=== PATIENT | female | born 1955 ===

== ENCOUNTER 2020-04-29 | Outpatient (REF) | payer MEDICARE, MEDICAID, SELFPAY | END 2020-04-29 00:01 | disposition home or self-care (01) | LOC: HO.LNP | PROVIDERS: Visit Provider Nurse Practitioner Family | DX: N39.0 Urinary tract infection, site not specified (principal) | CPT/HCPCS: 87086 ==

== ENCOUNTER 2020-06-13 10:16 | Outpatient (REF) | payer MEDICARE, MEDICAID, SELFPAY ==
[2020-06-13 12:14] LABS: Glucose Urine UA NEG (NEG); Leukocyte Esterase Urine NEG (NEG); Nitrite Urine NEG (NEG); Specific Gravity - Urine 1.025 (1.005-1.025); Urine Blood 2+ (NEG); Urine Ketones NEG (NEG); Urine Protein NEG (NEG-TRACE)
[2020-06-13 12:15] LABS: Appearance Urine HAZY; Color Urine YELLOW
[2020-06-13 12:22] LABS: MANUAL DIFF FLAG NO
[2020-06-13 12:24] LABS: Basophils Percent Auto 0.5 % (0-2); Eosinophils Absolute Auto 0.1 X10*3/uL (0.0-0.4); Eosinophils Percent Auto 1.3 % (0-4); Hematocrit 43.1 % (37-47); Hemoglobin 13.7 g/dl (12.0-16.0); Imm Gran Abs Auto 0.01 X10*3/uL (0.00-0.03); Imm Gran Pct Auto 0.3 % (0.0-0.4); Lymphocytes Absolute Auto 1.6 X10*3/uL (1.2-4.9); Lymphocytes Percent Auto 40.1 % (20-40); Mean Corpuscular HGB Conc 31.8 g/dl (31.0-35.0); Mean Corpuscular Hemoglobin 27.6 pg (27.0-33.0); Mean Corpuscular Volume 86.7 fL (80-98); Monocytes Absolute Auto 0.2 X10*3/uL (0.1-1.2); Monocytes Percent Auto 5.8 % (2-11); Neutrophils Absolute Auto 2.1 X10*3/uL (2.0-8.3); Platelet Count 254 X10*3/uL (160-400); Red Blood Count 4.97 X10*6/uL (4.20-5.50); Red Cell Distribution Width 14.3 % (11.0-16.0); White Blood Count 3.9 X10*3/uL (4.8-10.8)
[2020-06-13 12:25] LABS: RBC Urine 0-2 /HPF (0); Squamous Epithelial Cell Urine TRACE /LPF; WBC Urine 0 /HPF (0-4)
[2020-06-13 12:53] LABS: Alanine Aminotransferase 24 U/L (0-31); Albumin Level 4.1 g/dL (3.5-5.0); Alkaline Phosphatase 88 U/L (39-117); Anion Gap 10 (12-20); Aspartate Amino Transferase 19 U/L (5-31); Bilirubin Total 0.5 mg/dL (0.0-1.0); Blood Urea Nitrogen 14 mg/dL (9-16); Calcium 8.9 mg/dL (8.4-10.2); Carbon Dioxide 28 mmol/L (22-29); Chloride 104 mmol/L (96-108); Estimated Glomerular Filt Rate > 60; Glucose Random 91 mg/dL (60-115); Potassium 4.3 mmol/l (3.3-5.1); Sodium 138 mmol/L (135-145); Total Protein 7.4 g/dL (6.5-8.0)
== END 2020-06-13 10:17 | disposition home or self-care (01) ==
LOC: HO.LAB 10:16
PROVIDERS: PCP Internal Medicine; Visit Provider Internal Medicine
DX: K76.89 Other specified diseases of liver (principal); K21.9 Gastro-esophageal reflux disease without esophagitis; N39.0 Urinary tract infection, site not specified
CPT/HCPCS: 36415; 80053; 81001; 81003; 85025

== ENCOUNTER 2020-06-18 08:48 | Outpatient (REF) | payer MEDICARE, MEDICAID, SELFPAY ==
--- NOTE | 2020-06-18 08:51 | US_ITS ---
EXAMINATION: US ABDOMEN LIMITED CLINICAL INFORMATION: Unspecified disease of liver. COMPARISON: None TECHNIQUE: Real-time imaging of the right upper quadrant abdominal viscera. FINDINGS: PANCREAS: Not visualized due to bowel gas. LIVER: Liver echotexture is increased, probably representing fatty infiltration. There is a 4.6 x 4 x 3.5 cm hypoechoic area in the central liver anterior to the main portal vein, question representing a complex cyst or fluid collection.There is no intrahepatic biliary duct dilatation seen. GALLBLADDER: Surgically absent. COMMON BILE DUCT: Normal in caliber measuring 0.7 cm in diameter. RIGHT KIDNEY: Normal. No hydronephrosis. No renal calculi or focal parenchymal lesions. The kidney measures 10.1 cm in maximum dimension. FREE FLUID: None. US/US abdomen limited IMPRESSION: Echogenic liver probably representing fatty infiltration. 4.6 x 4 x 3.5 cm central periportal complex cyst or fluid collection. Comparison with old outside exams available is recommended. Otherwise, this could be better characterization with CT or MRI. Nonvisualization of the pancreas.
== END 2020-06-18 08:49 | disposition home or self-care (01) ==
LOC: HO.US 08:48
PROVIDERS: PCP Internal Medicine; Visit Provider Internal Medicine
DX: K76.89 Other specified diseases of liver (principal)
CPT/HCPCS: 76705

== ENCOUNTER 2020-07-05 11:24 | Outpatient (REF) | payer MEDICARE, MEDICAID, SELFPAY ==
[2020-07-05 12:08] LABS: MANUAL DIFF FLAG NO
[2020-07-05 12:09] LABS: Glucose Urine UA NEG (NEG); Leukocyte Esterase Urine NEG (NEG); Nitrite Urine NEG (NEG); PH 6.5 (5.0-8.0); Urine Blood 2+ (NEG); Urine Ketones NEG (NEG); Urine Protein NEG (NEG-TRACE)
[2020-07-05 12:11] LABS: Appearance Urine HAZY; Color Urine YELLOW
[2020-07-05 12:17] LABS: Basophils Percent Auto 0.7 % (0-2); Eosinophils Absolute Auto 0.1 X10*3/uL (0.0-0.4); Eosinophils Percent Auto 1.1 % (0-4); Hematocrit 43.3 % (37-47); Hemoglobin 13.9 g/dl (12.0-16.0); Imm Gran Abs Auto 0.02 X10*3/uL (0.00-0.03); Imm Gran Pct Auto 0.5 % (0.0-0.4); Lymphocytes Absolute Auto 1.8 X10*3/uL (1.2-4.9); Lymphocytes Percent Auto 41.3 % (20-40); Mean Corpuscular HGB Conc 32.1 g/dl (31.0-35.0); Mean Corpuscular Hemoglobin 27.4 pg (27.0-33.0); Mean Corpuscular Volume 85.4 fL (80-98); Mean Platelet Volume 9.7 fL (9.4-12.3); Monocytes Absolute Auto 0.3 X10*3/uL (0.1-1.2); Neutrophils Absolute Auto 2.2 X10*3/uL (2.0-8.3); Neutrophils Percent Auto 49.4 % (45-73); Platelet Count 254 X10*3/uL (160-400); Red Blood Count 5.07 X10*6/uL (4.20-5.50); Red Cell Distribution Width 14.4 % (11.0-16.0); White Blood Count 4.4 X10*3/uL (4.8-10.8)
[2020-07-05 12:27] LABS: Bacteria Urine TRACE /LPF; Mucus Urine TRACE /LPF; Squamous Epithelial Cell Urine 3+ /LPF; WBC Urine 0 /HPF (0-4)
== END 2020-07-05 11:25 | disposition home or self-care (01) ==
LOC: HO.LAB 11:24
PROVIDERS: PCP Internal Medicine; Visit Provider Internal Medicine
DX: D72.819 Decreased white blood cell count, unspecified (principal); R30.0 Dysuria
CPT/HCPCS: 36415; 81001; 85025

== ENCOUNTER → 2020-07-19 11:32 | Outpatient (BNVA) | payer MEDICARE, MEDICAID, SELFPAY | PROVIDERS: PCP Internal Medicine; Visit Provider Internal Medicine Gastroenterology | DX: Z13.89 Encounter for screening for other disorder (principal) | CPT/HCPCS: Q3014 ==

== ENCOUNTER 2020-07-25 07:56 | Outpatient (REF) | payer MEDICARE, MEDICAID, SELFPAY ==
--- NOTE | ~2020-07-25 | MR_ITS ---
EXAMINATION: MR ABDOMEN WITHOUT AND WITH CONTRAST CLINICAL INFORMATION: Probable hepatic steatosis. Hypoechoic lesion liver on ultrasound 4.6 x 3.5 cm. COMPARISON: Ultrasound abdomen 06/18/2020 TECHNIQUE: MR abdomen was performed without and with use of 9 mL intravenous Gadavist gadolinium contrast. Postcontrast images are performed in multiphase dynamic sequences. Imaging was performed in 3 planes. FINDINGS: LUNG BASES: The visualized lung bases are unremarkable. LIVER, GALLBLADDER, AND BILIARY TREE: The liver is normal in size measuring 17 cm in length. The liver surface is smooth. There is signal loss on out of phase imaging consistent with hepatic steatosis. There is been prior cholecystectomy. No intrahepatic ductal dilatation. The common duct is unremarkable, under 4 mm in caliber. There is a macrolobulated cyst in the gallbladder fossa extending into the interlobar fissure measuring 4.3 x 4.1 cm. This is uniformly high signal on T2 with high signal precontrast T1 gradient sequence. There is no internal or peripheral dephasing to suggest old hematoma. There is no enhancement following contrast, signal intensity precontrast is 605 and post contrast 597 arterial phase, and 598 delayed phase. There is no parenchymal enhancing lesion or lesion with delayed washout in the liver. Several hepatic cysts are present, largest subcapsular segment 7 measuring 2.6 cm. There is a cyst anterior dome right lobe measuring 1.8 x 1.3 cm and 3 smaller cysts inferior right lobe measuring 1.6 cm, 1.4 cm, and under 1 cm, respectively. PANCREAS: Unremarkable. SPLEEN: Normal. ADRENAL GLANDS: Normal. KIDNEYS AND URETERS: The kidneys are normal in size and show no hydronephrosis. There is symmetric enhancement. Small hemorrhagic cyst is present between upper and midpole left kidney measuring approximately 1.2 cm. GASTROINTESTINAL TRACT: No bowel obstruction. No ascites or fluid collection. ABDOMINAL WALL: No significant hernia is appreciated. LYMPH NODES: No lymphadenopathy. VASCULAR: Abdominal aorta normal in caliber. Hepatic veins and portal veins enhance normally. OSSEOUS STRUCTURES: No acute bony abnormality. MR/MR abdomen wo/w con IMPRESSION: 1. Prior cholecystectomy. No biliary ductal dilatation. 2, Nonenhancing high signal lesion gallbladder fossa 4.3 cm x 4.1 cm likely cyst or non-obstructing biloma with increased signal from protein content. No dephasing to suggest old hematoma. 2. Several hepatic cysts, largest 2.6 cm. 3. Small hemorrhagic cyst left kidney 1.2 cm.
== END 2020-07-25 07:57 | disposition home or self-care (01) ==
LOC: HO.MRI 07:56
PROVIDERS: Visit Provider Internal Medicine Gastroenterology
DX: K76.89 Other specified diseases of liver (principal)
CPT/HCPCS: 74183; A9585

== ENCOUNTER 2020-07-31 10:45 | Outpatient (REF) | payer MEDICARE, MEDICAID, SELFPAY ==
[2020-07-31 12:01] LABS: Blood Urea Nitrogen 11 mg/dL (9-16); Estimated Glomerular Filt Rate > 60
[2020-08-01 11:17] LABS: Alpha Fetoprotein 8.5 ng/mL; Carbohydrate Antigen 19-9 37 U/mL (<34)
== END 2020-07-31 10:46 | disposition home or self-care (01) ==
LOC: HO.LAB 10:45
PROVIDERS: Visit Provider Internal Medicine Gastroenterology
DX: K76.89 Other specified diseases of liver (principal)
CPT/HCPCS: 36415; 82105; 82378; 82565; 84520; 86301

== ENCOUNTER → 2020-08-13 13:02 | Outpatient (BNV) | payer MEDICARE, MEDICAID, SELFPAY | PROVIDERS: PCP Internal Medicine; Referring Provider Internal Medicine; Visit Provider Internal Medicine | DX: D72.819 Decreased white blood cell count, unspecified (principal); E53.8 Deficiency of other specified B group vitamins | CPT/HCPCS: 99203; 99213; 99214 ==

== ENCOUNTER → 2020-08-26 08:48 | Outpatient (BNVA) | payer MEDICARE, MEDICAID, SELFPAY | PROVIDERS: PCP Internal Medicine; Visit Provider Internal Medicine Gastroenterology | DX: K76.0 Fatty (change of) liver, not elsewhere classified (principal); K76.89 Other specified diseases of liver; K21.9 Gastro-esophageal reflux disease without esophagitis | CPT/HCPCS: 99212 ==

== ENCOUNTER 2020-12-06 11:18 | Outpatient (REF) | payer MEDICARE, MEDICAID, SELFPAY ==
[2020-12-06 13:19] LABS: Folate 17.2 ng/mL (> or = 4.0); Vitamin B12 378 pg/mL (200-900)
[2020-12-06 14:46] LABS: Glucose Urine UA NEG (NEG); Leukocyte Esterase Urine 1+ (NEG); Nitrite Urine NEG (NEG); UACC Culture Trigger YES; Urine Blood TRACE (NEG); Urine Ketones NEG (NEG); Urine Protein NEG (NEG-TRACE)
[2020-12-06 15:03] LABS: Appearance Urine CLEAR; Color Urine YELLOW
[2020-12-06 15:19] LABS: Renal Epithelial Cells Urine TRACE /LPF; Squamous Epithelial Cell Urine 1+ /LPF; WBC Urine 0-2 /HPF (0-4)
== END 2020-12-06 11:19 | disposition home or self-care (01) ==
LOC: HO.LAB 11:18
PROVIDERS: PCP Internal Medicine; Visit Provider Internal Medicine
DX: E53.8 Deficiency of other specified B group vitamins (principal); R30.0 Dysuria
CPT/HCPCS: 36415; 81001; 81003; 82607; 82746; 87086

== ENCOUNTER 2020-12-24 08:39 | Day surgery (SDC) | payer MEDICARE, MEDICAID, SELFPAY ==
[2020-12-19 11:25] VITALS: BMI 34.0
--- NOTE | 2020-12-23 09:35 | P.CONAN_ITS ---
Documented by User: Karmen Roque 12/23/20 09:36 HPI - Anesthesia Eval Consult details Narrative: 65yo F for Upper Endoscopy and Colon[facility] Active Problems Active Problems: All Active Problems (Updated 11/28/20 @ 09:15 by Rosaura Hunt MD) UTI (urinary tract infection) (Acute) B12 deficiency (Acute) NAFL (nonalcoholic fatty liver) (Acute) Microscopic hematuria (Acute) Leukopenia (Acute) Liver cyst (Acute) Anxiety (Acute) GERD (gastroesophageal reflux disease) (Acute) Medicare annual wellness visit, initial (Acute) Papilloma of external ear (Acute) Otitis media (Acute) Urinary tract infection (Acute) Past Medical History Medical History Anxiety B12 deficiency Diverticulosis GERD (gastroesophageal reflux disease) Hemorrhoids Leukopenia Liver cyst Medicare annual wellness visit, initial Microscopic hematuria UTI (urinary tract infection) Family History Family History Mother Lung cancer Father Cancer of esophagus Surgical History Surgical History History of cholecystectomy Social History Social History Household Members: Family Household Members Other:: grandchildren Housing: House Housing Other:: lives with daughter and 2 grandkids Alcohol intake: former Patient Tobacco Use Status: Never used Tobacco e-Cigarette/Vaping Use: Never Used Second Hand Smoke Exposure: No Use of substances other than those prescribed or required for medical reasons: No Are you DNR?: No Advance Directives: No Advance Directives Information Provided: Yes service: No Current occupational status: unemployed Meds Allergies Allergy/AdvReac Type Severity Reaction Status Date / Time No Known Allergies Allergy Verified 11/28/20 08:41 Home Medications Medication Instructions Recorded Confirmed Last Taken Type zolpidem 10 mg tablet 10 mg PO BEDTIME tab 05/24/20 11/28/20 Unknown History escitalopram oxalate [Lexapro] 1 tab PO BEDTIME 09/18/20 11/28/20 Unknown History Exam Exam Date and Time: December 23, 2020 0935 Height,Weight and Vital Signs: Height 5 ft 4 in Weight 89.811 kg Assessment and Plan Assessment Anesthesia Assessment: Chart Reviewed Documented by User: Lillian Sanchez 12/24/20 10:19 PMFSH Past Medical History Medical History Anxiety B12 deficiency Diverticulosis GERD (gastroesophageal reflux disease) Hemorrhoids Leukopenia Liver cyst Medicare annual wellness visit, initial Microscopic hematuria UTI (urinary tract infection) Family History Family History Mother Lung cancer Father Cancer of esophagus Surgical History Surgical History History of cholecystectomy Social History Social History Household Members: Family Household Members Other:: grandchildren Housing: House Housing Other:: lives with daughter and 2 grandkids Alcohol intake: former Patient Tobacco Use Status: Never used Tobacco e-Cigarette/Vaping Use: Never Used Second Hand Smoke Exposure: No Use of substances other than those prescribed or required for medical reasons: No Are you DNR?: No Advance Directives: No Advance Directives Information Provided: Yes service: No Current occupational status: unemployed Meds Allergies Allergy/AdvReac Type Severity Reaction Status Date / Time No Known Allergies Allergy Verified 11/28/20 08:41 Home Medications Medication Instructions Recorded Confirmed Last Taken Type zolpidem 10 mg tablet 10 mg PO BEDTIME tab 05/24/20 11/28/20 Unknown History escitalopram oxalate [Lexapro] 1 tab PO BEDTIME 09/18/20 11/28/20 Unknown History Exam Airway Mallampati Class: II TM Dist: >3cm Neck ROM: Full Loose/Missing/Broken Teeth: No Heart: RRR Lungs: CTA Assessment and Plan Assessment Anesthesia Assessment: Anesthesia Plan Discussed and Chart Reviewed Final Anesthetic Review NPO: Yes ASA Class: II Final Preanesthetic Review: Meds/Allgs Chart Reviewed and Consent Obtained/Re viewed Patient Risk: Low Procedure Risk: Intermediate Anesthetic Plan Anesthetic Plan: MAC: Disposition: Standard PACU
--- NOTE | 2020-12-24 09:05 | MHC.SHP ---
Pre-Procedural Eval Section A Date of Service: 12/24/20 The patient is an INPATIENT: No The History & Physical has been completed within 30 days and I have reviewed it.: No Section B Chief Complaint: GERD, NAFL Details of Present Illness: Colon cancer screening, constipation, abdominal pain Relevant Family History (Specify if Yes): Yes Relevant Social History: None Present Medications: see Short Stay Collaborative assessment Medical History: Significant History (Anxiety Diverticulosis GERD (gastroesophageal reflux disease) Hemorrhoids Leukopenia Liver cyst Medicare annual wellness visit, initial Microscopic hematuria) History of Previous Operations: Relevant previous surgery/procedure and date(s) (History of cholecystectomy) Allergies: Allergies Allergy/AdvReac Type Severity Reaction Status Date / Time No Known Allergies Allergy Verified 11/28/20 08:41 Review of Systems Sugical H&P ROS: Negative: Constitution, Cardiovascular and Respiratory and Yes, Specify: Gastrointestinal (abdominal pain) Exam Surgical H&P Exam: Normal: Heart, Normal: Lungs, Normal: Extremities and Normal: Abdomen Plan Diagnosis/Plan: Unchanged I have reviewed the history and physical and performed a pertinent physical examination on my patient. No changes have occurred unless specified.
[2020-12-24 09:34] VITALS: BP 139/85; PULSE 72; RESP 16; TEMP 36.6; O2SAT 97; BMI 33.6
[2020-12-24] MEDS: Lactated Ringers 1,000 ML 100 ML IVCONT (09:41)
[2020-12-24 11:27] VITALS: BP 110/78; PULSE 92; RESP 18; TEMP 36.1; O2SAT 100
[2020-12-24 11:42] VITALS: BP 142/96; PULSE 85; O2SAT 96
[2020-12-24] MEDS: ondansetron HCL 4 MG/2 ML VIAL IVPUSH (11:45)
--- NOTE | 2020-12-24 11:47 | PC.NURSE ---
MEDICATED FOR NAUSEA. C/O LOWER abd pain. dry frothy sputum. no blood noted. medicated for nausea. fcial grimace holding abdomen. abd soft. apn called.
--- NOTE | 2020-12-24 11:54 | PC.NURSE ---
C/O AMELIA ABD PAIN. ENCOURAGED TO MOVE AROUND AND PASS GAS. NAUSEA GETTING BETTTER. SHIVERING. APPLIED WARM BLANKETS. ASKING FOR WATER. WATER GIVEN. RERE WATER.
[2020-12-24 11:57] VITALS: BP 141/97; PULSE 80; RESP 18; TEMP 36.9; O2SAT 97
--- NOTE | 2020-12-24 11:57 | PC.NURSE ---
PATIENT STATED SHE HAD MILD ABD PAIN WHEN SHE ARRIVED BEFORE HER PROCEDURE AND NOW HAS AMELIA ABD PAIN. FACIAL GRIMACE. ABD REMAINS SOFT. NO RECTAL BLEEDING NOTED. HOB 45 DEGREES. DECREASED NAUSEA. 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 AWAITING FOR MD CHRISTOS RICHARD.
--- NOTE | 2020-12-24 12:03 | PC.NURSE ---
applied warm blanket to andra abd pain. hob 45 degrees.
[2020-12-24 12:12] VITALS: BP 154/131; PULSE 73; RESP 16; O2SAT 97
[2020-12-24 12:25] VITALS: BP 147/90; PULSE 74; RESP 16; O2SAT 98
--- NOTE | 2020-12-24 13:01 | PC.NURSE ---
patient is a 4/10 abd pain. no longer having facial grimaces. no nausea. md mancini stated its ok to go home. attemtpted going to the bathroom but still no flatus.
--- NOTE | 2020-12-24 17:53 | W.PM.OPN ---
Operative Note Operative Note Date of Service: 12/24/20 Narrative: Pre-op diagnosis: Colon cancer screening, constipation alternating with diarrhea, abdominal pain, nausea, GERD Post-op diagnosis: other (Gastritis, colon polyps, diverticulosis) Procedure: FLEXIBLE TRANSORAL UPPER GASTROINTESTINAL ENDOSCOPY WITH BIOPSIES AND COLONOSCOPY TILL CECUM WITH BIOPSIES, SNARE POLYPECTOMY AND SUBMUCOSAL INJECTION UPPER ENDOSCOPY Consent: Indications for the procedure and potential complications of bleeding, perforation, reaction to medications and missed diagnosis were discussed with the patient and informed consent was obtained. Instrument: Olympus GIF H 190 mid size upper endoscope Monitoring: Vital signs and clinical assessment, continuous EKG monitoring, Pulse oximetry, Carbon Dioxide monitoring and blood pressure monitoring were done throughout the procedure. Procedure: The patient was placed in the left lateral decubitis position and pre-procedure medications were administered and a bite block was placed. The endoscope was inserted into the mouth and advanced under direct vision to the third part of duodenum. A careful inspection was made as the upper endoscope was withdrawn including a retroflexed examination of the proximal stomach; Findings and interventions are described below. Findings: Larynx: Normal Esophagus: GE junction at 36 cms. No esophagitis or Malone's. Stomach: Mild gastric erythema. Biopsies were obtained. Grade 3 flap valve on retroflexed examination of the cardia. Duodenum: Normal bulb and descending duodenum. Biopsies were obtained from 3rd part of duodenum to check for celiac sprue. Intervention: Biopsies as noted above COLONOSCOPY PROCEDURE NOTE Consent: Indications for the procedure and potential complications of bleeding, perforation, reaction to medications and missed diagnosis were discussed with the patient and informed consent was obtained. Instrument: Olympus PCF H 190 L variable stiffness pediatric colonoscope Monitoring: Vital signs and clinical assessment, intermittent blood pressure monitoring, continuous EKG monitoring, Pulse oximetry and Carbon Dioxide monitoring were done throughout the procedure. Colon withdrawl time was 30 minutes. Procedure: The patient was placed in the left lateral decubitis position and pre-procedure medications were administered. After a digital rectal examination of the ano-rectum, the video colonoscope was inserted into the rectum and advanced through the colon to the cecum. The colonoscope was slowly withdrawn in a retrograde panoramic fashion and the colon mucosa was carefully examined including a retroflexed view of the rectum. Findings and interventions are described below. Procedure Difficulty: Colon was long and tortuous and there was some loop formation and diverticular narrowing in the sigmoid colon. No maneuvers required Findings: Terminal Ileum: Not evaluated Cecum: A 10-12 mm flat polyp at appendicular orifice raised with 7 cc of Orise solution and inadvertantly removed with a cold snare Ascending Colon: A 4-5 mm sessile polyp in the proximal ascending colon removed with the cold biopsy. Moderate diverticulosis Transverse Colon: Moderate diverticulosis Descending Colon: Moderate diverticulosis Sigmoid Colon: A 12-15 mm sessile polyp removed with a hot snare. Severe diverticulosis with luminal narrowing Rectum: Normal Ano-rectum: Normal Colon preparation: Good after copious irrigation Impression and Post Procedure Diagnosis: Endoscopy Findings: ESOPHAGUS: Normal STOMACH: Gastritis DUODENUM: Normal - biopsied to check for celiac sprue Colonoscopy Findings: Three small to medium sized polyps removed Random biopsies obtained from the colon Moderate to severe diverticulosis seen in the entire colon No source found for abdominal pain Plan: Await pathology results Patient has an appointment on 01/13/21 in the [facility] with Karon Anders M.D.. Repeat Colonoscopy interval based on path results - in 3-5 years if polyps are adenomatous and 10 years if polyps are hyperplastic. Above findings were reviewed with the patient and Gastritis, colon polyps and diverticulosis handouts were given in the discharge area ADDENDUM: Pt complained of nausea and some worsening of her chronic abdominal pain. Nausea resolved with Zofran. Abdominal pain improved after pt passed some gas. Surgeon: Karon Anders MD Anesthesia: MAC (Dr Sanchez) Was an Identity Management Developer used for this Procedure?: No Identity Management Developer: Michael Connell Estimated blood loss (mL): 0 Pathology: other (A- SMALL BOWEL BXS R/O CELIAC B- GASTRIC ANTRUM BXS R/O H.PYLORI C- ASCENDING COLON POLYP D- CECAL POLYP (O-RISE) E- RANDOM COLON BXS R/O MICROSCOPIC COLITIS F- SIGMOID C) Condition: stable Disposition: PACU
== END 2020-12-24 13:40 | disposition home or self-care (01) ==
PROVIDERS: PCP Internal Medicine; Visit Provider Internal Medicine Gastroenterology
PROC: (CPT 45385; principal; 2020-12-24 09:50)
DX: Z12.11 Encounter for screening for malignant neoplasm of colon (principal); D12.2 Benign neoplasm of ascending colon; D12.5 Benign neoplasm of sigmoid colon; K57.30 Diverticulosis of large intestine without perforation or abscess without bleeding; K59.00 Constipation, unspecified; K21.9 Gastro-esophageal reflux disease without esophagitis; K29.50 Unspecified chronic gastritis without bleeding; K76.0 Fatty (change of) liver, not elsewhere classified; E53.8 Deficiency of other specified B group vitamins; Z79.899 Other long term (current) drug therapy; Z90.49 Acquired absence of other specified parts of digestive tract
CPT/HCPCS: 45385; 45380; 45381; 43239; 88305; 88342; J2405

== ENCOUNTER 2020-12-26 12:44 | Outpatient (REF) | payer MEDICARE, MEDICAID, SELFPAY ==
--- NOTE | ~2020-12-26 | XR_ITS ---
EXAMINATION: XR SHOULDER, RIGHT CLINICAL INFORMATION: Right shoulder pain. COMPARISON: None TECHNIQUE: AP external rotation, Grashey, scapular Y, and axillary views of the right shoulder. FINDINGS: Small acromioclavicular marginal osteophytes. No glenohumeral joint space narrowing. No acute fracture or subluxation. No abnormal soft tissue calcification. XR/XR shoulder RT min 2V IMPRESSION: Mild acromioclavicular osteoarthritis.
--- NOTE | ~2020-12-26 | US_ITS ---
EXAMINATION: US VENOUS WITH DOPPLER UPPER EXTREMITY, RIGHT CLINICAL INFORMATION: Right upper extremity swelling/edema. Evaluate for a deep vein thrombosis. COMPARISON: None. TECHNIQUE: Ultrasound of the upper extremity is performed using compression sonography and color and pulse Doppler flow with assessment of augmentation of flow. There is also imaging and Doppler assessment of the jugular and subclavian veins. Spectral analysis with color-flow imaging is performed. FINDINGS: Respiratory variation, normal compression, and augmented flow are noted throughout the upper extremity including the axillary, brachial, cubital, and radial and ulnar veins. There is normal flow in the internal jugular and subclavian veins. There is no visible deep or superficial thrombophlebitis. If the patient's symptoms progress, a followup ultrasound in 5 -7 days might be of value to exclude proximal propagation from a nonvisualized distal arm vein. US/US venous duplex UE RT IMPRESSION: No DVT demonstrated in the right upper extremity.
== END 2020-12-26 12:45 | disposition home or self-care (01) ==
LOC: HO.US 12:44
PROVIDERS: PCP Internal Medicine; Visit Provider Nurse Practitioner Family
DX: R60.0 Localized edema (principal); M25.511 Pain in right shoulder; M79.89 Other specified soft tissue disorders
CPT/HCPCS: 73030; 93971

== ENCOUNTER → 2021-01-13 08:28 | Outpatient (BNVA) | payer MEDICARE, MEDICAID, SELFPAY | PROVIDERS: Visit Provider Internal Medicine Gastroenterology | DX: K21.9 Gastro-esophageal reflux disease without esophagitis (principal); K76.0 Fatty (change of) liver, not elsewhere classified; R10.31 Right lower quadrant pain; E53.8 Deficiency of other specified B group vitamins; Z86.010 Personal history of colon polyps; Z79.899 Other long term (current) drug therapy | CPT/HCPCS: Q3014 ==

== ENCOUNTER 2021-02-07 10:06 | Outpatient (REF) | payer MEDICARE, MEDICAID, SELFPAY ==
[2021-02-11 09:40] LABS: Transglutaminase Ab IgG 5 U/mL; Transglutaminase IgA 1 U/mL
== END 2021-02-07 10:07 | disposition home or self-care (01) ==
LOC: HO.LAB 10:06
PROVIDERS: Absent Provider Internal Medicine; PCP Internal Medicine; Visit Provider Internal Medicine Gastroenterology
DX: R10.11 Right upper quadrant pain (principal)
CPT/HCPCS: 36415; 83516

== ENCOUNTER → 2021-02-11 14:37 | Outpatient (BNVA) | payer MEDICARE, MEDICAID, SELFPAY | PROVIDERS: PCP Internal Medicine; Referring Provider Internal Medicine; Visit Provider Surgery | DX: T81.89XA Other complications of procedures, not elsewhere classified, initial encounter (principal); K66.8 Other specified disorders of peritoneum | CPT/HCPCS: 99202 ==

== ENCOUNTER 2021-02-24 14:28 | Outpatient (REF) | payer MEDICARE, MEDICAID, SELFPAY ==
--- NOTE | ~2021-02-24 | XR_ITS ---
EXAMINATION: XR CHEST CLINICAL INFORMATION: Cough COMPARISON: None TECHNIQUE: 2 views of the chest were obtained. FINDINGS: Cardiac silhouette is normal in size. Hypoinflated lung. Mild asymmetrical elevation of the right hemidiaphragm. No lobar consolidation. No pleural effusion or pneumothorax. Mild degenerative changes of the spine. Old healed left lateral rib fracture. XR/XR chest 2V IMPRESSION: No acute pulmonary pathology.
== END 2021-02-24 14:29 | disposition home or self-care (01) ==
LOC: HO.XRAY 14:28
PROVIDERS: PCP Internal Medicine; Visit Provider Internal Medicine
DX: R05 Cough (principal)
CPT/HCPCS: 71046

== ENCOUNTER 2021-03-04 13:00 | Outpatient (REF) | payer MEDICARE, MEDICAID, SELFPAY ==
[2021-03-04 17:00] LABS: Urine Cytology See Pathology rpt
== END 2021-03-04 13:01 | disposition home or self-care (01) ==
LOC: HO.LNP 13:00
PROVIDERS: PCP Internal Medicine
DX: R31.29 Other microscopic hematuria (principal); N32.81 Overactive bladder
CPT/HCPCS: 81002; 88112; 99202

== ENCOUNTER 2021-03-28 13:01 | Outpatient (REF) | payer MEDICARE, MEDICAID, SELFPAY ==
--- NOTE | ~2021-03-28 | US_ITS ---
EXAMINATION: US RETROPERITONEAL LIMITED (RENAL ONLY) CLINICAL INFORMATION: Hematuria, unspecified. COMPARISON: Limited abdominal ultrasound 06/18/2020. TECHNIQUE: Real-time imaging of the kidneys. FINDINGS: RIGHT KIDNEY: 11.0 x 6.1 x 5.5 cm (SAG x AP x TRV). The kidney is normal in size, contour, and echogenicity. Renal cortical thickness is normal. No calculi or focal parenchymal lesions. No hydronephrosis. LEFT KIDNEY: 10.1 x 5.2 x 5.5 cm (SAG x AP x TRV). The kidney is normal in size, contour, and echogenicity. Renal cortical thickness is normal. No calculi or focal parenchymal lesions. No hydronephrosis. US/US renal BI IMPRESSION: Unremarkable renal ultrasound.
== END 2021-03-28 13:02 | disposition home or self-care (01) ==
LOC: HO.HMGCX 13:01
PROVIDERS: PCP Internal Medicine; Visit Provider Urology
DX: R31.9 Hematuria, unspecified (principal)
CPT/HCPCS: 76775

== ENCOUNTER → 2021-04-17 08:25 | Outpatient (BNVA) | payer MEDICARE, MEDICAID, SELFPAY | PROVIDERS: PCP Internal Medicine; Referring Provider Internal Medicine; Visit Provider Internal Medicine Gastroenterology | DX: K66.8 Other specified disorders of peritoneum (principal); T81.89XA Other complications of procedures, not elsewhere classified, initial encounter; E53.8 Deficiency of other specified B group vitamins; K21.9 Gastro-esophageal reflux disease without esophagitis; K76.89 Other specified diseases of liver; Z86.010 Personal history of colon polyps | CPT/HCPCS: 99212 ==

== ENCOUNTER 2021-04-23 09:56 | Outpatient (REF) | payer MEDICARE, MEDICAID, SELFPAY | END 2021-04-23 09:57 | disposition home or self-care (01) | LOC: HO.LAB 09:56 | PROVIDERS: PCP Internal Medicine | DX: N39.41 Urge incontinence (principal); R31.9 Hematuria, unspecified | CPT/HCPCS: 51798; 87086; 99212 ==

== ENCOUNTER 2021-05-05 09:46 | Outpatient (REF) | payer MEDICARE, MEDICAID, SELFPAY ==
[2021-05-05 10:56] LABS: Alanine Aminotransferase 27 U/L (0-31); Albumin Level 3.9 g/dL (3.5-5.0); Alkaline Phosphatase 78 U/L (39-117); Anion Gap 10 (12-20); Aspartate Amino Transferase 20 U/L (5-31); Bilirubin Total 0.4 mg/dL (0.0-1.0); Blood Urea Nitrogen 11 mg/dL (9-16); Calcium 8.7 mg/dL (8.4-10.2); Carbon Dioxide 27 mmol/L (22-29); Chloride 107 mmol/L (96-108); Cholesterol 193 mg/dL; Estimated Glomerular Filt Rate > 60; Glucose Fasting 104 mg/dL (60-99); HDL Cholesterol 42 mg/dL; LDL Cholesterol Calculated 125 mg/dl; Potassium 4.2 mmol/L (3.3-5.1); Sodium 140 mmol/L (135-145); Thyroid Stimulating Hormone 0.66 uIU/mL (0.32-4.0); Total Protein 7.1 g/dL (6.5-8.0); Triglycerides 133 mg/dL
== END 2021-05-05 09:47 | disposition home or self-care (01) ==
LOC: HO.LAB 09:46
PROVIDERS: PCP Internal Medicine; Visit Provider Internal Medicine
DX: E66.9 Obesity, unspecified (principal); K76.0 Fatty (change of) liver, not elsewhere classified; Z68.34 Body mass index [BMI] 34.0-34.9, adult
CPT/HCPCS: 36415; 80053; 80061; 84443

== ENCOUNTER → 2021-05-21 13:52 | Outpatient (BNVA) | payer MEDICARE, MEDICAID, SELFPAY | PROVIDERS: PCP Internal Medicine; Visit Provider Urology | DX: N32.81 Overactive bladder (principal); R39.12 Poor urinary stream | CPT/HCPCS: 52000; 99212 ==

== ENCOUNTER 2021-05-28 17:12 | Outpatient (REF) | payer MEDICARE, MEDICAID, SELFPAY ==
--- NOTE | ~2021-05-28 | US_ITS ---
EXAMINATION: US VENOUS ULTRASOUND WITH DOPPLER LOWER EXTREMITY, LEFT CLINICAL INFORMATION: Pain COMPARISON: None TECHNIQUE: Ultrasound of the deep veins is performed from the hip to the calf with compression sonography and color and pulse Doppler assessment. Spectral analysis with color-flow imaging is performed. FINDINGS: There is normal venous compression and respiratory variation and augmented flow. The visualized common femoral vein, superficial femoral vein, profunda femoral vein, popliteal vein, and the trifurcation region shows no evidence of deep venous thrombosis. There is no significant popliteal fossa cyst. US/US venous duplex LE LT IMPRESSION: No DVT demonstrated in the left lower extremity.
== END 2021-05-28 17:13 | disposition home or self-care (01) ==
LOC: HO.US 17:12
PROVIDERS: Visit Provider Internal Medicine
DX: M79.605 Pain in left leg (principal)
CPT/HCPCS: 93971

== ENCOUNTER → 2021-09-04 15:00 | Outpatient (BNVA) | payer MEDICARE, MEDICAID, SELFPAY | PROVIDERS: PCP Internal Medicine | DX: N32.81 Overactive bladder (principal) | CPT/HCPCS: 51798; 99212 ==

== ENCOUNTER 2021-09-05 10:46 | Outpatient (REF) | payer MEDICARE, MEDICAID, SELFPAY ==
[2021-09-05 11:01] LABS: MANUAL DIFF FLAG NO
[2021-09-05 11:33] LABS: Basophils Percent Auto 0.4 % (0-2); Eosinophils Absolute Auto 0.1 X10*3/uL (0.0-0.4); Hemoglobin 14.3 g/dl (12.0-16.0); Imm Gran Abs Auto 0.01 X10*3/uL (0.00-0.03); Imm Gran Pct Auto 0.2 % (0.0-0.4); Lymphocytes Absolute Auto 1.6 X10*3/uL (1.2-4.9); Lymphocytes Percent Auto 36.3 % (20-40); Mean Corpuscular HGB Conc 32.5 g/dl (31.0-35.0); Mean Corpuscular Hemoglobin 27.5 pg (27.0-33.0); Mean Corpuscular Volume 84.6 fL (80.0-98.0); Mean Platelet Volume 9.7 fL (9.4-12.3); Monocytes Absolute Auto 0.4 X10*3/uL (0.1-1.2); Monocytes Percent Auto 7.8 % (2-11); Neutrophils Absolute Auto 2.4 x10*3/uL (2.0-8.3); Neutrophils Percent Auto 53.3 % (45-73); Platelet Count 248 X10*3/uL (160-400); Red Cell Distribution Width 14.2 % (11.0-16.0); White Blood Count 4.5 X10*3/uL (4.8-10.8)
[2021-09-05 12:35] LABS: Alanine Aminotransferase 39 U/L (0-31); Albumin Level 4.1 g/dL (3.5-5.0); Alkaline Phosphatase 80 U/L (39-117); Anion Gap 11 (12-20); Aspartate Amino Transferase 27 U/L (5-31); Bilirubin Total 0.7 mg/dL (0.0-1.0); Blood Urea Nitrogen 11 mg/dL (9-16); Calcium 9.5 mg/dL (8.4-10.2); Carbon Dioxide 27 mmol/L (22-29); Chloride 105 mmol/L (96-108); Cholesterol 194 mg/dL; Estimated Glomerular Filt Rate > 60; Glucose Fasting 102 mg/dL (60-99); HDL Cholesterol 46 mg/dL; LDL Cholesterol Calculated 126 mg/dl; Potassium 4.3 mmol/L (3.3-5.1); Sodium 139 mmol/L (135-145); Total Protein 7.5 g/dL (6.5-8.0); Triglycerides 112 mg/dL
[2021-09-05 12:43] LABS: Folate 14.2 ng/mL (> or = 4.0); Vitamin B12 312 pg/mL (200-900)
[2021-09-05 12:56] LABS: Thyroid Stimulating Hormone 0.64 uIU/mL (0.32-4.0); Vitamin D 25-OH Total 17.2 ng/mL (>30)
== END 2021-09-05 10:47 | disposition home or self-care (01) ==
LOC: HO.LAB 10:46
PROVIDERS: PCP Internal Medicine; Visit Provider Internal Medicine
DX: E53.8 Deficiency of other specified B group vitamins (principal); E66.9 Obesity, unspecified; Z68.34 Body mass index [BMI] 34.0-34.9, adult; E55.9 Vitamin D deficiency, unspecified; R41.3 Other amnesia; E78.5 Hyperlipidemia, unspecified; D64.9 Anemia, unspecified
CPT/HCPCS: 36415; 80053; 80061; 82306; 82607; 82746; 84443; 85025

== ENCOUNTER 2021-09-23 13:45 | Outpatient (REF) | payer MEDICARE, MEDICAID, SELFPAY ==
--- NOTE | ~2021-09-23 | MM_ITS ---
EXAMINATION: BONE DENSITOMETRY CLINICAL INDICATION: Menopause. COMPARISON: None (current study represents initial baseline exam). TECHNIQUE: Using a [employer] DXA System (software version: 13.1) manufactured by [employer], dual-energy x-ray absorptiometry was performed of the lumbar spine and left hip. The images are of good technical quality. Summary results are attached. FINDINGS: AP SPINE L1-L4: BMD 0.742 g/cm2, Z-score -2.9, T-score -3.7, osteoporosis. LEFT FEMUR, NECK: BMD 0.877 g/cm2, Z-score -0.2, T-score -1.2, osteopenia. LEFT FEMUR, TOTAL: BMD 0.980 g/cm2, Z-score 0.4, T-score -0.2, normal. IDENTIFIED RISK FACTORS: Early menopause, bilateral oophorectomy, height loss, hysterectomy, low calcium intake, osteoporosis, rheumatoid arthritis, secondary osteoporosis. HISTORY OF FRACTURE: None listed. MEDICATIONS: None listed. MM/XR DEXA axial skeleton IMPRESSION: 1. DIAGNOSIS: Osteoporosis based on the lowest T-score value of -3.7 in the lumbar spine applying World Health Organization criteria. 2. 10-YEAR FRACTURE RISK PREDICTION, FRAX: According to the guidelines, FRAX calculation should only be performed on patients in the osteopenia bone density category. Therefore, FRAX was not performed on this patient. 3. Treatment Recommendations: NOF guidelines recommend consideration for treatment in postmenopausal women and men age 50 and older presenting with the following: -A hip or vertebral (clinical or morphometric) fracture. -T-score less than or equal to -2.5 at the femoral neck or spine after appropriate evaluation to exclude secondary causes. -Low bone mass at the hip or spine and a 10-year fracture probability by FRAX of greater than or equal to 3% for hip fracture or greater than or equal to 20% for major osteoporotic fracture based on the [place] adapted WHO algorithm. 4. Other Recommendations: All treatment decisions require clinical judgment and consideration of individual patient factors, including patient preferences, comorbidities, previous drug use, risk factors not captured in the FRAX model (e.g. frailty, falls, vitamin D deficiency, increased bone turnover, interval significant decline in bone density) and possible under or overestimation of fracture risk by FRAX. Additional medical evaluation for secondary cause of low bone mineral density may be appropriate. FUTURE SCAN RECOMMENDATION: People with diagnosed cases of osteoporosis or at high risk for fracture should have regular bone mineral density tests. For patients eligible for Medicare, routine testing is allowed once every 2 years. The testing frequency can be increased to one year for patients who have rapidly progressing disease, those who are receiving or discontinuing medical therapy to restore bone mass, or have additional risk factors.
--- NOTE | ~2021-09-23 | MM_ITS ---
EXAMINATION: MM SCREENING DIGITAL BREAST TOMOSYNTHESIS, BILATERAL CLINICAL INFORMATION: Screening. Asymptomatic. Prior outside mammography from [place] currently unavailable. Prior history reduction mammoplasty. Age 66. The lifetime risk of breast cancer based on the Tyrer-Cuzick Model is 4%. COMPARISON: None. TECHNIQUE: Digital breast tomosynthesis is performed in both the craniocaudal and mediolateral oblique views along with computer-aided detection (CAD). Synthesized 2D images are generated from the tomosynthesis. Additional right cleavage view is provided. FINDINGS: The breasts are almost entirely fatty (ACR BI-RADS breast composition Category a). Background stromal densities are unremarkable. There are no significant masses, abnormal calcifications, or other abnormalities. The axilla and skin contours are unremarkable. MM/MM tomosynthesis screening BI IMPRESSION: No mammographic evidence of malignancy. ASSESSMENT: BI-RADS 1: Negative RECOMMENDATION: Routine annual mammography screening. This patient's information was entered into a reminder system with a target due date for their next mammogram.
== END 2021-09-23 13:46 | disposition home or self-care (01) ==
LOC: HO.MAMMO 13:45
PROVIDERS: PCP Internal Medicine; Visit Provider Nurse Practitioner Family
DX: Z12.31 Encounter for screening mammogram for malignant neoplasm of breast (principal); Z13.820 Encounter for screening for osteoporosis; Z78.0 Asymptomatic menopausal state; M81.0 Age-related osteoporosis without current pathological fracture
CPT/HCPCS: 77063; 77067; 77080

== ENCOUNTER → 2021-11-20 07:45 | Outpatient (BNVA) | payer MEDICARE, MEDICAID, SELFPAY | PROVIDERS: PCP Internal Medicine; Visit Provider Internal Medicine Gastroenterology | DX: K76.89 Other specified diseases of liver (principal); K59.09 Other constipation; R14.0 Abdominal distension (gaseous); K21.9 Gastro-esophageal reflux disease without esophagitis; E53.8 Deficiency of other specified B group vitamins; Z86.010 Personal history of colon polyps; R10.11 Right upper quadrant pain | CPT/HCPCS: 99212 ==

== ENCOUNTER 2021-11-26 15:56 | Outpatient (REF) | payer MEDICARE, MEDICAID, SELFPAY | END 2021-11-26 15:57 | disposition home or self-care (01) | LOC: HO.MRI 15:56 | PROVIDERS: Visit Provider Psychiatry & Neurology Neurology | DX: Z13.89 Encounter for screening for other disorder (principal) ==

== ENCOUNTER 2021-12-17 10:05 | Outpatient (REF) | payer MEDICARE, MEDICAID, SELFPAY ==
--- NOTE | ~2021-12-17 | US_ITS ---
EXAMINATION: US ABDOMEN LIMITED CLINICAL INFORMATION: Diseases of the liver. Follow up biliary cyst. COMPARISON: X-ray of the abdomen, KUB same date. Renal ultrasound 03/28/2021. MRI of the abdomen 07/25/2020. Limited abdominal ultrasound 06/18/2020. CT abdomen and pelvis 05/16/2013. TECHNIQUE: Real-time imaging of the right upper quadrant abdominal viscera. Technically difficult study secondary to bowel gas and body habitus. FINDINGS: PANCREAS: Most of the pancreas is obscured by overlying gas. LIVER: The liver is normal in size. The liver contour is normal and mildly echogenic. There are multiple anechoic cysts seen. 1. Cysts in the right lobe measures 1.6 x 1.0 x 1.8 cm, 2.7 x 2.7 x 2.5 cm, 0.6 x 0.4 x 0.6 cm and 1.1 x 0.9 x 0.9 cm. There is no intrahepatic biliary duct dilatation seen. GALLBLADDER: Surgically absent. COMMON BILE DUCT: Normal in caliber measuring 0.3 cm in diameter. RIGHT KIDNEY: Normal. No hydronephrosis. No renal calculi or focal parenchymal lesions. The kidney measures 11.1 cm in maximum dimension. FREE FLUID: None. US/US abdomen limited IMPRESSION: Multiple right hepatic lobe cysts. The liver is mildly echogenic. The pancreas is not visualized. The gallbladder has been surgically removed.
--- NOTE | ~2021-12-17 | XR_ITS ---
EXAMINATION: XR ABDOMEN KUB CLINICAL INDICATION: Constipation COMPARISON: None TECHNIQUE: AP view of the abdomen. FINDINGS: No bowel obstruction. Moderate stool burden seen particularly in the right colon. No free air. Surgical clips are seen in the right upper quadrant. Bony structures intact. XR/XR KUB IMPRESSION: Moderate stool burden observed in the right colon.
== END 2021-12-17 10:06 | disposition home or self-care (01) ==
LOC: HO.US 10:05
PROVIDERS: Visit Provider Internal Medicine Gastroenterology
DX: K59.09 Other constipation (principal); K76.89 Other specified diseases of liver
CPT/HCPCS: 74018; 76705

== ENCOUNTER 2022-02-05 09:45 | Outpatient (REF) | payer MEDICARE, MEDICAID, SELFPAY ==
[2022-02-05 10:33] LABS: Glucose Fasting 100 mg/dL (60-99)
[2022-02-05 11:02] LABS: Vitamin D 25-OH Total 25.9 ng/mL (>30)
[2022-02-05 11:16] LABS: Folate > 20.0 ng/mL (> or = 4.0); Vitamin B12 478 pg/mL (200-900)
== END 2022-02-05 09:46 | disposition home or self-care (01) ==
LOC: HO.LAB 09:45
PROVIDERS: PCP Internal Medicine; Visit Provider Internal Medicine
DX: E55.9 Vitamin D deficiency, unspecified (principal); K76.0 Fatty (change of) liver, not elsewhere classified; E53.8 Deficiency of other specified B group vitamins
CPT/HCPCS: 36415; 82306; 82607; 82746; 82947

== ENCOUNTER 2022-02-20 09:00 | Emergency (ER) | payer MEDICARE, MEDICAID, SELFPAY ==
[2022-02-20 09:21] VITALS: BP 144/85; PULSE 70; RESP 19; TEMP 36.6; O2SAT 94; BMI 36.1
[2022-02-20 10:01] LABS: Appearance Urine Turbid; Bacteria Urine None Seen (None Seen); Color Urine Dark Yellow; Glucose Urine UA Negative (Negative); Hyaline Casts Urine 0-2 /LPF (0-2); Leukocyte Esterase Urine Large (3+) (Negative); Nitrite Urine Negative (Negative); PH 5.5 (5.0-9.0); RBC Urine >20 /HPF (0-2); Specific Gravity - Urine 1.015 (1.005-1.025); UACC CULT YES; UACC Culture Trigger YES; Urine Blood Large (3+) (Negative); Urine Ketones Negative (Negative); Urine Protein 300 (3+) mg/dL (Neg-Trace); WBC Urine >50 /HPF (0-5)
--- NOTE | 2022-02-20 10:50 | ED.FEMALEGU ---
HPI - Female Genitourinary General Chief complaint: Urogenital-Female Stated complaint: blood in urine, lower abd pain Time Seen by Provider: 02/20/22 10:40 Source: patient and title 1 tutor Mode of arrival: ambulatory Limitations: language barrier History of Present Illness HPI Narrative: 66 yo female here with 2 days of urinary frequency, dysuria, hematuria and suprapubic discomfort. No abdominal pain, flank pain, vomiting or fever. Related Data Home Medications Medication Instructions Recorded Confirmed zolpidem 10 mg tablet 10 mg PO BEDTIME 05/24/20 12/17/21 escitalopram oxalate 20 mg tablet 40 mg PO DAILY 11/26/21 12/17/21 (Lexapro) Previous Rx's Medication Instructions Recorded cyanocobalamin (vitamin B-12) 1,000 mcg PO DAILY #90 tabs 08/14/20 1,000 mcg tablet (Vitamin B-12) nabumetone 750 mg tablet 750 mg PO BID 90 days #180 tabs 09/29/20 terazosin 1 mg capsule 1 mg PO BEDTIME 90 days #90 caps 05/21/21 gabapentin 100 mg capsule 100 mg PO TID 30 days #90 caps 05/28/21 folic acid 1 mg tablet 1 mg PO DAILY 90 days #90 tabs 08/14/21 fesoterodine 4 mg tablet,extended 4 mg PO DAILY 90 days #90 tabs 11/20/21 release 24 hr (Toviaz) linaclotide 145 mcg capsule 145 mcg PO QAM 30 days #30 caps 11/20/21 (Linzess) simethicone 125 mg chewable tablet 125 mg PO BID-QID PRN abdominal 11/20/21 (Gas Relief (simethicone)) distention 30 days #60 tabs cholecalciferol (vitamin D3) 50 50 mcg PO DAILY 90 days #90 caps 11/26/21 mcg (2,000 unit) capsule cyclobenzaprine 5 mg tablet 5 mg PO BEDTIME PRN muscle spasm 12/17/21 30 days #30 tabs diclofenac sodium 1 % topical gel 2 g topical QID 30 days #100 grams 12/17/21 (Voltaren Arthritis Pain) pantoprazole 40 mg tablet,delayed 40 mg PO DAILY 90 days #90 tabs 12/17/21 release cephalexin 500 mg capsule 500 mg PO TID #30 caps 09/09/22 phenazopyridine 200 mg tablet 200 mg PO TID PRN pain 6 doses #6 02/20/22 (Pyridium) tabs Allergies Allergy/AdvReac Type Severity Reaction Status Date / Time No Known Allergies Allergy Verified 12/17/21 13:59 Review of Systems Review of Systems: Yes all other systems are reviewed and are negative Constitutional: Constitutional: Reports no additional constitutional complaints, Denies body ache(s), Denies chills, Denies fever(s), Denies headache(s) and Denies weakness Eyes: Eyes: Reports no additional eye complaints and Denies change in vision ENT: Reports system reviewed and no additional complaints, except as documented, Denies dizziness, Denies headache(s), Denies nasal congestion, Denies nasal discharge and Denies neck pain Cardiovascular: Cardiovascular: Reports no additional cardiovascular complaints, Denies chest pain, Denies leg edema and Denies dyspnea Respiratory: Respiratory: Reports no additional respiratory complaints, Denies cough and Denies dyspnea Gastrointestinal: Gastrointestinal: Reports no additional gastrointestinal complaints, Denies abdominal pain, Denies diarrhea, Denies nausea and Denies vomiting Genitourinary: Genitourinary: Reports no additional female genitourinary complaints, Reports hematuria, Reports dysuria, Denies urinary incontinence and Reports urinary urgency Comments: +frequent urination, suprapubic pressure Musculoskeletal: Musculoskeletal: Reports no additional musculoskeletal complaints, Denies back pain, Denies arthralgias, Denies joint swelling, Denies neck pain, Denies numbness and Denies tingling Integumentary/Breasts: Skin/Breast: Reports system reviewed and no additional complaints, except as docu and Denies rash Neurologic: Reports system reviewed and no additional complaints, except as documented, Denies Abnormal speech present, Denies dizziness, Denies headache(s), Denies numbness, Denies tingling and Denies weakness [facility] Past Medical History Attestation statement: The following information was validated with the patient. Source: old records reviewed and nursing notes reviewed Medical History Anxiety B12 deficiency Class 1 obesity without serious comorbidity with body mass index (BMI) of 34.0 to 34.9 in adult Cough Diverticulosis Fibromyalgia GERD (gastroesophageal reflux disease) Hematuria Hemorrhoids Insomnia Left leg pain Leukopenia Liver cyst Medicare annual wellness visit, initial Memory loss Microscopic hematuria OAB (overactive bladder) Otitis media Right knee pain Urge incontinence of urine UTI (urinary tract infection) Surgical History History of cholecystectomy History of colonoscopy History of endoscopy Family History Family History Mother Lung cancer Father Cancer of esophagus Social History Social History Household Members: Family Household Members Other:: grandchildren Housing: House Housing Other:: lives with daughter and 2 grandkids Alcohol intake: former Patient Tobacco Use Status: Never used Tobacco e-Cigarette/Vaping Use: Never Used Second Hand Smoke Exposure: No Advance Directives: No Advance Directives Information Provided: Yes service: No Current occupational status: unemployed Cognitive needs: No Hearing needs: No Vision needs: No Physical Exam Vital Signs: Vital Signs: Last Vital Signs Temp 97.8 F 02/20/22 09:21 Pulse 70 02/20/22 09:21 Resp 19 02/20/22 09:21 BP 144/85 H 02/20/22 09:21 Pulse Ox 94 02/20/22 09:21 O2 Del Method 02/20/22 09:21 BMI result Body Mass Index 36.1 Const: General: cooperative, healthy appearing, comfortable and no acute distress Orientation/consciousness: patient oriented x3 Limitations: no limitations HEENT: Head: Yes normal to inspection Ears: hearing grossly normal bilaterally General nose exam: Normal external nose present Face and sinus: Yes normal facial exam Mouth: Normal oral and palatal mucosa present Throat: Yes posterior oropharynx normal Eyes: General: appearance normal, both eyes and all related structures Pupils: Equal, round and reactive pupils present Neck: Neck: Yes normal visual inspection Chest: Chest palpation & inspection: normal inspection of the chest Resp: Effort & Inspection: normal respiratory effort Auscultation: clear to auscultation bilaterally Cardio: Rate: regular rate Rhythm: regular rhythm Peripheral pulses: Peripheral pulses 2+ throughout GI: Inspection: Yes normal to inspection Palpation (GI): Soft to palpation and nontender Auscultation: normal bowel sounds : General: Yes no CVA tenderness Back/Spine/Pelvis: Back: no CVA tenderness Thoracic/Lumbar Spine: thoracic and lumbar spine normal to inspection Skin: General skin exam: no rashes or lesions noted Neuro: General: patient oriented x3, no focal motor deficits and normal sensation to monofilament Cranial nerves: Yes Equal, round and reactive pupils present Cognition (Neuro): normal cognition Speech: No Abnormal speech present Gait exam (Neuro): Normal gait present Motor exam (neuro): 5/5 motor strength present throughout Extrem: General: Yes normal to inspection Course Course Course Narrative: UA is consistent with UTI. Patient will be treated with course of antibiotics. Reviewed worrisome signs and symptoms of when to return to the emergency room. Comfortable discharge home. MDM - Female Genitourinary MDM Narrative Medical decision making narrative: This is a 66-year-old female who has had 2 days of hematuria, urinary urgency/frequency, dysuria with no associated abdominal pain, flank pain, vomiting or fever. Will check UA to rule out UTI No flank pain, vomiting, fevers suggestive of pyelonephritis Medical Records Attestation: I reviewed the patient's medical records. Lab Data Attestation: I reviewed the patient's lab results. Labs: Lab Results 02/20/22 Range/Units 09:41 Urine Color Dark Yellow Urine Appearance Turbid Urine pH 5.5 (5.0-9.0) Ur Specific Ponder 1.015 (1.005-1.025) Urine Protein 300 (3+) H (Neg-Trace) mg/dL Urine Glucose (UA) Negative (Negative) mg/dL Urine Ketones Negative (Negative) mg/dL Urine Blood Large (3+) H (Negative) Urine Nitrite Negative (Negative) Ur Leukocyte Esterase Large (3+) H (Negative) Urine RBC >20 H (0-2) /HPF Urine WBC >50 H (0-5) /HPF Ur Squamous Epith Cells 3-5 (0-2) /HPF Urine Bacteria None Seen (None Seen) Hyaline Casts 0-2 (0-2) /LPF Discharge Plan Discharge Clinical Impression: Urinary tract infection Patient Disposition: Home, Self-Care Instructions: Urinary Tract Infection in Women (ED) Additional Instructions: Increase fluids at home Return for increasing in pain, fever or vomiting Prescriptions: New cephalexin 500 mg capsule 500 mg PO TID Qty: 30 0RF phenazopyridine [Pyridium] 200 mg tablet 200 mg PO TID PRN (Reason: pain) Qty: 6 0RF No Action nabumetone 750 mg tablet 750 mg PO BID 90 Days Qty: 180 4RF folic acid 1 mg tablet 1 mg PO DAILY 90 Days Qty: 90 1RF cyanocobalamin (vitamin B-12) [Vitamin B-12] 1,000 mcg Tablet 1,000 mcg PO DAILY Qty: 90 3RF gabapentin 100 mg capsule 100 mg PO TID 30 Days Qty: 90 0RF zolpidem 10 mg tablet 10 mg PO BEDTIME cyclobenzaprine 5 mg tablet 5 mg PO BEDTIME PRN (Reason: muscle spasm) 30 Days Qty: 30 0RF diclofenac sodium [Voltaren Arthritis Pain] 1 % gel 2 g topical QID 30 Days Qty: 100 2RF Rx Instructions: apply to single elbow, wrist or hand; for hand includes palm/fingers/back of hand pantoprazole 40 mg tablet,delayed release (DR/EC) 40 mg PO DAILY 90 Days Qty: 90 1RF cholecalciferol (vitamin D3) 50 mcg (2,000 unit) capsule 50 mcg PO DAILY 90 Days Qty: 90 1RF terazosin 1 mg capsule 1 mg PO BEDTIME 90 Days Qty: 90 1RF Toviaz 4 mg tablet extended release 24 hr 4 mg PO DAILY 90 Days Qty: 90 1RF Linzess 145 mcg capsule 145 mcg PO QAM 30 Days Qty: 30 3RF simethicone [Gas Relief (simethicone)] 125 mg tablet,chewable 125 mg PO BID-QID PRN (Reason: abdominal distention) 30 Days Qty: 60 3RF escitalopram oxalate [Lexapro] 20 mg tablet 40 mg PO DAILY Referrals: Rosaura Bhandari MD [Primary Care Provider] - 1 week (for persistent symptoms ) Interventions: ED Discharge Assessment Last Done: 02/20/22 11:10 Discharge Date/Time: 02/20/22 11:10 Print Language: Panamanian
== END 2022-02-20 11:10 | disposition home or self-care (01) ==
PROVIDERS: Emergency Provider Student in an Organized Health Care Education/Training Program; PCP Internal Medicine
DX: N39.0 Urinary tract infection, site not specified (principal); R31.9 Hematuria, unspecified; R35.0 Frequency of micturition; Z79.899 Other long term (current) drug therapy
CPT/HCPCS: 81001; 87086; 99282; 99283

== ENCOUNTER → 2022-04-16 11:53 | Outpatient (BNVA) | payer MEDICARE, MEDICAID, SELFPAY | PROVIDERS: PCP Internal Medicine; Referring Provider Internal Medicine; Visit Provider Internal Medicine Gastroenterology | DX: R14.0 Abdominal distension (gaseous) (principal); K21.9 Gastro-esophageal reflux disease without esophagitis; G89.29 Other chronic pain; R10.12 Left upper quadrant pain; K59.09 Other constipation; K76.0 Fatty (change of) liver, not elsewhere classified; E53.8 Deficiency of other specified B group vitamins; K76.89 Other specified diseases of liver; Z86.010 Personal history of colon polyps; Z90.49 Acquired absence of other specified parts of digestive tract | CPT/HCPCS: 99212 ==

== ENCOUNTER 2022-05-04 10:01 | Outpatient (REF) | payer MEDICARE, MEDICAID, SELFPAY ==
--- NOTE | ~2022-05-04 | CT_ITS ---
EXAMINATION: CT ABDOMEN AND PELVIS WITH CONTRAST CLINICAL INFORMATION: Chronic pain. COMPARISON: Ultrasound abdomen 12/17/2021 TECHNIQUE: Multidetector volumetric images were obtained from the superior aspect of the liver through the pubic symphysis following administration 85 mL of Omnipaque 350 intravenous contrast. Sagittal and coronal reformatted images were obtained on the technologist's workstation. Oral contrast: No This CT examination was performed using dose optimization techniques as appropriate, variously including the following: *Automated exposure control *Adjustment of mA and/or kV according to patient size (this includes techniques or standardized protocols for targeted exams where dose is matched to indication/reason for exam; i.e. extremities or head) *Use of iterative reconstruction technique DLP: 855 mGy-cm FINDINGS: LUNG BASES: The lung bases are clear. The heart size is normal. LIVER, GALLBLADDER, AND BILIARY TREE: The liver is normal in size, shape, and diffusely hypoattenuated. There is a 1.8 cm slightly lobulated hypodensity in segment 4a adjacent to the diaphragm and a larger hypodensity in the right hepatic lobe 6/7, which are consistent with cysts. There is a third exophytic lesion along the inferior margin of right hepatic lobe measuring 2.6 cm. No solid lesion or intrahepatic ductal dilatation is seen. The gallbladder has been surgically removed. PANCREAS: Unremarkable. SPLEEN: Unremarkable. ADRENAL GLANDS: Unremarkable. KIDNEYS AND URETERS: The kidneys are normal in size, shape, and attenuation. No hydronephrosis, hydroureter, or calculi are seen. No perinephric stranding. There is an anechoic cyst in the upper/mid pole measuring 1.2 cm. BLADDER: Unremarkable. GASTROINTESTINAL TRACT: There is scattered stool, diverticula and gas seen throughout the colon without mural thickening or fat stranding. Oral contrast is seen opacifying the small bowel loops and the ascending colon which are normal caliber. Appendix is normal caliber. The stomach is nondistended. ABDOMINAL WALL: No significant hernia is appreciated. LYMPH NODES: No abnormal-sized pelvic, retroperitoneal or inguinal lymph nodes seen. VASCULAR: The abdominal aorta is normal caliber. The IVC is nondilated. PELVIC VISCERA: The uterus has been surgically removed or atrophic. No adnexal mass is seen. OSSEOUS STRUCTURES: No lytic or sclerotic process is seen. There is mild bilateral L4-L5 facet joint arthropathy. CT/CT abdomen pelvis w IV con IMPRESSION: 1. No acute intra-abdominal process seen. 2. Diffuse hepatic steatosis with multiple hepatic cysts. 3. Colonic diverticulosis without diverticulitis. Mild constipation. Fleischner guidelines were followed.
[2022-05-04] MEDS: Barium Sulfate Oral (Vanilla) 450 ML ORAL.SUSP 900 ML PO (11:44)
[2022-05-04] MEDS: iohexoL 350 MG/ML 100 ML INFUS..BTL 85 ML IV (12:06)
== END 2022-05-04 10:02 | disposition home or self-care (01) ==
LOC: HO.CT 10:01
PROVIDERS: PCP Internal Medicine; Visit Provider Internal Medicine Gastroenterology
DX: G89.29 Other chronic pain (principal); K76.89 Other specified diseases of liver; R10.12 Left upper quadrant pain
CPT/HCPCS: 74177; Q9967

== ENCOUNTER 2022-05-13 09:18 | Outpatient (REF) | payer MEDICARE, MEDICAID, SELFPAY ==
[2022-05-13 10:55] LABS: Blood Urea Nitrogen 13 mg/dL (9-16); Estimated Glomerular Filt Rate > 60
[2022-05-13 11:15] LABS: Vitamin D 25-OH Total 22.2 ng/mL (>30)
[2022-05-13 11:35] LABS: Creatinine, mg/dL 52.29; Protein mg/dL < 7 mg/dL
[2022-05-13 12:06] LABS: Creatinine, 24Hr Urine 1.2 G/Day (1.0-2.0); Protein 24 Hr Urine < 165 mg/Day (<150); Total Volume 24 Hour Urine 2350 mL
== END 2022-05-13 09:19 | disposition home or self-care (01) ==
LOC: HO.LAB 09:18
PROVIDERS: Internal Medicine Gastroenterology; PCP Internal Medicine; Visit Provider Internal Medicine
DX: R10.12 Left upper quadrant pain (principal); G89.29 Other chronic pain; R80.9 Proteinuria, unspecified; E55.9 Vitamin D deficiency, unspecified
CPT/HCPCS: 36415; 82306; 82565; 84156; 84520

== ENCOUNTER → 2022-05-18 12:57 | Outpatient (BNVA) | payer MEDICARE, MEDICAID, SELFPAY | PROVIDERS: PCP Internal Medicine; Visit Provider Nurse Practitioner Family | DX: N39.41 Urge incontinence (principal); N32.81 Overactive bladder; R31.29 Other microscopic hematuria | CPT/HCPCS: 51798; 99212 ==

== ENCOUNTER → 2022-07-16 08:31 | Outpatient (BNVA) | payer MEDICARE, MEDICAID, SELFPAY | PROVIDERS: PCP Internal Medicine; Visit Provider Internal Medicine Gastroenterology | DX: K21.9 Gastro-esophageal reflux disease without esophagitis (principal); K59.09 Other constipation; K76.89 Other specified diseases of liver; K76.0 Fatty (change of) liver, not elsewhere classified; R10.12 Left upper quadrant pain; R14.0 Abdominal distension (gaseous); K66.8 Other specified disorders of peritoneum; E53.8 Deficiency of other specified B group vitamins; R10.11 Right upper quadrant pain; R79.89 Other specified abnormal findings of blood chemistry; Z86.010 Personal history of colon polyps; E66.9 Obesity, unspecified; Z68.34 Body mass index [BMI] 34.0-34.9, adult | CPT/HCPCS: 99212 ==

== ENCOUNTER 2022-07-20 15:10 | Outpatient (REF) | payer MEDICARE, MEDICAID, SELFPAY ==
[2022-07-20 16:44] LABS: INTERNATIONAL NORM RATIO 0.9 (0.9-1.1); Prothrombin Time 10.7 SEC (10.0-13.1)
[2022-07-20 16:56] LABS: Alanine Aminotransferase 33 U/L (0-31); Albumin Level 4.1 g/dL (3.5-5.0); Alkaline Phosphatase 88 U/L (39-117); Aspartate Amino Transferase 39 U/L (5-31); Bilirubin Direct < 0.2 mg/dL (0.0-0.5); Bilirubin Total 0.5 mg/dL (0.0-1.0); Blood Urea Nitrogen 10 mg/dL (9-16); Estimated Glomerular Filt Rate > 60; Iron 104 mcg/dL (30-160); Percent Iron Saturation 35 % (15-50); Total Iron Binding Capacity 301 mcg/dL (228-428); Total Protein 7.8 g/dL (6.5-8.0); Unsaturated Iron Binding 197 ug/dL
[2022-07-20 17:03] LABS: Ferritin 101 ng/mL (10-250)
[2022-07-22 07:52] LABS: HBsAGNum1 0.26 S/CO (0.00-0.99); Hepatitis B Surface Antigen Negative (Negative); ~HepC Num1 0.08 S/CO (0.00-0.79); ~Hepatitis B Surface Antibody NONREACTIVE (Nonreactive); ~Hepatitis C Antibody Nonreactive (Nonreactive)
[2022-07-22 14:28] LABS: Alpha 1 Anti-trypsin 146 mg/dL (83-199)
[2022-07-23 07:09] LABS: Anti Nuclear Antibody Screen NEGATIVE (NEGATIVE)
== END 2022-07-20 15:11 | disposition home or self-care (01) ==
LOC: HO.LAB 15:10
PROVIDERS: PCP Internal Medicine; Visit Provider Internal Medicine Gastroenterology
DX: G89.29 Other chronic pain (principal); R10.12 Left upper quadrant pain; R79.89 Other specified abnormal findings of blood chemistry
CPT/HCPCS: 36415; 80076; 82103; 82565; 82728; 83540; 84520; 85610; 86038; 86039; 86706; 86803; 87340

== ENCOUNTER 2022-09-16 14:25 | Outpatient (REF) | payer MEDICARE, MEDICAID, SELFPAY ==
[2022-09-16 17:09] LABS: Urine Cytology See Pathology rpt
== END 2022-09-16 14:26 | disposition home or self-care (01) ==
LOC: HO.LNP 14:25
PROVIDERS: PCP Internal Medicine; Visit Provider Nurse Practitioner Family
DX: N39.0 Urinary tract infection, site not specified (principal); R31.29 Other microscopic hematuria; N32.81 Overactive bladder; R39.12 Poor urinary stream
CPT/HCPCS: 51798; 87086; 88112; 99212

== ENCOUNTER 2022-09-29 13:46 | Outpatient (REF) | payer MEDICARE, MEDICAID, SELFPAY ==
--- NOTE | ~2022-09-29 | MM_ITS ---
EXAMINATION: MM SCREENING DIGITAL BREAST TOMOSYNTHESIS, BILATERAL CLINICAL INFORMATION: Screening. Asymptomatic. Status post bilateral breast reduction surgery. The lifetime risk of breast cancer based on the Tyrer-Cuzick Model is 2.6%. COMPARISON: Mammography: September 23, 2021 TECHNIQUE: Digital breast tomosynthesis is performed in both the craniocaudal and mediolateral oblique views along with computer-aided detection (CAD). Synthesized 2D images are generated from the tomosynthesis. FINDINGS: The breasts are almost entirely fatty (ACR BI-RADS breast composition Category a). There are no new significant masses, abnormal calcifications, or other abnormalities. Postsurgical scarring is seen bilaterally. MM/MM tomosynthesis screening BI IMPRESSION: No significant changes from prior exam. ASSESSMENT: BI-RADS 2: Benign RECOMMENDATION: Routine annual mammography screening. This patient's information was entered into a reminder system with a target due date for their next mammogram.
== END 2022-09-29 13:47 | disposition home or self-care (01) ==
LOC: HO.MAMMO 13:46
PROVIDERS: PCP Internal Medicine; Visit Provider Internal Medicine
DX: Z12.31 Encounter for screening mammogram for malignant neoplasm of breast (principal)
CPT/HCPCS: 77063; 77067

== ENCOUNTER 2022-10-02 13:47 | Outpatient (REF) | payer MEDICARE, MEDICAID, SELFPAY ==
--- NOTE | ~2022-10-02 | US_ITS ---
EXAMINATION: US RETROPERITONEAL COMPLETE (RENAL) CLINICAL INFORMATION: Urinary tract infection, site not specified. COMPARISON: CT abdomen and pelvis with intravenous contrast dated 05/04/2022. KUB dated 12/17/2021. Ultrasound abdomen limited dated 12/17/2021. Renal ultrasound dated 03/28/2021. MR abdomen without and with contrast dated 07/25/2020. X-ray abdomen dated 05/14/2013. TECHNIQUE: Real-time imaging of the kidneys and bladder. FINDINGS: RIGHT KIDNEY: 11.4 x 4.7 x 5.4 cm (SAG x AP x TRV). The kidney is normal in size, contour, and echogenicity. Renal cortical thickness is normal. No calculi or focal parenchymal lesions. No hydronephrosis. LEFT KIDNEY: 11.3 x 5.6 x 4.2 cm (SAG x AP x TRV). The kidney is normal in size, contour, and echogenicity. Renal cortical thickness is normal. No renal calculi or hydronephrosis. There is a small cyst in the midpole measuring 7 x 8 mm. No ultrasound follow-up recommended. BLADDER: Well distended. No stone or mass. Bilateral ureteral jets are demonstrated. Prevoid bladder volume is 263 mL. Postvoid bladder volume is 120 mL. US/US retroperitoneal comp IMPRESSION: Unremarkable renal ultrasound. Large 120 mL post void bladder residual..
== END 2022-10-02 13:48 | disposition home or self-care (01) ==
LOC: HO.US 13:47
PROVIDERS: PCP Student in an Organized Health Care Education/Training Program; Visit Provider Nurse Practitioner Family
DX: N39.0 Urinary tract infection, site not specified (principal)
CPT/HCPCS: 76770

== ENCOUNTER 2022-10-19 13:32 | Emergency (ER) | payer MEDICARE, MEDICAID, SELFPAY ==
--- NOTE | ~2022-10-19 | XR_ITS ---
EXAMINATION: XR HAND, RIGHT CLINICAL INFORMATION: Pain and swelling COMPARISON: None available. TECHNIQUE: PA, lateral, and oblique views of the right hand. FINDINGS: Bone alignment is normal. No fracture or dislocation. Arthritis at the DIP joints. Joint spaces are otherwise normal. Soft tissues are normal. XR/XR hand RT 2V IMPRESSION: Arthritis at the DIP joints.
[2022-10-19 13:37] VITALS: BP 146/79; PULSE 79; RESP 19; TEMP 37; O2SAT 96; BMI 36.1
--- NOTE | 2022-10-19 13:56 | ED.EXTPRO ---
HPI - Extremity Problem General Chief complaint: Extremity Injury, Upper Stated complaint: r hand knuckles swollen Time Seen by Provider: 10/19/22 13:56 Source: patient and radiology assistant Mode of arrival: ambulatory Limitations: language barrier History of Present Illness HPI Narrative: Patient is a 67 year old assigned female at with a history of fibromyalgia and osteoarthritis presenting to the emergency department today with right hand pain and swelling. Patient states that she accidentally bent her index and middle finger of her right hand backwards and is having pain. Patient denies any dizziness, lightheadedness, abdominal pain, nausea, vomiting, fever, chills, blurry vision, double vision, loss of vision, chest pain, difficulty breathing, shortness of breath, back pain, night sweats, pain with urination, increased urinary frequency, increased urinary urgency, blood in her urine or stool, syncope or a near syncopal episode, bowel incontinence, bladder incontinence, bowel retention, bladder retention, or any other complaints at this time. MD Complaint: extremity pain and extremity swelling Onset (ago): day(s) (1) Pain Consistency: constant Location: right and upper extremity Severity scale (1-10): 2 Quality: aching and dull Radiation: none Relieving factors: nothing Exacerbating factors: nothing Associated symptoms: denies other symptoms Related Data Home Medications Medication Instructions Recorded Confirmed zolpidem 10 mg tablet 10 mg PO BEDTIME 05/24/20 08/06/22 escitalopram oxalate 20 mg tablet 40 mg PO DAILY 11/26/21 08/06/22 (Lexapro) quetiapine 50 mg tablet 50 mg PO BEDTIME 07/16/22 08/06/22 Previous Rx's Medication Instructions Recorded linaclotide 145 mcg capsule 145 mcg PO QAM 30 days #30 caps 11/20/21 (Linzess) simethicone 125 mg chewable tablet 125 mg PO BID-QID PRN abdominal 11/20/21 (Gas Relief (simethicone)) distention 30 days #60 tabs diclofenac sodium 1 % topical gel 2 g topical QID 30 days #100 grams 12/17/21 (Voltaren Arthritis Pain) pantoprazole 40 mg tablet,delayed 40 mg PO DAILY 90 days #90 tabs 12/17/21 release gabapentin 300 mg capsule 300 mg PO TID 30 days #90 caps 04/02/22 mirabegron 25 mg tablet,extended 25 mg PO DAILY 90 days #90 tabs 05/18/22 release 24 hr (Myrbetriq) cholecalciferol (vitamin D3) 50 50 mcg PO DAILY 90 days #90 caps 08/06/22 mcg (2,000 unit) capsule cyanocobalamin (vitamin B-12) 1,000 mcg PO DAILY #90 tabs 08/06/22 1,000 mcg tablet (Vitamin B-12) cyclobenzaprine 5 mg tablet 5 mg PO BEDTIME PRN muscle spasm 08/06/22 30 days #30 tabs folic acid 1 mg tablet 1 mg PO DAILY 90 days #90 tabs 08/06/22 estradiol 0.01% (0.1 mg/gram) See Rx Instructions vaginal DAILY 09/16/22 vaginal cream 30 days #42.5 grams naproxen 500 mg tablet 500 mg PO BID 7 days #14 tabs 10/19/22 Allergies Allergy/AdvReac Type Severity Reaction Status Date / Time No Known Allergies Allergy Verified 10/19/22 13:37 Review of Systems Constitutional: Constitutional: Reports no additional constitutional complaints, Denies chills, Denies fever(s) and Denies night sweats Eyes: Eyes: Reports no additional eye complaints, Denies blurry vision, Denies change in vision, Denies diplopia, Denies eye discharge, Denies loss of vision and Denies eye pain ENT: Denies dizziness Cardiovascular: Cardiovascular: Reports no additional cardiovascular complaints, Denies chest pain, Denies lightheadedness, Denies Loss of Consciousness and Denies dyspnea Respiratory: Respiratory: Reports no additional respiratory complaints and Denies dyspnea Gastrointestinal: Gastrointestinal: Reports no additional gastrointestinal complaints, Denies abdominal pain, Denies melena, Denies hematochezia, Denies change in bowel habits and Denies change in stool character Genitourinary: Genitourinary: Denies hematuria, Denies urinary frequency, Denies dysuria, Denies urinary incontinence, Denies urinary hesitancy and Denies urinary urgency Musculoskeletal: Musculoskeletal: Reports no additional musculoskeletal complaints, Denies numbness and Denies tingling Comments: right hand pain and swelling Neurologic: Denies dizziness, Denies loss of vision, Denies numbness and Denies tingling Psychiatric: Psychiatric: Reports no additional psychiatric complaints Endocrine: Endocrine: Reports no additional endocrine complaints Hematologic/Lymphatic: Hematologic/Lymphatic: Reports no additional hematologic/lymphatic complaints Allergic/Immunologic: Allergic/Immunologic: Reports no additional allergic/immunologic complaints PMFSH Past Medical History Attestation statement: The following information was validated with the patient. Source: old records reviewed and nursing notes reviewed Medical History Anxiety B12 deficiency Cervical cancer screening Class 1 obesity without serious comorbidity with body mass index (BMI) of 34.0 to 34.9 in adult Cough Diverticulosis Fibromyalgia GERD (gastroesophageal reflux disease) Hematuria Hemorrhoids Insomnia Left leg pain Leukopenia Liver cyst Medicare annual wellness visit, initial Memory loss Microscopic hematuria OAB (overactive bladder) Otitis media Right knee pain Urge incontinence of urine Urinary tract infection UTI (urinary tract infection) Surgical History History of cholecystectomy History of colonoscopy History of endoscopy Family History Family History Mother Lung cancer Father Cancer of esophagus Social History Social History Household Members: Family Household Members Other:: grandchildren Housing: House Housing Other:: lives with daughter and 2 grandkids Are you a primary managed care provider to a significant other at home: No 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) Alcohol intake: former Patient Tobacco Use Status: Never used Tobacco Smoked in Last 30 Days: No e-Cigarette/Vaping Use: Never Used Second Hand Smoke Exposure: No Use of substances other than those prescribed or required for medical reasons: No Advance Directives: No Advance Directives Information Provided: Yes service: No Current occupational status: unemployed Cognitive needs: No Hearing needs: No Vision needs: No Physical Exam Vital Signs: Vital Signs: Last Vital Signs Temp 97.4 F 10/19/22 16:08 Pulse 77 10/19/22 16:08 Resp 16 10/19/22 16:08 BP 130/78 10/19/22 16:08 Pulse Ox 98 10/19/22 16:08 O2 Del Method Room Air 10/19/22 16:08 BMI result Body Mass Index 36.1 Const: General: cooperative, no acute distress, alert and awake Nutritional Appearance: well nourished Orientation/consciousness: patient oriented x3 Limitations: no limitations HEENT: Head: Yes normal to inspection and Yes atraumatic Ears: hearing grossly normal bilaterally and external ears normal General nose exam: Normal external nose present, no nasal discharge noted and no epistaxis Face and sinus: Yes normal facial exam, No abrasion and No laceration Mouth: Normal oral and palatal mucosa present, no drooling and no muffled voice Eyes: General: appearance normal, both eyes and all related structures Periorbital: periorbital findings normal Eyelids: Yes eyelids normal Conjunctivae: conjunctivae normal Pupils: Equal, round and reactive pupils present EOM: EOMs intact bilaterally Neck: Neck: Yes normal visual inspection, Yes full ROM and Yes no lymphadenopathy Chest: Chest palpation & inspection: normal inspection of the chest Resp: Effort & Inspection: normal respiratory effort and able to speak in complete sentences Auscultation: clear to auscultation bilaterally Cardio: Rate: regular rate Rhythm: regular rhythm GI: Inspection: Yes normal to inspection Neuro: General: patient oriented x3 and moves all extremities Cranial nerves: Yes Equal, round and reactive pupils present Cognition (Neuro): normal cognition Motor exam (neuro): 5/5 motor strength present throughout Sensory Exam: Normal double simultaneous stimulation for sensation Coordination: [id number] test normal Extrem: Other: minimal swelling to the dorsal aspect of the right hand specifically over the right 2nd and 3rd MCP joints. General: Yes full ROM and Yes capillary refill normal Psych: Appearance: grossly normal Mental Status: mental status grossly normal Affect: normal affect Attitude: cooperative Thought process: Normal thought process present Thought content: Normal thought content present Insight: Good insight present (Psych) Medical Decision Making Medical Decision Making MDM Narrative: Patient is a 67 year old assigned female at with a history of fibromyalgia presenting to the emergency department today with right hand pain. Patient's physical exam was as noted in the physical exam portion of this chart. Patient's right hand x-ray showed no acute process. I explained my physical exam findings as well as all test results to the patient. I answered all questions asked by the patient. I stressed the importance of the patient taking her medication as prescribed. I stressed the importance of the patient following up with her primary care provider and an orthopedic provider. I stressed the importance of the patient returning to the emergency department immediately if her symptoms were to worsen or if she were to develop any dizziness, shortness of breath, difficulty breathing, chest pain, blurry vision, loss of vision, nausea, vomiting, abdominal pain, fever, chills, back pain, or any other complaints. Patient verbalized agreement and understanding with this treatment plan and discharge. Differential Diagnosis Differential Diagnoses: The differential diagnosis associated with the presentation includes right hand pain, right finger pain Independent Interpretation I performed an independent interpretation of an: Plain X-Ray Interpretation: My interpretation is in agreement with the radiologist's impression of this imaging study. EXAMINATION: XR HAND, RIGHT CLINICAL INFORMATION: Pain and swelling? COMPARISON: None available.? TECHNIQUE: PA, lateral, and oblique views of the right hand. FINDINGS: Bone alignment is normal. No fracture or dislocation. Arthritis at the DIP joints. Joint spaces are otherwise normal. Soft tissues are normal. XR/XR hand RT 2V IMPRESSION: Arthritis at the DIP joints. Dictated By: Lillian Baldwin MD Signed By: Electronically signed by Lillian Baldwin MD 10/19/22 1552 Procedures Orthopedic Splinting/Casting Injury #1: Side: right Upper Extremity Injury Location: finger Upper Extremity Immobilizer: jud tape Discharge Plan Discharge Clinical Impression: Osteoarthritis Patient Disposition: Home, Self-Care Instructions: Osteoarthritis (DC) Additional Instructions: Follow up with your primary care and an orthopedic provider. Return to the emergency department immediately if your symptoms worsen or if you develop any dizziness, shortness of breath, difficulty breathing, chest pain, blurry vision, loss of vision, nausea, vomiting, abdominal pain, fever, chills, back pain, or any other complaints. Phong un seguimiento con lopez atenci?n primaria y un proveedor ortop?dico. Regrese al departamento de emergencias de inmediato si boogie s?ntomas empeoran o si presenta mareos, falta de aire, dificultad para respirar, dolor de pecho, visi?n borrosa, p?rdida de la visi?n, n?useas, v?mitos, dolor abdominal, fiebre, escalofr?os, dolor de espalda o cualquier otras quejas. Prescriptions: New naproxen 500 mg tablet 500 mg PO BID 7 Days Qty: 14 0RF No Action zolpidem 10 mg tablet 10 mg PO BEDTIME diclofenac sodium [Voltaren Arthritis Pain] 1 % gel 2 g topical QID 30 Days Qty: 100 2RF Rx Instructions: apply to single elbow, wrist or hand; for hand includes palm/fingers/back of hand pantoprazole 40 mg tablet,delayed release (DR/EC) 40 mg PO DAILY 90 Days Qty: 90 1RF gabapentin 300 mg capsule 300 mg PO TID 30 Days Qty: 90 1RF cholecalciferol (vitamin D3) 50 mcg (2,000 unit) capsule 50 mcg PO DAILY 90 Days Qty: 90 1RF cyanocobalamin (vitamin B-12) [Vitamin B-12] 1,000 mcg tablet 1,000 mcg PO DAILY Qty: 90 3RF cyclobenzaprine 5 mg tablet 5 mg PO BEDTIME PRN (Reason: muscle spasm) 30 Days Qty: 30 0RF folic acid 1 mg tablet 1 mg PO DAILY 90 Days Qty: 90 1RF Linzess 145 mcg capsule 145 mcg PO QAM 30 Days Qty: 30 3RF simethicone [Gas Relief (simethicone)] 125 mg tablet,chewable 125 mg PO BID-QID PRN (Reason: abdominal distention) 30 Days Qty: 60 3RF escitalopram oxalate [Lexapro] 20 mg tablet 40 mg PO DAILY Myrbetriq 25 mg tablet extended release 24 hr 25 mg PO DAILY 90 Days Qty: 90 2RF quetiapine 50 mg tablet 50 mg PO BEDTIME estradiol 0.01 % (0.1 mg/gram) cream See Rx Instructions vaginal DAILY 30 Days Qty: 42.5 0RF Rx Instructions: vaginally daily; pea sized amount to urethra 3 times a week Referrals: [facility] [place] [facility] [Provider Group] (Call to establish and follow up with an orthopedic provider. Llame para establecer y hacer un seguimiento con un proveedor ortop?dico.) Rosaura Bhandari MD [Primary Care Provider] - Print Language: Telugu
[2022-10-19 16:08] VITALS: BP 130/78; PULSE 77; RESP 16; TEMP 36.3; O2SAT 98
== END 2022-10-19 17:11 | disposition home or self-care (01) ==
PROVIDERS: Emergency Provider Emergency Medicine; PCP Internal Medicine
DX: M19.041 Primary osteoarthritis, right hand (principal); M79.641 Pain in right hand
CPT/HCPCS: 29130; 73120; 99283; 99284

== ENCOUNTER → 2022-11-03 13:51 | Outpatient (BNVA) | payer MEDICARE, MEDICAID, SELFPAY | PROVIDERS: PCP Internal Medicine; Visit Provider Nurse Practitioner Family | DX: N32.81 Overactive bladder (principal); R31.29 Other microscopic hematuria; N39.41 Urge incontinence; N39.0 Urinary tract infection, site not specified; Z79.899 Other long term (current) drug therapy | CPT/HCPCS: 51798; 99212 ==

== ENCOUNTER → 2022-11-10 14:54 | Outpatient (BNVA) | payer MEDICARE, MEDICAID, SELFPAY | PROVIDERS: PCP Internal Medicine; Visit Provider Orthopaedic Surgery | DX: M79.641 Pain in right hand (principal) | CPT/HCPCS: 99202 ==

== ENCOUNTER → 2022-11-26 13:02 | Outpatient (BNVA) | payer MEDICARE, MEDICAID, SELFPAY | PROVIDERS: PCP Internal Medicine; Visit Provider Internal Medicine Gastroenterology | DX: K21.9 Gastro-esophageal reflux disease without esophagitis (principal); K59.09 Other constipation; K76.0 Fatty (change of) liver, not elsewhere classified; R79.89 Other specified abnormal findings of blood chemistry; R10.12 Left upper quadrant pain; R14.0 Abdominal distension (gaseous); E53.8 Deficiency of other specified B group vitamins; G89.29 Other chronic pain; Z86.010 Personal history of colon polyps | CPT/HCPCS: 99212 ==

== ENCOUNTER 2023-01-22 10:09 | Outpatient (REF) | payer OTHER, SELFPAY ==
[2023-01-25 21:03] LABS: TS Negative Control Passed; TS Panel A 0; TS Panel B 5; TS Positive Control Passed; TSpotTB Borderline (Negative)
== END 2023-01-22 10:10 | disposition home or self-care (01) ==
LOC: HO.LAB 10:09
PROVIDERS: PCP Internal Medicine; Visit Provider Internal Medicine
DX: Z11.1 Encounter for screening for respiratory tuberculosis (principal)
CPT/HCPCS: 36415; 86481

== ENCOUNTER 2023-01-27 10:45 | Outpatient (REF) | payer OTHER, SELFPAY ==
--- NOTE | ~2023-01-27 | XR_ITS ---
EXAMINATION: XR CHEST CLINICAL INFORMATION: Latent tuberculosis COMPARISON: Chest 02/26/2021 TECHNIQUE: 2 views of the chest were obtained. FINDINGS: The cardiac silhouette is normal in size. The lungs are hypoinflated. There is mild asymmetric elevation of the right hemidiaphragm. No lobar consolidation. No pleural effusion or pneumothorax. Minimal degenerative changes of the thoracic spine. Old healed left lateral rib fracture. XR/XR chest 2V IMPRESSION: No acute cardiopulmonary disease.
== END 2023-01-27 10:46 | disposition home or self-care (01) ==
LOC: HO.XRAY 10:45
PROVIDERS: PCP Internal Medicine; Visit Provider Internal Medicine
DX: Z22.7 Latent tuberculosis (principal)
CPT/HCPCS: 71046

== ENCOUNTER 2023-02-01 14:46 | Outpatient (AMB) | payer OTHER, SELFPAY ==
--- NOTE | 2023-02-01 14:53 | A.OFFPC_ITS ---
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: No Accompanied by: Self / Same As Patient Allergies No Known Allergies Allergy (Verified 02/01/23 15:06) Medication List - Last Reconciled 02/01/23 by Rosaura Hunt MD cholecalciferol (vitamin D3) 50 mcg PO DAILY 90 days cyanocobalamin (vitamin B-12) (Vitamin B-12) 1,000 mcg PO DAILY cyclobenzaprine 5 mg PO BEDTIME PRN 30 days diclofenac sodium 1% (Voltaren Arthritis Pain) 2 grams topical QID 30 days donepezil 10 mg PO DAILY escitalopram oxalate (Lexapro) 40 mg PO DAILY estradiol 0.01%(0.1mg/gram) vaginally daily; pea sized amount to urethra 3 times a week 30 days folic acid 1 mg PO DAILY 90 days gabapentin 300 mg PO TID 30 days linaclotide (Linzess) 145 mcg PO QAM 30 days mirabegron ER (Myrbetriq) 25 mg PO DAILY 90 days pantoprazole 40 mg PO DAILY 90 days quetiapine 50 mg PO BEDTIME terazosin 1 mg PO DAILY trazodone 50 mg PO BEDTIME zolpidem 10 mg PO BEDTIME Tobacco use date assessed: 08/06/22 Fall risk assessment: No Falls in past year Last assessed Fall Risk: 02/01/23 Dental Screening Dental Screen Date: 02/01/23 Did you have a dental visit in the last 12 months?: Yes Did you have a dental problem in the last 6 months where you did not have access to dental care?: No Was dental information given to patient?: Patient has dentist HPI HPI Comments History of Present Illness Details This is a 67-year-old female with GERD, fibromyalgia, mild recurrent major depression and cognitive impairment that comes today for follow-up on her conditions. GERD has been stable with medications. Fibromyalgia as still present with gabapentin and she still has diffuse joint pain. Depression stable with medications. She follows with Neurology for her cognitive impairment in which was recently prescribed donepezil for her memory. Has a T spot which was borderline and chest x-ray was done which showing no active tuberculosis. I will refer her to [facility]. She denies any symptoms such as fever, night sweats, weight loss or cough. [facility] Medical History (Updated 02/01/23 @ 15:46 by Rosaura Hunt MD) Anxiety B12 deficiency Cervical cancer screening Class 1 obesity without serious comorbidity with body mass index (BMI) of 34.0 to 34.9 in adult Cough Diverticulosis Fibromyalgia GERD (gastroesophageal reflux disease) Hematuria Hemorrhoids Insomnia Left leg pain Leukopenia Liver cyst Medicare annual wellness visit, initial Memory loss Microscopic hematuria OAB (overactive bladder) Otitis media Right knee pain Urge incontinence of urine Urinary tract infection UTI (urinary tract infection) Surgical History History of cholecystectomy History of colonoscopy History of endoscopy Family History Mother Lung cancer Father Cancer of esophagus Social History Household Members: Family Household Members Other:: grandchildren Housing: House Housing Other:: lives with daughter and 2 grandkids Are you a primary sub acute care nurse to a significant other at home: No 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 Erasto Mars, Vandana Cervantes, Henry Powers and colleagues, with an educational chadd from [employer]. Review of Systems Const All systems reviewed & are unremarkable except as noted in HPI and below Eyes Reports no additional complaints, Denies change in vision and Denies other visual disturbances Card Denies chest pain at rest, Denies chest pain with activity, Denies edema, Denies irregular heart rhythm, Denies claudication, Denies dyspnea, Denies dyspnea on exertion, Denies orthopnea, Denies paroxysmal nocturnal dyspnea and Denies slow heart rate Resp Denies cough, Denies dyspnea and Denies dyspnea on exertion GI Denies abdominal pain, Denies change in bowel habits, Denies excessive flatus, Denies nausea and Denies vomiting Denies urinary incontinence, Denies urinary hesitancy and Denies urinary urgency Musc Denies abnormal gait, Denies atrophy, Denies deformity and Denies limited range of motion Skin/Breast Denies bleeding lesions, Denies changing lesions and Denies rash Neuro Denies abnormal gait and Denies lack of coordination Physical exam (Primary Care) Vital Signs: Last Vital Signs BP 140/90 H 02/01/23 14:55 BMI result Body Mass Index 36.0 Tobacco/Smoking Status: Tobacco use Status Tobacco use date assessed 08/06/22 02/01/23 14:54 Patient Tobacco Use Status Never used Tobacco 02/01/23 14:54 e-Cigarette/Vaping Use Never Used 02/01/23 14:54 Thrive Assessment: Date of Thrive Assessment Date Thrive assessed 08/06/22 02/01/23 14:54 Eyes General: appearance normal, both eyes and all related structures Eyelids: Yes eyelids normal Conjunctivae: conjunctivae normal Neck Neck: Yes normal visual inspection and Yes supple Resp Effort & Inspection: normal respiratory effort Auscultation: clear to auscultation bilaterally Cardio Jugular venous distension: no JVD Rate: regular rate Rhythm: regular rhythm Heart sounds: S1 normal heart sound present and S2 normal heart sound present Extrem General: Yes full ROM Assessment and Plan Assessment & Plan (1) Mild recurrent major depression: Comment: follow by counseling Code(s): F33.0 - Major depressive disorder, recurrent, mild Plan: Continue Seroquel. Follow-up with psychiatry. (2) GERD (gastroesophageal reflux disease): Code(s): K21.9 - Gastro-esophageal reflux disease without esophagitis Qualifiers: Esophagitis presence: esophagitis presence not specified Qualified Code(s): K21.9 - Gastro-esophageal reflux disease without esophagitis Plan: Continue PPIs. (3) Fibromyalgia: Code(s): M79.7 - Fibromyalgia Plan: Continue gabapentin. (4) Cognitive impairment: Code(s): R41.89 - Other symptoms and signs involving cognitive functions and awareness Plan: Continue donepezil. 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
[2023-02-01 14:55] VITALS: BP 140/90; BMI 36.0
[2023-02-01 15:44] VITALS: BP 138/80
== END 2023-02-01 15:14 | disposition home or self-care (01) ==
PROVIDERS: PCP Internal Medicine; Visit Provider Internal Medicine
DX: F33.0 Major depressive disorder, recurrent, mild (principal); K21.9 Gastro-esophageal reflux disease without esophagitis; M79.7 Fibromyalgia; R41.89 Other symptoms and signs involving cognitive functions and awareness
CPT/HCPCS: 99214

== ENCOUNTER → 2023-03-08 11:19 | Outpatient (REF) | payer MEDICARE, SELFPAY ==
--- NOTE | 2023-03-08 11:29 | ECG_ITS ---
Test Reason : chest pain Blood Pressure : / mmHG Vent. Rate : 064 BPM Atrial Rate : 064 BPM P-R Int : 166 ms QRS Dur : 074 ms QT Int : 380 ms P-R-T Axes : 081 020 052 degrees QTc Int : 392 ms Normal sinus rhythm with sinus arrhythmia Nonspecific ST and T wave abnormality Abnormal ECG When compared with ECG of 07-JUL-2022 10:34, No significant change was found Referred By: Rosaura Hunt Electronically Signed By:KWABENA HUDSON
== END ==
LOC: HO.CARD 11:19
PROVIDERS: PCP Internal Medicine; Visit Provider Internal Medicine
DX: R07.9 Chest pain, unspecified (principal)
CPT/HCPCS: 93005

== ENCOUNTER 2023-03-09 08:48 | Outpatient (AMB) | payer MEDICARE, SELFPAY ==
[2023-03-09 08:52] VITALS: BP 120/86; BMI 35.6
--- NOTE | 2023-03-09 08:52 | A.OFFPC_ITS ---
Vital Signs 03/09/23 08:52 Height 5 ft 3 in Weight 201 lb BMI 35.6 BP 120/86 Blood Pressure Location Lt brachial Position Sitting Intake Visit Reasons: [facility] 02/07- Pyelonephritis Intake Note: Patient here for [facility] ED follow up 02/07 Pyelonephritis, c/o leg pains, back pains Folder Tier Required: No Accompanied by: Daughter Allergies No Known Allergies Allergy (Verified 03/09/23 09:07) Medication List - Last Reconciled 03/09/23 by Rosaura Hunt MD cholecalciferol (vitamin D3) 50 mcg PO DAILY 90 days cyanocobalamin (vitamin B-12) (Vitamin B-12) 1,000 mcg PO DAILY cyclobenzaprine 5 mg PO BEDTIME PRN 30 days diclofenac sodium 1% (Voltaren Arthritis Pain) 2 grams topical QID 30 days donepezil 10 mg PO DAILY escitalopram oxalate (Lexapro) 40 mg PO DAILY estradiol 0.01%(0.1mg/gram) vaginally daily; pea sized amount to urethra 3 times a week 30 days folic acid 1 mg PO DAILY 90 days gabapentin 300 mg PO TID 30 days linaclotide (Linzess) 145 mcg PO QAM 30 days mirabegron ER (Myrbetriq) 25 mg PO DAILY 90 days pantoprazole 40 mg PO DAILY 90 days quetiapine 50 mg PO BEDTIME terazosin 1 mg PO DAILY trazodone 50 mg PO BEDTIME zolpidem 10 mg PO BEDTIME Tobacco use date assessed: 08/06/22 Fall risk assessment: 1 Fall in past year Last assessed Fall Risk: 03/09/23 Dental Screening Dental Screen Date: 03/09/23 Did you have a dental visit in the last 12 months?: Yes Did you have a dental problem in the last 6 months where you did not have access to dental care?: No Was dental information given to patient?: Patient has dentist HPI HPI Comments History of Present Illness Details This is a 67-year-old female with mild recurrent major depression, cognitive impairment and 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 Knee pain is associated with weakness causing her multiple falls. Depression stable with escitalopram and this is follow by Psychiatry. Has cognitive impairment in which donepezil cause insomnia and she is going to see a new neurologist soon. [facility] tuberculosis Clinic will follow with her next month. She denies any weight loss, night sweats or cough. Chest x-ray was normal. Also has diffuse joint pain and she does not remember seen Rheumatology. Will be referred to rheumatology. [facility] Medical History (Updated 03/09/23 @ 09:19 by Rosaura Hunt MD) Fibromyalgia Right knee pain Left leg pain Cervical cancer screening Hematuria Urge incontinence of urine Memory loss Class 1 obesity without serious comorbidity with body mass index (BMI) of 34.0 to 34.9 in adult OAB (overactive bladder) Cough Insomnia UTI (urinary tract infection) B12 deficiency Microscopic hematuria Leukopenia Liver cyst Hemorrhoids Diverticulosis Anxiety GERD (gastroesophageal reflux disease) Medicare annual wellness visit, initial Otitis media Urinary tract infection Surgical History History of endoscopy History of colonoscopy History of cholecystectomy Family History Mother Lung cancer Father Cancer of esophagus Social History Household Members: Family Household Members Other:: grandchildren Housing: House Housing Other:: lives with daughter and 2 grandkids Are you a primary family day carer to a significant other at home: No 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 Erasto Mars, Vandana Cervantes, Henry Powers and colleagues, with an educational chadd from [employer]. Review of Systems Const All systems reviewed & are unremarkable except as noted in HPI and below Eyes Reports no additional complaints, Denies change in vision and Denies other visual disturbances Card Denies chest pain at rest, Denies chest pain with activity, Denies edema, Denies irregular heart rhythm, Denies claudication, Denies dyspnea, Denies dyspnea on exertion, Denies orthopnea, Denies paroxysmal nocturnal dyspnea and Denies slow heart rate Resp Denies cough, Denies dyspnea and Denies dyspnea on exertion GI Denies abdominal pain, Denies change in bowel habits, Denies excessive flatus, Denies nausea and Denies vomiting Denies urinary incontinence, Denies urinary hesitancy and Denies urinary urgency Musc Denies atrophy, Denies deformity and Denies limited range of motion Physical exam (Primary Care) Vital Signs: Last Vital Signs BP 120/86 03/09/23 08:52 BMI result Body Mass Index 35.6 Tobacco/Smoking Status: Tobacco use Status Tobacco use date assessed 08/06/22 03/09/23 08:55 Patient Tobacco Use Status Never used Tobacco 03/09/23 08:55 e-Cigarette/Vaping Use Never Used 03/09/23 08:55 Thrive Assessment: Date of Thrive Assessment Date Thrive assessed 08/06/22 03/09/23 08:55 Eyes General: appearance normal, both eyes and all related structures Eyelids: Yes eyelids normal Conjunctivae: conjunctivae normal Neck Neck: Yes normal visual inspection and Yes supple Resp Effort & Inspection: normal respiratory effort Auscultation: clear to auscultation bilaterally Cardio Jugular venous distension: no JVD Rate: regular rate Rhythm: regular rhythm Heart sounds: S1 normal heart sound present and S2 normal heart sound present Extrem General: Yes full ROM Assessment and Plan Assessment & Plan (1) Cognitive impairment: Code(s): R41.89 - Other symptoms and signs involving cognitive functions and awareness Plan: Follow-up with neurology (2) Latent tuberculosis by blood test: Code(s): Z22.7 - Latent tuberculosis Plan: Follow-up with tuberculosis Clinic. (3) Mild recurrent major depression: Comment: follow by counseling Code(s): F33.0 - Major depressive disorder, recurrent, mild Plan: Continue escitalopram. (4) Right knee pain: Code(s): M25.561 - Pain in right knee Plan: X-ray ordered. (5) Left knee pain: Code(s): M25.562 - Pain in left knee Plan: X-ray ordered. Orders: Orders UA CC w/rflx Micro + Cult Today R30.0 - Dysuria XR knee LT 2V Today M25.562 - Pain in left knee XR knee RT 2V Today M25.561 - Pain in right knee Referrals Rheumatology Referral M25.50 - Pain in unspecified joint Coding Level of Care Code Est Pt Level 4 (83079) Diagnoses Cognitive impairment R41.89 Latent tuberculosis by blood test Z22.7 Mild recurrent major depression F33.0 Right knee pain M25.561 Left knee pain M25.562 Time Spent (min) 19
== END 2023-03-09 09:22 | disposition home or self-care (01) ==
PROVIDERS: PCP Internal Medicine; Visit Provider Internal Medicine
DX: R41.89 Other symptoms and signs involving cognitive functions and awareness (principal); Z22.7 Latent tuberculosis; F33.0 Major depressive disorder, recurrent, mild; M25.561 Pain in right knee; M25.562 Pain in left knee
CPT/HCPCS: 99214

== ENCOUNTER 2023-03-11 13:24 | Outpatient (AMB) | payer MEDICARE, SELFPAY ==
[2023-03-11 13:37] VITALS: BP 140/88; BMI 35.6
--- NOTE | 2023-03-11 13:37 | MHC.OFFVIS ---
Intake Vital Signs 03/11/23 13:37 Height 5 ft 3 in Weight 201 lb BMI 35.6 BP 140/88 H Blood Pressure Location Rt brachial Position Sitting Intake Visit Reasons: I-BOARDMARKER: Other S&S involving Cognitive Funtions-Conf Intake Note: Patient presents for cognitive functions. Patient states she had gone to seen another neurologist who ordered a MRI and stated it was normal but I think theres something wrong she's very forgetful,she's a very depressive person she doesn't sleep and takes meds but still has issues. (daughter) Allergies No Known Allergies Allergy (Verified 03/11/23 13:42) Medication List - Last Reconciled 03/11/23 by JESUS Negron cholecalciferol (vitamin D3) 50 mcg PO DAILY 90 days cyanocobalamin (vitamin B-12) (Vitamin B-12) 1,000 mcg PO DAILY cyclobenzaprine 5 mg PO BEDTIME PRN 30 days diclofenac sodium 1% (Voltaren Arthritis Pain) 2 grams topical QID 30 days donepezil 10 mg PO DAILY escitalopram oxalate (Lexapro) 40 mg PO DAILY estradiol 0.01%(0.1mg/gram) vaginally daily; pea sized amount to urethra 3 times a week 30 days folic acid 1 mg PO DAILY 90 days gabapentin 300 mg PO TID 30 days linaclotide (Linzess) 145 mcg PO QAM 30 days mirabegron ER (Myrbetriq) 25 mg PO DAILY 90 days pantoprazole 40 mg PO DAILY 90 days quetiapine 50 mg PO BEDTIME terazosin 1 mg PO DAILY trazodone 50 mg PO BEDTIME zolpidem 10 mg PO BEDTIME HPI HPI Comments History of Present Illness Details Right-handed 67-yr-old female presents for neurological evaluation of: cognitive and sleep difficulties. Pt is accompanied by her dtr, who helps with history (although dtr does not live w/ pt so does not know all specifics). Pt lives with her granddtr. Pt needs help with her ADLs. She cannot cook- may leave the stove on. She needs help with her finances. She is prone to thinking that people have said something that they have not. Family has to help with her medicine. She has sleep difficulties, snoring, parasomnias, daytime sleepiness. She moves to the [facility] from [place] 3 yrs ago. She completed high school. After high school, she obtained license in [employer]. She worked in [employer] for > 20 yrs until she staretd having some medical issues/body pains which prevented her from using her arms. 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 He sister has dementia- in her 60s. Her mother- has dementia. Her aunt also has dementia. She also notes astrong family h/o mental health disorders. Some of her cousins have committed suicide- in their 20s. 12/06/21, Brain MRI: FINDINGS: The right cerebellar tonsil extends approximately 4-5mm below the level of the foramen magnum. The left cerebellar tonsil also extends inferiorly below the level of the foramen magnum. No significant crowding of the cervicomedullary junction. The ventricles are normal in size. No intracranial mass or extra-axial fluid collection. There is no restricted diffusion or abnormal susceptibility artifact. Scattered small T2 bright foci are present within the supratentorial white matter. These are nonspecific, but are compatible with chronic microangiopathic/small vessel ischemic change. The visualized extracranial soft tissues and orbital structures are unremarkable. IMPRESSION: 1. Mild supratentorial white matter signal abnormality compatible with chronic microangiopathic/small vessel ischemic change. 2. Mild cerebellar ectopia. [facility] Medical History (Updated 03/14/23 @ 20:25 by JESUS Negron) Fibromyalgia Right knee pain Left leg pain Cervical cancer screening Hematuria Urge incontinence of urine Memory loss Class 1 obesity without serious comorbidity with body mass index (BMI) of 34.0 to 34.9 in adult OAB (overactive bladder) Cough Insomnia UTI (urinary tract infection) B12 deficiency Microscopic hematuria Leukopenia Liver cyst Hemorrhoids Diverticulosis Anxiety GERD (gastroesophageal reflux disease) Medicare annual wellness visit, initial Otitis media Urinary tract infection Surgical History (Updated 03/11/23 @ 13:51 by KASEY Moore) H/O section H/O: hysterectomy History of endoscopy History of colonoscopy History of cholecystectomy Family History Mother Lung cancer Father Cancer of esophagus Social History Household Members: Family Household Members Other:: grandchildren Housing: House Housing Other:: lives with daughter and 2 grandkids Are you a primary critical care specialist to a significant other at home: No 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) Alcohol intake: former Patient Tobacco Use Status: Never used Tobacco e-Cigarette/Vaping Use: Never Used Second Hand Smoke Exposure: No service: No Current occupational status: unemployed Cognitive needs: No Hearing needs: No Vision needs: No Review of Systems Const All systems reviewed & are unremarkable except as noted in HPI and below Physical Exam Vital Signs: Last Vital Signs BP 140/88 H 03/11/23 13:37 BMI result Body Mass Index 35.6 Const General: cooperative and no acute distress HEENT Head: Yes normocephalic Resp Effort & Inspection: normal respiratory effort and able to speak in complete sentences Neuro Other: Alert, responsive, responding appropriatley. General: CN's II-XI intact bilaterally and deep tendon reflexes 2+ bilaterally Gait exam (Neuro): Antalgic gait present Motor exam (neuro): 5/5 motor strength present throughout Psych Other: Overall pleasant affect, but easily saddened throughout testing when responses do not come easily to her. Appearance: grossly normal Speech and movement: Normal speech and movement present Attitude: cooperative Thought process: Normal thought process present Orientation What is the (year) (season) (date) (day) (month)?: year, season, date and month Where are we (state) (county) (town or city) (hospital) (floor)?: town or city and hospital/clinic Registration Name of 3 unrelated objects clearly and slowly, then ask patient to repeat all 3 of them. (1st repeat determines score. Make sure they can repeat all three): object 1, object 2 and object 3 Attention & Calculation (CHOOSE ONE) Spell WORLD backwards (DLROW): 1 letter Recall Ask patient to repeat the 3 items from question #3.: object 1 and object 2 Language Show patient a wristwatch & ask what it is. Repeat for pencil.: watch and pencil Ask the patient to 'take a piece of paper with their right hand' 'fold paper in half' 'place paper on floor': take paper in right hand, fold paper in half and place paper on floor Print the sentence 'CLOSE YOUR EYES' on a piece. If patient actually closes eyes then score.: followed written direction Give patient a blank piece of paper & ask to write a sentence. Score if it contains a noun & verb.: sentence contains subject and verb Score Score: 19 Assessment & Plan Assessment & Plan (1) Sleep difficulties: Code(s): G47.9 - Sleep disorder, unspecified (2) Snoring: Code(s): R06.83 - Snoring (3) Excessive daytime sleepiness: Code(s): G47.19 - Other hypersomnia (4) Cognitive impairment: Code(s): R41.89 - Other symptoms and signs involving cognitive functions and awareness (5) Family history of dementia: Code(s): Z81.8 - Family history of other mental and behavioral disorders Plan Note- MMSE score- repeat phrase was omitted d/t language barrier, thus score is 19/29. Possibly pt scored lower than she is capable of d/t MMSE conducted in Gabonese. Reviewed Brain MRI-mild chronic microangiopathic changes. Pt advised to undergo in-lab PSG to assess for sleep apnea. Pt advised to undergo comprehensive neuro-psych eval- advised that there may be a long wait list. Will check labs for common etiologies of cognitive difficulties. Pt advsied to undergo FDG-PET scan to assess for neurodegenerative process. Future considerations- Minimizing polypharmacy. f/u on review of above, and in-clinic in 3 months or sooner. Orders: Orders PET CT fusion whole body Today E53.8 - Deficiency of other specified B group vitamins, F41.9 - Anxiety disorder, unspecified, M25.50 - Pain in unspecified joint, R31.29 - Other microscopic hematuria, R41.89 - Other symptoms and signs involving cognitive functions and awareness, R80.9 - Proteinuria, unspecified, Z81.8 - Family history of other mental and behavioral disorders Complete Blood Count Auto Diff Today E53.8 - Deficiency of other specified B group vitamins, F41.9 - Anxiety disorder, unspecified, M25.50 - Pain in unspecified joint, R31.29 - Other microscopic hematuria, R41.89 - Other symptoms and signs involving cognitive functions and awareness, R80.9 - Proteinuria, unspecified CRP High Sensitivity Today E53.8 - Deficiency of other specified B group vitamins, F41.9 - Anxiety disorder, unspecified, M25.50 - Pain in unspecified joint, R31.29 - Other microscopic hematuria, R41.89 - Other symptoms and signs involving cognitive functions and awareness, R80.9 - Proteinuria, unspecified Erythrocyte Sedimentation Rate Today E53.8 - Deficiency of other specified B group vitamins, F41.9 - Anxiety disorder, unspecified, M25.50 - Pain in unspecified joint, R31.29 - Other microscopic hematuria, R41.89 - Other symptoms and signs involving cognitive functions and awareness, R80.9 - Proteinuria, unspecified Syphilis Screen Today E53.8 - Deficiency of other specified B group vitamins, F41.9 - Anxiety disorder, unspecified, M25.50 - Pain in unspecified joint, R31.29 - Other microscopic hematuria, R41.89 - Other symptoms and signs involving cognitive functions and awareness, R80.9 - Proteinuria, unspecified Vitamin B12 and Folate Today E53.8 - Deficiency of other specified B group vitamins, F41.9 - Anxiety disorder, unspecified, M25.50 - Pain in unspecified joint, R31.29 - Other microscopic hematuria, R41.89 - Other symptoms and signs involving cognitive functions and awareness, R80.9 - Proteinuria, unspecified HIV Ab/Ag Today E53.8 - Deficiency of other specified B group vitamins, F41.9 - Anxiety disorder, unspecified, M25.50 - Pain in unspecified joint, R31.29 - Other microscopic hematuria, R41.89 - Other symptoms and signs involving cognitive functions and awareness, R80.9 - Proteinuria, unspecified Hemoglobin A1c Today E53.8 - Deficiency of other specified B group vitamins, F41.9 - Anxiety disorder, unspecified, M25.50 - Pain in unspecified joint, R31.29 - Other microscopic hematuria, R41.89 - Other symptoms and signs involving cognitive functions and awareness, R80.9 - Proteinuria, unspecified CHARITO Reflex Titer and Pattern Today E53.8 - Deficiency of other specified B group vitamins, F41.9 - Anxiety disorder, unspecified, M25.50 - Pain in unspecified joint, R31.29 - Other microscopic hematuria, R41.89 - Other symptoms and signs involving cognitive functions and awareness, R80.9 - Proteinuria, unspecified Homocysteine Today E53.8 - Deficiency of other specified B group vitamins, F41.9 - Anxiety disorder, unspecified, M25.50 - Pain in unspecified joint, R31.29 - Other microscopic hematuria, R41.89 - Other symptoms and signs involving cognitive functions and awareness, R80.9 - Proteinuria, unspecified Methylmalonic Acid Today E53.8 - Deficiency of other specified B group vitamins, F41.9 - Anxiety disorder, unspecified, M25.50 - Pain in unspecified joint, R31.29 - Other microscopic hematuria, R41.89 - Other symptoms and signs involving cognitive functions and awareness, R80.9 - Proteinuria, unspecified RT PSG in-lab sleep study Today E53.8 - Deficiency of other specified B group vitamins, F41.9 - Anxiety disorder, unspecified, G47.19 - Other hypersomnia, G47.9 - Sleep disorder, unspecified, M25.50 - Pain in unspecified joint, R06.83 - Snoring, R31.29 - Other microscopic hematuria, R41.89 - Other symptoms and signs involving cognitive functions and awareness, R80.9 - Proteinuria, unspecified Comprehensive Met. Panel Today E53.8 - Deficiency of other specified B group vitamins, F41.9 - Anxiety disorder, unspecified, M25.50 - Pain in unspecified joint, R31.29 - Other microscopic hematuria, R41.89 - Other symptoms and signs involving cognitive functions and awareness, R80.9 - Proteinuria, unspecified TSH reflex Free T4 Today E53.8 - Deficiency of other specified B group vitamins, F41.9 - Anxiety disorder, unspecified, M25.50 - Pain in unspecified joint, R31.29 - Other microscopic hematuria, R41.89 - Other symptoms and signs involving cognitive functions and awareness, R80.9 - Proteinuria, unspecified Referrals Neuropsychiatry Referral E53.8 - Deficiency of other specified B group vitamins, F41.9 - Anxiety disorder, unspecified, M25.50 - Pain in unspecified joint, R31.29 - Other microscopic hematuria, R41.89 - Other symptoms and signs involving cognitive functions and awareness, R80.9 - Proteinuria, unspecified, Z81.8 - Family history of other mental and behavioral disorders Coding Level of Care Code New Pt Level 4 (41996) Diagnoses Sleep difficulties G47.9 Snoring R06.83 Excessive daytime sleepiness G47.19 Cognitive impairment R41.89 Family history of dementia Z81.8
== END 2023-03-11 14:56 | disposition home or self-care (01) ==
PROVIDERS: PCP Internal Medicine; Visit Provider Nurse Practitioner Family
DX: G47.9 Sleep disorder, unspecified (principal); R06.83 Snoring; G47.19 Other hypersomnia; R41.89 Other symptoms and signs involving cognitive functions and awareness; Z81.8 Family history of other mental and behavioral disorders
CPT/HCPCS: 99204

== ENCOUNTER → 2023-03-11 13:24 | Outpatient (BNVA) | payer MEDICARE, SELFPAY | PROVIDERS: PCP Internal Medicine; Visit Provider Nurse Practitioner Family ==

== ENCOUNTER 2023-04-08 09:27 | Outpatient (AMB) | payer MEDICARE, SELFPAY ==
--- NOTE | 2023-04-08 09:45 | AM.OFFVISNUR ---
Intake Intake Visit Reasons: Flu Shot Allergies No Known Allergies Allergy (Verified 03/11/23 13:42) Office Procedures Flu Questionnaire Does the patient have a severe egg allergy?: No Does the patient have severe life threatening allergies?: No Does the patient have a fever or illness today?: No Has the patient ever had Guillain-Chuckey Syndrome?: No Has the patient ever had any past reaction to a flu shot?: No Immunizations flu vacc [id number] 6mos up(PF) 60 mcg(15 mcgx4)/0.5 mL IM syringe Performing Provider: Rosaura Hunt MD Performing Location: [facility] Administered by: Adry Wolf RN on 04/08/23 09:45 Dose Route Admin Location Dispensed Lot Number Expiration Date NDC Entry Level 0.5 mL IM Left Deltoid 0.5 mL [id number] 12/12/23 39626-074-70 [employer] VIS Given Date VIS Provided VIS Publication Date 04/08/23 Single Vaccine 21 Eligibility Eligibility Date Funding Source Not [facility] Eligible 04/08/23 Private Coding Assessment & Plan Assessment & Plan Orders: Orders Influenza [id number] Immunization Today Z23 - Encounter for immunization
== END 2023-04-08 09:46 | disposition home or self-care (01) ==
PROVIDERS: PCP Internal Medicine; Visit Provider Internal Medicine
DX: Z23 Encounter for immunization (principal)
CPT/HCPCS: 90471; 90686

== ENCOUNTER 2023-04-15 12:59 | Outpatient (AMB) | payer MEDICARE, SELFPAY ==
--- NOTE | 2023-04-15 13:00 | A.OFFVIS_ITS ---
Intake Vital Signs 04/15/23 13:02 Height 5 ft 3 in Weight 200 lb BMI 35.4 BP 140/80 H Blood Pressure Location Lt brachial Position Sitting Pulse 69 Intake Visit Reasons: 4 month fu Intake Note: Florencia presents in the office as a 4 month follow up. CC: She states that she is still having burning and pains in her stomach. Some days she feels better and other days she is worse. Packing Machine Pilot Can Router Required: Yes Packing Machine Pilot Can Router Name: Daughter is here Allergies No Known Allergies Allergy (Verified 04/15/23 13:05) Medication List - Last Reconciled 04/15/23 by Karon Anders MD cholecalciferol (vitamin D3) 50 mcg PO DAILY 90 days cyanocobalamin (vitamin B-12) (Vitamin B-12) 1,000 mcg PO DAILY cyclobenzaprine 5 mg PO BEDTIME PRN 30 days diclofenac sodium 1% (Voltaren Arthritis Pain) 2 grams topical QID 30 days escitalopram oxalate (Lexapro) 40 mg PO DAILY estradiol 0.01%(0.1mg/gram) vaginally daily; pea sized amount to urethra 3 times a week 30 days folic acid 1 mg PO DAILY 90 days gabapentin 300 mg PO TID 30 days hydroxyzine HCl 10 mg PO TID linaclotide (Linzess) 145 mcg PO QAM 30 days mirabegron ER (Myrbetriq) 25 mg PO DAILY 90 days pantoprazole 40 mg PO DAILY 90 days pregabalin (Lyrica) 75 mg PO QDAY quetiapine 25 mg PO BEDTIME terazosin 1 mg PO DAILY trazodone 50 mg PO BEDTIME zolpidem 10 mg PO BEDTIME HPI 4 month fu HPI Details GI CLINIC VISIT FOR THIS 67 YEAR OLD CROATIAN-SPEAKING FEMALE FOR FOLLOW-UP OF GERD, VITAMIN B12 DEF, AND FATTY LIVER. IMAGING STUDIES:? 05/07/[address] SCAN SHOWED: 1.? No acute intra-abdominal process see n. 2.? Diffuse hepatic steatosis with multi ple hepatic cysts. 3.? Colonic diverticulosis without diver ticulitis. Mild constipation. ? 07/25/20 ABD MRI SHOWED: 1. Prior cholecystectomy. No biliary molly karthik dilatation. 2, Nonenhancing high signal lesion gallb ladder fossa 4.3 cm x 4.1 cm likely cyst or non-obstructing biloma with increased signal from protein content. No dephasing to suggest old hematoma. 3. Several hepatic cysts, largest 2.6 cm . 4. Small hemorrhagic cyst left kidney 1. 2 cm. ENDOSCOPIC STUDIES:? 12/2020 EGD AND COLON SHOWED: Endoscopy Findings: ESOPHAGUS: Normal STOMACH: Gastritis DUODENUM: Normal - biopsied to check for celiac sprue Colonoscopy Findings: Three small to medium sized polyps removed Random biopsies obtained from the colon Moderate to severe diverticulosis seen in the entire colon No source found for abdominal pain Plan:? Repeat Colonoscopy interval based on path results - in 3-5 years if polyps are adenomatous and 10 years if polyps are hyperplastic. Above findings were reviewed with the patient and Gastritis, colon polyps and diverticulosis handouts were given in the discharge area ADDENDUM: Pt complained of nausea and some worsening of her chronic abdominal pain. Nausea resolved with Zofran. Abdominal pain improved after pt passed some gas. TODAY'S VISIT: Telephone Cement Handler Pt is accompanied by her daughter here from [place] who is able to speak some Sinhala Feeling regular. Has her ups and downs - feels better on some days Some days she feels burning in her stomach. Not following the diet any more. Continues to have constipation. Sometimes no BM in more than 4 days. Symptoms have been worse since she ran out of refills for her GI medications - refills sent for Linzess and pantoprazole PAST VISITS: I am on a diet Eliminating a lot of foods to see how they work. Did not receive an appt with the setter machine GD getting information and she has lost 6 lbs. Taking almond milk Not eating sauces or stews. Abd CT scan results reviewed with the pt. Feeling regular GI symptoms are less frequent. Constipation is under control so far Has a BM daily or after 1-2 days Patient cc: acid reflex, abdominal pain, abdominal bloating on and off, acid reflex with burning sensation, constipation, and some dysphagia with liquid, patient want a referral for setter machine. Sometimes I am fine and sometimes not so good Complains of left sided pain Continues to have left sided and lower abdominal pain including under the ribs - feels inflammation. Pain is not there all the time. Sometimes has pain after she eats something. Constipation comes and goes. having a lot of reflux and burning in the chest. Has a BM every 5 to 6 days - usuallay after several days. Took Linzess once and then stopped - concerned about side effects Has constipation - takes fibre, plums and takes medication prn - constipation is under control. MRI and Lab results were reviewed with the patient. Continues to have abd pain which comes and goes. Has a burning sensation in the abdomen and anus and has hemorrhoids. Intermittent upper abdominal pain and nausea. Pt denies past hx of jaundice or hepatitis Patient denies symptoms of heartburn, dysphagia, vomiting, change in appetite or weight. Complains of chronic constipation and was told she had diverticulosis. Can have a BM daily or after 3-4 days. Patient denies major cardiac or pulmonary problems, loud snoring or sleep apnea Takes medications to help her sleep at night. Denies problems with anesthesia in the past. Denies being on chronic anticoagulation. Patient denies known family history of liver disease, colon polyps or colon cancer. Dad had esophageal cancer (was a smoker). PAST EGD/COLONOSCOPY:?? Had EGD (per pt showed gastritis) and colon (5 polyps were removed) in [place]? 1.5 yrs ago. Repeat colonoscopy was advised ? in 1 year and pt stated she is overdue. PAST GI HISTORY BY REVIEW OF MEDICAL RECORDS: 06/2020 patient was seen by Dr. Gomez: This is a 55-year-old female with GERD, fatty liver and liver cyst that has tele health visit by phone for follow-up on recent labs.? She has mild leukopenia that will be repeated. She has hematuria and will be referred to Urology.? Complains of dysuria and urinalysis was order. Ultrasound of the abdomen shows 1 liver cyst and fatty liver.? Previous ultrasounds done in [place] shows 3 liver cysts before.? She is aware I will refer her to Gastroenterology for that matter.? Has diffuse myalgias and would like something like Relafen or tramadol which she has using the past.? Also complains of heartburn and Pepcid is not working for her.? She would like Protonix which she has also used in the past [facility] Medical History Fibromyalgia Right knee pain Left leg pain Cervical cancer screening Hematuria Urge incontinence of urine Memory loss Class 1 obesity without serious comorbidity with body mass index (BMI) of 34.0 to 34.9 in adult OAB (overactive bladder) Cough Insomnia UTI (urinary tract infection) B12 deficiency Microscopic hematuria Leukopenia Liver cyst Hemorrhoids Diverticulosis Anxiety GERD (gastroesophageal reflux disease) Medicare annual wellness visit, initial Otitis media Urinary tract infection Surgical History H/O section H/O: hysterectomy History of endoscopy History of colonoscopy History of cholecystectomy Family History Mother Lung cancer Father Cancer of esophagus Social History Household Members: Family Household Members Other:: grandchildren Housing: House Housing Other:: lives with daughter and 2 grandkids Are you a primary plant care worker to a significant other at home: No Do you presently have visiting nurse or 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 home services: 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 (documentation 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) Alcohol intake: former Patient Tobacco Use Status: Never used Tobacco e-Cigarette/Vaping Use: Never Used Second Hand Smoke Exposure: No service: No Current occupational status: unemployed Cognitive needs: No Hearing needs: No Vision needs: No Review of Systems Const All systems reviewed & are unremarkable except as noted in HPI and below Physical Exam Vital Signs: Last Vital Signs Pulse 69 04/15/23 13:02 BP 140/80 H 04/15/23 13:02 BMI result Body Mass Index 35.4 Const General: healthy appearing and no acute distress Nutritional Appearance: obese Orientation/consciousness: patient oriented x3 Limitations: language barrier HEENT Head: Yes normal to inspection Ears: hearing grossly normal bilaterally Eyes Sclerae: sclerae normal Pupils: Equal, round and reactive pupils present Neck Neck: Yes normal visual inspection Chest Chest palpation & inspection: normal inspection of the chest Resp Effort & Inspection: normal respiratory effort Auscultation: clear to auscultation bilaterally Cardio Palpation: normal PMI Rate: regular rate Rhythm: regular rhythm Heart sounds: S1 normal heart sound present, S2 normal heart sound present and no murmurs GI Palpation (GI): Soft to palpation, nontender and No hepatosplenomegaly present Auscultation: normal bowel sounds Rectal Exam - Female: deferred Skin General skin exam: no rashes or lesions noted Neuro General: patient oriented x3, gait normal and moves all extremities Cranial nerves: Yes Equal, round and reactive pupils present Psych Appearance: grossly normal Mental Status: mental status grossly normal Assessment & Plan Assessment & Plan (1) Elevated LFTs: Code(s): R79.89 - Other specified abnormal findings of blood chemistry (2) Chronic LUQ pain: Code(s): R10.12 - Left upper quadrant pain; G89.29 - Other chronic pain (3) Abdominal bloating: Code(s): R14.0 - Abdominal distension (gaseous) (4) Chronic constipation: Code(s): K59.09 - Other constipation (5) GERD (gastroesophageal reflux disease): Code(s): K21.9 - Gastro-esophageal reflux disease without esophagitis Qualifiers: Esophagitis presence: esophagitis presence not specified Qualified Code(s): K21.9 - Gastro-esophageal reflux disease without esophagitis (6) Liver cyst: Code(s): K76.89 - Other specified diseases of liver (7) History of colon polyps: Comment: 12/2020 Three small to medium sized polyps removed (two were adenomatous on bx) Repeat Colon advised in 3 yrs (due 12/2023) Code(s): Z86.010 - Personal history of colonic polyps Plan 67 year old Indonesian-speaking female followed in GI for GERD, Vitamin B12 def and fatty liver. LFTs were normal.? Abd US showed? 4.6 x 4 x 3.5 cm central periportal complex cyst or fluid collection. 07/25/20 abd MRI showed several hepatic cysts and a?nonenhancing high signal lesion gallbladder fossa 4.3 cm x 4.1 cm likely cyst or non-obstructing biloma with increased signal from protein co ntent. No dephasing to suggest old hematoma. Pt was seen by General Surgery and advised conservative management. LUQ pain appears to be musculoskeltal - not related to eating or BMs. Pt was advised a trail of topical analgesics. 12/2021 FU abd US showed resolution of periportal complex cyst/fluid collection. Constipation improved with Linzess 145 mcg daily 05/[address] scan was negative except fatty liver, liver cysts and diverticulosis. Mild elevation of ALT likely due to fatty liver.? hepatitis serologies were negative Patient referred to setter machine to help with weight loss of (wt loss goal is 7- 10% of her body weight) and did not get called - I requested office staff to FU Her grand daughter helped her with a diet plan after getting information online. Pt has eliminating a lot of foods to see how they work and has lost 6 lbs. Taking almond milk 04/15/23 Symptoms have been worse since she ran out of refills for her GI medications - refills sent for Linzess and pantoprazole FU in 4?months - GERD, fatty liver, obesity and constipation Medications: Changed From linaclotide (Linzess) 145 mcg PO QAM 30 days 30 caps 3RF K59.09 - Other constipation To linaclotide (Linzess) 145 mcg PO QAM 90 days 90 caps 1RF K59.09 - Other constipation Refilled pantoprazole 40 mg PO DAILY 90 days 90 tabs 1RF Coding Level of Care Code Est Pt Level 4 (40136) Diagnoses Elevated LFTs R79.89 Chronic LUQ pain R10.12; G89.29 Abdominal bloating R14.0 Chronic constipation K59.09 Gastroesophageal reflux disease, unspecified whether esophagitis present K21.9 Esophagitis presence: esophagitis presence not specified Liver cyst K76.89 History of colon polyps Z86.010 Time Spent (min) 25
[2023-04-15 13:02] VITALS: BP 140/80; PULSE 69; BMI 35.4
== END 2023-04-15 13:34 | disposition home or self-care (01) ==
PROVIDERS: PCP Internal Medicine; Visit Provider Internal Medicine Gastroenterology
DX: R79.89 Other specified abnormal findings of blood chemistry (principal); R10.12 Left upper quadrant pain; G89.29 Other chronic pain; R14.0 Abdominal distension (gaseous); K59.09 Other constipation; K21.9 Gastro-esophageal reflux disease without esophagitis; K76.89 Other specified diseases of liver; Z86.010 Personal history of colon polyps
CPT/HCPCS: 99214

== ENCOUNTER → 2023-04-15 12:59 | Outpatient (BNVA) | payer MEDICARE, SELFPAY | PROVIDERS: PCP Internal Medicine; Visit Provider Internal Medicine Gastroenterology | DX: K59.09 Other constipation (principal); K21.9 Gastro-esophageal reflux disease without esophagitis; K76.89 Other specified diseases of liver; R79.89 Other specified abnormal findings of blood chemistry; R10.12 Left upper quadrant pain; R14.0 Abdominal distension (gaseous); G89.29 Other chronic pain; Z86.010 Personal history of colon polyps | CPT/HCPCS: 99212 ==

== ENCOUNTER 2023-05-03 14:43 | Outpatient (REF) | payer OTHER, SELFPAY ==
[2023-05-03 16:46] LABS: Urine Cytology See Pathology rpt
== END 2023-05-03 14:44 | disposition home or self-care (01) ==
LOC: HO.LNP 14:43
PROVIDERS: PCP Internal Medicine; Visit Provider Nurse Practitioner Family
DX: R31.29 Other microscopic hematuria (principal); N32.81 Overactive bladder
CPT/HCPCS: 51798; 81003; 88112

== ENCOUNTER 2023-05-03 14:43 | Outpatient (AMB) | payer OTHER, SELFPAY ==
--- NOTE | 2023-05-03 15:08 | MHC.OFFVIS ---
Intake Intake Visit Reasons: 6m/PVR Intake Note: Patient is present for follow up oab/microscopic hematuria Urology Medications: myrbetriq, estradiol cream Blood Thinner: none PVR: 31ml's Computer Operations Manager Required: Yes Computer Operations Manager Name: [id number] Accompanied by: Self / Same As Patient Allergies No Known Allergies Allergy (Verified 05/03/23 15:38) Medication List - Last Reconciled 05/03/23 by NIELS Godwin cholecalciferol (vitamin D3) 50 mcg PO DAILY 90 days cyanocobalamin (vitamin B-12) (Vitamin B-12) 1,000 mcg PO DAILY cyclobenzaprine 5 mg PO BEDTIME PRN 30 days diclofenac sodium 1% (Voltaren Arthritis Pain) 2 grams topical QID 30 days escitalopram oxalate (Lexapro) 40 mg PO DAILY estradiol 0.01%(0.1mg/gram) vaginally daily; pea sized amount to urethra 3 times a week 30 days folic acid 1 mg PO DAILY 90 days gabapentin 300 mg PO TID 30 days hydroxyzine HCl 10 mg PO TID linaclotide (Linzess) 145 mcg PO QAM 90 days mirabegron ER (Myrbetriq) 25 mg PO DAILY 90 days pantoprazole 40 mg PO DAILY 90 days pregabalin (Lyrica) 75 mg PO QDAY quetiapine 25 mg PO BEDTIME terazosin 1 mg PO DAILY trazodone 50 mg PO BEDTIME zolpidem 10 mg PO BEDTIME HPI HPI Comments History of Present Illness Details Florencia is a plesant 68 year old female patient of Dr. Gomez who presents to the office today for a follow up of her recurrent urinary tract infections and lower urinary tract symptoms. She has a past medical history of fibromyalgia, urge incontinence of urine, memory loss, overactive bladder, insomnia, urinary tract infections, microscopic hematuria, leukopenia, liver cysts, hemorrhoids, diverticulosis, anxiety, GERD, and obesity. In discussion with the patient today she reports having had a recent ER visit to [facility] for hematuria at which time she was noted to have a urinary tract infection and was on antibiotics for 1 week. She reports to be doing and feeling better. When asked patient reports to have stop taking Myrbetriq per ER physician. She is unsure if she had been experiencing urinary retention. Will attempt to obtain ER visit notes from [facility] for further review in continuity of care. She currently denies any bothersome urinary issues or concerns. In office urinalysis results reviewed with the patient today. PVR 31 mL. Previous workup has included a retroperitoneal ultrasound noting right kidney with no calculi, lesions, and or hydronephrosis noted. Left kidney with a small cyst in the midpole otherwise no calculi or hydronephrosis noted. The bladder is well distended with no stones or masses. Bilateral ureteral jets are demonstrated. Prevoid bladder volume is 263 mL. Postvoid bladder volume is 120 mL. When asked patient reports to have ran out of refills on Estrace cream thus she has not been able to be complaint with using it. In review of patient's chart it appears multiple urinalysis with microscopic hematuria and previous microhematuria work up in 05/[address] Cote all within normal range. When asked she denies nocturia, dysuria, foul smelling urine, flank pain, fever, and or chills. She otherwise offers no concerns or complaints. [facility] Medical History (Updated 05/03/23 @ 16:06 by [facility]) Fibromyalgia Right knee pain Left leg pain Cervical cancer screening Hematuria Urge incontinence of urine Memory loss Class 1 obesity without serious comorbidity with body mass index (BMI) of 34.0 to 34.9 in adult Cough Insomnia UTI (urinary tract infection) B12 deficiency Microscopic hematuria Leukopenia Liver cyst Hemorrhoids Diverticulosis Anxiety GERD (gastroesophageal reflux disease) Medicare annual wellness visit, initial Otitis media Urinary tract infection Surgical History H/O section H/O: hysterectomy History of endoscopy History of colonoscopy History of cholecystectomy Family History Mother Lung cancer Father Cancer of esophagus Social History Household Members: Family Household Members Other:: grandchildren Housing: House Housing Other:: lives with daughter and 2 grandkids Are you a primary hospice spiritual care coordinator to a significant other at home: No Do you presently have visiting nurse or 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 home services: 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) Alcohol intake: former Patient Tobacco Use Status: Never used Tobacco e-Cigarette/Vaping Use: Never Used Second Hand Smoke Exposure: No service: No Current occupational status: unemployed Cognitive needs: No Hearing needs: No Vision needs: No Review of Systems Const Reports as per [facility] Eyes Reports no additional complaints ENT Reports no additional complaints Card Reports as per [facility] Resp Reports no additional complaints GI Reports as per [facility] Reports as per [facility] Musc Reports as per [facility] Neuro Reports as per [facility] Psych Reports as per HPI Teofilo/Lymph Reports no additional complaints Aller/Immun Reports no additional complaints Physical Exam Const General: cooperative, healthy appearing, comfortable, no acute distress, well developed, alert and awake Nutritional Appearance: overweight Orientation/consciousness: patient oriented x3 Limitations: no limitations HEENT Head: Yes normal to inspection, Yes normocephalic and Yes atraumatic Ears: hearing grossly normal bilaterally Eyes General: appearance normal, both eyes and all related structures Neck Neck: Yes normal visual inspection and Yes trachea midline Chest Chest palpation & inspection: normal inspection of the chest Resp Effort & Inspection: normal respiratory effort and able to speak in complete sentences Cardio Rate: regular rate GI Inspection: Yes normal to inspection General: Yes no CVA tenderness Back/Spine/Pelvis Back: no CVA tenderness Skin General skin exam: no rashes or lesions noted Neuro General: patient oriented x3 Extrem General: Yes normal to inspection Psych Appearance: grossly normal and well kempt Mental Status: mental status grossly normal Speech and movement: Normal speech and movement present and Clear speech present Affect: normal affect Attitude: cooperative Thought process: Normal thought process present Thought content: Normal thought content present Insight: Fair insight present (Psych) Judgement: Fair judgement present (Psych) Office Procedures Post Void Residual Post Residual Void Post Void Residual (PVR): 31 [id number] Void Residual by ultrasound Results AMB Urinalysis, Automated UA Leukoctes 0 Ara/uL Last Edit by Alaris Royaltymackenzie Azul on 05/03/23 15:23 UA Nitrite Negative Last Edit by Setgo Latha on 05/03/23 15:23 UA Urobilinogen 0.2 mg/dL Last Edit by Alaris Royaltymackenzie Azul on 05/03/23 15:23 UA Protein 0 mg/dL Last Edit by Alaris Royaltymackenzie Azul on 05/03/23 15:23 UA pH 6.0 Last Edit by Setgo Latha on 05/03/23 15:23 UA Blood 25 Deo/uL Last Edit by Alaris Royaltymackenzie Azul on 05/03/23 15:23 UA Specific [place] 1.005 Last Edit by Krista Azul on 05/03/23 15:23 UA Ketone Negative Last Edit by Krista Kinneymargareth on 05/03/23 15:23 UA Bilirubin 0 mg/dL Last Edit by Krista Kinneymargareth on 05/03/23 15:23 UA Glucose 0 mg/dL Last Edit by Krista Kinneymargareth on 05/03/23 15:23 Results Reviewed Results Reviewed: Laboratory Last Values Urine pH (Auto) 6.0 05/03/23 15:21 Specific [place] (Auto) 1.005 05/03/23 15:21 Urine Protein (Auto) 0 mg/dL 05/03/23 15:21 Glucose (UA)(Auto) 0 mg/dL 05/03/23 15:21 Urine Ketones (Auto) Negative 05/03/23 15:21 Urine Blood (Auto) 25 Deo/uL 05/03/23 15:21 Urine Nitrite (Auto) Negative 05/03/23 15:21 Urine Bilirubin (Auto) 0 mg/dL 05/03/23 15:21 Urine Urobilinogen (Auto) 0.2 mg/dL 05/03/23 15:21 Leukocyte Esterase (Auto) 0 Ara/uL 05/03/23 15:21 Assessment & Plan Assessment & Plan (1) Microscopic hematuria: Code(s): R31.29 - Other microscopic hematuria (2) Overactive bladder: Code(s): N32.81 - Overactive bladder Plan In office urinalysis results reviewed with the patient today; as noted above; will send for urine cytology. PVR 31 mL Will attempt to obtain ER records from [facility] for continuity of care and review. Stop Myrbetriq as discussed Continue with Estrace cream as discussed and prescribed; refill provided Discussed UTI prevention with D mannose supplement, vitamin-C, increasing fluid intake, behavioral therapy with timed voiding, perineal hygiene and postcoital voiding, and management of constipation with stool softeners and increased fiber intake. Follow-up in 1-2 months with PVR; or sooner with any issues, concerns, and or questions. Orders: Orders Urine Cytology Today R31.29 - Other microscopic hematuria AMB Urinalysis Automated Today Z13.9 - Encounter for screening, unspecified AMB Post Void Residual by ultrasound Today N32.81 - Overactive bladder Medications: Refilled estradiol 0.01%(0.1mg/gram) vaginally daily; pea sized amount to urethra 3 times a week 42.5 grams 3RF 30 days Discontinued mirabegron ER (Myrbetriq) Discontinued Reason: Doctor's Order 25 mg PO DAILY 90 days 90 tabs 2RF N32.81 - Overactive bladder, R35.1 - Nocturia Patient Instructions: The patient had an opportunity to ask questions regarding the treatment plan. All questions were answered. Physical exam, labs, and imaging were discussed and reviewed in detail. As well as risks, benefits, and discussion of treatment choices. No major barriers to understanding were identified. The patient expressed understanding and agreement with the above treatment plan. The patient was made aware they should contact our office by phone for worsening of their current condition, the appearance of new symptoms, or with any questions or concerns. Compliance is encouraged with any medications and follow up testing that is ordered. It is a privilege to be allowed the opportunity to participate in? your urological care.? Again, if you have any questions or concerns If you have any questions or concerns please do not hesitate to contact me. The office is [phone]. This note is constructed using voice recognition software. While every effort has been made to ensure accuracy dye maker errors may have been included. Yours sincerely, NIELS Godwin Coding Level of Care Code Est Pt Level 3 (32394) Diagnoses Microscopic hematuria R31.29 Overactive bladder N32.81 CPT Codes Post Residual Void - PVR CPT Code: [id number]-[id number] Void Residual by ultrasound ([id number])
== END 2023-05-03 15:52 | disposition home or self-care (01) ==
LOC: HO.HUSH 14:43
PROVIDERS: PCP Internal Medicine; Visit Provider Nurse Practitioner Family
DX: R31.29 Other microscopic hematuria (principal); N32.81 Overactive bladder
CPT/HCPCS: 99213

== ENCOUNTER 2023-05-21 14:26 | Outpatient (AMB) | payer OTHER, SELFPAY ==
--- NOTE | 2023-05-21 14:45 | HO.NEPHOV_ITS ---
HPI HPI Comments History of Present Illness Details Florencia was seen in the office in follow-up of her history of hematuria. She had multiple emergency room visits with urinary symptoms and even had undergone imaging studies, urine studies and blood work. She was also given antibiotics. She does not have any abdominal pain, fever, chills, sore throat. There is no family history of any microscopic hematuria, CKD or ESRD. Her Myrbetriq was discontinued due to question of urinary retention/incomplete bladder emptying. Previous workup has included a retroperitoneal ultrasound was unremarkable except for the left kidney showing a small cyst in the midpole. c ytology was negative for high-grade urothelial carcinoma. Patient with a previous negative microscopic hematuria work[place] [address] Cote. When asked she denies nocturia, dysuria, foul smelling urine, flank pain, fever, and or chills. She otherwise offers no concerns or complaints during this office visit. She is accompanied by her daughter. [facility] Medical History Hematuria Fibromyalgia Right knee pain Left leg pain Cervical cancer screening Hematuria Urge incontinence of urine Memory loss Class 1 obesity without serious comorbidity with body mass index (BMI) of 34.0 to 34.9 in adult Cough Insomnia UTI (urinary tract infection) B12 deficiency Microscopic hematuria Leukopenia Liver cyst Hemorrhoids Diverticulosis Anxiety GERD (gastroesophageal reflux disease) Medicare annual wellness visit, initial Otitis media Urinary tract infection Surgical History H/O section H/O: hysterectomy History of endoscopy History of colonoscopy History of cholecystectomy Family History Mother Lung cancer Father Cancer of esophagus Social History Household Members: Family Household Members Other:: grandchildren Housing: House Housing Other:: lives with daughter and 2 grandkids Are you a primary aged or disabled carer to a significant other at home: No Do you 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) Alcohol intake: former Patient Tobacco Use Status: Never used Tobacco e-Cigarette/Vaping Use: Never Used Second Hand Smoke Exposure: No service: No Current occupational status: unemployed Cognitive needs: No Hearing needs: No Vision needs: No Vital Signs 05/21/23 14:50 Height 5 ft 4 in Weight 205 lb 4 oz BMI 35.2 BP 130/80 Blood Pressure Location Lt brachial Position Sitting Pulse 74 Pulse Source Pulse Oximeter Physical Exam Vital Signs: Last Vital Signs Pulse 74 05/21/23 14:50 BP 130/80 05/21/23 14:50 BMI result Body Mass Index 35.2 Const General: comfortable and no acute distress Orientation/consciousness: patient oriented x3 HEENT Head: Yes normocephalic Mouth: Normal oral and palatal mucosa present Eyes EOM: EOMs intact bilaterally Neck Neck: Yes supple Resp Auscultation: clear to auscultation bilaterally Cardio Jugular venous distension: no JVD Rate: regular rate GI Palpation (GI): Soft to palpation Auscultation: normal bowel sounds General: Yes no CVA tenderness Back/Spine/Pelvis Back: no CVA tenderness Skin General skin exam: no rashes or lesions noted Neuro General: patient oriented x3 and moves all extremities Extrem General: Yes no pedal edema Assessment & Plan Assessment & Plan (1) Hematuria: Code(s): R31.9 - Hematuria, unspecified Qualifiers: Hematuria type: other microscopic Qualified Code(s): R31.29 - Other microscopic hematuria (2) Renal cyst: Code(s): N28.1 - Cyst of kidney, acquired Plan Florencia has no history of significant proteinuria. Her renal functions are normal. Blood pressure has been at goal. She had imaging studies which showed a renal cyst. She needs cystoscopy. She has a Urology appointment. I ordered follow-up urine studies and blood work. I did not make any medication changes today. Follow-up given. Orders: Orders Creatinine 05/21/23 R31.9 - Hematuria, unspecified UA and rflx microscopic 05/21/23 R31.9 - Hematuria, unspecified Electrolytes 05/21/23 R31.9 - Hematuria, unspecified Blood Urea Nitrogen 05/21/23 R31.9 - Hematuria, unspecified Calcium 05/21/23 R31.9 - Hematuria, unspecified Coding Level of Care Code Est Pt Level 3 (52991) Diagnoses Other microscopic hematuria R31.29 Hematuria type: other microscopic Renal cyst N28.1 Results Reviewed Nephrology Results: Hgb 13.9 g/dl (12.0-16.0) 04/27/23 WBC 5.2 X10*3/uL (4.8-10.8) 04/27/23 Plt Count 257 X10*3/uL (160-400) 04/27/23 Sodium 139 mmol/L (135-145) 04/27/23 Potassium 3.8 mmol/L (3.3-5.1) 04/27/23 Chloride 106 mmol/L (96-108) 04/27/23 Carbon Dioxide 28 mmol/L (22-29) 04/27/23 BUN 15 mg/dL (9-16) 04/27/23 Creatinine 0.73 mg/dL (0.5-1.4) 04/27/23 Calcium 9.0 mg/dL (8.4-10.2) 04/27/23
[2023-05-21 14:50] VITALS: BP 130/80; PULSE 74; BMI 35.2
== END 2023-05-21 15:06 | disposition home or self-care (01) ==
PROVIDERS: PCP Internal Medicine; Visit Provider Internal Medicine Nephrology
DX: R31.29 Other microscopic hematuria (principal); N28.1 Cyst of kidney, acquired
CPT/HCPCS: 99213

== ENCOUNTER → 2023-05-21 14:26 | Outpatient (BNVA) | payer OTHER, SELFPAY | PROVIDERS: PCP Internal Medicine; Visit Provider Internal Medicine Nephrology ==

== ENCOUNTER 2023-05-25 09:27 | Outpatient (AMB) | payer MEDICARE, SELFPAY ==
--- NOTE | 2023-05-25 10:01 | A.OFFVIS_ITS ---
Intake VS Expanded 05/25/23 10:02 06/02/23 12:30 Height 5 ft 3 in 5 ft 3 in Weight 202 lb 13.204 oz 203 lb BMI 35.9 36.0 Intake Visit Reasons: Obesity-LVM Allergies No Known Allergies Allergy (Verified 05/30/23 13:03) HPI Nutrition Presentation Details Pt presents for MNT for obesity, fatty liver. The Pt was referred by Dr. Anders, GI specialist. The Pt reports having had this referral for a while but had to canc and r/s appt several times. Pt reports doing ok food frequency fruits: 0/d dairy: 4-5 serving/d (cheese) fish : 0-1/m starches > 20 serving/d vegetables: 0-1 serving /d ETOH: denies SMoking: denies physical activity: daily life activities MVI- not taking YJC-Sfkidym-Sf.Jeor Equation Height 5 ft 3 in Weight 203 lb Resting Metabolic Rate 1424.44 Calculated Activity Level Sedentary Calories Needed to Maintain Weight 1709.33 Diagnosis Nutrition problem #1 excessive energy intake As related to (etiology) #1 diagnosis As evidenced by (sign/symptom) #1 high BMI (35.9 ( 05/2023)) Most Recent Diabetes Results: Creatinine 0.73 mg/dL (0.5-1.4) 04/27/23 Blood Urea Nitrogen 15 mg/dL (9-16) 04/27/23 Sodium 139 mmol/L (135-145) 04/27/23 Potassium 3.8 mmol/L (3.3-5.1) 04/27/23 Chloride 106 mmol/L (96-108) 04/27/23 Carbon Dioxide 28 mmol/L (22-29) 04/27/23 Calcium 9.0 mg/dL (8.4-10.2) 04/27/23 AST 22 U/L (5-31) 04/27/23 ALT 26 U/L (0-31) 04/27/23 Total Protein 7.5 g/dL (6.5-8.0) 04/27/23 Albumin 4.0 g/dL (3.5-5.0) 04/27/23 [facility] Medical History Hematuria Fibromyalgia Right knee pain Left leg pain Cervical cancer screening Hematuria Urge incontinence of urine Memory loss Class 1 obesity without serious comorbidity with body mass index (BMI) of 34.0 to 34.9 in adult Cough Insomnia UTI (urinary tract infection) B12 deficiency Microscopic hematuria Leukopenia Liver cyst Hemorrhoids Diverticulosis Anxiety GERD (gastroesophageal reflux disease) Medicare annual wellness visit, initial Otitis media Urinary tract infection Surgical History H/O section H/O: hysterectomy History of endoscopy History of colonoscopy History of cholecystectomy Family History Mother Lung cancer Father Cancer of esophagus Social History Household Members: Family Household Members Other:: grandchildren Housing: House Housing Other:: lives with daughter and 2 grandkids Are you a primary patient care representative to a significant other at home: No Do you 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) Alcohol intake: former Patient Tobacco Use Status: Never used Tobacco e-Cigarette/Vaping Use: Never Used Second Hand Smoke Exposure: No service: No Current occupational status: unemployed Cognitive needs: No Hearing needs: No Vision needs: No Assessment & Plan Assessment & Plan (1) BMI 35.0-35.9,adult: Code(s): Z68.35 - Body mass index [BMI] 35.0-35.9, adult (2) Obesity (BMI 30-39.9): Code(s): E66.9 - Obesity, unspecified Plan: wt: 92 kg Est kcal needs as per MSJ: 1700 (40% carb, 30% protein/fat) Est fluid needs as per 30 ml/d: 2760 Est prot per day as per 1 g/kg bw: 92 Recommend fiber intake : 8-10 g per day and gradually increase to 25-28 g per day for women and 35-38 g for men or as tolerated Recommend sodium intake per day : less than 2000 mg Educated patient on: ( R = reviewed V = verbalizes understanding N/R = needs review N/A = not applicable * Food sources of carbohydrate, adequate serving sizes and its role in various health conditions: R * Differences between complex carbohydrates a simple carbohydrates, role of fiber in diet: NR * Differences between types of fats and role in diet (mono on saturated fat fa tty acids, saturated fatty acids, trans fats): R * Food sources of sodium in salt and healthy modifications for heart health in kidney health: NR * Vitamins and minerals: NR * Healthy plate method concept: R * Physical activity: Benefits a precaution: R Plan wt: 92 kg Est kcal needs as per MSJ: 1700 (40% carb, 30% protein/fat) Est fluid needs as per 30 ml/d: 2760 Est prot per day as per 1 g/kg bw: 92 Recommend fiber intake : 8-10 g per day and gradually increase to 25-28 g per day for women and 35-38 g for men or as tolerated Recommend sodium intake per day : less than 2000 mg Educated patient on: ( R = reviewed V = verbalizes understanding N/R = needs review N/A = not applicable * Food sources of carbohydrate, adequate serving sizes and its role in various health conditions: R * Differences between complex carbohydrates a simple carbohydrates, role of fiber in diet: NR * Differences between types of fats and role in diet (mono on saturated fat fatty acids, saturated fatty acids, trans fats): R * Food sources of sodium in salt and healthy modifications for heart health in kidney health: NR * Vitamins and minerals: NR * Healthy plate method concept: R * Physical activity: Benefits a precaution: R Patient Instructions: Follow healthy plate method at dinner 4 times /week Reduce on sugars/carbs (pastries/cookies/sodas/juices and the like) Have 2 fruits per day replacing 2 pastries Work on reducing fat intake (remove skins, butter, sauces fried foods ) see 1700 migel meal plan as reference Coding Level of Care Code Nutr Indiv Intake (14297) Diagnoses BMI 35.0-35.9,adult Z68.35 Obesity (BMI 30-39.9) E66.9 Time Spent (min) 30
[2023-05-25 10:02] VITALS: BMI 35.9
[2023-06-02 12:30] VITALS: BMI 36.0
== END 2023-05-25 11:33 | disposition home or self-care (01) ==
PROVIDERS: PCP Internal Medicine; Visit Provider Dietitian, Registered
DX: Z68.35 Body mass index [BMI] 35.0-35.9, adult (principal); E66.9 Obesity, unspecified

== ENCOUNTER → 2023-05-25 09:27 | Outpatient (BNVA) | payer MEDICARE, SELFPAY | PROVIDERS: PCP Internal Medicine; Visit Provider Dietitian, Registered | DX: E66.9 Obesity, unspecified (principal); Z68.35 Body mass index [BMI] 35.0-35.9, adult | CPT/HCPCS: 97802 ==

== ENCOUNTER 2023-05-28 13:28 | Outpatient (AMB) | payer OTHER, SELFPAY ==
--- NOTE | 2023-05-28 13:30 | A.OFFVIS_ITS ---
Intake Intake Visit Reasons: cysto Intake Note: Patient is present for follow up/cystoscopy Urology Medications: estradiol cream Blood Thinner: none antibiotic allergy: PVR: 102ml's Philosophy And Religion Instructor Required: Yes Accompanied by: Self / Same As Patient Allergies No Known Allergies Allergy (Verified 05/30/23 13:03) Medication List - Last Reconciled 05/30/23 by KIANA Godwin cholecalciferol (vitamin D3) 50 mcg PO DAILY 90 days cyanocobalamin (vitamin B-12) (Vitamin B-12) 1,000 mcg PO DAILY cyclobenzaprine 5 mg PO BEDTIME PRN 30 days diclofenac sodium 1% (Voltaren Arthritis Pain) 2 grams topical QID 30 days escitalopram oxalate (Lexapro) 40 mg PO DAILY estradiol 0.01%(0.1mg/gram) vaginally daily; pea sized amount to urethra 3 times a week 30 days folic acid 1 mg PO DAILY 90 days gabapentin 300 mg PO TID 30 days hydroxyzine HCl 10 mg PO TID linaclotide (Linzess) 145 mcg PO QAM 90 days pantoprazole 40 mg PO DAILY 90 days pregabalin (Lyrica) 75 mg PO QDAY quetiapine 25 mg PO BEDTIME terazosin 1 mg PO DAILY trazodone 50 mg PO BEDTIME zolpidem 10 mg PO BEDTIME HPI HPI Comments History of Present Illness Details Florencia is a plesant 68 year old female patient of Dr. Gomez who is accompanied by her daughter at today's office visit. She has a past medical history of fibromyalgia, urge incontinence of urine, memory loss, overactive bladder, insomnia, urinary tract infections, microscopic hematuria, leukopenia, liver cysts, hemorrhoids, diverticulosis, anxiety, GERD, and obesity. She presents to the office today for follow-up of her lower urinary tract symptoms and recurrent urinary tract infections. Of note, patient was seen approximately 1 month ago at which time her Myrbetriq was discontinued due to question of urinary retention/incomplete bladder emptying. In discussion with the patient today she reports feeling lower urinary tract symptoms have significantly improved since her last office visit. She reports compliance with Estrace cream as prescribed. Patient has previously followed up with Nephrology at which time recommendations were made for in office cystoscopy for assessment of potential interstitial cystitis. In office cystoscopy performed today. Patient tolerated procedure well. No suspicious bladder lesions or growths noted. Bladder appears normal and no inflammation noted. In office urinalysis results reviewed with the patient today. PVR 102 mL. Previous workup has included a retroperitoneal ultrasound noting right kidney with no calculi, lesions, and or hydronephrosis noted. Left kidney with a small cyst in the midpole otherwise no calculi or hydronephrosis noted. The bladder is well distended with no stones or masses. Bilateral ureteral jets are demonstrated. Prevoid bladder volume is 263 mL. Postvoid bladder volume is 120 mL. Urine cytology results reviewed with patient today. 05/06-cytology --Negative for high-grade urothelial carcinoma. Patient with a previous negative microscopic hematuria workup [place] [address] Cote. When asked she denies nocturia, dysuria, foul smelling urine, flank pain, fever, and or chills. She otherwise offers no concerns or complaints. [facility] Medical History Hematuria Fibromyalgia Right knee pain Left leg pain Cervical cancer screening Hematuria Urge incontinence of urine Memory loss Class 1 obesity without serious comorbidity with body mass index (BMI) of 34.0 to 34.9 in adult Cough Insomnia UTI (urinary tract infection) B12 deficiency Microscopic hematuria Leukopenia Liver cyst Hemorrhoids Diverticulosis Anxiety GERD (gastroesophageal reflux disease) Medicare annual wellness visit, initial Otitis media Urinary tract infection Surgical History H/O section H/O: hysterectomy History of endoscopy History of colonoscopy History of cholecystectomy Family History Mother Lung cancer Father Cancer of esophagus Social History Household Members: Family Household Members Other:: grandchildren Housing: House Housing Other:: lives with daughter and 2 grandkids Are you a primary urgent care physician assistant to a significant other at home: No 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) Alcohol intake: former Patient Tobacco Use Status: Never used Tobacco e-Cigarette/Vaping Use: Never Used Second Hand Smoke Exposure: No service: No Current occupational status: unemployed Cognitive needs: No Hearing needs: No Vision needs: No Review of Systems Const Reports as per HPI Eyes Reports no additional complaints ENT Reports no additional complaints Card Reports as per [facility] Resp Reports no additional complaints GI Reports as per [facility] Reports as per [facility] Musc Reports as per [facility] Neuro Reports as per [facility] Psych Reports as per [facility] Teofilo/Lymph Reports no additional complaints Aller/Immun Reports no additional complaints Physical Exam Const General: cooperative, healthy appearing, comfortable, no acute distress, well developed, alert and awake Nutritional Appearance: overweight Orientation/consciousness: patient oriented x3 Limitations: no limitations HEENT Head: Yes normal to inspection, Yes normocephalic and Yes atraumatic Ears: hearing grossly normal bilaterally Eyes General: appearance normal, both eyes and all related structures Neck Neck: Yes normal visual inspection and Yes trachea midline Chest Chest palpation & inspection: normal inspection of the chest Resp Effort & Inspection: normal respiratory effort and able to speak in complete sentences Cardio Rate: regular rate GI Inspection: Yes normal to inspection General: Yes no CVA tenderness External Female Exam: normal external appearance and normal appearance of the urethra Back/Spine/Pelvis Back: no CVA tenderness Skin General skin exam: no rashes or lesions noted Neuro General: patient oriented x3 Extrem General: Yes normal to inspection Psych Appearance: grossly normal and well kempt Mental Status: mental status grossly normal Speech and movement: Normal speech and movement present and Clear speech present Affect: normal affect Attitude: cooperative Thought process: Normal thought process present Thought content: Normal thought content present Insight: Fair insight present (Psych) Judgement: Fair judgement present (Psych) Office Procedures Cystoscopy Consent Discussed risk and benefit or proposed procedure with the patient. Information consent for procedure given to the patient. Discussed technical aspects, risks, benefits and alternatives in full. Addressed all of the patient's questions and concerns regarding the procedure. The patient demonstrated knowledge and understanding. They wish to proceed with this procedure. Preparation The patient was prepped in the usual manner. A chief power dispatcher was present and in the room. Genitalia was prepped with betadine solution in a sterile manner. Lid ocaine Jelly 2% was placed into the urethra and 16Fr flexible Olympus cystoscope was inserted into the meatus after adequate lubrication. Procedure Meatus: normal position Urethra: normal Bladder examination with retroflexion of cystoscope Bladder Orifices normal shape and position Trigonenormal, metaplasia, inflamed Bladder Capacity: moderate Trabeculations: minimal Cellule Formation: none Diverticulum Formation: none Mucosal Erythema: none Bladder Tumor: none patient tolerated procedure well [id number] DISPOSABLE SCOPE URO-G FLEXIBLE SCOPE Procedure code (CPT) selection complete Office Meds lidocaine HCl 2 % mucosal jelly in applicator Performing Provider: NIELS Godwin Performing Location: [facility] Administered by: Mimi Harmon RN on 05/28/23 13:43 Dose Route Admin Location Dispensed Lot Number Expiration Date [facility] [employer] Developer 10 mL intra-urethral 10 mL nitrofurantoin monohydrate/macrocrystals 100 mg capsule Performing Provider: NIELS Godwin Performing Location: [facility] Administered by: Mimi Harmon RN on 05/28/23 13:43 Dose Route Admin Location Dispensed Lot Number Expiration Date [facility] [employer] Developer 100 mg PO 1 cap naproxen 500 mg tablet Performing Provider: NIELS Godwin Performing Location: [facility] Administered by: Mimi Harmon RN on 05/28/23 13:43 Dose Route Admin Location Dispensed Lot Number Expiration Date [facility] [employer] 500 mg PO 1 tab Results AMB Urinalysis, Automated UA Leukoctes 0 Ara/uL Last Edit by Krista Azul on 05/28/23 15:15 UA Nitrite Negative Last Edit by Krista Azul on 05/28/23 15:15 UA Urobilinogen 0.2 mg/dL Last Edit by Krista Azul on 05/28/23 15:15 UA Protein 15 mg/dL Last Edit by Krista Azul on 05/28/23 15:15 UA pH 6.0 Last Edit by Krista Azul on 05/28/23 15:15 UA Blood 200 Deo/uL Last Edit by Krista Azul on 05/28/23 15:15 UA Specific [place] 1.030 Last Edit by Krista Azul on 05/28/23 15:15 UA Ketone Negative [facility] on 05/28/23 15:15 UA Bilirubin 0 mg/dL Last Edit by Krista Azul on 05/28/23 15:15 UA Glucose 0 mg/dL Last Edit by Krista Azul on 05/28/23 15:15 Results Reviewed Results Reviewed: Laboratory Last Values Urine pH (Auto) 6.0 05/28/23 15:14 Specific [place] (Auto) 1.030 05/28/23 15:14 Urine Protein (Auto) 15 mg/dL 05/28/23 15:14 Glucose (UA)(Auto) 0 mg/dL 05/28/23 15:14 Urine Ketones (Auto) Negative 05/28/23 15:14 Urine Blood (Auto) 200 Deo/uL 05/28/23 15:14 Urine Nitrite (Auto) Negative 05/28/23 15:14 Urine Bilirubin (Auto) 0 mg/dL 05/28/23 15:14 Urine Urobilinogen (Auto) 0.2 mg/dL 05/28/23 15:14 Leukocyte Esterase (Auto) 0 Ara/uL 05/28/23 15:14 Assessment & Plan Assessment & Plan (1) Microscopic hematuria: Code(s): R31.29 - Other microscopic hematuria (2) Overactive bladder: Code(s): N32.81 - Overactive bladder Plan In office urinalysis results reviewed with the patient today; as noted above; will send for urine cytology. PVR 102 mL Discussed at length causes and affects of incomplete bladder emptying. Cystoscopy performed; patient tolerated procedure well; no abnormalities noted. Continue with Estrace cream as discussed and prescribed; refill provided Discussed bladder triggers/irritants. Discussed UTI prevention with D mannose supplement, vitamin-C, increasing fluid intake, behavioral therapy with timed voiding, perineal hygiene and postcoital voiding, and management of constipation with stool softeners and increased fiber intake. Discussed possible initiation of low-dose terazosin in the setting of incomplete bladder emptying. Follow-up in 3 months with PVR; or sooner with any issues, concerns, and or questions. Orders: Orders AMB Cystoscopy 05/28/23 N32.81 - Overactive bladder, R31.29 - Other microscopic hematuria AMB Urinalysis Automated 05/28/23 Z13.9 - Encounter for screening, unspecified Patient Instructions: The patient had an opportunity to ask questions regarding the treatment plan. All questions were answered. Physical exam, labs, and imaging were discussed and reviewed in detail. As well as risks, benefits, and discussion of treatment choices. No major barriers to understanding were identified. The patient expressed understanding and agreement with the above treatment plan. The patient was made aware they should contact our office by phone for worsening of their current condition, the appearance of new symptoms, or with any questions or concerns. Compliance is encouraged with any medications and follow up testing that is ordered. It is a privilege to be allowed the opportunity to participate in? your urological care.? Again, if you have any questions or concerns If you have any questions or concerns please do not hesitate to contact me. The office is [phone]. This note is constructed using voice recognition software. While every effort has been made to ensure accuracy grey goods marker errors may have been included. Yours sincerely, NIELS Godwin Coding Level of Care Code Est Pt Level 3 (04378) Diagnoses Microscopic hematuria R31.29 Overactive bladder N32.81 CPT Codes Cystoscopy - CPT: 59244-[id number] ([id number])
== END 2023-05-28 14:32 | disposition home or self-care (01) ==
PROVIDERS: PCP Internal Medicine; Visit Provider Nurse Practitioner Family
DX: R31.29 Other microscopic hematuria (principal); N32.81 Overactive bladder
CPT/HCPCS: 52000; 99213

== ENCOUNTER → 2023-05-28 13:28 | Outpatient (BNVA) | payer OTHER, SELFPAY | PROVIDERS: PCP Internal Medicine; Visit Provider Nurse Practitioner Family | DX: R31.29 Other microscopic hematuria (principal); N32.81 Overactive bladder | CPT/HCPCS: 52000; 81003 ==

== ENCOUNTER 2023-06-10 08:45 | Outpatient (AMB) | payer OTHER, SELFPAY ==
--- NOTE | 2023-06-10 08:48 | A.OFFVIS_ITS ---
Intake Vital Signs 06/10/23 08:49 Height 5 ft 3 in Weight 201 lb 11.567 oz BMI 35.7 BP 134/80 Blood Pressure Location Rt brachial Position Sitting Pulse 70 Pulse Source Pulse Oximeter Temp 97 F Temp Source Skin Pulse Oximetry (%) 98 Oxygen Delivery Method Room Air Intake Visit Reasons: Joint Pain Intake Note: New pt presents today for consult. Saw a psychiatric aide instructor in [place]. Diagnosed with rheumatic fever. C/o joint pain, multiple areas. 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 Paper Bag Making Machinist Language: Striping Machine Operator Name: [id number] Information Interpreted: clinical only Accompanied by: other, son in law Allergies No Known Allergies Allergy (Verified 06/10/23 08:52) Medication List - Last Reconciled 06/10/23 by Kevin Duran MD cholecalciferol (vitamin D3) 50 mcg PO DAILY 90 days cyanocobalamin (vitamin B-12) (Vitamin B-12) 1,000 mcg PO DAILY cyclobenzaprine 5 mg PO BEDTIME PRN 30 days diclofenac sodium 1% (Voltaren Arthritis Pain) 2 grams topical QID 30 days escitalopram oxalate (Lexapro) 40 mg PO DAILY estradiol 0.01%(0.1mg/gram) vaginally daily; pea sized amount to urethra 3 times a week 30 days folic acid 1 mg PO DAILY 90 days gabapentin 300 mg PO TID 30 days hydroxyzine HCl 10 mg PO TID linaclotide (Linzess) 145 mcg PO QAM 90 days pantoprazole 40 mg PO DAILY 90 days pregabalin (Lyrica) 75 mg PO QDAY quetiapine 25 mg PO BEDTIME terazosin 1 mg PO DAILY trazodone 50 mg PO BEDTIME zolpidem 10 mg PO BEDTIME HPI HPI Comments History of Present Illness Details This is a 68-year-old female who presents for evaluation of diffuse pain. She states that she has had pain for many years including headaches, neck, shoulders, hands, knees. [facility] Medical History Hematuria Fibromyalgia Right knee pain Left leg pain Cervical cancer screening Hematuria Urge incontinence of urine Memory loss Class 1 obesity without serious comorbidity with body mass index (BMI) of 34.0 to 34.9 in adult Cough Insomnia UTI (urinary tract infection) B12 deficiency Microscopic hematuria Leukopenia Liver cyst Hemorrhoids Diverticulosis Anxiety GERD (gastroesophageal reflux disease) Medicare annual wellness visit, initial Otitis media Urinary tract infection Surgical History H/O section H/O: hysterectomy History of endoscopy History of colonoscopy History of cholecystectomy Family History Mother Lung cancer Father Cancer of esophagus Sister Lupus Other Arthritis Social History Household Members: Family Household Members Other:: grandchildren Housing: House Housing Other:: lives with daughter and 2 grandkids Are you a primary out of school hours care worker to a significant other at home: No Do you presently have visiting nurse or other home services: Yes (grinder operator) Alcohol intake: former Patient Tobacco Use Status: Never used Tobacco e-Cigarette/Vaping Use: Never Used Second Hand Smoke Exposure: No service: No Current occupational status: unemployed Cognitive needs: No Hearing needs: No Vision needs: No Female Reproductive History Menstrual Total pregnancies: 3 Ab induced: 1 Review of Systems Const Reports fatigue, Reports headache(s) and Reports weakness Eyes Reports itchy eyes ENT Reports headache(s), Reports neck pain and Reports sore throat Card Reports chest pain Resp Reports cough Musc Reports back pain, Reports arthralgias and Reports neck pain Neuro Reports headache(s) and Reports weakness Psych Reports anxiety and Reports depression Endo Reports fatigue Aller/Immun Reports itchy eyes Physical Exam Vital Signs: Last Vital Signs Temp 97 F 06/10/23 08:49 Pulse 70 06/10/23 08:49 BP 134/80 06/10/23 08:49 Pulse Ox 98 06/10/23 08:49 Oxygen Delivery Method Room Air 06/10/23 08:49 BMI result Body Mass Index 35.7 Const General: cooperative, healthy appearing and comfortable Nutritional Appearance: obese Orientation/consciousness: patient oriented x3 Limitations: no limitations HEENT Head: Yes normocephalic and Yes atraumatic Mouth: moist mucous membranes Resp Effort & Inspection: normal respiratory effort and able to speak in complete sentences Auscultation: clear to auscultation bilaterally Cardio Rate: regular rate Rhythm: regular rhythm GI Inspection: No distended Palpation (GI): Soft to palpation and nontender Skin General skin exam: no rashes or lesions noted Neuro General: patient oriented x3 Extrem Other: Osteoarthritic changes of both hands with few Heberden's nodes Normal nailfold capillaroscopy Normal range of motion of hands, wrists, elbows and shoulders Multiple myofascial tender points No active synovitis Assessment & Plan Assessment & Plan (1) Polyarthralgia: Code(s): M25.50 - Pain in unspecified joint Plan: This is a 68-year-old female presents for evaluation of diffuse pain. I do not see any signs of an autoimmune rheumatic disease. Follow-up with PCP Plan I spent 19 minutes reviewing patient's chart, evaluating patient, counseling patient and documenting in the chart Coding Level of Care Code New Pt Level 3 (38326) Diagnoses Polyarthralgia M25.50
[2023-06-10 08:49] VITALS: BP 134/80; PULSE 70; TEMP 36.1; O2SAT 98; BMI 35.7
== END 2023-06-10 09:09 | disposition home or self-care (01) ==
LOC: HO.RHE 08:45
PROVIDERS: PCP Internal Medicine; Visit Provider Student in an Organized Health Care Education/Training Program
DX: M25.50 Pain in unspecified joint (principal)
CPT/HCPCS: 99203

== ENCOUNTER → 2023-06-10 08:45 | Outpatient (BNVA) | payer OTHER, SELFPAY | PROVIDERS: PCP Internal Medicine; Visit Provider Student in an Organized Health Care Education/Training Program ==

== ENCOUNTER → 2023-06-22 10:01 | Outpatient (REF) | payer OTHER, SELFPAY | LOC: HO.SL 10:01 | PROVIDERS: PCP Internal Medicine; Visit Provider Internal Medicine | DX: G47.9 Sleep disorder, unspecified (principal); G47.19 Other hypersomnia; R06.83 Snoring | CPT/HCPCS: 95806 ==

== ENCOUNTER → 2023-06-22 14:03 | Outpatient (BNV) | payer OTHER, SELFPAY | PROVIDERS: PCP Internal Medicine; Visit Provider Internal Medicine | DX: R06.83 Snoring (principal); R40.0 Somnolence | CPT/HCPCS: 95806 ==

== ENCOUNTER 2023-08-19 12:28 | Outpatient (AMB) | payer MEDICARE, SELFPAY ==
--- NOTE | 2023-08-19 12:51 | A.OFFVIS_ITS ---
Intake Vital Signs 08/19/23 12:54 Height 5 ft 3 in Weight 194 lb BMI 34.4 BP 121/72 Blood Pressure Location Lt brachial Position Sitting Pulse 75 Intake Visit Reasons: 4 month follow up Intake Note: Patient follow up for Patient cc: N/V, diarrhea x a week, acid reflex with burning sensation, hand are hots, abdominal pain with bloating. Deniesa ny other GI issues. 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 Accompanied by: Daughter Allergies No Known Allergies Allergy (Verified 08/19/23 12:50) Medication List - Last Reconciled 08/19/23 by Karon Anders MD cholecalciferol (vitamin D3) 50 mcg PO DAILY 90 days cyanocobalamin (vitamin B-12) (Vitamin B-12) 1,000 mcg PO DAILY cyclobenzaprine 5 mg PO BEDTIME PRN 30 days diclofenac sodium 1% (Voltaren Arthritis Pain) 2 grams topical QID 30 days escitalopram oxalate (Lexapro) 40 mg PO DAILY estradiol 0.01%(0.1mg/gram) vaginally daily; pea sized amount to urethra 3 times a week 30 days folic acid 1 mg PO DAILY 90 days gabapentin 300 mg PO TID 30 days hydroxyzine HCl 10 mg PO TID linaclotide (Linzess) 145 mcg PO QAM 90 days mirabegron ER (Myrbetriq) 25 mg PO DAILY 90 days pantoprazole 40 mg PO DAILY 90 days pregabalin (Lyrica) 75 mg PO QDAY quetiapine 25 mg PO BEDTIME terazosin 1 mg PO DAILY trazodone 50 mg PO BEDTIME zolpidem 10 mg PO BEDTIME HPI 4 month follow up HPI Details GI CLINIC VISIT FOR THIS 68 YEAR OLD STATELESS-SPEAKING FEMALE FOR FOLLOW-UP OF GERD, VITAMIN B12 DEF, AND FATTY LIVER. IMAGING STUDIES:? 05/07/[address] SCAN SHOWED: 1.? No acute intra-abdominal process see n. 2.? Diffuse hepatic steatosis with multi ple hepatic cysts. 3.? Colonic diverticulosis without diver ticulitis. Mild constipation.? 07/25/20 ABD MRI SHOWED: 1. Prior cholecystectomy. No biliary molly karthik dilatation. 2, Nonenhancing high signal lesion gallb ladder fossa 4.3 cm x 4.1 cmlikely cyst or non-obstructing biloma with increased signal from protein content. No dephasing to suggest old hematoma. 3. Several hepatic cysts, largest 2.6 cm . 4. Small hemorrhagic cyst left kidney 1. 2 cm. ENDOSCOPIC STUDIES:? 12/2020 EGD AND COLON SHOWED: Endoscopy Findings: ESOPHAGUS: Normal STOMACH: Gastritis DUODENUM: Normal - biopsied to check for celiac sprue Colonoscopy Findings: Three small to medium sized polyps removed Random biopsies obtained from the colon Moderate to severe diverticulosis seen in the entire colon No source found for abdominal pain Plan:? Repeat Colonoscopy interval based on path results - in 3-5 years if polyps are adenomatous and 10 years if polyps are hyperplastic. Above findings were reviewed with the patient and Gastritis, colon polyps and diverticulosis handouts were given in the discharge area ADDENDUM: Pt complained of nausea and some worsening of her chronic abdominal pain. Nausea resolved with Zofran. Abdominal pain improved after pt passed some gas. TODAY'S VISIT: Pt is accompanied by her daughter here from [place] who is able to speak some [place] Complains of nausea, vomiting and diarrhea x 6 days [place] better after 4 days and now having recurrent symptoms. Has retching and unable to vomit Eating rice and meat - has postprandial diarrhea Had 15 soft to watery BM yesterday and no BM today Complains of chills, feeling tired and denies fever. One of daughter has similar symptoms Denies recent antibitoics or hx of travel. PAST VISITS: Feeling regular. Has her ups and downs - feels better on some days Some days she feels burning in her stomach. Not following the diet any more. Continues to have constipation. Sometimes no BM in more than 4 days. Symptoms have been worse since she ran out of refills for her GI medications - refills sent for Linzess and pantoprazole I am on a diet Eliminating a lot of foods to see how they work. Did not receive an appt with the manufacturing specialist [facility] getting information and she has lost 6 lbs. Taking almond milk Not eating sauces or stews. Abd CT scan results reviewed with the pt. Feeling regular GI symptoms are less frequent. Constipation is under control so far Has a BM daily or after 1-2 days Patient cc: acid reflex, abdominal pain, abdominal bloating on and off, acid reflex with burning sensation, constipation, and some dysphagia with liquid, patient want a referral for manufacturing specialist. Sometimes I am fine and sometimes not so good Complains of left sided pain Continues to have left sided and lower abdominal pain including under the ribs - feels inflammation. Pain is not there all the time. Sometimes has pain after she eats something. Constipation comes and goes. having a lot of reflux and burning in the chest. Has a BM every 5 to 6 days - usuallay after several days. Took Linzess once and then stopped - concerned about side effects Has constipation - takes fibre, plums and takes medication prn - constipation is under control. MRI and Lab results were reviewed with the patient. Continues to have abd pain which comes and goes. Has a burning sensation in the abdomen and anus and has hemorrhoids. Intermittent upper abdominal pain and nausea. Pt denies past hx of jaundice or hepatitis Patient denies symptoms of heartburn, dysphagia, vomiting, change in appetite or weight. Complains of chronic constipation and was told she had diverticulosis. Can have a BM daily or after 3-4 days. Patient denies major cardiac or pulmonary problems, loud snoring or sleep apnea Takes medications to help her sleep at night. Denies problems with anesthesia in the past. Denies being on chronic anticoagulation. Patient denies known family history of liver disease, colon polyps or colon cancer. Dad had esophageal cancer (was a smoker). PAST EGD/COLONOSCOPY:?? Had EGD (per pt showed gastritis) and colon (5 polyps were removed) in [place]? 1.5 yrs ago. Repeat colonoscopy was advised ? in 1 year and pt stated she is overdue. PAST GI HISTORY BY REVIEW OF MEDICAL RECORDS: 06/2020 patient was seen by Dr. Gomez:This is a 55-year-old female with GERD, fatty liver and liver cyst that has tele health visit by phone for follow-up on recent labs.? She has mild leukopenia that will be repeated. She has hematuria and will be referred to Urology.? Complains of dysuria and urinalysis was order. Ultrasound of the abdomen shows 1 liver cyst and fatty liver.? Previous ultrasounds done in [place] shows 3 liver cysts before.? She is aware I will refer her to Gastroenterology for that matter.? Has diffuse myalgias and would like something like Relafen or tramadol which she has using the past.? Also complains of heartburn and Pepcid is not working for her.? She would like Protonix which she has also used in the past [facility] Medical History Hematuria Fibromyalgia Right knee pain Left leg pain Cervical cancer screening Hematuria Urge incontinence of urine Memory loss Class 1 obesity without serious comorbidity with body mass index (BMI) of 34.0 to 34.9 in adult Cough Insomnia UTI (urinary tract infection) B12 deficiency Microscopic hematuria Leukopenia Liver cyst Hemorrhoids Diverticulosis Anxiety GERD (gastroesophageal reflux disease) Medicare annual wellness visit, initial Otitis media Urinary tract infection Surgical History H/O section H/O: hysterectomy History of endoscopy History of colonoscopy History of cholecystectomy Family History Mother Lung cancer Father Cancer of esophagus Sister Lupus Other Arthritis Social History Household Members: Family Household Members Other:: grandchildren Housing: House Housing Other:: lives with daughter and 2 grandkids Are you a primary health care facilities inspector to a significant other at home: No Do you presently have visiting nurse or other home services: Yes (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 in) Alcohol intake: former Patient Tobacco Use Status: Never used Tobacco e-Cigarette/Vaping Use: Never Used Second Hand Smoke Exposure: No service: No Current occupational status: unemployed Cognitive needs: No Hearing needs: No Vision needs: No Review of Systems Const All systems reviewed & are unremarkable except as noted in HPI and below Physical Exam Vital Signs: Last Vital Signs Pulse 75 08/19/23 12:54 BP 121/72 08/19/23 12:54 BMI result Body Mass Index 34.4 Const General: healthy appearing and no acute distress Nutritional Appearance: average body habitus Orientation/consciousness: patient oriented x3 Limitations: no limitations HEENT Head: Yes normal to inspection Ears: hearing grossly normal bilaterally Eyes Sclerae: sclerae normal Pupils: Equal, round and reactive pupils present Neck Neck: Yes normal visual inspection Chest Chest palpation & inspection: normal inspection of the chest Resp Effort & Inspection: normal respiratory effort Auscultation: clear to auscultation bilaterally Cardio Palpation: normal PMI Rate: regular rate Rhythm: regular rhythm Heart sounds: S1 normal heart sound present, S2 normal heart sound present and no murmurs GI Palpation (GI): Soft to palpation, nontender and No hepatosplenomegaly present Auscultation: normal bowel sounds Rectal Exam - Female: deferred Skin General skin exam: no rashes or lesions noted Neuro General: patient oriented x3, gait normal and moves all extremities Cranial nerves: Yes Equal, round and reactive pupils present Psych Appearance: grossly normal Mental Status: mental status grossly normal Assessment & Plan Assessment & Plan (1) Elevated LFTs: Code(s): R79.89 - Other specified abnormal findings of blood chemistry (2) Chronic LUQ pain: Code(s): R10.12 - Left upper quadrant pain; G89.29 - Other chronic pain (3) Abdominal bloating: Code(s): R14.0 - Abdominal distension (gaseous) (4) Chronic constipation: Code(s): K59.09 - Other constipation (5) GERD (gastroesophageal reflux disease): Code(s): K21.9 - Gastro-esophageal reflux disease without esophagitis Qualifiers: Esophagitis presence: esophagitis presence not specified Qualified Code(s): K21.9 - Gastro-esophageal reflux disease without esophagitis (6) History of colon polyps: Comment: 12/2020 Three small to medium sized polyps removed (two were adenomatous on bx) Repeat Colon advised in 3 yrs (due 12/2023) Code(s): Z86.010 - Personal history of colonic polyps (7) Acute gastroenteritis: Code(s): K52.9 - Noninfective gastroenteritis and colitis, unspecified Plan 67 year old Moroccan-speaking female followed in GI for GERD, Vitamin B12 def and fatty liver. LFTs were normal.? Abd US showed? 4.6 x 4 x 3.5 cm central periportal complex cyst or fluid collection. 07/25/20 abd MRI showed several hepatic cysts and a?nonenhancing high signal lesion gallbladder fossa 4.3 cm x 4.1 cm likely cyst or non-obstructing biloma with increased signal from protein content. No dephasing to suggest old hematoma. Pt was seen by General Surgery and advised conservative management. LUQ pain appears to be musculoskeltal - not related to eating or BMs. Pt was advised a trail of topical analgesics. 12/2021 FU abd US showed resolution of periportal complex cyst/fluid collection. Constipation improved with Linzess 145 mcg daily 05/[address] scan was negative except fatty liver, liver cysts and diverticulosis. Mild elevation of ALT likely due to fatty liver.? hepatitis serologies were negative Patient referred to manufacturing specialist to help with weight loss of (wt loss goal is 7- 10% of her body weight) and did not get called - I requested office staff to FU Her grand daughter helped her with a diet plan after getting information online. Pt has eliminating a lot of foods to see how they work and has lost 6 lbs. Taking almond milk 04/15/23 Symptoms have been worse since she ran out of refills for her GI medications - refills sent for Linzess and pantoprazole 08/19/23 Complains of nausea, vomiting and diarrhea x 6 days Had 15 soft to watery BM yesterday and no BM today Complains of chills, feeling tired and denies fever. Pt advised to take ondansetron and drink ORS, start taking a BRAT diet and sports beverages today. She was advised to go to the ER if symptoms do not improve with the next 24 hours. PT is due for repeat colon this summer (FU of polyps) and will be scheduled in January, (Dulcolax and Miralax split prep) FU in 4?months - GERD, fatty liver, obesity and constipatio Orders: Orders GI Panel Today K52.9 - Noninfective gastroenteritis and colitis, unspecified Comprehensive Met. Panel Today K52.9 - Noninfective gastroenteritis and colitis, unspecified C Reactive Protein Today K52.9 - Noninfective gastroenteritis and colitis, unspecified Medications: New ondansetron 4 mg PO Q8H 7 days PRN 20 tabs 0RF nausea and vomiting K52.9 - Noninfective gastroenteritis and colitis, unspecified Patient Instructions: Please drink 1- 2 litres of ORS You can have a BRAT diet for the next 2 days - Rice, apple sauce, tea, toast and bananas Coding Level of Care Code Est Pt Level 4 (26330) Diagnoses Elevated LFTs R79.89 Chronic LUQ pain R10.12; G89.29 Abdominal bloating R14.0 Chronic constipation K59.09 Gastroesophageal reflux disease, unspecified whether esophagitis present K21.9 Esophagitis presence: esophagitis presence not specified History of colon polyps Z86.010 Acute gastroenteritis K52.9 Time Spent (min) 25
[2023-08-19 12:54] VITALS: BP 121/72; PULSE 75; BMI 34.4
== END 2023-08-19 13:30 | disposition home or self-care (01) ==
PROVIDERS: PCP Internal Medicine; Visit Provider Internal Medicine Gastroenterology
DX: R79.89 Other specified abnormal findings of blood chemistry (principal); R10.12 Left upper quadrant pain; G89.29 Other chronic pain; R14.0 Abdominal distension (gaseous); K59.09 Other constipation; K21.9 Gastro-esophageal reflux disease without esophagitis; Z86.010 Personal history of colon polyps; K52.9 Noninfective gastroenteritis and colitis, unspecified
CPT/HCPCS: 99214

== ENCOUNTER → 2023-08-19 12:28 | Outpatient (BNVA) | payer MEDICARE, SELFPAY | PROVIDERS: PCP Internal Medicine; Visit Provider Internal Medicine Gastroenterology | DX: R79.89 Other specified abnormal findings of blood chemistry (principal); R10.12 Left upper quadrant pain; R14.0 Abdominal distension (gaseous); K59.09 Other constipation; K21.9 Gastro-esophageal reflux disease without esophagitis; K52.9 Noninfective gastroenteritis and colitis, unspecified; G89.29 Other chronic pain; Z86.010 Personal history of colon polyps | CPT/HCPCS: 99212 ==

== ENCOUNTER 2023-08-27 13:39 | Outpatient (AMB) | payer OTHER, SELFPAY ==
--- NOTE | 2023-08-27 13:44 | A.OFFVIS_ITS ---
Intake Intake Visit Reasons: 3 month follow up/ PVR Intake Note: Patient is present for follow up microscopic hematuria and overactive bladder Urology Medications: estradiol cream, myrbetriq, terazosin Blood Thinner: none PVR: 23ml's Mechanical Technical Service Specialist Required: Yes Accompanied by: Unknown Allergies No Known Allergies Allergy (Verified 08/27/23 14:20) Medication List - Last Reconciled 08/27/23 by YASHIRA GodwinP- cholecalciferol (vitamin D3) 50 mcg PO DAILY cyanocobalamin (vitamin B-12) (Vitamin B-12) 1,000 mcg PO DAILY cyclobenzaprine 5 mg PO BEDTIME PRN 30 days diclofenac sodium 1% (Voltaren Arthritis Pain) 2 grams topical QID 30 days escitalopram oxalate (Lexapro) 40 mg PO DAILY estradiol 0.01%(0.1mg/gram) vaginally daily; pea sized amount to urethra 3 times a week 30 days folic acid 1 mg PO DAILY 90 days gabapentin 300 mg PO TID 30 days hydroxyzine HCl 10 mg PO TID linaclotide (Linzess) 145 mcg PO QAM 90 days mirabegron ER (Myrbetriq) 25 mg PO DAILY 90 days ondansetron 4 mg PO Q8H PRN 7 days pantoprazole 40 mg PO DAILY 90 days pregabalin (Lyrica) 75 mg PO QDAY quetiapine 25 mg PO BEDTIME terazosin 1 mg PO DAILY trazodone 50 mg PO BEDTIME zolpidem 10 mg PO BEDTIME HPI HPI Comments History of Present Illness Details Florencia is a plesant 68 year old female patient of Dr. Gomez who is accompanied by her daughter at today's office visit. She has a past medical history of fibromyalgia, urge incontinence of urine, memory loss, overactive bladder, insomnia, urinary tract infections, microscopic hematuria, leukopenia, liver cysts, hemorrhoids, diverticulosis, anxiety, GERD, and obesity. She presents to the office today for follow-up of her lower urinary tract symptoms and recurrent urinary tract infections. In discussion with the patient today she reports improvement in lower urinary tract symptoms on Myrbetriq 25 mg daily as well as utilizing Estrace cream 3 times a week. She denies having had any UTIs and or UTI like symptoms since her last office visit here approximately 3 months ago. During last office visit cystoscopy was performed for potential evaluation of interstitial cystitis given patient's lower urinary tract symptoms and urinalysis noting continuation of microscopic hematuria. However, bladder appeared normal and no inflammation was noted. No suspicious bladder lesions or growths noted. Previous workup has included a retroperitoneal ultrasound noting right kidney with no calculi, lesions, and or hydronephrosis noted. Left kidney with a small cyst in the midpole otherwise no calculi or hydronephrosis noted. The bladder is well distended with no stones or masses. Bilateral ureteral jets are demonstrated. Prevoid bladder volume is 263 mL. Postvoid bladder volume is 120 mL. Urine cytology results reviewed with patient today. 05/06-cytology --Negative for high-grade urothelial carcinoma. Patient with a previous negative microscopic hematuria work[place] [address] Cote. When asked she denies nocturia, dysuria, foul smelling urine, flank pain, fever, and or chills. In office urinalysis results reviewed with the patient today. PVR 23 mL. She otherwise offers no concerns or complaints. [facility] Medical History Hematuria Fibromyalgia Right knee pain Left leg pain Cervical cancer screening Hematuria Urge incontinence of urine Memory loss Class 1 obesity without serious comorbidity with body mass index (BMI) of 34.0 to 34.9 in adult Cough Insomnia UTI (urinary tract infection) B12 deficiency Microscopic hematuria Leukopenia Liver cyst Hemorrhoids Diverticulosis Anxiety GERD (gastroesophageal reflux disease) Medicare annual wellness visit, initial Otitis media Urinary tract infection Surgical History H/O section H/O: hysterectomy History of endoscopy History of colonoscopy History of cholecystectomy Family History Mother Lung cancer Father Cancer of esophagus Sister Lupus Other Arthritis Social History Household Members: Family Household Members Other:: grandchildren Housing: House Housing Other:: lives with daughter and 2 grandkids Are you a primary laboratory animal caretaker to a significant other at home: No Do you presently have 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) Alcohol intake: former Patient Tobacco Use Status: Never used Tobacco e-Cigarette/Vaping Use: Never Used Second Hand Smoke Exposure: No service: No Current occupational status: unemployed Cognitive needs: No Hearing needs: No Vision needs: No Review of Systems Const Reports as per [facility] Eyes Reports no additional complaints ENT Reports no additional complaints Card Reports as per [facility] Resp Reports no additional complaints GI Reports as per [facility] Reports as per [facility] Musc Reports as per [facility] Neuro Reports as per [facility] Psych Reports as per HPI Teofilo/Lymph Reports no additional complaints Aller/Immun Reports no additional complaints Physical Exam Const General: cooperative, healthy appearing, comfortable, no acute distress, well developed, alert and awake Nutritional Appearance: overweight Orientation/consciousness: patient oriented x3 Limitations: no limitations HEENT Head: Yes normal to inspection, Yes normocephalic and Yes atraumatic Ears: hearing grossly normal bilaterally Eyes General: appearance normal, both eyes and all related structures Neck Neck: Yes normal visual inspection and Yes trachea midline Chest Chest palpation & inspection: normal inspection of the chest Resp Effort & Inspection: normal respiratory effort and able to speak in complete sentences Cardio Rate: regular rate GI Inspection: Yes normal to inspection General: Yes no CVA tenderness External Female Exam: normal external appearance and normal appearance of the urethra Back/Spine/Pelvis Back: no CVA tenderness Skin General skin exam: no rashes or lesions noted Neuro General: patient oriented x3 Extrem General: Yes normal to inspection Psych Appearance: grossly normal and well kempt Mental Status: mental status grossly normal Speech and movement: Normal speech and movement present and Clear speech present Affect: normal affect Attitude: cooperative Thought process: Normal thought process present Thought content: Normal thought content present Insight: Fair insight present (Psych) Judgement: Fair judgement present (Psych) Office Procedures Post Void Residual Post Residual Void Post Void Residual (PVR): 23 [id number] Void Residual by ultrasound Results AMB Urinalysis, Automated UA Leukoctes 0 Ara/uL Last Edit by Krista Azul on 08/27/23 14:06 UA Nitrite Negative Last Edit by NewsFixedcookie Azul on 08/27/23 14:06 UA Urobilinogen 0.2 mg/dL Last Edit by Batanga Mediamackenzie Azul on 08/27/23 14:06 UA Protein 0 mg/dL Last Edit by News[employer]cookie Azul on 08/27/23 14:06 UA pH 6.0 Last Edit by Krista Azul on 08/27/23 14:06 UA Blood 25 Deo/uL Last Edit by Krista Gregoriamargareth on 08/27/23 14:06 UA Specific [place] 1.010 Last Edit by Krista Gregoriamargareth on 08/27/23 14:06 UA Ketone Negative Last Edit by Krista Azul on 08/27/23 14:06 UA Bilirubin 0 mg/dL Last Edit by Krista Gregoriamargareth on 08/27/23 14:06 UA Glucose 0 mg/dL Last Edit by Krista Gregoriamargareth on 08/27/23 14:06 Results Reviewed Results Reviewed: Laboratory Last Values Urine pH (Auto) 6.0 08/27/23 13:55 Specific [place] (Auto) 1.010 08/27/23 13:55 Urine Protein (Auto) 0 mg/dL 08/27/23 13:55 Glucose (UA)(Auto) 0 mg/dL 08/27/23 13:55 Urine Ketones (Auto) Negative 08/27/23 13:55 Urine Blood (Auto) 25 Deo/uL 08/27/23 13:55 Urine Nitrite (Auto) Negative 08/27/23 13:55 Urine Bilirubin (Auto) 0 mg/dL 08/27/23 13:55 Urine Urobilinogen (Auto) 0.2 mg/dL 08/27/23 13:55 Leukocyte Esterase (Auto) 0 Ara/uL 08/27/23 13:55 Assessment & Plan Assessment & Plan (1) Renal cyst: Code(s): N28.1 - Cyst of kidney, acquired (2) Microscopic hematuria: Code(s): R31.29 - Other microscopic hematuria (3) Sensation of pressure in bladder area: Code(s): R39.89 - Other symptoms and signs involving the genitourinary system (4) Urinary urgency: Code(s): R39.15 - Urgency of urination (5) Urinary frequency: Code(s): R35.0 - Frequency of micturition Plan In office urinalysis results reviewed with the patient today; as noted above. PVR 23 mL. Previous urine cytology results reviewed with the patient today; as noted above. Patient reports significant improvement in lower urinary tract symptoms on Myrbetriq 25 mg daily; will continue; refills provided. Continue Estrace cream as discussed and prescribed. She currently denies any bothersome urinary issues or concerns. She is happy with her current voiding parameters. Discussed bladder triggers/irritants. Discussed, educated, stressed the importance of drinking adequate amounts of water daily. Follow-up in 6 months with PVR; or sooner with any issues, concerns, and or questions. Orders: Orders AMB Urinalysis Automated 08/27/23 Z13.9 - Encounter for screening, unspecified AMB Post Void Residual by ultrasound 08/27/23 N39.41 - Urge incontinence Medications: Refilled mirabegron ER (Myrbetriq) 25 mg PO DAILY 90 days 90 tabs 2RF N32.81 - Overactive bladder, R35.1 - Nocturia Patient Instructions: The patient had an opportunity to ask questions regarding the treatment plan. All questions were answered. Physical exam, labs, and imaging were discussed and reviewed in detail. As well as risks, benefits, and discussion of treatment choices. No major barriers to understanding were identified. The patient expressed understanding and agreement with the above treatment plan. The patient was made aware they should contact our office by phone for worsening of their current condition, the appearance of new symptoms, or with any questions or concerns. Compliance is encouraged with any medications and follow up testing that is ordered. It is a privilege to be allowed the opportunity to participate in? your urological care.? Again, if you have any questions or concerns If you have any questions or concerns please do not hesitate to contact me. The office is [phone]. This note is constructed using voice recognition software. While every effort h as been made to ensure accuracy health information systems technician errors may have been included. Yours sincerely, NIELS Godwin Coding Level of Care Code Est Pt Level 3 (84782) Diagnoses Renal cyst N28.1 Microscopic hematuria R31.29 Sensation of pressure in bladder area R39.89 Urinary urgency R39.15 Urinary frequency R35.0 CPT Codes Post Residual Void - PVR CPT Code: 70644-Ncbf Void Residual by ultrasound ([id number])
== END 2023-08-27 14:18 | disposition home or self-care (01) ==
PROVIDERS: PCP Internal Medicine; Visit Provider Nurse Practitioner Family
DX: N28.1 Cyst of kidney, acquired (principal); R31.29 Other microscopic hematuria; R39.89 Other symptoms and signs involving the genitourinary system; R39.15 Urgency of urination; R35.0 Frequency of micturition
CPT/HCPCS: 99213

== ENCOUNTER → 2023-08-27 13:39 | Outpatient (BNVA) | payer OTHER, SELFPAY | PROVIDERS: PCP Internal Medicine; Visit Provider Nurse Practitioner Family | DX: R31.29 Other microscopic hematuria (principal); R39.89 Other symptoms and signs involving the genitourinary system; R35.0 Frequency of micturition; N28.1 Cyst of kidney, acquired; N39.41 Urge incontinence | CPT/HCPCS: 51798; 81003 ==

== ENCOUNTER 2023-09-14 10:18 | Outpatient (AMB) | payer MEDICARE, SELFPAY ==
--- NOTE | 2023-09-14 10:59 | A.OFFVIS_ITS ---
Intake Vital Signs 09/14/23 11:00 Height 5 ft 3 in Weight 195 lb BMI 34.5 BP 120/68 Blood Pressure Location Lt brachial Position Sitting Respiration 16 Pulse 62 Pulse Source Pulse Oximeter Pulse Oximetry (%) 98 Oxygen Delivery Method Room Air Intake Visit Reasons: 4 mnts f/u Other S&S involving Cognitive Funtions- Intake Note: Pt presents for 4 month follow up for cognitive impairments and to discuss results of imaging performed. Money Market Dealer Required: No Allergies No Known Allergies Allergy (Verified 09/20/23 13:57) Medication List - Last Reconciled 09/14/23 by JESUS Negron cholecalciferol (vitamin D3) 50 mcg PO DAILY cyanocobalamin (vitamin B-12) (Vitamin B-12) 1,000 mcg PO DAILY cyclobenzaprine 5 mg PO BEDTIME PRN 30 days diclofenac sodium 1% (Voltaren Arthritis Pain) 2 grams topical QID 30 days escitalopram oxalate (Lexapro) 40 mg PO DAILY estradiol 0.01%(0.1mg/gram) vaginally daily; pea sized amount to urethra 3 times a week 30 days folic acid 1 mg PO DAILY 90 days gabapentin 300 mg PO TID 30 days hydroxyzine HCl 10 mg PO TID linaclotide (Linzess) 145 mcg PO QAM 90 days mirabegron ER (Myrbetriq) 25 mg PO DAILY 90 days ondansetron 4 mg PO Q8H PRN 7 days pantoprazole 40 mg PO DAILY 90 days pregabalin (Lyrica) 75 mg PO QDAY quetiapine 25 mg PO BEDTIME terazosin 1 mg PO DAILY trazodone 50 mg PO BEDTIME zolpidem 10 mg PO BEDTIME HPI HPI Comments History of Present Illness Details 68-yr-old female presents for f/u visit. Pt denies any significant interval medical changes. Pt continues to have STM lapses, repeating herself, repeating questions. Pt prone to worry about her family members who live in [place]. Pt can be frustrated when she cannot follow a conversation. Pt does not want to leave her home. Pt is monitored closely by family. She is Ind w/ ADLs- but yesterday was confused as to whether she had taken a shower or not. She does change her clothes daily, changes her towels daily, insists her family wash her clothes separately. Family does all her IADLs. Dtr is asking for guidance on how to help manage pt's memory and repeated questioning s/s. Her HST showed AHI 2.2/hr w/ O2 samia 81%. Pt denies h/o asthma, smoking. She can have SOB when walking up a flight of stairs at home. Has an occasional cough. Denies peripheral swelling. 08/30/23- Head PET CT was normal. [facility] Medical History (Updated 09/20/23 @ 14:32 by Rosaura Hunt MD) Mild recurrent major depression Hematuria Fibromyalgia Right knee pain Left leg pain Cervical cancer screening Hematuria Urge incontinence of urine Memory loss Class 1 obesity without serious comorbidity with body mass index (BMI) of 34.0 to 34.9 in adult Cough Insomnia UTI (urinary tract infection) B12 deficiency Microscopic hematuria Leukopenia Liver cyst Hemorrhoids Diverticulosis Anxiety GERD (gastroesophageal reflux disease) Medicare annual wellness visit, initial Otitis media Urinary tract infection Surgical History H/O section H/O: hysterectomy History of endoscopy History of colonoscopy History of cholecystectomy Family History Mother Lung cancer Father Cancer of esophagus Sister Lupus Other Arthritis Social History Household Members: Family Household Members Other:: grandchildren Housing: House Housing Other:: lives with daughter and 2 grandkids Are you a primary morning caregiver to a significant other at home: No Do you 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 have 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) Alcohol intake: former Patient Tobacco Use Status: Never used Tobacco e-Cigarette/Vaping Use: Never Used Second Hand Smoke Exposure: No service: No Current occupational status: unemployed Cognitive needs: No Hearing needs: No Vision needs: No Review of Systems Const All systems reviewed & are unremarkable except as noted in HPI and below Physical Exam Vital Signs: Last Vital Signs Pulse 62 09/14/23 11:00 Resp 16 09/14/23 11:00 BP 120/68 09/14/23 11:00 Pulse Ox 98 09/14/23 11:00 Oxygen Delivery Method Room Air 09/14/23 11:00 BMI result Body Mass Index 34.5 Const General: cooperative and no acute distress HEENT Head: Yes normocephalic Resp Effort & Inspection: normal respiratory effort and able to speak in complete sentences Neuro Other: Alert, responding appropriately, and short-term memory lapses. General: gait normal and CN's II-XI intact bilaterally Motor exam (neuro): 5/5 motor strength present throughout Psych Appearance: grossly normal Speech and movement: Normal speech and movement present Affect: normal affect Attitude: cooperative Assessment & Plan Assessment & Plan (1) Cognitive impairment: Code(s): R41.89 - Other symptoms and signs involving cognitive functions and awareness (2) Anxiety: Code(s): F41.9 - Anxiety disorder, unspecified (3) Insomnia: Code(s): G47.00 - Insomnia, unspecified Qualifiers: Insomnia type: psychophysiologic Qualified Code(s): F51.04 - Psychophysiologic insomnia (4) Family history of dementia: Code(s): Z81.8 - Family history of other mental and behavioral disorders Plan Reviewed FDG-PET scan- normal. Reviewed HST: No evidence for sleep apnea, AHI 2.2 per hour. O2 samia 81%, with SpO2 under 90% x's 17 minutes of study, and under 80% w/o, time 6 minutes of study. Lab work-up: unremarkable Brain MRI w/o, at 2021 at [facility] -mild chronic microangiopathic changes. Increase cognitive and socially stimulating activities. Increase physical activity. Continue psychotherapy. Comprehensive neuro-psych eval as ordered- patient is currently on wait list at [facility] Future considerations- Minimizing polypharmacy. F/u brain MRI. ? f/u on review of above, and in-clinic in 6 months or sooner. Coding Level of Care Code Est Pt Level 4 (88270) Diagnoses Cognitive impairment R41.89 Anxiety F41.9 Psychophysiological insomnia F51.04 Insomnia type: psychophysiologic Family history of dementia Z81.8
[2023-09-14 11:00] VITALS: BP 120/68; PULSE 62; RESP 16; O2SAT 98; BMI 34.5
== END 2023-09-14 11:45 | disposition home or self-care (01) ==
PROVIDERS: PCP Internal Medicine; Visit Provider Nurse Practitioner Family
DX: R41.89 Other symptoms and signs involving cognitive functions and awareness (principal); F41.9 Anxiety disorder, unspecified; F51.04 Psychophysiologic insomnia; Z81.8 Family history of other mental and behavioral disorders
CPT/HCPCS: 99214

== ENCOUNTER 2023-09-14 11:51 | Outpatient (REF) | payer MEDICARE, SELFPAY ==
[2023-09-14 16:01] LABS: MANUAL DIFF FLAG NO
[2023-09-14 16:17] LABS: Basophils Percent Auto 0.6 % (0-2); Eosinophils Absolute Auto 0.1 X10*3/uL (0.0-0.4); Eosinophils Percent Auto 1.4 % (0-4); Hematocrit 43.9 % (37.0-47.0); Hemoglobin 14.4 g/dl (12.0-16.0); Imm Gran Abs Auto 0.01 X10*3/uL (0.00-0.03); Imm Gran Pct Auto 0.2 % (0.0-0.4); Lymphocytes Absolute Auto 1.7 X10*3/uL (1.2-4.9); Lymphocytes Percent Auto 33.6 % (20-40); Mean Corpuscular HGB Conc 32.8 g/dl (31.0-35.0); Mean Corpuscular Hemoglobin 27.4 pg (27.0-33.0); Mean Corpuscular Volume 83.5 fL (80.0-98.0); Mean Platelet Volume 10.3 fL (9.4-12.3); Monocytes Absolute Auto 0.3 X10*3/uL (0.1-1.2); Monocytes Percent Auto 6.5 % (2-11); Neutrophils Absolute Auto 2.9 x10*3/uL (2.0-8.3); Neutrophils Percent Auto 57.7 % (45-73); Platelet Count 262 X10*3/uL (160-400); Red Blood Count 5.26 X10*6/uL (4.20-5.50); Red Cell Distribution Width 15.1 % (11.0-16.0); White Blood Count 5.1 X10*3/uL (4.8-10.8)
[2023-09-14 16:24] LABS: Estimated Average Glucose 105 mg/dL; Hemoglobin A1c % 5.3 % (<6.0)
[2023-09-14 16:26] LABS: Alanine Aminotransferase 33 U/L (0-31); Albumin Level 3.9 g/dL (3.5-5.0); Alkaline Phosphatase 91 U/L (39-117); Anion Gap 9 (12-20); Aspartate Amino Transferase 23 U/L (5-31); Bilirubin Total 0.6 mg/dL (0.0-1.0); Blood Urea Nitrogen 16 mg/dL (9-16); C Reactive Protein 0.14 mg/dL (< or = 0.50); Calcium 9.2 mg/dL (8.4-10.2); Carbon Dioxide 28 mmol/L (22-29); Chloride 109 mmol/L (96-108); Estimated Glomerular Filt Rate > 60; Glucose Random 96 mg/dL (60-115); Potassium 4.2 mmol/L (3.3-5.1); Sodium 142 mmol/L (135-145); Total Protein 7.7 g/dL (6.5-8.0)
[2023-09-14 16:31] LABS: Appearance Urine Turbid; Color Urine Yellow; Glucose Urine UA Negative (Negative); Leukocyte Esterase Urine Moderate (2+) (Negative); Nitrite Urine Negative (Negative); PH 5.5 (5.0-9.0); Specific Gravity - Urine 1.025 (1.005-1.025); UMIC TRIGGER UA YES; Urine Blood Moderate (2+) (Negative); Urine Ketones Negative (Negative); Urine Protein Negative (Neg-Trace)
[2023-09-14 16:35] LABS: Bacteria Urine None Seen (None Seen); Hyaline Casts Urine 0-2 /LPF (0-2)
[2023-09-14 16:42] LABS: TSH reflex Free T4 0.71 uIU/mL (0.32-4.0)
[2023-09-14 16:56] LABS: Folate 12.1 ng/mL (> or = 4.0); Vitamin B12 453 pg/mL (200-900)
[2023-09-14 17:16] LABS: Erythrocyte Sedimentation Rate 5 MM/HR (0-20)
[2023-09-15 07:44] LABS: HIV AB/AG Nonreactive (Nonreactive); HIV Num 1 0.63 S/CO (0.00-0.99)
[2023-09-15 07:51] LABS: Syphilis Screen Nonreactive (Nonreactive)
[2023-09-15 17:29] LABS: CRP High Sensitivity 1.2 mg/L
[2023-09-16 12:53] LABS: Anti Nuclear Antibody Screen NEGATIVE (NEGATIVE)
[2023-09-18 09:13] LABS: Methylmalonic Acid 230 nmol/L (87-318)
== END 2023-09-14 11:52 | disposition home or self-care (01) ==
LOC: HO.HKASLDS 11:51
PROVIDERS: Internal Medicine Nephrology; Visit Provider Nurse Practitioner Family
DX: R41.89 Other symptoms and signs involving cognitive functions and awareness (principal); M25.50 Pain in unspecified joint; R80.9 Proteinuria, unspecified; F41.9 Anxiety disorder, unspecified; R31.29 Other microscopic hematuria; E53.8 Deficiency of other specified B group vitamins; K52.9 Noninfective gastroenteritis and colitis, unspecified; F51.04 Psychophysiologic insomnia; Z81.8 Family history of other mental and behavioral disorders; Z79.899 Other long term (current) drug therapy
CPT/HCPCS: 36415; 80053; 81001; 81003; 82607; 82746; 83036; 83921; 84443; 85025; 85652; 86038; 86140; 86141; 86780; 87389; 99212

== ENCOUNTER 2023-09-20 13:34 | Outpatient (AMB) | payer MEDICARE, MEDICAID, SELFPAY ==
--- NOTE | 2023-09-20 13:37 | A.OFFVIS_ITS ---
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: No Accompanied by: Daughter Allergies No Known Allergies Allergy (Verified 09/20/23 13:57) Medication List - Last Reconciled 09/20/23 by Rosaura Hunt MD cholecalciferol (vitamin D3) 50 mcg PO DAILY 90 days cyanocobalamin (vitamin B-12) (Vitamin B-12) 1,000 mcg PO DAILY cyclobenzaprine 5 mg PO BEDTIME PRN 30 days diclofenac sodium 1% (Voltaren Arthritis Pain) 2 grams topical QID 30 days escitalopram oxalate (Lexapro) 40 mg PO DAILY estradiol 0.01%(0.1mg/gram) vaginally daily; pea sized amount to urethra 3 times a week 30 days folic acid 1 mg PO DAILY 90 days gabapentin 300 mg PO TID 30 days hydroxyzine HCl 10 mg PO TID linaclotide (Linzess) 145 mcg PO QAM 90 days mirabegron ER (Myrbetriq) 25 mg PO DAILY 90 days ondansetron 4 mg PO Q8H PRN 7 days pantoprazole 40 mg PO DAILY 90 days pregabalin (Lyrica) 75 mg PO QDAY quetiapine 25 mg PO BEDTIME terazosin 1 mg PO DAILY trazodone 50 mg PO BEDTIME zolpidem 10 mg PO BEDTIME HPI HPI Comments History of Present Illness Details This is a 68-year-old female with moderate major depression that comes accompanied by daughter for her Medicare annual wellness exam. Last mammogram was September and has an appointment for this month for another mammogram. Last bone density was September 2021 showing osteoporosis and this will be repeated. Last colonoscopy was 2020 and will have another colonoscopy this year. She seems confused today more than usual. She has been coughing and with nasal congestion for about 3 days and she has sick contacts. No chest pain or shortness of breath. PPP handed to patient. Aware that T spot was borderline and will be repeated. [facility] Medical History (Updated 09/20/23 @ 14:32 by Rosaura Hunt MD) Mild recurrent major depression Hematuria Fibromyalgia Right knee pain Left leg pain Cervical cancer screening Hematuria Urge incontinence of urine Memory loss Class 1 obesity without serious comorbidity with body mass index (BMI) of 34.0 to 34.9 in adult Cough Insomnia UTI (urinary tract infection) B12 deficiency Microscopic hematuria Leukopenia Liver cyst Hemorrhoids Diverticulosis Anxiety GERD (gastroesophageal reflux disease) Medicare annual wellness visit, initial Otitis media Urinary tract infection Surgical History H/O section H/O: hysterectomy History of endoscopy History of colonoscopy History of cholecystectomy Family History Mother Lung cancer Father Cancer of esophagus Sister Lupus Other Arthritis Social History Household Members: Family Household Members Other:: grandchildren Housing: House Housing Other:: lives with daughter and 2 grandkids Are you a primary day care home provider to a significant other at home: No Do you presently have 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) Alcohol intake: former Patient Tobacco Use Status: Never used Tobacco e-Cigarette/Vaping Use: Never Used Second Hand Smoke Exposure: No service: No Current occupational status: unemployed Cognitive needs: No Hearing needs: No Vision needs: No Questionnaire Medicare Wellness Checkup What [age] What gender do you identify with?: female During the past 4 weeks, how much have you been bothered by emotional problems such as feeling anxious, depressed, irritable, sad or downhearted, and blue?: extremely During the past 4 weeks, has your physical & emotional health limited your social activities with family, friends, neighbors, or groups?: extremely During the past 4 weeks, how much bodily pain have you generally had?: severe pain During the past 4 weeks, was someone available to help you if you needed & wanted help?: yes, as much as I wanted During the past 4 weeks, what was the hardest physical activity you could do for at least 2 minutes?: very light Can you get to places out of walking distance without help? (For eg., can you travel alone on buses, taxis or drive your car?): No Can you go shopping for groceries or clothes without someone's help?: No Can you prepare your own meals?: No Can you do your housework without help?: No Because of any health problems, do you need the help of another person with your personal care needs such as eating, bathing, dressing or getting around the house?: Yes Can you handle your own money without help?: No During the past 4 weeks, how would you rate your health in general?: poor During the past 4 weeks how have things been going for you?: good & bad parts about equal Are you having difficulties driving your car?: not applicable, I don't use a car Do you always fasten your seat belt when you are in a car?: yes, usually During past 4 weeks, have you been bothered by the following: never: Sexual problems? and Trouble eating well?, often: Falling or dizzy when standing up and always: Teeth or denture problems?, Problems using the telephone? and Tiredness or fatigue? Have you fallen 2 or more times in the past year?: Yes Are you afraid of falling?: Yes Are you a smoker?: no During the past 4 weeks, how many drinks of wine, beer, or other alcoholic beverages did you have?: no alcohol at all Do you exercise for about 20 minutes 3 or more times a week?: no, I usually do not exercise this much Have you been given information to help with the following?: yes: Hazards in your house that might hurt you? and yes: Keeping track of your medications? How often do you have trouble taking medicines the way you have been told to take them?: I always take medicine as prescribed How confident are you that you can control & manage most of your health problems?: very confident What is your race?: or origin or descent Mini Mental State Exam (MMSE) Orientation What is the (year) (season) (date) (day) (month)?: year, season, date, day and month Where are we (state) (county) (town or city) (hospital) (floor)?: state, county, town or city, hospital/clinic and floor Registration Name of 3 unrelated objects clearly and slowly, then ask patient to repeat all 3 of them. (1st repeat determines score. Make sure they can repeat all three): object 1, object 2 and object 3 Attention & Calculation (CHOOSE ONE) Spell WORLD backwards (DLROW): 4 letters Recall Ask patient to repeat the 3 items from question #3.: object 1 and object 2 Language Show patient a wristwatch & ask what it is. Repeat for pencil.: watch and pencil Ask the patient to repeat the phrase 'No ifs, ands, or buts' after you.: correct Ask the patient to 'take a piece of paper with their right hand' 'fold paper in half' 'place paper on floor': take paper in right hand, fold paper in half and place paper on floor Print the sentence 'CLOSE YOUR EYES' on a piece. If patient actually closes eyes then score.: followed written direction Score Score: 26 Activity of Daily Living Bathing - sponge bath, tub bath or shower: receives help in bathing only one bari dy part (such as back or leg) Dressing - getting clothes from closets & drawers, including inner/outer garments & fasteners.: receives help getting clothes or getting dressed, or stays undressed Toileting - going to the 'toilet room' for urine/bowel elimination & cleaning self/arranging clothes: goes to toilet room, cleans self, arranges clothes with out help Transfer: moves in & out of bed or chair with help Continence: has occasional 'accidents' Feeding: feeds self without help Total Score: 1 Information obtained from: patient Using telephone: dependent Traveling: dependent Shopping: dependent Preparing meals: dependent Housework: dependent Taking medicine: dependent Managing money: independent PHQ-9 Over the last 2 weeks, how often have you been bothered by any of the following problems? 1. Little interest or pleasure in doing things: nearly every day 2. Feeling down, depressed, or hopeless: nearly every day 3. Trouble falling or staying asleep, or sleeping too much: nearly every day 4. Feeling tired or having little energy: more than half the days 5. Poor appetite or overeating: more than half the days 6. Feeling bad about yourself - or that you are a failure or have let yourself or your family down: more than half the days 7. Trouble concentrating on things, such as reading the newspaper or watching television: nearly every day 8. Moving or speaking so slowly that other people could have noticed. Or the op posite - being so fidgety or restless that you have been moving around a lot more than usual: not at all 9. Thoughts that you would be better off or of hurting yourself in some way: several days Total score: 19 Depression Screening Interpretation: Positive (no suicidal thoughts) Depression Screening Follow-up: Existing condition, In treatment and Community Mental Health Worker F/U Depression Screening Done: Yes 47726 - PHQ-9 Billing: Yes Source: Developed by Drs. Erasto Mars, Vandana Cervantes, Henry Powers and colleagues, with an educational chadd from [employer]. AUDIT C Alcohol Use Questionnaire (AUDIT-C) 1. How often do you have a drink containing alcohol?: Never Total Score: 0 Thrive Questionnaire Date Thrive assessed: 09/20/23 I am a: Patient What is your living situation today?: I have a steady place to live Within the past 12 months, did the food you bought not last and you didn't have the money to get more?: Never true Within the past 12 months, did you worry whether your food would run out before you got money to buy more?: Never true Do you have trouble paying for medicines?: No Do you have trouble getting transportation to medical appointments?: No Do you have trouble paying your heating and electricity bill?: No Do you have trouble taking care of your child, family member or friend?: No Do you have trouble with day-to-day activities such as bathing, preparing meals, shopping, managing finances, etc.?: No Are you currently unemployed and looking for a job?: No Are you interested in more education?: No Please select the resources that you would like help with: None Currently or been in a relationship where the following occur: no concerns reported THRIVE Score: 0 Fall Risk Assessment Fall Risk Assessment Fall risk assessment: 2 + Falls in past year TOYA-7 AMB Questionnaire TOYA-7 Date TOYA - 7 assessed: 09/20/23 Feeling nervous, anxious, or on edge: 2 = More than half the days Not being able to stop or control worryin = More than half the days Worrying too much about different things: 3 = Nearly every day Trouble relaxin = Nearly every day Being so restless that it is hard to sit still: 0 = Not at all Becoming easily annoyed or irritable: 2 = More than half the days Feeling afraid as if something awful might happen: 3 = Nearly every day Total TOYA-7 score (0-4 normal; 5-9 mild; 10-14 moderate; 15-21 severe): 15 Source: Developed by Drs. Erasto Mars, Vandana Cervantes, Henry Powers and colleagues, with an educational chadd from [employer]. TOYA-7 Assessment Billing TOYA-7 Assessment Tool: TOYA-7 Assessment 46606 Review of Systems Const All systems reviewed & are unremarkable except as noted in HPI and below Eyes Reports no additional complaints, Denies change in vision and Denies other visual disturbances Card Denies chest pain at rest, Denies chest pain with activity, Denies edema, Denies irregular heart rhythm, Denies claudication, Denies dyspnea, Denies dyspnea on exertion, Denies orthopnea, Denies paroxysmal nocturnal dyspnea and Denies slow heart rate Resp Denies cough, Denies dyspnea and Denies dyspnea on exertion GI Denies abdominal pain, Denies change in bowel habits, Denies excessive flatus, D enies nausea and Denies vomiting Denies urinary incontinence, Denies urinary hesitancy and Denies urinary urgency Physical Exam Vital Signs: Last Vital Signs BP 128/82 09/20/23 13:38 BMI result Body Mass Index 34.9 Resp Effort & Inspection: normal respiratory effort Auscultation: clear to auscultation bilaterally Cardio Jugular venous distension: no JVD Rate: regular rate Rhythm: regular rhythm Heart sounds: S1 normal heart sound present and S2 normal heart sound present Neuro Romberg Test: Negative Extrem General: Yes full ROM Assessment & Plan Assessment & Plan (1) Medicare annual wellness visit, subsequent: Code(s): Z00.00 - Encounter for general adult medical examination without abnormal findings Plan: Repeat in a year. (2) Moderate major depression: Code(s): F32.1 - Major depressive disorder, single episode, moderate Plan: Continue escitalopram. Follow-up with psychiatry. Orders: Orders SARS-CoV2/FLU/RSV Today R09.89 - Other specified symptoms and signs involving the circulatory and respiratory systems XR chest 2V Today R05 - Cough XR DEXA axial skeleton Today N95.9 - Unspecified menopausal and perimenopausal disorder T Spot TB Today Z11.1 - Encounter for screening for respiratory tuberculosis Quality Reporting (2019) Fall Risk Screening ([facility] 139) Fall risk assessment: 2 + Falls in past year Depression/Bipolar (159/160/161/177) PHQ-9: Total score: 19 Coding Level of Care Code Medicare Subsequent (G0439) Diagnoses Medicare annual wellness visit, subsequent Z00.00 Moderate major depression F32.1 CPT Codes Advance Care Planning - Time spent: 1-15 minutes, on File ([id number]) Additional Codes TOYA-7 Assessment Billing - TOYA-7 Assessment Tool: TOYA-7 Assessment 75621 ([id number]) Time Spent (min) 36 Advance Care Planning Advance Care Planning discussion: Exists, not on file Date of discussion: 09/20/23 Who was present: Daughter, patient and me Forms completed: Health Care Proxy Time spent: 1-15 minutes, on File Actual minutes spent: 2
[2023-09-20 13:38] VITALS: BP 128/82; BMI 34.9
== END 2023-09-20 14:30 | disposition home or self-care (01) ==
PROVIDERS: Visit Provider Internal Medicine
DX: Z00.00 Encounter for general adult medical examination without abnormal findings (principal); F32.1 Major depressive disorder, single episode, moderate
CPT/HCPCS: 1123F; G0439

== ENCOUNTER 2023-09-20 14:39 | Outpatient (REF) | payer MEDICARE, SELFPAY ==
--- NOTE | ~2023-09-20 | XR_ITS ---
EXAMINATION: XR chest 2V CLINICAL INFORMATION: Reason for Exam R05 - Cough COMPARISON: Chest radiograph 01/27/23 TECHNIQUE: 2 views of the chest FINDINGS: Clear lungs. No pneumothorax or pleural effusion. Unchanged cardiomediastinal silhouette. Persistent elevation of the right hemidiaphragm. XR/XR chest 2V Impression: * Clear lungs.
[2023-09-20 15:59] LABS: Influenza A PCR NEGATIVE (Negative); Influenza B PCR NEGATIVE (Negative); Resp Syncy Virus RNA Qual PCR NEGATIVE (Negative); SARS COV2 PCR INHOUSE NEGATIVE (Negative)
[2023-09-23 22:03] LABS: TS Negative Control Passed; TS Panel A 0; TS Panel B 0; TS Positive Control Passed; TSpotTB Negative (Negative)
== END 2023-09-20 14:40 | disposition home or self-care (01) ==
LOC: HO.XRAY 14:39
PROVIDERS: PCP Internal Medicine; Visit Provider Internal Medicine
DX: Z11.1 Encounter for screening for respiratory tuberculosis (principal); R09.89 Other specified symptoms and signs involving the circulatory and respiratory systems; R05.9 Cough, unspecified
CPT/HCPCS: 0241U; 71046; 86481

== ENCOUNTER 2023-10-04 13:55 | Outpatient (REF) | payer MEDICARE, SELFPAY ==
--- NOTE | ~2023-10-04 | MM_ITS ---
EXAMINATION: MM SCREENING DIGITAL BREAST TOMOSYNTHESIS, BILATERAL CLINICAL INFORMATION: Screening. Asymptomatic. Patient is status post bilateral breast reduction. COMPARISON: Mammography: This study is compared with prior exams dating back to 2021. TECHNIQUE: Digital breast tomosynthesis is performed in both the craniocaudal and mediolateral oblique views along with computer-aided detection (CAD). Synthesized 2D images are generated from the tomosynthesis. FINDINGS: The breasts are almost entirely fatty (ACR BI-RADS breast composition Category a). There are no significant masses, abnormal calcifications, or other abnormalities. Post reduction changes are present in each breast. MM/MM tomosynthesis screening BI IMPRESSION: No mammographic evidence of malignancy. ASSESSMENT: BI-RADS BI-RADS 2 - Benign Findings RECOMMENDATION: Routine annual mammography screening. 1 year F/U This examination should not preclude the clinical evaluation of a suspicious palpable abnormality. This patient's information was entered into a reminder system with a target due date for their next mammogram.
== END 2023-10-04 13:56 | disposition home or self-care (01) ==
LOC: HO.MAMMO 13:55
PROVIDERS: PCP Internal Medicine; Visit Provider Internal Medicine
DX: Z12.31 Encounter for screening mammogram for malignant neoplasm of breast (principal)
CPT/HCPCS: 77063; 77067

== ENCOUNTER → 2023-10-04 14:15 | Outpatient (BNV) | payer MEDICARE, SELFPAY | PROVIDERS: PCP Internal Medicine; Visit Provider Radiology Diagnostic Radiology | DX: Z12.31 Encounter for screening mammogram for malignant neoplasm of breast (principal) | CPT/HCPCS: 77063; 77067 ==

== ENCOUNTER 2023-10-12 14:19 | Outpatient (REF) | payer MEDICARE, SELFPAY ==
--- NOTE | ~2023-10-12 | MM_ITS ---
EXAMINATION: BONE DENSITOMETRY CLINICAL INDICATION: Unspecified menopausal and perimenopausal disorder. COMPARISON: Baseline BD dated 09/23/2021. TECHNIQUE: Using a [employer] DXA System (software version: 13.1) manufactured by [employer], dual-energy x-ray absorptiometry was performed of the lumbar spine and left hip. The images are of good technical quality. Summary results are attached. FINDINGS: LEFT FEMUR, NECK: Current: BMD 0.910 g/cm2, Z-score 0.2, T-score -0.9, normal. Baseline: BMD 0.877 g/cm2. LEFT FEMUR, TOTAL: Current: BMD 0.980 g/cm2, Z-score 0.6, T-score -0.2, normal, 0.0% no change from baseline (<5% change is not significant). Baseline: BMD 0.980 g/cm2. AP SPINE L1-L4: Current: BMD 0.740 g/cm2, Z-score -2.8, T-score -3.7, osteoporosis, 0.3% decrease from baseline (<5% change is not significant). Baseline: BMD 0.742 g/cm2. IDENTIFIED RISK FACTORS: Early menopause, height loss, rheumatoid arthritis, secondary osteoporosis. HISTORY OF FRACTURE: None listed. MEDICATIONS: Calcium, vitamin D. MM/XR DEXA axial skeleton IMPRESSION: 1. DIAGNOSIS: Osteoporosis based on the lowest T-score value of -3.7 in the lumbar spine applying World Health Organization criteria. 2. 10-YEAR FRACTURE RISK PREDICTION, FRAX: According to the guidelines, FRAX calculation should only be performed on patients in the osteopenia bone density category. Therefore, FRAX was not performed on this patient. 3. Treatment Recommendations: NOF guidelines recommend consideration for treatment in postmenopausal women and men age 50 and older presenting with the following: -A hip or vertebral (clinical or morphometric) fracture. -T-score less than or equal to -2.5 at the femoral neck or spine after appropriate evaluation to exclude secondary causes. -Low bone mass at the hip or spine and a 10-year fracture probability by FRAX of greater than or equal to 3% for hip fracture or greater than or equal to 20% for major osteoporotic fracture based on the [place] adapted WHO algorithm. 4. Other Recommendations: All treatment decisions require clinical judgment and consideration of individual patient factors, including patient preferences, comorbidities, previous drug use, risk factors not captured in the FRAX model (e.g. frailty, falls, vitamin D deficiency, increased bone turnover, interval significant decline in bone density) and possible under or overestimation of fracture risk by FRAX. Additional medical evaluation for secondary cause of low bone mineral density may be appropriate. FUTURE SCAN RECOMMENDATION: People with diagnosed cases of osteoporosis or at high risk for fracture should have regular bone mineral density tests. For patients eligible for Medicare, routine testing is allowed once every 2 years. The testing frequency can be increased to one year for patients who have rapidly progressing disease, those who are receiving or discontinuing medical therapy to restore bone mass, or have additional risk factors.
== END 2023-10-12 14:20 | disposition home or self-care (01) ==
LOC: HO.MAMMO 14:19
PROVIDERS: PCP Internal Medicine; Visit Provider Internal Medicine
DX: Z13.820 Encounter for screening for osteoporosis (principal); Z78.0 Asymptomatic menopausal state
CPT/HCPCS: 77080

== ENCOUNTER 2023-11-11 10:44 | Outpatient (AMB) | payer MEDICARE, SELFPAY ==
[2023-11-11 10:48] VITALS: BP 130/80; BMI 35.2
--- NOTE | 2023-11-11 10:48 | MHC.PC.OV ---
Vital Signs 11/11/23 10:48 Height 5 ft 3 in Weight 199 lb BMI 35.2 BP 130/80 Blood Pressure Location Lt brachial Position Sitting Intake Visit Reasons: lump behind ear Intake Note: Patient here c/o lump behind right ear, lump on left side of stomach, back and knee pain Range Conservationist Required: No Accompanied by: Daughter Allergies No Known Allergies Allergy (Verified 11/11/23 11:02) Medication List - Last Reconciled 11/11/23 by Rosaura Hunt MD amoxicillin-pot clavulanate 875-125 mg 1 tab PO BID 7 days cholecalciferol (vitamin D3) 50 mcg PO DAILY 90 days cyanocobalamin (vitamin B-12) (Vitamin B-12) 1,000 mcg PO DAILY cyclobenzaprine 5 mg PO BEDTIME PRN 30 days diclofenac sodium 1% (Voltaren Arthritis Pain) 2 grams topical QID 30 days escitalopram oxalate (Lexapro) 40 mg PO DAILY estradiol 0.01%(0.1mg/gram) vaginally daily; pea sized amount to urethra 3 times a week 30 days folic acid 1 mg PO DAILY 90 days gabapentin 300 mg PO TID 30 days hydroxyzine HCl 10 mg PO TID linaclotide (Linzess) 145 mcg PO QAM 90 days mirabegron ER (Myrbetriq) 25 mg PO DAILY 90 days ondansetron 4 mg PO Q8H PRN 7 days pantoprazole 40 mg PO DAILY 90 days pregabalin (Lyrica) 75 mg PO QDAY quetiapine 25 mg PO BEDTIME terazosin 1 mg PO DAILY trazodone 50 mg PO BEDTIME zolpidem 10 mg PO BEDTIME Tobacco use date assessed: 11/11/23 Fall risk assessment: No Falls in past year Last assessed Fall Risk: 11/11/23 Dental Screening Dental Screen Date: 11/11/23 Did you have a dental visit in the last 12 months?: Yes Did you have a dental problem in the last 6 months where you did not have access to dental care?: No Was dental information given to patient?: Patient has dentist HPI HPI Comments History of Present Illness Details This is a 68-year-old female with mild recurrent major depression, insomnia, chronic constipation, GERD, fibromyalgia and osteoporosis that comes today with a daughter complaining of a right outer ear abscess and I will start her on antibiotics and refer her to surgery. She also complains of bilateral knee pain that started few months ago and back pain starting from the neck to the lumbar spine that has been present for years. I will order x-rays. Depression has been stable with escitalopram and this is follow by Psychiatry. Insomnia well controlled with trazodone and zolpidem and also follow by Psychiatry. Constipation stable with Linzess. GERD stable with PPIs. On Lyrica for her fibromyalgia but still has diffuse joint pain. Last bone DXA scan was 10/02/2023 showing osteoporosis and this is follow by Rheumatology. Also complains of abdominal pain more prominent in the left upper quadrant and family members says that sometimes they feel a lump in that area. [facility] Medical History (Updated 11/11/23 @ 11:28 by Rosaura Hunt MD) Mild recurrent major depression Hematuria Fibromyalgia Right knee pain Left leg pain Cervical cancer screening Hematuria Urge incontinence of urine Memory loss Class 1 obesity without serious comorbidity with body mass index (BMI) of 34.0 to 34.9 in adult Cough Insomnia UTI (urinary tract infection) B12 deficiency Microscopic hematuria Leukopenia Liver cyst Hemorrhoids Diverticulosis Anxiety GERD (gastroesophageal reflux disease) Medicare annual wellness visit, initial Otitis media Urinary tract infection Surgical History H/O section H/O: hysterectomy History of endoscopy History of colonoscopy History of cholecystectomy Family History Mother Lung cancer Father Cancer of esophagus Sister Lupus Other Arthritis Social History Household Members: Family Household Members Other:: grandchildren Housing: House Housing Other:: lives with daughter and 2 grandkids Are you a primary transition of care specialist to a significant other at home: No Do you presently have 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 Erasto Mars, Vandana Cervantes, Henry Powers and colleagues, with an educational chadd from [employer]. Review of Systems Const All systems reviewed & are unremarkable except as noted in HPI and below ENT Reports neck pain Card Denies chest pain at rest, Denies chest pain with activity, Denies edema, Denies irregular heart rhythm, Denies claudication, Denies dyspnea, Denies dyspnea on exertion, Denies orthopnea, Denies paroxysmal nocturnal dyspnea and Denies slow heart rate Resp Denies cough, Denies dyspnea and Denies dyspnea on exertion GI Reports abdominal pain Musc Reports back pain, Reports arthralgias and Reports neck pain Skin/Breast Reports lesions Psych Reports depression Physical exam (Primary Care) Vital Signs: Last Vital Signs BP 130/80 11/11/23 10:48 BMI result Body Mass Index 35.2 BMI Assessment/Plan discussion: High BMI High, discussed plan: lifestyle, weight reduction, dietary and physical activity Tobacco/Smoking Status: Tobacco use Status Tobacco use date assessed 11/11/23 11/11/23 10:55 Patient Tobacco Use Status Never used Tobacco 11/11/23 10:55 e-Cigarette/Vaping Use Never Used 11/11/23 10:55 Thrive Assessment: Date of Thrive Assessment Date Thrive assessed 09/20/23 11/11/23 10:55 Currently or been in a relationship where the following occur: no concerns reported Const General: cooperative Nutritional Appearance: obese Neck Neck: Yes tender Resp Effort & Inspection: normal respiratory effort Auscultation: clear to auscultation bilaterally Cardio Jugular venous distension: no JVD Rate: regular rate Rhythm: regular rhythm Heart sounds: S1 normal heart sound present and S2 normal heart sound present GI Inspection: Yes normal to inspection Palpation (GI): Soft to palpation and Tenderness to palpation present (GI) in the LUQ Auscultation: normal bowel sounds Skin Other: abscess in right outer ear Extrem General: Yes full ROM Psych Affect: Sad affect present Assessment and Plan Assessment & Plan (1) Mild recurrent major depression: Comment: follow by counseling Code(s): F33.0 - Major depressive disorder, recurrent, mild Plan: Continue escitalopram. Follow-up with psychiatry. (2) Osteoporosis: Code(s): M81.0 - Age-related osteoporosis without current pathological fracture Qualifiers: Osteoporosis type: age-related Presence of current pathological fracture: without current pathological fracture Qualified Code(s): M81.0 - Age-related osteoporosis without current pathological fracture Plan: Follow-up with rheumatology. (3) GERD (gastroesophageal reflux disease): Code(s): K21.9 - Gastro-esophageal reflux disease without esophagitis Qualifiers: Esophagitis presence: esophagitis presence not specified Qualified Code(s): K21.9 - Gastro-esophageal reflux disease without esophagitis Plan: Continue PPIs. (4) Insomnia: Code(s): G47.00 - Insomnia, unspecified Qualifiers: Insomnia type: psychophysiologic Qualified Code(s): F51.04 - Psychophysiologic insomnia Plan: Continue trazodone and zolpidem. (5) Abscess: Code(s): L02.91 - Cutaneous abscess, unspecified Plan: Start Bactrim ds. Referred to surgery. (6) Fibromyalgia: Code(s): M79.7 - Fibromyalgia Plan: Continue Lyrica. (7) Chronic constipation: Code(s): K59.09 - Other constipation Plan: Continue Linzess. Orders: Orders XR lumbar spine 2-3V Today M54.50 - Low back pain, unspecified US abdomen complete Today R10.12 - Left upper quadrant pain XR knee LT 2V Today M25.562 - Pain in left knee XR knee RT 2V Today M25.561 - Pain in right knee XR cervical spine 2V Today M54.2 - Cervicalgia XR thoracic spine 2V Today M54.6 - Pain in thoracic spine Referrals General Surgery Referral L02.91 - Cutaneous abscess, unspecified Medications: New sulfamethoxazole-trimethoprim 800-160 mg (Bactrim DS) 1 tab PO BID 20 tabs 0RF 10 days L02.91 - Cutaneous abscess, unspecified Discontinued amoxicillin-pot clavulanate 875-125 mg Discontinued Reason: Patient Completed Course 1 tab PO BID 7 days 14 tabs 0RF Coding Level of Care Code Est Pt Level 4 (01926) Complex EM visit Add On G2211 Diagnoses Mild recurrent major depression F33.0 Age-related osteoporosis without current pathological fracture M81.0 Osteoporosis type: age-related Presence of current pathological fracture: without current pathological fracture Gastroesophageal reflux disease, unspecified whether esophagitis present K21.9 Esophagitis presence: esophagitis presence not specified Psychophysiological insomnia F51.04 Insomnia type: psychophysiologic Abscess L02.91 Fibromyalgia M79.7 Chronic constipation K59.09 Time Spent (min) 24
== END 2023-11-11 11:12 | disposition home or self-care (01) ==
PROVIDERS: PCP Internal Medicine; Visit Provider Internal Medicine
DX: F33.0 Major depressive disorder, recurrent, mild (principal); M81.0 Age-related osteoporosis without current pathological fracture; K21.9 Gastro-esophageal reflux disease without esophagitis; F51.04 Psychophysiologic insomnia; L02.91 Cutaneous abscess, unspecified; M79.7 Fibromyalgia; K59.09 Other constipation
CPT/HCPCS: 99214; G2211

== ENCOUNTER 2023-11-15 13:44 | Outpatient (REF) | payer MEDICARE, SELFPAY ==
--- NOTE | ~2023-11-15 | XR_ITS ---
EXAMINATION: XR KNEE, LEFT CLINICAL INFORMATION: Pain in left knee No trauma COMPARISON: Same-day right knee TECHNIQUE: AP and lateral of the left knee. FINDINGS: No fracture. Minimal joint effusion. Alignment is anatomic. Joint spaces are maintained. Small marginal osteophytes involve the lateral and patellofemoral joint compartments. Question of 2 mm loose body within the joint seen near the medial tibial spine on the AP view. 0.3 cm sclerotic focus in the proximal tibia likely represents a bone island. No abnormal soft tissue calcification. XR/XR knee LT 2V IMPRESSION: 1. Mild osteoarthritis. 2. Question of 2 mm loose body within the joint.
--- NOTE | ~2023-11-15 | XR_ITS ---
EXAMINATION: XR THORACOLUMBAR SPINE CLINICAL INFORMATION: Pain in thoracic spine No trauma COMPARISON: None available. TECHNIQUE: AP, lateral and Swimmer's view of the thoracic spine FINDINGS: The vertebral alignment is normal. There is mild anterior wedge compression of the T3 vertebral body. The T1 and T2 vertebral bodies are not well seen on the lateral views there is multilevel disc space narrowing with anterior marginal osteophytes. Elevation of the right hemidiaphragm is noted. Surgical clips in the right upper quadrant are consistent with prior cholecystectomy. Round back posture of the upper thoracic spine is noted. XR/XR thoracic spine 2V IMPRESSION: 1. Multilevel degenerative disc disease. 2. Mild anterior wedge compression of the T3 vertebral body.
--- NOTE | ~2023-11-15 | XR_ITS ---
EXAMINATION: XR CERVICAL SPINE CLINICAL INFORMATION: Cervicalgia COMPARISON: None available. TECHNIQUE: 4 views of the cervical spine were obtained. FINDINGS: The bones are diffusely demineralized. There is straightening of the usual cervical lordosis which can be seen with muscle spasm or be due to patient positioning. There is mild loss of height of the C5 vertebral. There is no acute fracture. Prevertebral soft tissues are within normal limits. There is no significant disc space narrowing. There is no subluxation. XR/XR cervical spine 2V IMPRESSION: 1. Straightening of the usual cervical lordosis which can be seen with muscle spasm or be due to patient positioning. 2. Mild loss of height of the C5 vertebral body.
--- NOTE | ~2023-11-15 | XR_ITS ---
EXAMINATION: XR LUMBOSACRAL SPINE CLINICAL INFORMATION: Low back pain, unspecified No trauma COMPARISON: None available. TECHNIQUE: Three views of the lumbosacral spine. FINDINGS: The bones are diffusely demineralized. There is straightening of the usual lumbar lordosis which can be seen with muscle spasm. There are 4 nonrib-bearing lumbar-type vertebral bodies and a transitional lumbosacral vertebral body which for the purposes study will be called L5. The height of the lumbar vertebral bodies is well-maintained. There is no disc space narrowing. There is no spondylolisthesis. There is multilevel degenerative facet joint disease, most notable at L5-S1. XR/XR lumbar spine 2-3V IMPRESSION: 1. Muscle spasm. 2. Multilevel degenerative facet joint disease, most notable at L5-S1. 3. The bones are diffusely demineralized.
--- NOTE | ~2023-11-15 | XR_ITS ---
EXAMINATION: XR KNEE, RIGHT CLINICAL INFORMATION: Pain in right knee No trauma COMPARISON: Same-day left knee TECHNIQUE: AP and lateral views of the right knee. FINDINGS: No fracture or joint effusion. Alignment is anatomic. Joint spaces are maintained. No abnormal soft tissue calcification. XR/XR knee RT 2V IMPRESSION: No bony abnormality.
== END 2023-11-15 13:45 | disposition home or self-care (01) ==
LOC: HO.XRAY 13:44
PROVIDERS: PCP Internal Medicine; Visit Provider Internal Medicine
DX: M25.561 Pain in right knee (principal); M54.6 Pain in thoracic spine; M54.50 Low back pain, unspecified; M25.562 Pain in left knee; M54.2 Cervicalgia
CPT/HCPCS: 72040; 72070; 72100; 73560

== ENCOUNTER 2023-11-19 14:31 | Outpatient (AMB) | payer OTHER, SELFPAY ==
--- NOTE | 2023-11-19 14:34 | HO.NEPHOV ---
Vital Signs 11/19/23 14:35 Height 5 ft 3 in Weight 205 lb BMI 36.3 BP 132/88 Blood Pressure Location Lt brachial Position Sitting Pulse 65 Pulse Source Pulse Oximeter Pulse Oximetry (%) 97 Oxygen Delivery Method Room Air Intake Visit Reasons: 6M follow up/ Conf w/daughter Intake Note: Cullet Washer services refused, refusal form signed and scanned into chart. Cullet Washer Required: Yes Cullet Washer Name: Moira Momin (daughter) Accompanied by: Daughter Allergies No Known Allergies Allergy (Verified 11/19/23 14:38) HPI Comments Details: Florencia was seen in the office in follow-up of her history of hematuria. She had multiple emergency room visits with urinary symptoms and even had undergone imaging studies, urine studies and blood work. She was also given antibiotics. She does not have any abdominal pain, fever, chills, sore throat. There is no family history of any microscopic hematuria, CKD or ESRD. Her Myrbetriq was discontinued due to question of urinary retention/incomplete bladder emptying. Previous workup has included a retroperitoneal ultrasound was unremarkable except for the left kidney showing a small cyst in the midpole. cytology was negative for high-grade urothelial carcinoma. Patient with a previous negative microscopic hematuria [place] [address] Cote. When asked she denies nocturia, dysuria, foul smelling urine, flank pain, fever, and or chills. She otherwise offers no concerns or complaints during this office visit. She is accompanied by her daughter. [facility] Medical History (Updated 11/11/23 @ 11:28 by Rosaura Hunt MD) Mild recurrent major depression Hematuria Fibromyalgia Right knee pain Left leg pain Cervical cancer screening Hematuria Urge incontinence of urine Memory loss Class 1 obesity without serious comorbidity with body mass index (BMI) of 34.0 to 34.9 in adult Cough Insomnia UTI (urinary tract infection) B12 deficiency Microscopic hematuria Leukopenia Liver cyst Hemorrhoids Diverticulosis Anxiety GERD (gastroesophageal reflux disease) Medicare annual wellness visit, initial Otitis media Urinary tract infection Surgical History H/O section H/O: hysterectomy History of endoscopy History of colonoscopy History of cholecystectomy Family History Mother Lung cancer Father Cancer of esophagus Sister Lupus Other Arthritis Social History Household Members: Family Household Members Other:: grandchildren Housing: House Housing Other:: lives with daughter and 2 grandkids Are you a primary health care manager to a significant other at home: No Do you presently have 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) Alcohol intake: former Patient Tobacco Use Status: Never used Tobacco e-Cigarette/Vaping Use: Never Used Second Hand Smoke Exposure: No service: No Current occupational status: unemployed Cognitive needs: No Hearing needs: No Vision needs: No Physical Exam Const General: comfortable and no acute distress Orientation/consciousness: patient oriented x3 HEENT Head: Yes normocephalic Mouth: Normal oral and palatal mucosa present Eyes EOM: EOMs intact bilaterally Neck Neck: Yes supple Resp Auscultation: clear to auscultation bilaterally Cardio Jugular venous distension: no JVD Rate: regular rate GI Palpation (GI): Soft to palpation Auscultation: normal bowel sounds General: Yes no CVA tenderness Back/Spine/Pelvis Back: no CVA tenderness Skin General skin exam: no rashes or lesions noted Neuro General: patient oriented x3 and moves all extremities Extrem General: Yes no pedal edema Results Reviewed Nephrology Results: Hgb 14.4 g/dl (12.0-16.0) 09/14/23 WBC 5.1 X10*3/uL (4.8-10.8) 09/14/23 Plt Count 262 X10*3/uL (160-400) 09/14/23 Sodium 142 mmol/L (135-145) 09/14/23 Potassium 4.2 mmol/L (3.3-5.1) 09/14/23 Chloride 109 mmol/L (96-108) H 09/14/23 Carbon Dioxide 28 mmol/L (22-29) 09/14/23 BUN 16 mg/dL (9-16) 09/14/23 Creatinine 0.74 mg/dL (0.5-1.4) 09/14/23 Calcium 9.2 mg/dL (8.4-10.2) 09/14/23 Urine Protein Negative mg/dL (Neg-Trace) 09/14/23 Assessment & Plan Assessment & Plan (1) Renal cyst: Code(s): N28.1 - Cyst of kidney, acquired Category: Medical Plan Florencia has no history of significant proteinuria. Her renal functions are normal. Blood pressure has been at goal. She had imaging studies which showed a renal cyst. She had cystoscopy. She follows up with Urology . I shall order a F/U renal USS after next visit. Labs ordered prior to F/U as well. I did not make any medication changes today. Follow-up given. Orders: Orders Electrolytes Today N28.1 - Cyst of kidney, acquired Blood Urea Nitrogen Today N28.1 - Cyst of kidney, acquired Creatinine Today N28.1 - Cyst of kidney, acquired UA and rflx microscopic Today N28.1 - Cyst of kidney, acquired Protein Creatinine Ratio, Ur Today N28.1 - Cyst of kidney, acquired Coding Level of Care Code Est Pt Level 4 (17282) Diagnoses Renal cyst N28.1
[2023-11-19 14:35] VITALS: BP 132/88; PULSE 65; O2SAT 97; BMI 36.3
== END 2023-11-19 14:46 | disposition home or self-care (01) ==
PROVIDERS: PCP Internal Medicine; Visit Provider Internal Medicine Nephrology
DX: N28.1 Cyst of kidney, acquired (principal)
CPT/HCPCS: 99214

== ENCOUNTER → 2023-11-19 14:31 | Outpatient (BNVA) | payer OTHER, SELFPAY | PROVIDERS: PCP Internal Medicine; Visit Provider Internal Medicine Nephrology ==

== ENCOUNTER 2023-11-23 11:02 | Outpatient (REF) | payer OTHER, SELFPAY ==
--- NOTE | ~2023-11-23 | US_ITS ---
EXAMINATION: US ABDOMEN LIMITED CLINICAL INFORMATION: Left upper quadrant pain. COMPARISON: Ultrasound kidneys and bladder 10/02/2022. CT abdomen and pelvis 05/04/2022. X-ray abdomen 12/17/2021. Ultrasound abdomen limited 12/17/2021. MR abdomen without and with contrast 07/25/2020. TECHNIQUE: Real-time imaging of the left upper quadrant. FINDINGS: Targeted ultrasound images were obtained by the research technician of the area of concern as indicated by the patient in the left upper quadrant demonstrate a 2.1 x 0.9 x 2.3 cm wider than tall, slightly hypoechoic mass. A small amount of internal vascularity is demonstrated. Radiologist was not in attendance. Images were later provided for interpretation. US/US abdomen limited IMPRESSION: 2.3 cm mass in the area of concern as indicated by the patient in the left upper quadrant. Differential considerations include benign lesions such as a lipoma or other soft tissue mass, but other etiologies should also be considered. Correlation with clinical exam recommended to determine further management including additional imaging, treatment or biopsy.
== END 2023-11-23 11:03 | disposition home or self-care (01) ==
LOC: HO.US 11:02
PROVIDERS: PCP Internal Medicine; Visit Provider Internal Medicine
DX: R10.12 Left upper quadrant pain (principal)
CPT/HCPCS: 76705

== ENCOUNTER → 2023-11-25 11:17 | Outpatient (BNVA) | payer MEDICARE, SELFPAY | PROVIDERS: PCP Internal Medicine; Referring Provider Internal Medicine; Visit Provider Surgery | DX: H93.91 Unspecified disorder of right ear (principal); L98.8 Other specified disorders of the skin and subcutaneous tissue | CPT/HCPCS: 99212 ==

== ENCOUNTER 2023-12-13 06:01 | Day surgery (SDC) | payer OTHER, SELFPAY ==
[2023-12-08 13:44] VITALS: BP 123/77; PULSE 66; RESP 16; O2SAT 97; BMI 36.1
[2023-12-13 06:04] VITALS: BP 159/84; PULSE 72; RESP 20; TEMP 36.9; O2SAT 98; BMI 36.4
[2023-12-13] MEDS: Lactated Ringers 1,000 ML 100 ML IVCONT (06:26)
--- NOTE | 2023-12-13 07:20 | HO.ANESPROP2 ---
Documented by User: Karmen Roque NP 12/09/23 15:11 HPI - Anesthesia Eval Consult details Narrative: 68yo F for Right Excision Lesions on ear PMFSH Active Problems Active Problems: All Active Problems Ear lesion (Acute) Fibromyalgia (Acute) Thoracic spine pain (Acute) Lumbar pain (Acute) Right knee pain (Acute) Left knee pain (Acute) Neck pain (Acute) Left upper quadrant abdominal pain (Acute) Abscess (Acute) Moderate major depression (Acute) Medicare annual wellness visit, subsequent (Acute) Urinary frequency (Acute) Urinary urgency (Acute) Sensation of pressure in bladder area (Acute) Acute gastroenteritis (Acute) Obesity (BMI 30-39.9) (Acute) Renal cyst (Acute) Family history of dementia (Acute) Snoring (Acute) Excessive daytime sleepiness (Acute) Sleep difficulties (Acute) Left knee pain (Acute) Polyarthralgia (Acute) Cognitive impairment (Acute) Chest pain (Acute) Latent tuberculosis by blood test (Acute) Right hand pain (Acute) Elevated LFTs (Acute) Chronic LUQ pain (Acute) Proteinuria (Acute) Osteoporosis (Acute) Hypovitaminosis D (Acute) Abdominal bloating (Acute) Chronic constipation (Acute) BMI 35.0-35.9,adult (Acute) Adult general medical exam (Acute) Screening for breast cancer (Acute) Post-menopausal (Acute) Weak urinary stream (Acute) Overactive bladder (Acute) Biloma following surgery (Acute) History of colon polyps (Acute) RUQ abdominal pain (Acute) Right shoulder pain (Acute) Swelling of right upper extremity (Acute) NAFL (nonalcoholic fatty liver) (Acute) Papilloma of external ear (Acute) Mild recurrent major depression (Acute) Medicare annual wellness visit, initial (Acute) GERD (gastroesophageal reflux disease) (Acute) Anxiety (Acute) Liver cyst (Acute) Leukopenia (Chronic) Microscopic hematuria (Acute) B12 deficiency (Acute) UTI (urinary tract infection) (Acute) Insomnia (Acute) Cough (Acute) Class 1 obesity without serious comorbidity with body mass index (BMI) of 34.0 to 34.9 in adult (Acute) Memory loss (Acute) Urge incontinence of urine (Acute) Hematuria (Acute) Left leg pain (Acute) Right knee pain (Acute) Fibromyalgia (Acute) Past Medical History Medical History (Updated 12/12/23 @ 12:22 by Rosaura Hunt MD) Back pain Anemia Urinary problem Multiple sclerosis Hematuria Mild recurrent major depression Fibromyalgia Right knee pain Left leg pain Cervical cancer screening Hematuria Urge incontinence of urine Memory loss Class 1 obesity without serious comorbidity with body mass index (BMI) of 34.0 to 34.9 in adult Cough Insomnia UTI (urinary tract infection) B12 deficiency Microscopic hematuria Leukopenia Liver cyst Hemorrhoids Diverticulosis Anxiety GERD (gastroesophageal reflux disease) Medicare annual wellness visit, initial Otitis media Urinary tract infection Family History Family History Mother Lung cancer Father Cancer of esophagus Sister Lupus Other Arthritis Surgical History Surgical History H/O section H/O: hysterectomy History of endoscopy History of colonoscopy History of cholecystectomy Social History Social History Household Members: Family Household Members Other:: grandchildren Housing: House Housing Other:: lives with daughter and 2 grandkids Are you a primary career specialist to a significant other at home: No Do you presently have visiting nurse or other home services: No Alcohol intake: former Patient Tobacco Use Status: Never used Tobacco e-Cigarette/Vaping Use: Never Used Second Hand Smoke Exposure: No Use of substances other than those prescribed or required for medical reasons: No Have you been hit, kicked, punched, or otherwise hurt by someone within the past year? If so, by whom?: No Are you DNR?: No Advance Directives: No Advance Directives Information Provided: Yes Advance Directives on File: No Recently lost weight without trying: No How much weight loss: 2-13 pounds Eating poorly because of decreased appetite: No Nutrition screen score: 1 Nutrition Risks: No Nutritional Risk Patient : No : No Poor oral hygiene: Yes (broken teeth but stable) service: No Current occupational status: unemployed Cognitive needs: No Hearing needs: No Vision needs: No Meds Allergies Allergy/AdvReac Type Severity Reaction Status Date / Time No Known Allergies Allergy Verified 11/25/23 11:26 Home Medications ?Medication ?Instructions ?Recorded ?Confirmed ?Last Taken ?Type zolpidem 10 mg tablet 10 mg PO BEDTIME 05/24/20 12/08/23 Unknown History escitalopram oxalate 20 mg tablet 40 mg PO DAILY 11/26/21 12/08/23 Unknown History (Lexapro) trazodone 50 mg tablet 50 mg PO BEDTIME insomnia 11/26/22 12/08/23 Unknown History hydroxyzine HCl 10 mg tablet 10 mg PO TID 04/15/23 12/08/23 Unknown History Exam Height,Weight and Vital Signs: Height 5 ft 3 in Weight 92.533 kg Last Vital Signs Pulse 66 12/08/23 13:44 Resp 16 12/08/23 13:44 BP 123/77 12/08/23 13:44 Pulse Ox 97 12/08/23 13:44 O2 Del Method Room Air 12/08/23 13:44 Pertinent Lab Results Pertinent Lab Results: Laboratory Tests 09/14/23 12:00 WBC 5.1 Hgb 14.4 Hct 43.9 Plt Count 262 Sodium 142 Potassium 4.2 Chloride 109 H Carbon Dioxide 28 BUN 16 Creatinine 0.74 Narrative Narrative: EKG 2022 Vent. Rate : 064 BPM Atrial Rate : 064 BPM P-R Int : 166 ms QRS Dur : 074 ms QT Int : 380 ms P-R-T Axes : 081 020 052 degrees QTc Int : 392 ms Normal sinus rhythm with sinus arrhythmia Nonspecific ST and T wave abnormality Abnormal ECG When compared with ECG of 07-JUL-2022 10:34, No significant change was found Assessment and Plan Assessment Anesthesia Assessment: Chart Reviewed Documented by User: Ness Leiva DO 12/13/23 07:27 [facility] Past Medical History Medical History (Updated 12/12/23 @ 12:22 by Rosaura Hunt MD) Back pain Anemia Urinary problem Multiple sclerosis Hematuria Mild recurrent major depression Fibromyalgia Right knee pain Left leg pain Cervical cancer screening Hematuria Urge incontinence of urine Memory loss Class 1 obesity without serious comorbidity with body mass index (BMI) of 34.0 to 34.9 in adult Cough Insomnia UTI (urinary tract infection) B12 deficiency Microscopic hematuria Leukopenia Liver cyst Hemorrhoids Diverticulosis Anxiety GERD (gastroesophageal reflux disease) Medicare annual wellness visit, initial Otitis media Urinary tract infection Family History Family History Mother Lung cancer Father Cancer of esophagus Sister Lupus Other Arthritis Family history of problems with anesthesia: No Surgical History Surgical History H/O section H/O: hysterectomy History of endoscopy History of colonoscopy History of cholecystectomy History of Problems with Anesthesia: No Social History Social History Household Members: Family Household Members Other:: grandchildren Housing: House Housing Other:: lives with daughter and 2 grandkids Are you a primary career specialist to a significant other at home: No Do you presently have visiting nurse or other home services: No Alcohol intake: former Patient Tobacco Use Status: Never used Tobacco e-Cigarette/Vaping Use: Never Used Second Hand Smoke Exposure: No Use of substances other than those prescribed or required for medical reasons: No Have you been hit, kicked, punched, or otherwise hurt by someone within the past year? If so, by whom?: No Are you DNR?: No Advance Directives: No Advance Directives Information Provided: Yes Advance Directives on File: No Recently lost weight without trying: No How much weight loss: 2-13 pounds Eating poorly because of decreased appetite: No Nutrition screen score: 1 Nutrition Risks: No Nutritional Risk Patient : No : No Poor oral hygiene: Yes (broken teeth but stable) service: No Current occupational status: unemployed Cognitive needs: No Hearing needs: No Vision needs: No Meds Allergies Allergy/AdvReac Type Severity Reaction Status Date / Time No Known Allergies Allergy Verified 11/25/23 11:26 Home Medications ?Medication ?Instructions ?Recorded ?Confirmed ?Last Taken ?Type zolpidem 10 mg tablet 10 mg PO BEDTIME 05/24/20 12/08/23 Unknown History escitalopram oxalate 20 mg tablet 40 mg PO DAILY 11/26/21 12/08/23 Unknown History (Lexapro) trazodone 50 mg tablet 50 mg PO BEDTIME insomnia 11/26/22 12/08/23 Unknown History hydroxyzine HCl 10 mg tablet 10 mg PO TID 04/15/23 12/08/23 Unknown History Exam Exam Date and Time: December 13, [id number] Height,Weight and Vital Signs: Height 5 ft 3 in Weight 92.533 kg Last Vital Signs Pulse 66 12/08/23 13:44 Resp 16 12/08/23 13:44 BP 123/77 12/08/23 13:44 Pulse Ox 97 12/08/23 13:44 O2 Del Method Room Air 12/08/23 13:44 Height 5 ft 3 in Weight 93.2 kg Vital Signs Pulse Rate 66 12/08/23 13:44 Respiratory Rate 16 12/08/23 13:44 Blood Pressure 123/77 12/08/23 13:44 Pulse Oximetry 97 12/08/23 13:44 Oxygen Delivery Method Room Air 12/08/23 13:44 Temperature 98.4 F 12/13/23 06:04 Pulse Rate 72 12/13/23 06:04 Respiratory Rate 20 12/13/23 06:04 Blood Pressure 159/84 H 12/13/23 06:04 Pulse Oximetry 98 12/13/23 06:04 Oxygen Delivery Method Room Air 12/13/23 06:04 Airway Mallampati Class: III TM Dist: >3cm Neck ROM: Full Loose/Missing/Broken Teeth: Yes (a few missing and broken teeth) Heart: S1S2 Lungs: CTAB Assessment and Plan Assessment Anesthesia Assessment: Anesthesia Plan Discussed Final Anesthetic Review Family History of Problems with Anesthesia: No History of Problems with Anesthesia: No NPO: Yes ASA Class: II Final Preanesthetic Review: No Changes in Pt Med Stat, Meds/Allgs Chart Reviewed, Consent Obtained/Reviewed (gem carver at bedside for translation) and Anes Risks/Benef Reviewed Patient Risk: Low Procedure Risk: Low Anesthetic Plan Anesthetic Plan: MAC: and Agree w/ Assess. and Plan Disposition: Standard PACU
--- NOTE | 2023-12-13 07:22 | MHC.SHP ---
Pre-Procedural Eval Section A - 24 Hr Update-Section A only Date of Service: 12/13/23 The patient is an INPATIENT: No Changes since office visit: Yes Patient answered all questions; No Cold of Flu in the past 2 weeks, No New Medical Problems and No Changes in Medication The patient has been examined within 24 hours of the surgical procedure. The History & Physical has been completed within 30 days and I have reviewed it.: Yes Section B - Complete if H&P > 30 days Chief Complaint: Unspecified disorder of ear, unspecified ear Allergies: Allergies Allergy/AdvReac Type Severity Reaction Status Date / Time No Known Allergies Allergy Verified 11/25/23 11:26 Plan Diagnosis/Plan: Unchanged I have reviewed the history and physical and performed a pertinent physical examination on my patient. No changes have occurred unless specified. Time Spent With Patient Time: Total time managing care of this patient today ____ minutes.
--- NOTE | 2023-12-13 08:11 | P.OP_ITS ---
Operative Note Operative Note Date of Service: 12/13/23 Narrative: Preoperative diagnosis: Skin lesion right posterior ear Postoperative diagnosis: Same Procedure: Excision of skin lesion right posterior ear Surgeon: Pepe Mckay MD Director Workers Compensation: Jessica Fox PA-C Anesthesia: Mac plus local Indications for procedure: 68-year-old female patient presenting with a gradually enlarging lesion with central ulceration measuring approximately 1 cm in diameter suggestive of a basal cell carcinoma. Operative findings: 1 cm ulcerated lesion in the posterior ear directly over cartilage Specimen: Skin lesion right posterior ear Estimated blood loss: Less than 2 mL Complications: None Procedure details: Patient was brought to the OR and placed in a supine position. After administering light sedation the patient's posterior ear and right face were prepped with Betadine and draped in a sterile fashion. A surgical time-out was called and the consent confirmed. Patient received preoperative antibiotics and Venodyne boots were in place. Local anesthesia con sisting of 1% lidocaine with epinephrine was infiltrated around the skin lesion and a longitudinal incision created using a 15 blade scalpel. This was then carried down to cartilage using electrocautery. Lesion was excised off of cartilage and sent to pathology for further examination. Hemostasis was assured using electrocautery. Dermis was then reapproximated using interrupted 4-0 Polysorb sutures. Skin was closed using interrupted 5 0 nylon sutures. 2 x 2 gauze and silk tape were then applied. The patient tolerated the procedure well. Sponge, instrument, and needle counts reported as correct. The patient was transferred to PACU in stable condition.
[2023-12-13 08:15] VITALS: BP 99/58; PULSE 73; RESP 16; TEMP 36.1; O2SAT 94
[2023-12-13 08:30] VITALS: BP 111/66; RESP 15; O2SAT 97
[2023-12-13 08:45] VITALS: BP 145/61; PULSE 60; RESP 16; TEMP 36.3; O2SAT 97
== END 2023-12-13 09:14 | disposition home or self-care (01) ==
PROVIDERS: PCP Internal Medicine; Visit Provider Surgery
PROC: (CPT 11441; principal; 2023-12-13 07:30)
DX: D23.21 Other benign neoplasm of skin of right ear and external auricular canal (principal); H66.90 Otitis media, unspecified, unspecified ear; M79.7 Fibromyalgia; D72.819 Decreased white blood cell count, unspecified; F33.0 Major depressive disorder, recurrent, mild; Z79.899 Other long term (current) drug therapy; Z56.0 Unemployment, unspecified; Z98.890 Other specified postprocedural states
CPT/HCPCS: 11441; 88304; 88305; J0690; J2704; J2795; J3010

== ENCOUNTER → 2023-12-13 06:01 | Outpatient (BNV) | payer OTHER, SELFPAY | PROVIDERS: PCP Internal Medicine; Visit Provider Surgery | DX: D23.21 Other benign neoplasm of skin of right ear and external auricular canal (principal) | CPT/HCPCS: 11442 ==

== ENCOUNTER 2023-12-23 14:29 | Outpatient (AMB) | payer OTHER, SELFPAY ==
--- NOTE | 2023-12-23 14:39 | A.OFFVIS_ITS ---
Vital Signs 12/23/23 14:50 Height 5 ft 3 in Weight 203 lb BMI 36.0 BP 166/80 H Blood Pressure Location Lt brachial Position Sitting Pulse 67 Intake Visit Reasons: Intra-abd & pelvic mass. S/P exc lesion Rt. ear Intake Note: Patient is seen in office for post op assessment post excision of skin lesion right posterior ear. Pt c/o: denies any concerns, sutures removed at visit Op: 12/13/23 Roll Machine Operator Required: No Accompanied by: Family/Other Allergies No Known Allergies Allergy (Verified 12/23/23 14:51) Medication List - Last Reconciled 12/23/23 by Pepe Mckay MD cholecalciferol (vitamin D3) 50 mcg PO DAILY 90 days cyanocobalamin (vitamin B-12) (Vitamin B-12) 1,000 mcg PO DAILY escitalopram oxalate (Lexapro) 40 mg PO DAILY estradiol 0.01%(0.1mg/gram) vaginally daily; pea sized amount to urethra 3 times a week 30 days folic acid 1 mg PO DAILY 90 days gabapentin 300 mg PO TID 30 days hydroxyzine HCl 10 mg PO TID linaclotide (Linzess) 145 mcg PO QAM 90 days mirabegron ER (Myrbetriq) 25 mg PO DAILY 90 days oxycodone 5 mg PO Q6H PRN pantoprazole 40 mg PO DAILY 90 days pregabalin (Lyrica) 300 mg (4 x 75 mg) PO QDAY 30 days trazodone 50 mg PO BEDTIME zolpidem 10 mg PO BEDTIME HPI Comments Details: 68-year-old female patient status post excision of a right ear skin lesion. Pathology revealed benign findings with no evidence of malignancy. She tolerated the procedure well returns today for suture removal. She also reports a pain in the left upper quadrant with a palpable lump. Ultrasound of the lump revealed what appeared to be a lipoma. Patient points to an area in the left upper quadrant as the area of most discomfort. [facility] Medical History Back pain Anemia Urinary problem Multiple sclerosis Hematuria Mild recurrent major depression Fibromyalgia Right knee pain Left leg pain Cervical cancer screening Hematuria Urge incontinence of urine Memory loss Class 1 obesity without serious comorbidity with body mass index (BMI) of 34.0 to 34.9 in adult Cough Insomnia UTI (urinary tract infection) B12 deficiency Microscopic hematuria Leukopenia Liver cyst Hemorrhoids Diverticulosis Anxiety GERD (gastroesophageal reflux disease) Medicare annual wellness visit, initial Otitis media Urinary tract infection Surgical History History of excision of lesion (12/13/23) H/O section H/O: hysterectomy History of endoscopy History of colonoscopy History of cholecystectomy Family History Mother Lung cancer Father Cancer of esophagus Sister Lupus Other Arthritis Social History Household Members: Family Household Members Other:: grandchildren Housing: House Housing Other:: lives with daughter and 2 grandkids Are you a primary animal care supervisor to a significant other at home: No Do you presently have visiting nurse or other home services: No Alcohol intake: former Patient Tobacco Use Status: Never used Tobacco e-Cigarette/Vaping Use: Never Used Second Hand Smoke Exposure: No service: No Current occupational status: unemployed Cognitive needs: No Hearing needs: No Vision needs: No Review of Systems Const All systems reviewed & are unremarkable except as noted in HPI and below Physical Exam Vital Signs: Last Vital Signs Pulse 67 12/23/23 14:50 BP 166/80 H 12/23/23 14:50 BMI result Body Mass Index 36.0 Const General: cooperative and no acute distress Nutritional Appearance: well nourished Orientation/consciousness: patient oriented x3 Limitations: no limitations HEENT Other: Incision in the post right ear is clean, dry, and intact without redness or discharge. Sutures removed and the incision found to be well healed. Head: Yes normocephalic and Yes atraumatic Ears: hearing grossly normal bilaterally Resp Effort & Inspection: normal respiratory effort, no audible wheezes, no cough and no respiratory distress Cardio Jugular venous distension: no JVD GI Other: Palpation reveals a soft tissue mass in the left lower quadrant flank suggestive of a small lipoma. No changes are noted with Valsalva maneuvers. Patient is area of tenderness however is above this in the midclavicular line which appears to be muscular in nature. No masses palpable in the area of maximal tenderness. Inspection: Yes normal to inspection Skin Other: Warm, dry, no rash Neuro General: patient oriented x3 Extrem General: Yes no clubbing, cyanosis or edema Assessment & Plan Assessment & Plan (1) Ear lesion: Code(s): H93.90 - Unspecified disorder of ear, unspecified ear Category: Medical (2) Abdominal mass: Code(s): R19.00 - Intra-abdominal and pelvic swelling, mass and lump, unspecified site Category: Medical Plan Patient presents with a palpable lump in the left abdomen which appears to be a lipoma. I do not feel this is the source of her discomfort. The discomfort is higher abdomen and appears to be muscular in nature. I would not recommend removing the lipoma as this probably would not improve her symptoms. The right ear skin lesion was benign and the sutures removed. She tolerated this procedure well. She should follow up as needed. Coding Level of Care Code Global (27386) Diagnoses Ear lesion H93.90 Abdominal mass R19.00
[2023-12-23 14:50] VITALS: BP 166/80; PULSE 67; BMI 36.0
== END 2023-12-23 15:01 | disposition home or self-care (01) ==
PROVIDERS: PCP Internal Medicine; Visit Provider Surgery
DX: H93.90 Unspecified disorder of ear, unspecified ear (principal); R19.00 Intra-abdominal and pelvic swelling, mass and lump, unspecified site
CPT/HCPCS: 99024

== ENCOUNTER → 2023-12-23 14:29 | Outpatient (BNVA) | payer OTHER, SELFPAY | PROVIDERS: PCP Internal Medicine; Visit Provider Surgery | DX: Z48.02 Encounter for removal of sutures (principal); H93.8X1 Other specified disorders of right ear; R19.02 Left upper quadrant abdominal swelling, mass and lump | CPT/HCPCS: 99212 ==

== ENCOUNTER 2024-01-21 08:16 | Day surgery (SDC) | payer OTHER, SELFPAY ==
[2024-01-21 08:31] VITALS: BMI 34.5
[2024-01-21] MEDS: Lactated Ringers 1,000 ML 100 ML IVCONT (08:33)
[2024-01-21 08:36] VITALS: BP 139/85; PULSE 80; RESP 18; TEMP 36.6; O2SAT 100
--- NOTE | 2024-01-21 08:39 | P.CONAN_ITS ---
HPI - Anesthesia Eval Consult details Narrative: 68 yo female patient for Colonoscopy PMFSH Active Problems Active Problems: All Active Problems Abdominal mass (Acute) Ear lesion (Acute) Fibromyalgia (Acute) Thoracic spine pain (Acute) Lumbar pain (Acute) Right knee pain (Acute) Left knee pain (Acute) Neck pain (Acute) Left upper quadrant abdominal pain (Acute) Abscess (Acute) Moderate major depression (Acute) Medicare annual wellness visit, subsequent (Acute) Urinary frequency (Acute) Urinary urgency (Acute) Sensation of pressure in bladder area (Acute) Acute gastroenteritis (Acute) Obesity (BMI 30-39.9) (Acute) Renal cyst (Acute) Family history of dementia (Acute) Snoring (Acute) Excessive daytime sleepiness (Acute) Sleep difficulties (Acute) Left knee pain (Acute) Polyarthralgia (Acute) Cognitive impairment (Acute) Chest pain (Acute) Latent tuberculosis by blood test (Acute) Right hand pain (Acute) Elevated LFTs (Acute) Chronic LUQ pain (Acute) Proteinuria (Acute) Osteoporosis (Acute) Hypovitaminosis D (Acute) Abdominal bloating (Acute) Chronic constipation (Acute) BMI 35.0-35.9,adult (Acute) Adult general medical exam (Acute) Screening for breast cancer (Acute) Post-menopausal (Acute) Weak urinary stream (Acute) Overactive bladder (Acute) Biloma following surgery (Acute) History of colon polyps (Acute) RUQ abdominal pain (Acute) Right shoulder pain (Acute) Swelling of right upper extremity (Acute) NAFL (nonalcoholic fatty liver) (Acute) Papilloma of external ear (Acute) Mild recurrent major depression (Acute) Medicare annual wellness visit, initial (Acute) GERD (gastroesophageal reflux disease) (Acute) Anxiety (Acute) Liver cyst (Acute) Leukopenia (Chronic) Microscopic hematuria (Acute) B12 deficiency (Acute) UTI (urinary tract infection) (Acute) Insomnia (Acute) Cough (Acute) Class 1 obesity without serious comorbidity with body mass index (BMI) of 34.0 to 34.9 in adult (Acute) Memory loss (Acute) Urge incontinence of urine (Acute) Hematuria (Acute) Left leg pain (Acute) Right knee pain (Acute) Fibromyalgia (Acute) PRITI. Not using CPAP Past Medical History Medical History Back pain Anemia Urinary problem Multiple sclerosis Hematuria Mild recurrent major depression Fibromyalgia Right knee pain Left leg pain Cervical cancer screening Hematuria Urge incontinence of urine Memory loss Class 1 obesity without serious comorbidity with body mass index (BMI) of 34.0 to 34.9 in adult Cough Insomnia UTI (urinary tract infection) B12 deficiency Microscopic hematuria Leukopenia Liver cyst Hemorrhoids Diverticulosis Anxiety GERD (gastroesophageal reflux disease) Medicare annual wellness visit, initial Otitis media Urinary tract infection Family History Family History Mother Lung cancer Father Cancer of esophagus Sister Lupus Other Arthritis Family history of problems with anesthesia: No Surgical History Surgical History History of excision of lesion (12/13/23) H/O section H/O: hysterectomy History of endoscopy History of colonoscopy History of cholecystectomy History of Problems with Anesthesia: No Social History Social History Household Members: Family Household Members Other:: grandchildren Housing: House Housing Other:: lives with daughter and 2 grandkids Are you a primary critical care physician to a significant other at home: No Do you presently have visiting nurse or other home services: No Alcohol intake: former Patient Tobacco Use Status: Never used Tobacco e-Cigarette/Vaping Use: Never Used Second Hand Smoke Exposure: No Are you DNR?: No Advance Directives: No Advance Directives Information Provided: Yes Nutrition Risks: No Nutritional Risk service: No Current occupational status: unemployed Cognitive needs: No Hearing needs: No Vision needs: No Meds Allergies Allergy/AdvReac Type Severity Reaction Status Date / Time No Known Allergies Allergy Verified 01/21/24 08:18 Active Medications: Current Medications Lactated Ringer's (Lr) 1,000 mls @ 100 mls/hr IVCONT .Q10H RUSSELL Last Admin: 01/21/24 08:33 Dose: 100 mls/hr Home Medications ?Medication ?Instructions ?Recorded ?Confirmed ?Last Taken ?Type zolpidem 10 mg tablet 10 mg PO BEDTIME 05/24/20 01/21/24 Unknown History escitalopram oxalate 20 mg tablet 40 mg PO DAILY 11/26/21 01/21/24 Unknown History (Lexapro) trazodone 50 mg tablet 50 mg PO BEDTIME insomnia 11/26/22 01/21/24 Unknown History hydroxyzine HCl 10 mg tablet 10 mg PO TID 04/15/23 01/21/24 Unknown History Exam Height,Weight and Vital Signs: Height 5 ft 3 in Weight 88.451 kg Last Vital Signs Temp 97.9 F 01/21/24 08:36 Pulse 80 01/21/24 08:36 Resp 18 01/21/24 08:36 BP 139/85 01/21/24 08:36 Pulse Ox 100 01/21/24 08:36 O2 Del Method Room Air 01/21/24 08:36 Airway Mallampati Class: II TM Dist: >3cm Neck ROM: Full Loose/Missing/Broken Teeth: Yes (Some missing. Denies broken or loose teeth) Heart: RRR Lungs: CTAB Assessment and Plan Assessment Anesthesia Assessment: Anesthesia Plan Discussed and Chart Reviewed Final Anesthetic Review Family History of Problems with Anesthesia: No History of Problems with Anesthesia: No NPO: Yes ASA Class: III Final Preanesthetic Review: No Changes in Pt Med Stat, Meds/Allgs Chart Reviewed, Consent Obtained/Reviewed and Anes Risks/Benef Reviewed Patient Risk: Intermediate Procedure Risk: Low Assessment/Block/Sedation in SS: Assess/Block/Sedation-SS Anesthetic Plan Anesthetic Plan: TIVA Disposition: Standard PACU
--- NOTE | 2024-01-21 10:34 | P.OPN-COLO_ITS ---
Colonoscopy Operative Note Operative Note Date of Service: 01/21/24 Narrative: COLONOSCOPY TILL CECUM WITH BIOPSIES Pre-op diagnosis: Surveillance for colon polyps. Post-op diagnosis:? Colon polyp, Diverticulosis, hemorrhoids Endoscopist:? Karon Anders MD Anesthesia:?MAC Consent: Indications for the procedure and potential complications of bleeding, perforation, reaction to medications and missed diagnosis were discussed with the patient and informed consent was obtained. Instrument: Olympus PCF H 190 L variable stiffness pediatric colonoscope Monitoring: Vital signs and clinical assessment, intermittent blood pressure monitoring, continuous EKG monitoring, Pulse oximetry and Carbon Dioxide monitoring were done throughout the procedure. Please see anesthesia flowsheet. Colon withdrawl time was 22 minutes. Procedure: The patient was placed in the left lateral decubitis position and pre-procedure medications were administered. After a digital rectal examination of the ano-rectum, the video colonoscope was inserted into the rectum and advanced through the colon to the cecum. The colonoscope was slowly withdrawn in a retrograde panoramic fashion and the colon mucosa was carefully examined including a retroflexed view of the rectum. Findings and interventions are described below. Procedure Difficulty: Colon was long and tortuous and there was some loop formation. There was narrowing of the sigmoid colon from 25-35 cm due to severe diverticulosis which was navigated with some difficulty Findings: Terminal Ileum: Not evaluated Cecum: Normal Ascending Colon: Moderate diverticulosis scattered throughout the colon Transverse Colon: Moderate diverticulosis scattered throughout the colon Descending Colon: Moderate diverticulosis scattered throughout the colon Sigmoid Colon: A few diminutive appearing polyps in the sigmoid colon - 1 was removed with a cold biopsy. Severe diverticulosis with luminal narrowing Rectum: Normal Ano-rectum: Normal Colon preparation: Good after copious irrigation. [place] Bowel Preparation Scale Right colon; 2 Transverse colon: 2 Left colon; 2 (0 = Unprepared colon segment with mucosa not seen due to solid stool that cannot be cleared. 1 = Portion of mucosa of the colon segment seen, but other areas of the colon segment not well seen due to staining, residual stool and/or opaque liquid. 2 = Minor amount of residual staining, small fragments of stool and/or opaque liquid, but mucosa of colon segment seen well. 3 = Entire mucosa of colon segment seen well with no residual staining, small fragments of stool or opaque liquid) Impression and Post Procedure Diagnosis: Colonoscopy Findings: One small polyp was removed Random biopsies were obtained from right and left colon to check for microscopic colitis Moderate to severe diverticulosis seen in the entire colon Plan: Pt has a FU appointment on 02/03/[address] Anders Repeat Colonoscopy in 5 years if polyps are adenomatous and due to a history of adenomatous colon polyps. Above findings were reviewed with the patient and relevant handouts were given and the discharge area.
[2024-01-21 10:38] VITALS: BP 98/58; PULSE 68; RESP 18; TEMP 36.2; O2SAT 96
[2024-01-21 10:53] VITALS: BP 114/75; PULSE 66; RESP 18
[2024-01-21 11:08] VITALS: BP 128/74; PULSE 66; RESP 16; TEMP 36.4; O2SAT 98
== END 2024-01-21 11:32 | disposition home or self-care (01) ==
PROVIDERS: PCP Internal Medicine; Visit Provider Internal Medicine Gastroenterology
PROC: 0DJD8ZZ Inspection of Lower Intestinal Tract, Via Natural or Artificial Opening Endoscopic (ICD-10-PCS; CPT 45378; principal; 2024-01-21 09:20)
DX: Z12.11 Encounter for screening for malignant neoplasm of colon (principal); Z86.010 Personal history of colon polyps; K63.5 Polyp of colon; K57.30 Diverticulosis of large intestine without perforation or abscess without bleeding; K64.8 Other hemorrhoids; K21.9 Gastro-esophageal reflux disease without esophagitis; K76.0 Fatty (change of) liver, not elsewhere classified; D64.9 Anemia, unspecified; D72.819 Decreased white blood cell count, unspecified; G35 Multiple sclerosis; M79.7 Fibromyalgia; M81.0 Age-related osteoporosis without current pathological fracture; R79.89 Other specified abnormal findings of blood chemistry; F33.0 Major depressive disorder, recurrent, mild; Z79.899 Other long term (current) drug therapy; Z22.7 Latent tuberculosis; Z90.49 Acquired absence of other specified parts of digestive tract; Z56.0 Unemployment, unspecified
CPT/HCPCS: 45380; 88305; J2704

== ENCOUNTER → 2024-01-21 08:16 | Outpatient (BNV) | payer OTHER, SELFPAY | PROVIDERS: PCP Internal Medicine; Visit Provider Internal Medicine Gastroenterology | DX: Z12.11 Encounter for screening for malignant neoplasm of colon (principal); Z86.010 Personal history of colon polyps; K57.90 Diverticulosis of intestine, part unspecified, without perforation or abscess without bleeding | CPT/HCPCS: 45380 ==

== ENCOUNTER 2024-02-03 12:58 | Outpatient (AMB) | payer MEDICARE, SELFPAY ==
--- NOTE | 2024-02-03 13:03 | MHC.OFFVIS ---
Vital Signs 02/03/24 13:04 Height 5 ft 3 in Weight 198 lb 13.711 oz BMI 35.2 BP 125/70 Blood Pressure Location Lt brachial Position Sitting Pulse 63 Intake Visit Reasons: s/p colon Intake Note: Patient in office today in follow up s/p colonoscopy. CC: Patient reports acid reflux and heartburn. Denies other GI symptoms. Allergies No Known Allergies Allergy (Verified 12/06/24 11:56) Medication List - Last Reconciled 02/03/24 by Karon Anders MD cholecalciferol (vitamin D3) 50 mcg PO DAILY 90 days cyanocobalamin (vitamin B-12) (Vitamin B-12) 1,000 mcg PO DAILY escitalopram oxalate (Lexapro) 40 mg PO DAILY estradiol 0.01%(0.1mg/gram) vaginally daily; pea sized amount to urethra 3 times a week 30 days folic acid 1 mg PO DAILY 90 days gabapentin 300 mg PO TID 30 days hydroxyzine HCl 10 mg PO TID linaclotide (Linzess) 145 mcg PO QAM 90 days mirabegron ER (Myrbetriq) 25 mg PO DAILY 90 days oxycodone 5 mg PO Q6H PRN pantoprazole 40 mg PO DAILY 90 days pregabalin (Lyrica) 300 mg (4 x 75 mg) PO QDAY 30 days quetiapine 50 mg PO BEDTIME trazodone 50 mg PO BEDTIME zolpidem 10 mg PO BEDTIME HPI HPI s/p colon: Details: GI CLINIC VISIT FOR THIS 68 YEAR OLD NEPALI-SPEAKING FEMALE FOR FOLLOW-UP OF GERD, VITAMIN B12 DEF, AND FATTY LIVER. IMAGING STUDIES:? 05/07/[address] SCAN SHOWED: 1.? No acute intra-abdominal process seen. 2.? Diffuse hepatic steatosis with multiple hepatic cysts. 3.? Colonic diverticulosis without diverticulitis. Mild constipation.? 07/25/20 ABD MRI SHOWED: 1. Prior cholecystectomy. No biliary ductal dilatation. 2, Nonenhancing high signal lesion gallbladder fossa 4.3 cm x 4.1 cm likely cyst or non-obstructing biloma with increased signal fromprotein content. No dephasing to suggest old hematoma. 3. Several hepatic cysts, largest 2.6 cm. 4. Small hemorrhagic cyst left kidney 1.2 cm. ENDOSCOPIC STUDIES:? 01/21/2024 COLONOSCOPY SHOWED: One small polyp was removed Random biopsies were obtained from right and left colon to check for microscopic colitis Moderate to severe diverticulosis seen in the entire colon Plan: Repeat Colonoscopy in 5 years if polyps are adenomatous and due to a history of adenomatous colon polyps. 12/2020 EGD AND COLON SHOWED: Endoscopy Findings: ESOPHAGUS: Normal STOMACH: Gastritis DUODENUM: Normal - biopsied to check for celiac sprue Colonoscopy Findings: Three small to medium sized polyps removed Random biopsies obtained from the colon Moderate to severe diverticulosis seen in the entire colon No source found for abdominal pain Plan:? Repeat Colonoscopy interval based on path results - in 3-5 years if polyps are adenomatous and 10 years if polyps are hyperplastic. Above findings were reviewed with the patient and Gastritis, colon polyps and diverticulosis handouts were given in the discharge area ADDENDUM: Pt complained of nausea and some worsening of her chronic abdominal pain. Nausea resolved with Zofran. Abdominal pain improved after pt passed some gas. [place]IS[place] [facility] [facility] [employer] Super[employer] CC: Patient reports acid reflux and heartburn. Denies other GI symptoms. Colonoscopy results reviewed with the patient. Continues to have abdominal pain and acid reflux Has good days and bad days Takes medications to help her sleep and feels better the next day Pt is accompanied by her daughter here from [place] who is able to speak some [place] Complains of nausea, vomiting and diarrhea x 6 days [place] better after 4 days and now having recurrent symptoms. Has retching and unable to vomit Eating rice and meat - has postprandial diarrhea Had 15 soft to watery BM yesterday and no BM today Complains of chills, feeling tired and denies fever. One of daughter has similar symptoms Denies recent antibitoics or hx of travel. PAST VISITS: Feeling regular. Has her ups and downs - feels better on some days Some days she feels burning in her stomach. Not following the diet any more. Continues to have constipation. Sometimes no BM in more than 4 days. Symptoms have been worse since she ran out of refills for her GI medications - refills sent for Linzess and pantoprazole I am on a diet Eliminating a lot of foods to see how they work. Did not receive an appt with the java security architect GD getting information and she has lost 6 lbs. Taking almond milk Not eating sauces or stews. Abd CT scan results reviewed with the pt. Feeling regular GI symptoms are less frequent. Constipation is under control so far Has a BM daily or after 1-2 days Patient cc: acid reflex, abdominal pain, abdominal bloating on and off, acid reflex with burning sensation, constipation, and some dysphagia with liquid, patient want a referral for java security architect. Sometimes I am fine and sometimes not so good Complains of left sided pain Continues to have left sided and lower abdominal pain including under the ribs - feels inflammation. Pain is not there all the time. Sometimes has pain after she eats something. Constipation comes and goes. having a lot of reflux and burning in the chest. Has a BM every 5 to 6 days - usuallay after several days. Took Linzess once and then stopped - concerned about side effects Has constipation - takes fibre, plums and takes medication prn - constipation is under control. MRI and Lab results were reviewed with the patient. Continues to have abd pain which comes and goes. Has a burning sensation in the abdomen and anus and has hemorrhoids. Intermittent upper abdominal pain and nausea. Pt denies past hx of jaundice or hepatitis Patient denies symptoms of heartburn, dysphagia, vomiting, change in appetite or weight. Complains of chronic constipation and was told she had diverticulosis. Can have a BM daily or after 3-4 days. Patient denies major cardiac or pulmonary problems, loud snoring or sleep apnea Takes medications to help her sleep at night. Denies problems with anesthesia in the past. Denies being on chronic anticoagulation. Patient denies known family history of liver disease, colon polyps or colon cancer. Dad had esophageal cancer (was a smoker). PAST EGD/COLONOSCOPY:?? Had EGD (per pt showed gastritis) and colon (5 polyps were removed) in [place]? 1.5 yrs ago. Repeat colonoscopy was advised ? in 1 year and pt stated she is overdue. PAST GI HISTORY BY REVIEW OF MEDICAL RECORDS: 06/2020 patient was seen by Dr. Gomez:This is a 55-year-old female with GERD, fatty liver and liver cyst that has tele health visit by phone for follow-up on recent labs.?She has mild leukopenia that will be repeated. She has hematuria and will be referred to Urology.? Complains of dysuria and urinalysis was order. Ultrasound of the abdomen shows 1 liver cyst and fatty liver.? Previous ultrasounds done in [place] shows 3 liver cysts before.? She is aware I will refer her to Gastroenterology for that matter.? Has diffuse myalgias and would like something like Relafen or tramadol which she has using the past.? Also complains of heartburn and Pepcid is not working for her.? She would like Protonix which she has also used in the past [facility] Medical History Polyarticular osteoarthritis Monoclonal gammopathy Encounter for monitoring denosumab therapy Back pain Anemia Urinary problem Multiple sclerosis Hematuria Mild recurrent major depression Fibromyalgia Right knee pain Left leg pain Cervical cancer screening Hematuria Urge incontinence of urine Memory loss Class 1 obesity without serious comorbidity with body mass index (BMI) of 34.0 to 34.9 in adult Cough Insomnia UTI (urinary tract infection) B12 deficiency Microscopic hematuria Leukopenia Liver cyst Hemorrhoids Diverticulosis Anxiety GERD (gastroesophageal reflux disease) Medicare annual wellness visit, initial Otitis media Urinary tract infection Surgical History History of excision of lesion (12/13/23) H/O section H/O: hysterectomy History of endoscopy History of colonoscopy History of cholecystectomy Family History Mother Lung cancer Father Cancer of esophagus Sister No problems noted. Other Arthritis Social History Household Members: Family Household Members Other:: grandchildren Housing: House Housing Other:: lives with daughter and 2 grandkids Are you a primary primary health care nurse to a significant other at home: No Do you presently have visiting nurse or other home services: No Alcohol intake: former Patient Tobacco Use Status: Never used Tobacco e-Cigarette/Vaping Use: Never Used Second Hand Smoke Exposure: No service: No Current occupational status: unemployed Cognitive needs: No Hearing needs: No Vision needs: No Review of Systems Const All systems reviewed & are unremarkable except as noted in HPI and below Physical Exam Vital Signs: Last Vital Signs Pulse 63 02/03/24 13:04 BP 125/70 02/03/24 13:04 BMI result Body Mass Index 35.2 Const General: healthy appearing and no acute distress Nutritional Appearance: obese Orientation/consciousness: patient oriented x3 Limitations: language barrier HEENT Head: Yes normal to inspection Ears: hearing grossly normal bilaterally Eyes Sclerae: sclerae normal Pupils: Equal, round and reactive pupils present Neck Neck: Yes normal visual inspection Chest Chest palpation & inspection: normal inspection of the chest Resp Effort & Inspection: normal respiratory effort Auscultation: clear to auscultation bilaterally Cardio Palpation: normal PMI Rate: regular rate Rhythm: regular rhythm Heart sounds: S1 normal heart sound present, S2 normal heart sound present and no murmurs GI Palpation (GI): Soft to palpation, nontender and No hepatosplenomegaly present Auscultation: normal bowel sounds Rectal Exam - Female: deferred Skin General skin exam: no rashes or lesions noted Neuro General: patient oriented x3, gait normal and moves all extremities Cranial nerves: Yes Equal, round and reactive pupils present Psych Appearance: grossly normal Mental Status: mental status grossly normal Assessment & Plan Assessment & Plan (1) GERD (gastroesophageal reflux disease): Code(s): K21.9 - Gastro-esophageal reflux disease without esophagitis Category: Medical Qualifiers: Esophagitis presence: esophagitis presence not specified Qualified Code(s): K21.9 - Gastro-esophageal reflux disease without esophagitis (2) B12 deficiency: Code(s): E53.8 - Deficiency of other specified B group vitamins Category: Medical (3) History of colon polyps: Comment: 12/2020 Three small to medium sized polyps removed (two were adenomatous on bx) Repeat Colon advised in 3 yrs (due 12/2023) Code(s): Z86.010 - Personal history of colon polyps Category: Medical (4) Chronic constipation: Code(s): K59.09 - Other constipation Category: Medical (5) Abdominal bloating: Code(s): R14.0 - Abdominal distension (gaseous) Category: Medical (6) Elevated LFTs: Code(s): R79.89 - Other specified abnormal findings of blood chemistry Category: Medical (7) Left upper quadrant abdominal pain: Code(s): R10.12 - Left upper quadrant pain Category: Medical Plan 68 year old [place]-speaking female followed in GI for GERD, Vitamin B12 def and fatty liver. LFTs were normal.? Abd US showed? 4.6 x 4 x 3.5 cm central periportal complex cyst or fluid collection. 07/25/20 abd MRI showed several hepatic cysts and a?nonenhancing high signal lesion gallbladder fossa 4.3 cm x 4.1 cm likely cyst or non-obstructing biloma with increased signal from protein content. No dephasing to suggest old hematoma. Pt was seen by General Surgery and advised conservative management. LUQ pain appears to be musculoskeltal - not related to eating or BMs. Pt was advised a trail of topical analgesics. 12/2021 FU abd US showed resolution of periportal complex cyst/fluid collection. Constipation improved with Linzess 145 mcg daily 05/[address] scan was negative except fatty liver, liver cysts and diverticulosis. Mild elevation of ALT likely due to fatty liver.? hepatitis serologies were negative Patient referred to java security architect to help with weight loss of (wt loss goal is 7-10% of her body weight) and did not get called - I requested office staff to FU Her grand daughter helped her with a diet plan after getting information online. Pt has eliminating a lot of foods to see how they work and has lost 6 lbs. Taking almond milk 04/15/23 Symptoms have been worse since she ran out of refills for her GI medications - refills sent for Linzess and pantoprazole 08/19/23 Complains of nausea, vomiting and diarrhea x 6 days Had 15 soft to watery BM yesterday and no BM today Complains of chills, feeling tired and denies fever. Pt advised to take ondansetron and drink ORS, start taking a BRAT diet and sports beverages today. She was advised to go to the ER if symptoms do not improve with the next 24 hours. 02/03/24 Colonoscopy results reviewed with the patient. Continues to have abdominal pain and acid reflux Has good days and bad days Takes medications to help her sleep and feels better the next day Pt was advised to increase pantoprazole to 40 mg twice daily. FU in 3?months - GERD, fatty liver, obesity and constipation Medications: Changed From pantoprazole 40 mg PO DAILY 90 days 90 tabs 1RF To pantoprazole 40 mg PO BID 180 tabs 1RF 90 days Coding Level of Care Code Est Pt Level 4 (88335) Diagnoses Gastroesophageal reflux disease, unspecified whether esophagitis present K21.9 Esophagitis presence: esophagitis presence not specified B12 deficiency E53.8 History of colon polyps Z86.010 Chronic constipation K59.09 Abdominal bloating R14.0 Elevated LFTs R79.89 Left upper quadrant abdominal pain R10.12 Time Spent (min) 21
[2024-02-03 13:04] VITALS: BP 125/70; PULSE 63; BMI 35.2
== END 2024-02-03 17:58 | disposition home or self-care (01) ==
PROVIDERS: PCP Internal Medicine; Visit Provider Internal Medicine Gastroenterology
DX: K21.9 Gastro-esophageal reflux disease without esophagitis (principal); E53.8 Deficiency of other specified B group vitamins; K59.09 Other constipation; R14.0 Abdominal distension (gaseous); R79.89 Other specified abnormal findings of blood chemistry; R10.12 Left upper quadrant pain
CPT/HCPCS: 99499

== ENCOUNTER → 2024-02-03 12:58 | Outpatient (BNVA) | payer MEDICARE, SELFPAY | PROVIDERS: PCP Internal Medicine; Visit Provider Internal Medicine Gastroenterology ==

== ENCOUNTER 2024-02-21 14:12 | Outpatient (AMB) | payer MEDICARE, MEDICAID, SELFPAY ==
--- NOTE | 2024-02-21 14:19 | A.OFFPC_ITS ---
Vital Signs 02/21/24 14:20 Height 5 ft 3 in Weight 203 lb BMI 36.0 BP 126/80 Blood Pressure Location Lt brachial Position Sitting Intake Visit Reasons: depression Intake Note: Patient here for a follow up depression Wall Insulation Sprayer Required: No Accompanied by: Daughter Allergies No Known Allergies Allergy (Verified 02/21/24 14:39) Medication List - Last Reconciled 02/21/24 by Rosaura Hunt MD cholecalciferol (vitamin D3) 50 mcg PO DAILY 90 days cyanocobalamin (vitamin B-12) (Vitamin B-12) 1,000 mcg PO DAILY escitalopram oxalate (Lexapro) 40 mg PO DAILY estradiol 0.01%(0.1mg/gram) vaginally daily; pea sized amount to urethra 3 times a week 30 days folic acid 1 mg PO DAILY 90 days gabapentin 300 mg PO TID 30 days hydroxyzine HCl 10 mg PO TID linaclotide (Linzess) 145 mcg PO QAM 90 days mirabegron ER (Myrbetriq) 25 mg PO DAILY 90 days pantoprazole 40 mg PO BID 90 days pregabalin (Lyrica) 300 mg (4 x 75 mg) PO QDAY 30 days quetiapine 50 mg PO BEDTIME trazodone 50 mg PO BEDTIME zolpidem 10 mg PO BEDTIME Tobacco use date assessed: 11/11/23 Fall risk assessment: No Falls in past year Last assessed Fall Risk: 02/21/24 Dental Screening Dental Screen Date: 11/11/23 HPI HPI Comments History of Present Illness Details This is a 68-year-old female with moderate major depression, fibromyalgia, GERD and chronic constipation that comes accompanied by daughter which is the electrician apprentice powerhouse. Depression has been somewhat stable with escitalopram. On gabapentin and Lyrica for her fibromyalgia which does help. GERD stable with PPIs. Constipation stable with medications. Had an abnormal ultrasound with a right upper quadrant abdominal mass that was evaluated by surgery and Gastroenterology and looks like a lipoma which if it was surgically removed it is not going to resolve her pain. Patient and electrician apprentice powerhouse agreed and understood. [facility] Medical History Back pain Anemia Urinary problem Multiple sclerosis Hematuria Mild recurrent major depression Fibromyalgia Right knee pain Left leg pain Cervical cancer screening Hematuria Urge incontinence of urine Memory loss Class 1 obesity without serious comorbidity with body mass index (BMI) of 34.0 to 34.9 in adult Cough Insomnia UTI (urinary tract infection) B12 deficiency Microscopic hematuria Leukopenia Liver cyst Hemorrhoids Diverticulosis Anxiety GERD (gastroesophageal reflux disease) Medicare annual wellness visit, initial Otitis media Urinary tract infection Surgical History History of excision of lesion (12/13/23) H/O section H/O: hysterectomy History of endoscopy History of colonoscopy History of cholecystectomy Family History Mother Lung cancer Father Cancer of esophagus Sister Lupus Other Arthritis Social History Household Members: Family Household Members Other:: grandchildren Housing: House Housing Other:: lives with daughter and 2 grandkids Are you a primary child care worker to a significant other at home: No Do you presently have visiting nurse or other home services: No Alcohol intake: former Patient Tobacco Use Status: Never used Tobacco e-Cigarette/Vaping Use: Never Used Second Hand Smoke Exposure: No service: No Current occupational status: unemployed Cognitive needs: No Hearing needs: No Vision needs: No Questionnaire Thrive Questionnaire Date Thrive assessed: 09/20/23 TOYA-7 AMB Questionnaire TOYA-7 Date TOYA - 7 assessed: 09/20/23 Source: Developed by Drs. Erasto Mars, Vandana Cervantes, Henry Powers and colleagues, with an educational chadd from [employer]. Review of Systems Const All systems reviewed & are unremarkable except as noted in HPI and below Card Denies chest pain at rest, Denies chest pain with activity, Denies edema, Denies irregular heart rhythm, Denies claudication, Denies dyspnea, Denies dyspnea on exertion, Denies orthopnea, Denies paroxysmal nocturnal dyspnea and Denies slow heart rate Resp Denies cough, Denies dyspnea and Denies dyspnea on exertion GI Denies abdominal pain, Denies change in bowel habits, Denies excessive flatus, Denies nausea and Denies vomiting Physical exam (Primary Care) Vital Signs: Last Vital Signs BP 126/80 02/21/24 14:20 BMI result Body Mass Index 36.0 BMI Assessment/Plan discussion: High BMI High, discussed plan: lifestyle, weight reduction, dietary and physical activity Tobacco/Smoking Status: Tobacco use Status Tobacco use date assessed 11/11/23 02/21/24 14:28 Patient Tobacco Use Status Never used Tobacco 02/21/24 14:28 e-Cigarette/Vaping Use Never Used 02/21/24 14:28 Thrive Assessment: Date of Thrive Assessment Date Thrive assessed 09/20/23 02/21/24 14:28 Resp Effort & Inspection: normal respiratory effort Auscultation: clear to auscultation bilaterally Cardio Jugular venous distension: no JVD Rate: regular rate Rhythm: regular rhythm Heart sounds: S1 normal heart sound present and S2 normal heart sound present Extrem General: Yes full ROM Assessment and Plan Assessment & Plan (1) Moderate major depression: Code(s): F32.1 - Major depressive disorder, single episode, moderate Plan: Continue escitalopram. (2) Fibromyalgia: Code(s): M79.7 - Fibromyalgia Plan: Continue gabapentin and Lyrica. (3) Chronic constipation: Code(s): K59.09 - Other constipation Plan: Continue Linzess. (4) GERD (gastroesophageal reflux disease): Code(s): K21.9 - Gastro-esophageal reflux disease without esophagitis Qualifiers: Esophagitis presence: esophagitis presence not specified Qualified Code(s): K21.9 - Gastro-esophageal reflux disease without esophagitis Plan: Continue PPIs Coding Level of Care Code Est Pt Level 4 (51618) Complex EM visit Add On G2211 Diagnoses Moderate major depression F32.1 Fibromyalgia M79.7 Chronic constipation K59.09 Gastroesophageal reflux disease, unspecified whether esophagitis present K21.9 Esophagitis presence: esophagitis presence not specified Time Spent (min) 23
[2024-02-21 14:20] VITALS: BP 126/80; BMI 36.0
== END 2024-02-21 14:58 | disposition home or self-care (01) ==
PROVIDERS: PCP Internal Medicine; Visit Provider Internal Medicine
DX: F32.1 Major depressive disorder, single episode, moderate (principal); M79.7 Fibromyalgia; K59.09 Other constipation; K21.9 Gastro-esophageal reflux disease without esophagitis
CPT/HCPCS: 99214; G2211

== ENCOUNTER 2024-02-28 14:06 | Outpatient (AMB) | payer OTHER, SELFPAY ==
--- NOTE | 2024-02-28 14:12 | MHC.OFFVIS ---
Intake Visit Reasons: 6m/PVR Intake Note: Patient is present for follow up microscopic hematuria and overactive bladder Urology Medications: estradiol cream Blood Thinner: none PVR: 139ml's Acute Dialysis Nurse Required: Yes Accompanied by: Unknown Allergies No Known Allergies Allergy (Verified 02/28/24 14:44) Medication List - Last Reconciled 02/28/24 by YASHIRA GodwinP- cholecalciferol (vitamin D3) 50 mcg PO DAILY 90 days cyanocobalamin (vitamin B-12) (Vitamin B-12) 1,000 mcg PO DAILY escitalopram oxalate (Lexapro) 40 mg PO DAILY estradiol 0.01%(0.1mg/gram) vaginally daily; pea sized amount to urethra 3 times a week 30 days folic acid 1 mg PO DAILY 90 days gabapentin 300 mg PO TID 30 days hydroxyzine HCl 10 mg PO TID linaclotide (Linzess) 145 mcg PO QAM 90 days mirabegron ER (Myrbetriq) 25 mg PO DAILY 90 days pantoprazole 40 mg PO BID 90 days pregabalin (Lyrica) 300 mg (4 x 75 mg) PO QDAY 30 days quetiapine 50 mg PO BEDTIME trazodone 50 mg PO BEDTIME zolpidem 10 mg PO BEDTIME HPI Comments Details: Florencia is a plesant 68 year old female patient of Dr. Gomez who is accompanied by her daughter at today's office visit. She has a past medical history of fibromyalgia, urge incontinence of urine, memory loss, overactive bladder, insomnia, urinary tract infections, microscopic hematuria, leukopenia, liver cysts, hemorrhoids, diverticulosis, anxiety, GERD, and obesity. She presents to the office today for follow-up of her lower urinary tract symptoms and recurrent urinary tract infections. In discussion with the patient and her daughter today she reports having stopped Myrbetriq approximately 1 week ago as she felt this was potentially causing urinary retention as she had been feeling she had not been urinating much throughout the day despite increase in fluid intake. She also reports noting intermittent episodes of bilateral flank pain that is relieved when urinating. In office urinalysis results reviewed with the patient today negative leukocytes negative nitrates 1+ microscopic hematuria noted. She does report compliance with Estrace cream as prescribed. She currently denies any UTI like symptoms however does report having intermittent episodes of bilateral flank pain since her last office visit here 3 months ago. PVR 139 mL. Previous workup has included a retroperitoneal ultrasound 12/04 noting right kidney with no calculi, lesions, and or hydronephrosis noted. Left kidney with a small cyst in the midpole otherwise no calculi or hydronephrosis noted. The bladder is well distended with no stones or masses. Bilateral ureteral jets are demonstrated. Prevoid bladder volume is 263 mL. Postvoid bladder volume is 120 mL. Urine cytology results reviewed with patient today. 05/06-cytology --Negative for high-grade urothelial carcinoma. In office cystoscopy 06/05 no suspicious bladder lesions or growths noted. Bladder appears normal and no inflammation noted. Patient also with a pervious microscopic hematuria workup in [address] Cote that was negative. When asked she denies urinary urgency, urinary frequency, nocturia, dysuria, foul smelling urine, fever, and or chills. She otherwise offers no concerns or complaints. [facility] Medical History Back pain Anemia Urinary problem Multiple sclerosis Hematuria Mild recurrent major depression Fibromyalgia Right knee pain Left leg pain Cervical cancer screening Hematuria Urge incontinence of urine Memory loss Class 1 obesity without serious comorbidity with body mass index (BMI) of 34.0 to 34.9 in adult Cough Insomnia UTI (urinary tract infection) B12 deficiency Microscopic hematuria Leukopenia Liver cyst Hemorrhoids Diverticulosis Anxiety GERD (gastroesophageal reflux disease) Medicare annual wellness visit, initial Otitis media Urinary tract infection Surgical History History of excision of lesion (12/13/23) H/O section H/O: hysterectomy History of endoscopy History of colonoscopy History of cholecystectomy Family History Mother Lung cancer Father Cancer of esophagus Sister Lupus Other Arthritis Social History Household Members: Family Household Members Other:: grandchildren Housing: House Housing Other:: lives with daughter and 2 grandkids Are you a primary home care administrator to a significant other at home: No Do you presently have visiting nurse or other home services: No Alcohol intake: former Patient Tobacco Use Status: Never used Tobacco e-Cigarette/Vaping Use: Never Used Second Hand Smoke Exposure: No service: No Current occupational status: unemployed Cognitive needs: No Hearing needs: No Vision needs: No Review of Systems Const Reports as per [facility] Eyes Reports no additional complaints ENT Reports no additional complaints Card Reports as per [facility] Resp Reports no additional complaints GI Reports as per [facility] Reports as per [facility] Musc Reports as per [facility] Neuro Reports as per [facility] Psych Reports as per HPI Teofilo/Lymph Reports no additional complaints Aller/Immun Reports no additional complaints Physical Exam Const General: cooperative, healthy appearing, comfortable, no acute distress, well developed, alert and awake Nutritional Appearance: overweight Orientation/consciousness: patient oriented x3 Limitations: no limitations HEENT Head: Yes normal to inspection, Yes normocephalic and Yes atraumatic Ears: hearing grossly normal bilaterally Eyes General: appearance normal, both eyes and all related structures Neck Neck: Yes normal visual inspection and Yes trachea midline Chest Chest palpation & inspection: normal inspection of the chest Resp Effort & Inspection: normal respiratory effort and able to speak in complete sentences Cardio Rate: regular rate GI Inspection: Yes normal to inspection General: Yes no CVA tenderness External Female Exam: normal external appearance and normal appearance of the urethra Back/Spine/Pelvis Back: no CVA tenderness Skin General skin exam: no rashes or lesions noted Neuro General: patient oriented x3 Extrem General: Yes normal to inspection Psych Appearance: grossly normal and well kempt Mental Status: mental status grossly normal Speech and movement: Normal speech and movement present and Clear speech present Affect: normal affect Attitude: cooperative Thought process: Normal thought process present Thought content: Normal thought content present Insight: Fair insight present (Psych) Judgement: Fair judgement present (Psych) Office Procedures Post Void Residual Post Residual Void Post Void Residual (PVR): 139 [id number] Void Residual by ultrasound Results AMB Urinalysis, Automated UA Leukoctes 0 Ara/uL Last Edit by Acrinta Latha on 02/28/24 14:35 UA Nitrite Last Edit by Acrinta Latha on 02/28/24 14:35 UA Urobilinogen 0.2 mg/dL Last Edit by [email or web address] Azul on 02/28/24 14:35 UA Protein 0 mg/dL Last Edit by [email or web address] Azul on 02/28/24 14:35 UA pH 6.0 Last Edit by [email or web address] Azul on 02/28/24 14:35 UA Blood 25 Deo/uL Last Edit by Krista Kinneymargareth on 02/28/24 14:35 UA Specific [place] 1.010 Last Edit by Krista Gregoriamargareth on 02/28/24 14:35 UA Ketone Negative Last Edit by Krista Gregoriamargareth on 02/28/24 14:35 UA Bilirubin 0 mg/dL Last Edit by Krista Gregoriamargareth on 02/28/24 14:35 UA Glucose 0 mg/dL Last Edit by Krista Azul on 02/28/24 14:35 Results Reviewed Results Reviewed: Laboratory Last Values Urine pH (Auto) 6.0 02/28/24 14:18 Specific [place] (Auto) 1.010 02/28/24 14:18 Urine Protein (Auto) 0 mg/dL 02/28/24 14:18 Glucose (UA)(Auto) 0 mg/dL 02/28/24 14:18 Urine Ketones (Auto) Negative 02/28/24 14:18 Urine Blood (Auto) 25 Deo/uL 02/28/24 14:18 Urine Bilirubin (Auto) 0 mg/dL 02/28/24 14:18 Urine Urobilinogen (Auto) 0.2 mg/dL 02/28/24 14:18 Leukocyte Esterase (Auto) 0 Ara/uL 02/28/24 14:18 Assessment & Plan Assessment & Plan (1) Microscopic hematuria: Code(s): R31.29 - Other microscopic hematuria Category: Medical (2) Flank pain: Code(s): R10.9 - Unspecified abdominal pain Category: Medical Plan In office urinalysis results reviewed with the patient today; as noted above. PVR 139 mL. Stop Myrbetriq. Will obtain CT urogram for further assessment evaluation. Discussed at length potential causes for flank pain as well as incomplete bladder emptying. BUN and creatinine ordered for imaging. Continue Estrace cream as discussed and prescribed. Follow-up in 1-3 months with imaging to be completed prior; or sooner with any issues, concerns, and or questions. Orders: Orders AMB Urinalysis Automated Today Z13.9 - Encounter for screening, unspecified AMB Post Void Residual by ultrasound Today R35.0 - Frequency of micturition CT urogram Today R10.9 - Unspecified abdominal pain, R31.29 - Other microscopic hematuria Blood Urea Nitrogen Today R10.9 - Unspecified abdominal pain Creatinine Today R10.9 - Unspecified abdominal pain Urine Cytology Today R31.29 - Other microscopic hematuria Medications: Discontinued mirabegron ER (Myrbetriq) Discontinued Reason: Doctor's Order 25 mg PO DAILY 90 days 90 tabs 2RF N32.81 - Overactive bladder, R35.1 - Nocturia Patient Instructions: The patient had an opportunity to ask questions regarding the treatment plan. All questions were answered. Physical exam, labs, and imaging were discussed and reviewed in detail. As well as risks, benefits, and discussion of treatment choices. No major barriers to understanding were identified. The patient expressed understanding and agreement with the above treatment plan. The patient was made aware they should contact our office by phone for worsening of their current condition, the appearance of new symptoms, or with any questions or concerns. Compliance is encouraged with any medications and follow up testing that is ordered. It is a privilege to be allowed the opportunity to participate in? your urological care.? Again, if you have any questions or concerns If you have any questions or concerns please do not hesitate to contact me. The office is [phone]. This note is constructed using voice recognition software. While every effort has been made to ensure accuracy wafer fabrication technician errors may have been included. Yours sincerely, JESUS Godwin-ASHLEY Coding Level of Care Code Est Pt Level 3 (22253) Complex EM visit Add On G2211 Diagnoses Microscopic hematuria R31.29 Flank pain R10.9 CPT Codes Post Residual Void - PVR CPT Code: 17432-Rnkm Void Residual by ultrasound ([id number])
== END 2024-02-28 14:45 | disposition home or self-care (01) ==
PROVIDERS: PCP Internal Medicine; Visit Provider Nurse Practitioner Family
DX: R31.29 Other microscopic hematuria (principal); R10.9 Unspecified abdominal pain; Z13.9 Encounter for screening, unspecified
CPT/HCPCS: 99213; G2211

== ENCOUNTER 2024-02-28 14:06 | Outpatient (REF) | payer OTHER, SELFPAY ==
[2024-02-28 17:02] LABS: Urine Cytology See Pathology rpt
== END 2024-02-28 14:07 | disposition home or self-care (01) ==
LOC: HO.LNP 14:06
PROVIDERS: PCP Internal Medicine; Visit Provider Nurse Practitioner Family
DX: R31.29 Other microscopic hematuria (principal)
CPT/HCPCS: 51798; 81003; 88112

== ENCOUNTER 2024-03-27 13:44 | Outpatient (REF) | payer OTHER, SELFPAY ==
[2024-03-27 14:25] LABS: Appearance Urine Clear; Color Urine Yellow; Glucose Urine UA Negative (Negative); Leukocyte Esterase Urine Moderate (2+) (Negative); Nitrite Urine Negative (Negative); PH 6.5 (5.0-9.0); Specific Gravity - Urine 1.015 (1.005-1.025); UMIC TRIGGER UACC YES; Urine Blood Small (1+) (Negative); Urine Ketones Negative (Negative); Urine Protein Negative (Neg-Trace)
[2024-03-27 14:41] LABS: Bacteria Urine None Seen (None Seen); Hyaline Casts Urine 0-2 /LPF (0-2); UACC Culture Trigger YES
[2024-03-27 14:51] LABS: Anion Gap 9 (12-20); Blood Urea Nitrogen 11 mg/dL (9-16); Calcium 9.4 mg/dL (8.4-10.2); Carbon Dioxide 27 mmol/L (22-29); Chloride 106 mmol/L (96-108); Estimated Glomerular Filt Rate > 60; Potassium 4.1 mmol/L (3.3-5.1); Sodium 138 mmol/L (135-145)
[2024-03-27 14:53] LABS: Creatinine Urine 89.17 mg/dL; Total Protein Urine Random < 7 mg/dL (<12)
== END 2024-03-27 13:45 | disposition home or self-care (01) ==
LOC: HO.LAB 13:44
PROVIDERS: Internal Medicine Nephrology; Nurse Practitioner Family; PCP Internal Medicine; Visit Provider Internal Medicine
DX: R31.9 Hematuria, unspecified (principal); N28.1 Cyst of kidney, acquired; R10.9 Unspecified abdominal pain; R39.9 Unspecified symptoms and signs involving the genitourinary system
CPT/HCPCS: 36415; 80051; 81001; 82310; 82565; 82570; 84156; 84520; 87086

== ENCOUNTER 2024-03-29 14:27 | Outpatient (AMB) | payer MEDICARE, SELFPAY ==
[2024-03-29 14:32] VITALS: BP 126/77; PULSE 72; O2SAT 96; BMI 36.4
--- NOTE | 2024-03-29 14:32 | A.OFFVIS_ITS ---
Vital Signs 03/29/24 14:32 Height 5 ft 3 in Weight 205 lb 11.06 oz BMI 36.4 BP 126/77 Blood Pressure Location Lt brachial Position Sitting Pulse 72 Pulse Source Pulse Oximeter Pulse Oximetry (%) 96 Oxygen Delivery Method Room Air Intake Visit Reasons: osteoporosis Intake Note: Patient is a new patient, internally referred by her PCP for osteoporosis. She also has fibromyalgia nad arthritis, and her condition is getting worse each day, she has been having strong pain in the hip area, and she also complains of head, and brain area, but most of all, back and hip. Her daughter states she tried Lyrica, but did not help. Traffic Court Magistrate Name: Yaa [id number] Allergies No Known Allergies Allergy (Verified 03/29/24 14:43) Medication List - Last Reconciled 03/29/24 by Sarai Wood MD cholecalciferol (vitamin D3) 50 mcg PO DAILY 90 days cyanocobalamin (vitamin B-12) (Vitamin B-12) 1,000 mcg PO DAILY escitalopram oxalate (Lexapro) 40 mg PO DAILY estradiol 0.01%(0.1mg/gram) vaginally daily; pea sized amount to urethra 3 times a week 30 days folic acid 1 mg PO DAILY 90 days gabapentin 300 mg PO TID 30 days hydroxyzine HCl 10 mg PO TID linaclotide (Linzess) 145 mcg PO QAM 90 days pantoprazole 40 mg PO BID 90 days pregabalin (Lyrica) 300 mg (4 x 75 mg) PO QDAY 30 days quetiapine 50 mg PO BEDTIME trazodone 50 mg PO BEDTIME zolpidem 10 mg PO BEDTIME HPI Comments Details: Patient is a 68-year-old female with osteoarthritis, fibromyalgia who presents for evaluation of low bone density. Risk Factor Assessment: Advanced age: 68 yrs Menarche at 15 year, Menopause at 37 years (patient states that she stopped seeing her period at that time, unsure of why. had LIZZETH BSO at 51 for cancer) Family history: Mother and sister has osteoporosis Her sister has a history of hip fracture. Denies smoking, caffeine and alcohol. High-risk medication assessment: No history of prolonged steroid use or excess thyroid hormone use Has fallen but has not had any fractures. [facility] Medical History (Updated 03/29/24 @ 15:33 by Sarai Wood MD) Encounter for monitoring denosumab therapy Back pain Anemia Urinary problem Multiple sclerosis Hematuria Mild recurrent major depression Fibromyalgia Right knee pain Left leg pain Cervical cancer screening Hematuria Urge incontinence of urine Memory loss Class 1 obesity without serious comorbidity with body mass index (BMI) of 34.0 to 34.9 in adult Cough Insomnia UTI (urinary tract infection) B12 deficiency Microscopic hematuria Leukopenia Liver cyst Hemorrhoids Diverticulosis Anxiety GERD (gastroesophageal reflux disease) Medicare annual wellness visit, initial Otitis media Urinary tract infection Surgical History History of excision of lesion (12/13/23) H/O section H/O: hysterectomy History of endoscopy History of colonoscopy History of cholecystectomy Family History Mother Lung cancer Father Cancer of esophagus Sister Lupus Other Arthritis Social History Household Members: Family Household Members Other:: grandchildren Housing: House Housing Other:: lives with daughter and 2 grandkids Are you a primary caregiver services home to a significant other at home: No Do you presently have visiting nurse or other home services: No Alcohol intake: former Patient Tobacco Use Status: Never used Tobacco e-Cigarette/Vaping Use: Never Used Second Hand Smoke Exposure: No service: No Current occupational status: unemployed Cognitive needs: No Hearing needs: No Vision needs: No Review of Systems Const Details: Review of Systems Constitutional: Denies fever, chills, weight loss ENT: Denies vision changes, eye pain or eye redness, dental caries, dry mouth GI: Denies nausea, vomiting, diarrhea, abdominal pain, change in BM Pulm: Denies SOB, FARMER, hemoptysis, wheezing Cards: Denies chest pain, palpitations Skin: Denies Raynaud's, rash, nail changes, photosensitivity, NEEDLE LOOM OPERATOR: Denies headaches, weakness, paresthesias, recurrent falls MSK: as per HPI All other systems reviewed and are unremarkable except noted above Physical Exam Vital Signs: Last Vital Signs Pulse 72 03/29/24 14:32 BP 126/77 03/29/24 14:32 Pulse Ox 96 03/29/24 14:32 Oxygen Delivery Method Room Air 03/29/24 14:32 BMI result Body Mass Index 36.4 Const Other: Physical Examination Patient well appearing and in no apparent painful distress Constitutional Mucous membranes pink and moist patient alert and cooperative HEENT Conjunctiva and sclera clear. ?Pupils equal round and reactive to light. ?No lymphadenopathy. ?Normal dentition. Respiratory System Normal respiratory effort and able to speak in complete sentences. ?Clear to auscultation bilaterally. ?No crackles, rales, rhonchi, wheezes heard. Cardiac System Regular rate and rhythm. ?S1 and S2 heard no murmurs. ?Radial pulses intact bilaterally MSK No deformity, swelling, abnormalities noted to bilateral hands. ?No evidence of synovitis. ?Able to move all joints with full range of motion, without limitation. Heberden's nodes noted to PIPs throughout hands. New line crepitus to bilateral knees. Results Reviewed Results Reviewed: DEXA 10/12/23 FINDINGS: LEFT FEMUR, NECK: Current: BMD 0.910 g/cm2, Z-score 0.2, T-score -0.9, normal. Baseline: BMD 0.877 g/cm2. LEFT FEMUR, TOTAL: Current: BMD 0.980 g/cm2, Z-score 0.6, T-score -0.2, normal, 0.0% no change from baseline (<5% change is not significant). Baseline: BMD 0.980 g/cm2. AP SPINE L1-L4: Current: BMD 0.740 g/cm2, Z-score -2.8, T-score -3.7, osteoporosis, 0.3% decrease from baseline (<5% change is not significant). Baseline: BMD 0.742 g/cm2. Assessment & Plan Assessment & Plan (1) Osteoporosis: Code(s): M81.0 - Age-related osteoporosis without current pathological fracture Category: Medical Qualifiers: Osteoporosis type: age-related Presence of current pathological fracture: without current pathological fracture Qualified Code(s): M81.0 - Age- related osteoporosis without current pathological fracture Plan: #Osteoporosis Patient with significant spinal osteoporosis with T-score-3.7. Given her significant osteoporosis with bone density less than -3.0 patient is the ideal candidate for denosumab (Prolia) injections. We will evaluate to rule out other causes of low bone mass: We will check CBC, CMP, alkaline phosphatase, 25 hydroxy vitamin-D, TSH, SPEP Risks for osteoporosis include advanced age, premature ovarian failure and strong family history Encouraged weight-bearing exercises. Calcium/vitamin D supplementation We will see again in 1 month. At that time we will discuss results as well as administer Prolia injection. (2) Osteoarthritis: Code(s): M19.90 - Unspecified osteoarthritis, unspecified site Category: Medical Qualifiers: Osteoarthritis location: multiple joints Osteoarthritis type: primary Qualified Code(s): M15.0 - Primary generalized (osteo)arthritis Plan: #Polyarticular OA Involving the bilateral knees, spine, bilateral hands. Discussed topical diclofenac. Can consider copper gloves for hands (3) Encounter for monitoring denosumab therapy: Code(s): Z51.81 - Encounter for therapeutic drug level monitoring; Z79.899 - Other correction (current) drug therapy Category: Medical Plan: #Long-term use of Denosumab Discussed with patient the risks and benefits of denosumab (Prolia) for the management of their osteoporosis Benefits include improved bone density, decreased fracture risk Risks include rapid bone loss if denosumab stopped, osteonecrosis of the jaw especially in patients with poor oral hygiene/diabetes/use of glucocorticoids/age greater than 65 years, atypical femoral fractures, injection site reactions. Mild increased risk of infections due to RANKL on T helper cells, increased risk of hypocalcemia especially in CKD patients Keep vitamin-D at least 35 ng/mL Advised to delay non emergent dental procedures to toward the end of the 6 month cycle and if they plan to stop denosumab would need to continue antiresorptive to maintain the effects of denosumab Plan I spent 45 minutes reviewing the record and labs, seeing the patient, discussing the treatment plan with patient and daughter (all questions answered) and documenting in the medical record Orders: Orders Comprehensive Met. Panel Today E55.9 - Vitamin D deficiency, unspecified, M81.0 - Age-related osteoporosis without current pathological fracture Vitamin D 25-OH (D2 and D3) Today E55.9 - Vitamin D deficiency, unspecified, M81.0 - Age-related osteoporosis without current pathological fracture Alkaline Phosphatase Bone Today E55.9 - Vitamin D deficiency, unspecified, M81.0 - Age-related osteoporosis without current pathological fracture Complete Blood Count Auto Diff Today E55.9 - Vitamin D deficiency, unspecified, M81.0 - Age-related osteoporosis without current pathological fracture Protein Electrophoresis, Serum Today M81.0 - Age-related osteoporosis without current pathological fracture Immunofixation Pnl, Serum Today M81.0 - Age-related osteoporosis without current pathological fracture TSH reflex Free T4 Today E55.9 - Vitamin D deficiency, unspecified, M81.0 - Age-related osteoporosis without current pathological fracture Collagen Type I C-Telopeptide Today E55.9 - Vitamin D deficiency, unspecified, M81.0 - Age-related osteoporosis without current pathological fracture Medications: New denosumab (Prolia) 60 mg subcut [id number] 12 months 2 mL 0RF calcium carbonate-vitamin D3 600 mg-62.5 mcg (2,500 unit) 2 caps PO DAILY 90 days 180 caps 2RF E55.9 - Vitamin D deficiency, unspecified, M81.0 - Age- related osteoporosis without current pathological fracture, Z51.81 - Encounter for therapeutic drug level monitoring, Z79.899 - Other ad terminal makeup operator (current) drug therapy Discontinued cholecalciferol (vitamin D3) Discontinued Reason: Doctor's Order 50 mcg PO DAILY 90 days 90 caps 1RF E55.9 - Vitamin D deficiency, unspecified Coding Level of Care Code New Pt Level 4 (57948) Diagnoses Age-related osteoporosis without current pathological fracture M81.0 Osteoporosis type: age-related Presence of current pathological fracture: without current pathological fracture Primary osteoarthritis involving multiple joints M15.0 Osteoarthritis location: multiple joints Osteoarthritis type: primary Encounter for monitoring denosumab therapy Z51.81; Z79.896
== END 2024-03-29 15:22 | disposition home or self-care (01) ==
PROVIDERS: PCP Internal Medicine; Visit Provider Student in an Organized Health Care Education/Training Program
DX: M81.0 Age-related osteoporosis without current pathological fracture (principal); M15.0 Primary generalized (osteo)arthritis; Z51.81 Encounter for therapeutic drug level monitoring; Z79.899 Other long term (current) drug therapy
CPT/HCPCS: 99204

== ENCOUNTER → 2024-03-29 14:27 | Outpatient (BNVA) | payer MEDICARE, SELFPAY | PROVIDERS: PCP Internal Medicine; Visit Provider Student in an Organized Health Care Education/Training Program | DX: M81.0 Age-related osteoporosis without current pathological fracture (principal); M79.7 Fibromyalgia; M15.0 Primary generalized (osteo)arthritis; E55.9 Vitamin D deficiency, unspecified; Z79.899 Other long term (current) drug therapy | CPT/HCPCS: 99202 ==

== ENCOUNTER → 2024-04-14 19:30 | Outpatient (REF) | payer MEDICARE, SELFPAY | LOC: HO.SL 19:30 | PROVIDERS: PCP Internal Medicine; Visit Provider Nurse Practitioner Family | DX: R06.83 Snoring (principal); G47.19 Other hypersomnia; G47.9 Sleep disorder, unspecified | CPT/HCPCS: 95810 ==

== ENCOUNTER → 2024-04-14 19:30 | Outpatient (BNV) | payer MEDICARE, SELFPAY | PROVIDERS: PCP Internal Medicine; Visit Provider Psychiatry & Neurology Neurology | DX: G47.33 Obstructive sleep apnea (adult) (pediatric) (principal) | CPT/HCPCS: 95810 ==

== ENCOUNTER 2024-04-24 13:40 | Outpatient (REF) | payer MEDICARE, SELFPAY ==
[2024-04-24 14:13] LABS: Appearance Urine Clear; Color Urine Yellow; Glucose Urine UA Negative (Negative); Leukocyte Esterase Urine Small (1+) (Negative); Nitrite Urine Negative (Negative); UMIC TRIGGER UA YES; Urine Blood Trace (Negative); Urine Ketones Negative (Negative); Urine Protein Negative (Neg-Trace)
[2024-04-24 14:14] LABS: Appearance Urine Clear; Color Urine Yellow; Glucose Urine UA Negative (Negative); Leukocyte Esterase Urine Small (1+) (Negative); Nitrite Urine Negative (Negative); UMIC TRIGGER UACC YES; Urine Blood Trace (Negative); Urine Ketones Negative (Negative); Urine Protein Negative (Neg-Trace)
[2024-04-24 14:33] LABS: Bacteria Urine None Seen (None Seen); Hyaline Casts Urine 0-2 /LPF (0-2); RBC Urine 0-2 /HPF (0-2); Squamous Epithelial Cell Urine 0-2 /HPF (0-2); UACC Culture Trigger YES; WBC Urine 0-5 /HPF (0-5)
== END 2024-04-24 13:41 | disposition home or self-care (01) ==
LOC: HO.LAB 13:40
PROVIDERS: Internal Medicine Nephrology; PCP Internal Medicine; Visit Provider Student in an Organized Health Care Education/Training Program
DX: R39.9 Unspecified symptoms and signs involving the genitourinary system (principal)
CPT/HCPCS: 81001; 87086

== ENCOUNTER 2024-04-25 10:46 | Outpatient (REF) | payer OTHER, SELFPAY ==
[2024-04-25 11:09] LABS: MANUAL DIFF FLAG NO
[2024-04-25 11:55] LABS: Basophils Percent Auto 0.5 % (0-2); Hematocrit 42.5 % (37.0-47.0); Hemoglobin 13.7 g/dl (12.0-16.0); Imm Gran Abs Auto 0.01 X10*3/uL (0.00-0.03); Imm Gran Pct Auto 0.3 % (0.0-0.4); Lymphocytes Absolute Auto 1.5 X10*3/uL (1.2-4.9); Lymphocytes Percent Auto 40.2 % (20-40); Mean Corpuscular HGB Conc 32.2 g/dl (31.0-35.0); Mean Corpuscular Hemoglobin 27.3 pg (27.0-33.0); Mean Corpuscular Volume 84.8 fL (80.0-98.0); Mean Platelet Volume 10.4 fL (9.4-12.3); Monocytes Absolute Auto 0.3 X10*3/uL (0.1-1.2); Monocytes Percent Auto 7.3 % (2-11); Neutrophils Absolute Auto 1.9 x10*3/uL (2.0-8.3); Neutrophils Percent Auto 50.7 % (45-73); Platelet Count 247 X10*3/uL (160-400); Red Blood Count 5.01 X10*6/uL (4.20-5.50); Red Cell Distribution Width 14.5 % (11.0-16.0); White Blood Count 3.8 X10*3/uL (4.8-10.8)
[2024-04-25 12:40] LABS: Alanine Aminotransferase 35 U/L (0-31); Albumin Level 3.9 g/dL (3.5-5.0); Alkaline Phosphatase 76 U/L (39-117); Anion Gap 13 (12-20); Aspartate Amino Transferase 28 U/L (5-31); Bilirubin Total 0.7 mg/dL (0.0-1.0); Blood Urea Nitrogen 12 mg/dL (9-16); Calcium 9.8 mg/dL (8.4-10.2); Carbon Dioxide 25 mmol/L (22-29); Chloride 106 mmol/L (96-108); Estimated Glomerular Filt Rate > 60; Glucose Random 97 mg/dL (60-115); Potassium 3.7 mmol/L (3.3-5.1); Sodium 140 mmol/L (135-145); Total Protein 7.3 g/dL (6.5-8.0)
[2024-04-25 12:43] LABS: TSH reflex Free T4 0.69 uIU/mL (0.32-4.0)
[2024-04-27 15:44] LABS: IgA 225 mg/dL (70-320); IgG 1690 mg/dL (600-1540); IgM 107 mg/dL (50-300)
[2024-04-27 21:58] LABS: PES - Abn Protein Band 1 0.9 g/dL (NONE DETECTED); Prot Elec - Alpha1 0.2 g/dL (0.2-0.3); Prot Elec - Alpha2 0.5 g/dL (0.5-0.9); Prot Elec - Beta 1 0.4 g/dL (0.4-0.6); Prot Elec - Beta 2 0.3 g/dL (0.2-0.5); Prot Elec - Gamma 1.5 g/dL (0.8-1.7); Prot Elec - Total Protein 6.9 g/dL (6.1-8.1)
[2024-04-28 13:48] LABS: Alkaline Phosphatase Bone 17.8 mcg/L (5.6-29.0)
[2024-04-29 16:59] LABS: Vitamin D 25-OH, D2 <4 ng/mL; Vitamin D 25-OH, D3 33 ng/mL; Vitamin D 25-OH, Total 33 ng/mL (30-100)
== END 2024-04-25 10:47 | disposition home or self-care (01) ==
LOC: HO.LAB 10:46
PROVIDERS: PCP Internal Medicine; Referring Provider Internal Medicine Nephrology; Visit Provider Student in an Organized Health Care Education/Training Program
DX: E55.9 Vitamin D deficiency, unspecified (principal); M81.0 Age-related osteoporosis without current pathological fracture
CPT/HCPCS: 36415; 80053; 82306; 82784; 84075; 84165; 84443; 85025; 86334

== ENCOUNTER 2024-04-27 10:57 | Outpatient (AMB) | payer OTHER, SELFPAY ==
--- NOTE | 2024-04-27 11:01 | A.OFFVIS_ITS ---
Vital Signs 04/27/24 11:09 Height 5 ft 3 in Weight 203 lb BMI 36.0 BP 140/79 H Blood Pressure Location Lt brachial Position Sitting Pulse 70 Intake Visit Reasons: abdominal bloating Intake Note: Patient follow up for abdominal bloating. Patient cc: abdominal pain/bloating, acid reflex, constipation on and off, and a lot of abdominal air. 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 Accompanied by: Family/Other Allergies No Known Allergies Allergy (Verified 12/06/24 11:56) Medication List - Last Reconciled 04/27/24 by Karon Anders MD calcium carbonate-vitamin D3 600 mg-62.5 mcg (2,500 unit) 2 caps PO DAILY 90 days cyanocobalamin (vitamin B-12) (Vitamin B-12) 1,000 mcg PO DAILY denosumab (Prolia) 60 mg subcut [id number] 12 months escitalopram oxalate (Lexapro) 40 mg PO DAILY estradiol 0.01%(0.1mg/gram) vaginally daily; pea sized amount to urethra 3 times a week 30 days folic acid 1 mg PO DAILY 90 days gabapentin 300 mg PO TID 30 days hydroxyzine HCl 10 mg PO TID linaclotide (Linzess) 145 mcg PO QAM 90 days pantoprazole 40 mg PO BID 90 days pregabalin (Lyrica) 300 mg (4 x 75 mg) PO QDAY 30 days quetiapine 50 mg PO BEDTIME trazodone 50 mg PO BEDTIME zolpidem 10 mg PO BEDTIME HPI HPI abdominal bloating: Details: GI CLINIC VISIT FOR THIS 69 YEAR OLD LITHUANIAN-SPEAKING FEMALE FOR FOLLOW-UP OF GERD, VITAMIN B12 DEF, AND FATTY LIVER. TODAY'S VISIT: Telephone Technical DirectorAdam # [id number] Pt is accompanied by her daughter here from [place] who is able to speak some Italian Patient cc: abdominal pain/bloating, acid reflex, constipation on and off, and a lot of abdominal air. Complains of strong acid reflux and was up till 2 am last night Vitamin D and C are causing stomach problems. Strong acid reflux after whatever she eats - strong reflux start 1 hour after dinner. Taking Pantoprazole 40 mg twice a day - for a long time Takes Carafate prn which helps intermittently. Intermittent constipation and has a BM only after she takes medication for constipation. Takes Linzess on alternate days - takes it daily when she has severe constipation. Has a BM 2-3 times a day - constipated most of the time PAST VISITS: Colonoscopy results reviewed with the patient. Continues to have abdominal pain and acid reflux Has good days and bad days Takes medications to help her sleep and feels better the next day Complains of nausea, vomiting and diarrhea x 6 days [place] better after 4 days and now having recurrent symptoms. Has retching and unable to vomit Eating rice and meat - has postprandial diarrhea Had 15 soft to watery BM yesterday and no BM today Complains of chills, feeling tired and denies fever. One of daughter has similar symptoms Denies recent antibitoics or hx of travel. PAST VISITS: Feeling regular. Has her ups and downs - feels better on some days Some days she feels burning in her stomach. Not following the diet any more. Continues to have constipation. Sometimes no BM in more than 4 days. Symptoms have been worse since she ran out of refills for her GI medications - refills sent for Linzess and pantoprazole I am on a diet Eliminating a lot of foods to see how they work. Did not receive an appt with the human factors engineer GD getting information and she has lost 6 lbs. Taking almond milk Not eating sauces or stews. Abd CT scan results reviewed with the pt. Feeling regular GI symptoms are less frequent. Constipation is under control so far Has a BM daily or after 1-2 days Patient cc: acid reflex, abdominal pain, abdominal bloating on and off, acid reflex with burning sensation, constipation, and some dysphagia with liquid, patient want a referral for human factors engineer. Sometimes I am fine and sometimes not so good Complains of left sided pain Continues to have left sided and lower abdominal pain including under the ribs - feels inflammation. Pain is not there all the time. Sometimes has pain after she eats something. Constipation comes and goes. having a lot of reflux and burning in the chest. Has a BM every 5 to 6 days - usuallay after several days. Took Linzess once and then stopped - concerned about side effects Has constipation - takes fibre, plums and takes medication prn - constipation is under control. MRI and Lab results were reviewed with the patient. Continues to have abd pain which comes and goes. Has a burning sensation in the abdomen and anus and has hemorrhoids. Intermittent upper abdominal pain and nausea. Pt denies past hx of jaundice or hepatitis Patient denies symptoms of heartburn, dysphagia, vomiting, change in appetite or weight. Complains of chronic constipation and was told she had diverticulosis. Can have a BM daily or after 3-4 days. Patient denies major cardiac or pulmonary problems, loud snoring or sleep apnea Takes medications to help her sleep at night. Denies problems with anesthesia in the past. Denies being on chronic anticoagulation. Patient denies known family history of liver disease, colon polyps or colon cancer. Dad had esophageal cancer (was a smoker). PAST EGD/COLONOSCOPY:?? Had EGD (per pt showed gastritis) and colon (5 polyps were removed) in [place]? 1.5 yrs ago. Repeat colonoscopy was advised ? in 1 year and pt stated she is overdue. IMAGING STUDIES:? 05/07/[address] SCAN SHOWED: 1.? No acute intra-abdominal process seen. 2.? Diffuse hepatic steatosis with multiple hepatic cysts. 3.? Colonic diverticulosis without diverticulitis. Mild constipation.? 07/25/20 ABD MRI SHOWED: 1. Prior cholecystectomy. No biliary ductal dilatation. 2, Nonenhancing high signal lesion gallbladder fossa 4.3 cm x 4.1 cm likely cyst or non-obstructing biloma with increased signal fromprotein content. No dephasing to suggest old hematoma. 3. Several hepatic cysts, largest 2.6 cm. 4. Small hemorrhagic cyst left kidney 1.2 cm. ENDOSCOPIC STUDIES:? 01/21/2024 COLONOSCOPY SHOWED: One small polyp was removed Random biopsies were obtained from right and left colon to check for microscopic colitis Moderate to severe diverticulosis seen in the entire colon Plan: Repeat Colonoscopy in 5 years if polyps are adenomatous and due to a history of adenomatous colon polyps. 12/2020 EGD AND COLON SHOWED: Endoscopy Findings: ESOPHAGUS: Normal STOMACH: Gastritis DUODENUM: Normal - biopsied to check for celiac sprue Colonoscopy Findings: Three small to medium sized polyps removed Random biopsies obtained from the colon Moderate to severe diverticulosis seen in the entire colon No source found for abdominal pain Plan:? Repeat Colonoscopy interval based on path results - in 3-5 years if polyps are adenomatous and 10 years if polyps are hyperplastic. Above findings were reviewed with the patient and Gastritis, colon polyps and diverticulosis handouts were given in the discharge area ADDENDUM: Pt complained of nausea and some worsening of her chronic abdominal pain. Nausea resolved with Zofran. Abdominal pain improved after pt passed some gas. PAST GI HISTORY BY REVIEW OF MEDICAL RECORDS: 06/2020 patient was seen by Dr. Gomez:This is a 55-year-old female with GERD, fatty liver and liver cyst that has tele health visit by phone for follow-up on recent labs.?She has mild leukopenia that will be repeated. She has hematuria and will be referred to Urology.? Complains of dysuria and urinalysis was order. Ultrasound of the abdomen shows 1 liver cyst and fatty liver.? Previous ul trasounds done in [place] shows 3 liver cysts before.? She is aware I will refer her to Gastroenterology for that matter.? Has diffuse myalgias and would like something like Relafen or tramadol which she has using the past.? Also complains of heartburn and Pepcid is not working for her.? She would like Protonix which she has also used in the patient [facility] Medical History Polyarticular osteoarthritis Monoclonal gammopathy Encounter for monitoring denosumab therapy Back pain Anemia Urinary problem Multiple sclerosis Hematuria Mild recurrent major depression Fibromyalgia Right knee pain Left leg pain Cervical cancer screening Hematuria Urge incontinence of urine Memory loss Class 1 obesity without serious comorbidity with body mass index (BMI) of 34.0 to 34.9 in adult Cough Insomnia UTI (urinary tract infection) B12 deficiency Microscopic hematuria Leukopenia Liver cyst Hemorrhoids Diverticulosis Anxiety GERD (gastroesophageal reflux disease) Medicare annual wellness visit, initial Otitis media Urinary tract infection Surgical History History of excision of lesion (12/13/23) H/O section H/O: hysterectomy History of endoscopy History of colonoscopy History of cholecystectomy Family History Mother Lung cancer Father Cancer of esophagus Sister No problems noted. Other Arthritis Social History Household Members: Family Household Members Other:: grandchildren Housing: House Housing Other:: lives with daughter and 2 grandkids Are you a primary healthcare interpreter to a significant other at home: No Do you presently have visiting nurse or other home services: No Alcohol intake: former Patient Tobacco Use Status: Never used Tobacco e-Cigarette/Vaping Use: Never Used Second Hand Smoke Exposure: No service: No Current occupational status: unemployed Cognitive needs: No Hearing needs: No Vision needs: No Review of Systems Const All systems reviewed & are unremarkable except as noted in HPI and below Physical Exam Vital Signs: Last Vital Signs Pulse 70 04/27/24 11:09 BP 140/79 H 04/27/24 11:09 BMI result Body Mass Index 36.0 Const General: healthy appearing and no acute distress Nutritional Appearance: obese Orientation/consciousness: patient oriented x3 Limitations: language barrier HEENT Head: Yes normal to inspection Ears: hearing grossly normal bilaterally Eyes Sclerae: sclerae normal Pupils: Equal, round and reactive pupils present Neck Neck: Yes normal visual inspection Chest Chest palpation & inspection: normal inspection of the chest Resp Effort & Inspection: normal respiratory effort Auscultation: clear to auscultation bilaterally Cardio Palpation: normal PMI Rate: regular rate Rhythm: regular rhythm Heart sounds: S1 normal heart sound present, S2 normal heart sound present and no murmurs GI Palpation (GI): Soft to palpation, nontender and No hepatosplenomegaly present Auscultation: normal bowel sounds Rectal Exam - Female: deferred Skin General skin exam: no rashes or lesions noted Neuro General: patient oriented x3, gait normal and moves all extremities Cranial nerves: Yes Equal, round and reactive pupils present Psych Appearance: grossly normal Mental Status: mental status grossly normal Assessment & Plan Assessment & Plan (1) GERD (gastroesophageal reflux disease): Code(s): K21.9 - Gastro-esophageal reflux disease without esophagitis Category: Medical Qualifiers: Esophagitis presence: esophagitis presence not specified Qualified Code(s): K21.9 - Gastro-esophageal reflux disease without esophagitis (2) Liver cyst: Code(s): K76.89 - Other specified diseases of liver Category: Medical (3) NAFL (nonalcoholic fatty liver): Code(s): K76.0 - Fatty (change of) liver, not elsewhere classified Category: Medical (4) B12 deficiency: Code(s): E53.8 - Deficiency of other specified B group vitamins Category: Medical (5) RUQ abdominal pain: Code(s): R10.11 - Right upper quadrant pain Category: Medical (6) History of colon polyps: Comment: 12/2020 Three small to medium sized polyps removed (two were adenomatous on bx) Repeat Colon advised in 3 yrs (due 12/2023) Code(s): Z86.010 - Personal history of colon polyps Category: Medical (7) Chronic constipation: Code(s): K59.09 - Other constipation Category: Medical (8) Abdominal bloating: Code(s): R14.0 - Abdominal distension (gaseous) Category: Medical (9) Chronic LUQ pain: Code(s): R10.12 - Left upper quadrant pain; G89.29 - Other chronic pain Category: Medical (10) Elevated LFTs: Code(s): R79.89 - Other specified abnormal findings of blood chemistry Category: Medical Plan 69 year old Sami-speaking female followed in GI for GERD, Vitamin B12 def and fatty liver. LFTs were normal.? Abd US showed? 4.6 x 4 x 3.5 cm central periportal complex cyst or fluid collection. 07/25/20 abd MRI showed several hepatic cysts and a?nonenhancing high signal lesion gallbladder fossa 4.3 cm x 4.1 cm likely cyst or non-obstructing biloma with increased signal from protein content. No dephasing to suggest old hematoma. Pt was seen by General Surgery and advised conservative management. LUQ pain appears to be musculoskeltal - not related to eating or BMs. Pt was advised a trail of topical analgesics. 12/2021 FU abd US showed resolution of periportal complex cyst/fluid collection. Constipation improved with Linzess 145 mcg daily 05/[address] scan was negative except fatty liver, liver cysts and diverticulosis. Mild elevation of ALT likely due to fatty liver.? hepatitis serologies were negative Patient referred to human factors engineer to help with weight loss of (wt loss goal is 7- 10% of her body weight) and did not get called - I requested office staff to FU Her grand daughter helped her with a diet plan after getting information online. Pt has eliminating a lot of foods to see how they work and has lost 6 lbs. Taking almond milk 04/15/23 Symptoms have been worse since she ran out of refills for her GI medications - refills sent for Linzess and pantoprazole 08/19/23 Complains of nausea, vomiting and diarrhea x 6 days Had 15 soft to watery BM yesterday and no BM today Complains of chills, feeling tired and denies fever. Pt advised to take ondansetron and drink ORS, start taking a BRAT diet and sports beverages today. She was advised to go to the ER if symptoms do not improve with the next 24 hours. 04/27/24 Strong acid reflux after whatever she eats - strong reflux start 1 hour after dinner. Taking Pantoprazole 40 mg twice a day - for a long time Takes Carafate prn which helps intermittently. Intermittent constipation and has a BM only after she takes medication for constipation. Takes Linzess on alternate days - takes it daily when she has severe constipation and advised to take it daily Stop Pantoprazole and take Lansoprazole 30 mg twice a day. 02/03/24 Colonoscopy results reviewed with the patient. Continues to have abdominal pain and acid reflux Has good days and bad days Takes medications to help her sleep and feels better the next day Pt was advised to increase pantoprazole to 40 mg twice daily. FU in 6 weeks - GERD, fatty liver, obesity and constipation Medications: New lansoprazole 30 mg PO BID 180 caps 1RF 90 days K21.9 - Gastro-esophageal reflux disease without esophagitis simethicone (Gas Relief (simethicone)) 125 mg PO BID-QID PRN 60 tabs 1RF abdominal distention 30 days R14.0 - Abdominal distension (gaseous) Coding Level of Care Code Est Pt Level 4 (05289) Diagnoses Gastroesophageal reflux disease, unspecified whether esophagitis present K21.9 Esophagitis presence: esophagitis presence not specified Liver cyst K76.89 NAFL (nonalcoholic fatty liver) K76.0 B12 deficiency E53.8 RUQ abdominal pain R10.11 History of colon polyps Z86.010 Chronic constipation K59.09 Abdominal bloating R14.0 Chronic LUQ pain R10.12; G89.29 Elevated LFTs R79.89 Time Spent (min) 23
[2024-04-27 11:09] VITALS: BP 140/79; PULSE 70; BMI 36.0
== END 2024-04-27 12:17 | disposition home or self-care (01) ==
PROVIDERS: PCP Internal Medicine; Visit Provider Internal Medicine Gastroenterology
DX: K21.9 Gastro-esophageal reflux disease without esophagitis (principal); K76.89 Other specified diseases of liver; K76.0 Fatty (change of) liver, not elsewhere classified; E53.8 Deficiency of other specified B group vitamins; R10.11 Right upper quadrant pain; Z86.0100 Personal history of colon polyps, unspecified; K59.09 Other constipation; R14.0 Abdominal distension (gaseous); R10.12 Left upper quadrant pain; G89.29 Other chronic pain; R79.89 Other specified abnormal findings of blood chemistry
CPT/HCPCS: 99499

== ENCOUNTER → 2024-04-27 10:57 | Outpatient (BNVA) | payer OTHER, SELFPAY | PROVIDERS: PCP Internal Medicine; Visit Provider Internal Medicine Gastroenterology ==

== ENCOUNTER 2024-05-01 13:21 | Outpatient (AMB) | payer MEDICARE, SELFPAY ==
--- NOTE | 2024-05-01 13:59 | AM.OFFVISNUR ---
Intake Visit Reasons: flu shot Allergies No Known Allergies Allergy (Verified 04/27/24 11:09) Office Procedures Flu Questionnaire Does the patient have a severe egg allergy?: No Does the patient have severe life threatening allergies?: No Does the patient have a fever or illness today?: No Has the patient ever had Guillain-Horseheads Syndrome?: No Has the patient ever had any past reaction to a flu shot?: No Assessment & Plan Assessment & Plan Orders: Orders Influenza [id number] Immunization Today Z23 - Encounter for immunization Medications: New Fluarix Triv [id number] (PF) (flu vacc [id number] 6mos up(PF)) 0.5 mL IM ONCE 0.5 mL 0RF NS Z23 - Encounter for immunization
== END 2024-05-01 14:08 | disposition home or self-care (01) ==
PROVIDERS: PCP Internal Medicine; Visit Provider Internal Medicine
DX: Z23 Encounter for immunization (principal)

== ENCOUNTER → 2024-05-01 13:21 | Outpatient (BNVA) | payer MEDICARE, SELFPAY | PROVIDERS: PCP Internal Medicine; Visit Provider Internal Medicine | DX: Z23 Encounter for immunization (principal) | CPT/HCPCS: 90471; 90656 ==

== ENCOUNTER 2024-05-10 09:50 | Outpatient (AMB) | payer MEDICARE, SELFPAY ==
[2024-05-10 09:50] VITALS: BP 126/68; PULSE 73; BMI 35.5
--- NOTE | 2024-05-10 09:50 | A.OFFVIS_ITS ---
Vital Signs 05/10/24 09:50 Height 5 ft 3 in Weight 200 lb 9.93 oz BMI 35.5 BP 126/68 Blood Pressure Location Rt brachial Position Sitting Pulse 73 Pulse Source Pulse Oximeter Intake Visit Reasons: follow up/CM Intake Note: Patient presents here today for a follow-up on: Oil Well Service Operator Helper Required: No Oil Well Service Operator Helper Services: Oil Well Service Operator Helper Offered & Declined Accompanied by: Daughter Allergies No Known Allergies Allergy (Verified 05/10/24 09:51) Medication List - Last Reconciled 05/10/24 by Sarai Wood MD calcium carbonate-vitamin D3 600 mg-62.5 mcg (2,500 unit) 2 caps PO DAILY 90 days cholecalciferol (vitamin D3) 50 mcg PO DAILY cyanocobalamin (vitamin B-12) (Vitamin B-12) 1,000 mcg PO DAILY denosumab (Prolia) 60 mg subcut [id number] 12 months escitalopram oxalate (Lexapro) 40 mg PO DAILY estradiol 0.01%(0.1mg/gram) vaginally daily; pea sized amount to urethra 3 times a week 30 days folic acid 1 mg PO DAILY 90 days gabapentin 300 mg PO TID 30 days hydroxyzine HCl 10 mg PO TID lansoprazole 30 mg PO BID 90 days linaclotide (Linzess) 145 mcg PO QAM 90 days mirabegron ER (Myrbetriq) 25 mg PO DAILY pantoprazole 40 mg PO BID 90 days pregabalin (Lyrica) 300 mg (4 x 75 mg) PO QDAY 30 days quetiapine 50 mg PO BEDTIME simethicone (Gas Relief (simethicone)) 125 mg PO BID-QID PRN 30 days trazodone 50 mg PO BEDTIME zolpidem 10 mg PO BEDTIME HPI Comments Details: Patient is a 68-year-old female with osteoarthritis, fibromyalgia who presents for follow up of osteoporosis Interval History: Last seen 03/29/2024. At that time she was evaluated for low bone density. Found to have DEXA showing osteoporosis of the spine T-score -3. Decision made to start Prolia Patient here today for Prolia injection. Complaining of whole-body pain. Rheumatologic History: Polyarticular osteoarthritis and fibromyalgia Diagnosed with osteoporosis 09/2023 specifically involving the spine. Started on denosumab 04/2024 after alendronate was not tolerated. Risk Factor Assessment: Advanced age: 68 yrs Menarche at 15 year, Menopause at 37 years (patient states that she stopped seeing her period at that time, unsure of why. had LIZZETH BSO at 51 for cancer) Family history: Mother and sister has osteoporosis Her sister has a history of hip fracture. Denies smoking, caffeine and alcohol. High-risk medication assessment: No history of prolonged steroid use or excess thyroid hormone use Has fallen but has not had any fractures. Current Rheumatology Medication(s): Diclofenac gel Celebrex 200 mg twice a day Denosumab 60 mg every 6 months Pregabalin 300 mg everyday [facility] Medical History (Updated 05/10/24 @ 14:15 by Sarai Wood MD) Polyarticular osteoarthritis Monoclonal gammopathy Encounter for monitoring denosumab therapy Back pain Anemia Urinary problem Multiple sclerosis Hematuria Mild recurrent major depression Fibromyalgia Right knee pain Left leg pain Cervical cancer screening Hematuria Urge incontinence of urine Memory loss Class 1 obesity without serious comorbidity with body mass index (BMI) of 34.0 to 34.9 in adult Cough Insomnia UTI (urinary tract infection) B12 deficiency Microscopic hematuria Leukopenia Liver cyst Hemorrhoids Diverticulosis Anxiety GERD (gastroesophageal reflux disease) Medicare annual wellness visit, initial Otitis media Urinary tract infection Surgical History History of excision of lesion (12/13/23) H/O section H/O: hysterectomy History of endoscopy History of colonoscopy History of cholecystectomy Family History Mother Lung cancer Father Cancer of esophagus Sister Lupus Other Arthritis Social History Household Members: Family Household Members Other:: grandchildren Housing: House Housing Other:: lives with daughter and 2 grandkids Are you a primary rn home care to a significant other at home: No Do you presently have visiting nurse or other home services: No Alcohol intake: former Patient Tobacco Use Status: Never used Tobacco e-Cigarette/Vaping Use: Never Used Second Hand Smoke Exposure: No service: No Current occupational status: unemployed Cognitive needs: No Hearing needs: No Vision needs: No Review of Systems Const Details: Review of Systems Constitutional: Denies fever, chills, weight loss ENT: Denies vision changes, eye pain or eye redness, dental caries, dry mouth GI: Denies nausea, vomiting, diarrhea, abdominal pain, change in BM Pulm: Denies SOB, FARMER, hemoptysis, wheezing Cards: Denies chest pain, palpitations Skin: Denies Raynaud's, rash, nail changes, photosensitivity, RECREATION THERAPY TEACHER: Denies headaches, weakness, paresthesias, recurrent falls MSK: as per HPI All other systems reviewed and are unremarkable except noted above Physical Exam Vital Signs: Last Vital Signs Pulse 73 05/10/24 09:50 BP 126/68 05/10/24 09:50 BMI result Body Mass Index 35.5 Const Other: Physical Examination Patient well appearing and in no apparent painful distress Constitutional Mucous membranes pink and moist patient alert and cooperative HEENT Conjunctiva and sclera clear. ?Pupils equal round and reactive to light. ?No lymphadenopathy. ?Normal dentition. Respiratory System Normal respiratory effort and able to speak in complete sentences. ?Clear to auscultation bilaterally. ?No crackles, rales, rhonchi, wheezes heard. Cardiac System Regular rate and rhythm. ?S1 and S2 heard no murmurs. ?Radial pulses intact bilaterally MSK No deformity, swelling, abnormalities noted to bilateral hands. ?No evidence of synovitis. ?Able to move all joints with full range of motion, without limitation. Heberden's nodes noted to PIPs throughout hands. New line crepitus to bilateral knees. Office Meds Prolia 60 mg/mL subcutaneous syringe Performing Provider: Sarai Wood MD Performing Location: [facility] Administered by: Sarai Wood MD on 05/10/24 14:13 Dose Route Admin Location Dispensed Lot Number Expiration Date NDC Metabolic Specialist 60 mg subcut left deltoid 1 mL [id number] 12/11/26 30364-428-99 [employer] Results Reviewed Results Reviewed: Laboratory Tests 09/14/23 04/25/24 12:00 11:07 WBC 3.8 L RBC 5.01 Hgb 13.7 Hct 42.5 Plt Count 247 ESR 5 Sodium 140 Potassium 3.7 Chloride 106 Carbon Dioxide 25 BUN 12 Creatinine 0.72 AST 28 ALT 35 H Alkaline Phosphatase 76 Alk Phos Bone Specific 17.8 25-OH Vitamin D Total 33 25-Hydroxy Vitamin D3 33 TSH 0.69 DEXA 09/2023 FINDINGS: LEFT FEMUR, NECK: Current: BMD 0.910 g/cm2, Z-score 0.2, T-score -0.9, normal. Baseline: BMD 0.877 g/cm2. LEFT FEMUR, TOTAL: Current: BMD 0.980 g/cm2, Z-score 0.6, T-score -0.2, normal, 0.0% no change from baseline (<5% change is not significant). Baseline: BMD 0.980 g/cm2. AP SPINE L1-L4: Current: BMD 0.740 g/cm2, Z-score -2.8, T-score -3.7, osteoporosis, 0.3% decrease from baseline (<5% change is not significant). Baseline: BMD 0.742 g/cm2. Assessment & Plan Assessment & Plan (1) Osteoporosis: Comment: DEXA 09/2023: Left femur neck -0.9, Left femur -0.2, AP spine -3.7 Prolia 04/2024 Code(s): M81.0 - Age-related osteoporosis without current pathological fracture Category: Medical Qualifiers: Osteoporosis type: age-related Presence of current pathological fracture: without current pathological fracture Qualified Code(s): M81.0 - Age- related osteoporosis without current pathological fracture Plan: #Osteoporosis Here today for her 1st Prolia shot. Tolerated same Encouraged weight-bearing exercises Vitamin-D supplementation RTC 6 months (2) Polyarticular osteoarthritis: Code(s): M15.9 - Polyosteoarthritis, unspecified Category: Medical Plan: #OA Polyarticular OA. Topical diclofenac Physical therapy exercises given, does not wish to go to physical therapy at this time Celebrex 200 mg twice a day (3) Monoclonal gammopathy: Code(s): D47.2 - Monoclonal gammopathy Category: Medical Plan: #Monoclonal gammopathy Longstanding history of monoclonal gammopathy. Has not seen Hematology in several years. Referral sent (4) Encounter for monitoring denosumab therapy: Code(s): Z51.81 - Encounter for therapeutic drug level monitoring; Z79.899 - Other rn long term care (current) drug therapy Category: Medical Plan: #Long-term use of Denosumab Discussed with patient the risks and benefits of denosumab (Prolia) for the management of their osteoporosis Benefits include improved bone density, decreased fracture risk Risks include rapid bone loss if denosumab stopped, osteonecrosis of the jaw especially in patients with poor oral hygiene/diabetes/use of glucocorticoids/age greater than 65 years, atypical femoral fractures, injection site reactions. Mild increased risk of infections due to RANKL on T helper cells, increased risk of hypocalcemia especially in CKD patients Keep vitamin-D at least 35 ng/mL Advised to delay non emergent dental procedures to toward the end of the 6 month cycle and if they plan to stop denosumab would need to continue antiresorptive to maintain the effects of denosumabe Plan I spent 20 minutes reviewing the record and labs, seeing the patient, discussing the treatment plan and documenting in the medical record ? Orders: Orders AMB Denosumab Injection Practice Supplied Today M81.0 - Age-related osteoporosis without current pathological fracture Medications: New celecoxib (Celebrex) 200 mg PO BID 90 days 180 caps 0RF M15.9 - Polyosteoarthritis, unspecified Prolia (denosumab) 60 mg subcut ONCE 1 mL 0RF NS M81.0 - Age-related osteoporosis without current pathological fracture diclofenac sodium 1% (Arthritis Pain (diclofenac)) apply to neck and shoulders 2 grams topical QID 100 grams 2RF M15.9 - Polyosteoarthritis, unspecified Changed From pregabalin (Lyrica) 300 mg (4 x 75 mg) PO QDAY 30 days 120 caps 0RF M79.7 - Fibromyalgia To pregabalin (Lyrica) 300 mg (4 x 75 mg) PO QDAY 90 days 360 caps 2RF M79.7 - Fibromyalgia Discontinued gabapentin Discontinued Reason: Doctor's Order 300 mg PO TID 30 days 90 caps 1RF Coding Level of Care Code Est Pt Level 3 (37687) Diagnoses Age-related osteoporosis without current pathological fracture M81.0 Osteoporosis type: age-related Presence of current pathological fracture: without current pathological fracture Polyarticular osteoarthritis M15.9 Monoclonal gammopathy D47.2 Encounter for monitoring denosumab therapy Z51.81; Z79.89
== END 2024-05-10 10:49 | disposition home or self-care (01) ==
PROVIDERS: PCP Internal Medicine; Visit Provider Student in an Organized Health Care Education/Training Program
DX: M81.0 Age-related osteoporosis without current pathological fracture (principal); M15.9 Polyosteoarthritis, unspecified; D47.2 Monoclonal gammopathy; Z51.81 Encounter for therapeutic drug level monitoring; Z79.899 Other long term (current) drug therapy
CPT/HCPCS: 99213

== ENCOUNTER → 2024-05-10 09:50 | Outpatient (BNVA) | payer MEDICARE, SELFPAY | PROVIDERS: PCP Internal Medicine; Visit Provider Student in an Organized Health Care Education/Training Program | DX: M81.0 Age-related osteoporosis without current pathological fracture (principal); M15.9 Polyosteoarthritis, unspecified; M79.7 Fibromyalgia; D47.2 Monoclonal gammopathy; Z51.81 Encounter for therapeutic drug level monitoring; Z79.899 Other long term (current) drug therapy | CPT/HCPCS: 96372; 99212; J0897 ==

== ENCOUNTER 2024-06-01 09:45 | Outpatient (AMB) | payer MEDICARE, SELFPAY ==
[2024-06-01 09:56] VITALS: BMI 36.3
--- NOTE | 2024-06-01 09:56 | MHC.OFFVIS ---
Vital Signs 06/01/24 09:56 Height 5 ft 3 in Weight 205 lb BMI 36.3 Intake Visit Reasons: Follow up Intake Note: Patient presents for follow up. she's forgetting alot of things getting progressive. Allergies No Known Allergies Allergy (Verified 06/01/24 09:59) HPI Comments Details: 68-yr-old female presents for f/u visit for cognitive decline. Pt denies any significant interval medical changes. Daughter Joel, relays history. Pt continues to have STM lapses, repeating questions, word finding difficulty. Frustrated d/t inabilty to communicate. Pt does not want to leave her home she is confused at baseline. She has a family history of dementia. Pt is monitored closely by family. She is Ind w/ ADLs- but yesterday was confused as to whether she had taken a shower or not. She does change her clothes daily, changes her towels daily, insists her family wash her clothes separately. Family helps with her IADLs. Dtr is asking for guidance on how to help manage pt's memory and repeated questioning s/s. -HST showed AHI 2.2/hr w/ O2 samia 81%. -Pet CT normal 08/30/23 -MRI is normal with microvascular changes due to aging. -Pending Neuropscyhiatry f/u. -MMSE today unable d/t language barrier. [facility] Medical History Polyarticular osteoarthritis Monoclonal gammopathy Encounter for monitoring denosumab therapy Back pain Anemia Urinary problem Multiple sclerosis Hematuria Mild recurrent major depression Fibromyalgia Right knee pain Left leg pain Cervical cancer screening Hematuria Urge incontinence of urine Memory loss Class 1 obesity without serious comorbidity with body mass index (BMI) of 34.0 to 34.9 in adult Cough Insomnia UTI (urinary tract infection) B12 deficiency Microscopic hematuria Leukopenia Liver cyst Hemorrhoids Diverticulosis Anxiety GERD (gastroesophageal reflux disease) Medicare annual wellness visit, initial Otitis media Urinary tract infection Surgical History History of excision of lesion (12/13/23) H/O section H/O: hysterectomy History of endoscopy History of colonoscopy History of cholecystectomy Family History Mother Lung cancer Father Cancer of esophagus Sister Lupus Other Arthritis Social History Household Members: Family Household Members Other:: grandchildren Housing: House Housing Other:: lives with daughter and 2 grandkids Are you a primary children's zoo caretaker to a significant other at home: No Do you presently have visiting nurse or other home services: No Alcohol intake: former Patient Tobacco Use Status: Never used Tobacco e-Cigarette/Vaping Use: Never Used Second Hand Smoke Exposure: No service: No Current occupational status: unemployed Cognitive needs: No Hearing needs: No Vision needs: No Review of Systems Neuro Reports confusion Psych Reports confusion Physical Exam Vital Signs: BMI result Body Mass Index 36.3 Unable to communicate well due to patient's Hypophonia, sleepiness. Daughter relays history. Const General: cooperative, no acute distress, confusion and lethargic Nutritional Appearance: average body habitus and other (BMI 36) Orientation/consciousness: oriented to person, confusion and lethargic Limitations: language barrier HEENT Face and sinus: Yes face symmetric Teeth and gingiva: other ([place] score 3) Eyes Pupils: Equal, round and reactive pupils present Resp Effort & Inspection: normal respiratory effort and able to speak in complete sentences Neuro General: oriented to person and confusion Cranial nerves: Yes Equal, round and reactive pupils present and Yes Other cranial nerve findings present (ROM - Flexioin / EXT of head -unable d/t pain) Motor exam (neuro): Abnormal motor strength present Psych Appearance: well kempt Mental Status: other Speech and movement: Other speech and movement exam findings present (Psych) (Hypophonia / refuses to speak) Affect: Sad affect present and Anxious affect present Attitude: Other attitude/behavior findings present (Psych) (smiles then closes her eyes) Thought process: Other thought process findings present (unable to assess) Insight: Limited insight present (Psych) Judgement: Limited judgement present (Psych) Orientation What is the (year) (season) (date) (day) (month)?: season, day and month Where are we (state) (county) (town or city) (hospital) (floor)?: town or city Language Show patient a wristwatch & ask what it is. Repeat for pencil.: watch and pencil Ask the patient to 'take a piece of paper with their right hand' 'fold paper in half' 'place paper on floor': take paper in right hand, fold paper in half and place paper on floor Print the sentence 'CLOSE YOUR EYES' on a piece. If patient actually closes eyes then score.: followed written direction Score Score: 10 Results Reviewed Results Reviewed: -Reviewed FDG-PET scan- normal. -Reviewed HST: No evidence for sleep apnea, AHI 2.2 per hour. O2 samia 81%, with SpO2 under 90% x's 17 minutes of study, and under0% w/o, time 6 minutes of study. -Lab work-up: unremarkable -Brain MRI w/o, at 2021 at [facility] -mild chronic microangiopathic changes -Pending neuropsychiatric f/u with [facility] Assessment & Plan Assessment & Plan (1) Cognitive impairment: Code(s): R41.89 - Other symptoms and signs involving cognitive functions and awareness Category: Medical (2) Anxiety: Code(s): F41.9 - Anxiety disorder, unspecified Category: Medical (3) Insomnia: Code(s): G47.00 - Insomnia, unspecified Category: Medical Qualifiers: Insomnia type: psychophysiologic Qualified Code(s): F51.04 - Psychophysiologic insomnia (4) Family history of dementia: Code(s): Z81.8 - Family history of other mental and behavioral disorders Category: Medical (5) Neck pain: Code(s): M54.2 - Cervicalgia Category: Medical Plan Patient Education: Increase cognitive and social stimulating activities, board games, puzzles, practice using Iphone with Meenu Voice commands in Wolof so she can feel empowered not intimidated by technology. Increase physical activity, walking, biking, yoga and swimming is excellent for fibromyalgia. Continue psychotherapy once a week, continue Psychiatric visits once a month. Pending: Comprehensive neuro-psych eval as ordered- patient is currently on wait list at [facility] Neck Pain -PT for Cervicalgia Anxiety and Depression -Will trial her on Buproprion 150mg every other day. -Rochelle-colontherapy for ongoing constipation, prn Linzess and senna. Future considerations- Minimizing polypharmacy. -F/u brain next visit MRI? -F/u next visit may discuss Nemenda? after her Neuropscyhiatric evaluation with [facility]. -F/u on review of above, and in-clinic in 6 months or sooner. Daughter to call with any questions or needs prior to the next visit. Orders: Orders PT Evaluation and Treatment Today M54.2 - Cervicalgia Medications: New bupropion HCl XL (Wellbutrin XL) Take this medication by mouth every other day. 150 mg PO QAM 30 tabs 4RF F32.1 - Major depressive disorder, single episode, moderate, F32.A - Depression, unspecified, F41.9 - Anxiety disorder, unspecified Refilled calcium carbonate-vitamin D3 600 mg-62.5 mcg (2,500 unit) 2 caps PO DAILY 90 days 180 caps 2RF E55.9 - Vitamin D deficiency, unspecified, M81.0 - Age-related osteoporosis without current pathological fracture, Z51.81 - Encounter for therapeutic drug level monitoring, Z79.899 - Other group home (current) drug therapy linaclotide (Linzess) 145 mcg PO QAM 90 days 90 caps 1RF K59.09 - Other constipation cyanocobalamin (vitamin B-12) (Vitamin B-12) 1,000 mcg PO DAILY 90 tabs 3RF Scribe Plan - Not visible on output: Reviewed possible medication side effects, including but not limited to drowsiness, dizziness. Coding Level of Care Code Est Pt Level 4 (86054) Diagnoses Cognitive impairment R41.89 Anxiety F41.9 Psychophysiological insomnia F51.04 Insomnia type: psychophysiologic Family history of dementia Z81.8 Neck pain M54.2
== END 2024-06-01 11:13 | disposition home or self-care (01) ==
PROVIDERS: Absent Provider Physician Assistant Medical; PCP Internal Medicine; Visit Provider Nurse Practitioner Family
DX: R41.89 Other symptoms and signs involving cognitive functions and awareness (principal); F41.9 Anxiety disorder, unspecified; F51.04 Psychophysiologic insomnia; Z81.8 Family history of other mental and behavioral disorders; M54.2 Cervicalgia
CPT/HCPCS: 99214

== ENCOUNTER → 2024-06-01 09:45 | Outpatient (BNVA) | payer MEDICARE, SELFPAY | PROVIDERS: Absent Provider Physician Assistant Medical; PCP Internal Medicine; Visit Provider Nurse Practitioner Family | DX: R41.89 Other symptoms and signs involving cognitive functions and awareness (principal); G47.00 Insomnia, unspecified; F41.9 Anxiety disorder, unspecified; F51.04 Psychophysiologic insomnia; M54.2 Cervicalgia | CPT/HCPCS: 99212 ==

== ENCOUNTER 2024-06-26 16:24 | Outpatient (AMB) | payer MEDICARE, SELFPAY ==
[2024-06-26 16:31] VITALS: BP 130/82; BMI 36.5
--- NOTE | 2024-06-26 16:31 | A.OFFPC_ITS ---
Vital Signs 06/26/24 16:31 Height 5 ft 3 in Weight 206 lb BMI 36.5 BP 130/82 Blood Pressure Location Lt brachial Position Sitting Intake Visit Reasons: fibromyalgia Intake Note: Patient here for a follow up Fibromyalgia Corporate Law Assistant Required: Yes Corporate Law Assistant Language: Refrigeration Plant Operator Name: Rosaura Noonan MD Accompanied by: Self / Same As Patient Allergies No Known Allergies Allergy (Verified 06/26/24 17:08) Medication List - Last Reconciled 06/26/24 by Rosaura Noonan MD bupropion HCl XL (Wellbutrin XL) 150 mg PO QAM calcium carbonate-vitamin D3 600 mg-62.5 mcg (2,500 unit) 2 caps PO DAILY 90 days celecoxib (Celebrex) 200 mg PO BID 90 days cholecalciferol (vitamin D3) 50 mcg PO DAILY cyanocobalamin (vitamin B-12) (Vitamin B-12) 1,000 mcg PO DAILY denosumab (Prolia) 60 mg subcut [id number] 12 months diclofenac sodium 1% (Arthritis Pain (diclofenac)) 2 grams topical QID escitalopram oxalate (Lexapro) 40 mg PO DAILY estradiol 0.01%(0.1mg/gram) vaginally daily; pea sized amount to urethra 3 times a week 30 days folic acid 1 mg PO DAILY 90 days hydroxyzine HCl 10 mg PO TID lansoprazole 30 mg PO BID 90 days linaclotide (Linzess) 145 mcg PO QAM 90 days mirabegron ER (Myrbetriq) 25 mg PO DAILY pantoprazole 40 mg PO BID 90 days pregabalin (Lyrica) 300 mg (4 x 75 mg) PO QDAY 90 days quetiapine 50 mg PO BEDTIME simethicone (Gas Relief (simethicone)) 125 mg PO BID-QID PRN 30 days trazodone 50 mg PO BEDTIME zolpidem 10 mg PO BEDTIME Tobacco use date assessed: 06/26/24 Fall risk assessment: No Falls in past year Last assessed Fall Risk: 06/26/24 Dental Screening Dental Screen Date: 06/26/24 Did you have a dental visit in the last 12 months?: No Did you have a dental problem in the last 6 months where you did not have access to dental care?: No Was dental information given to patient?: Patient has dentist HPI HPI Comments History of Present Illness Details The patient is a 69-year-old female presenting with insomnia and a need for medication management. The insomnia appears to be an ongoing issue, as the conversation highlights challenges with both initiating and maintaining sleep which will be further evaluated by Psychiatry. The patient uses medications such as trazodone and zolpidem at night, although these have not been completely effective in improving her sleep quality, as she reports continued poor sleep. She also has a history of depression and is under psychiatric care, taking bupropion for her condition. Accompanied by daughter and she was recently diagnosed with dementia and daughter said has markedly worsened. Still able to eat by herself, dress by herself and bathing and toileting by herself. Oriented only to person but not to time or place. Additionally, a recent bone densitometry test was conducted last year, and osteoporosis management appears to be part of her healthcare routine. [facility] Medical History (Updated 06/26/24 @ 20:39 by Rosaura Noonan MD) Polyarticular osteoarthritis Monoclonal gammopathy Encounter for monitoring denosumab therapy Back pain Anemia Urinary problem Multiple sclerosis Hematuria Mild recurrent major depression Fibromyalgia Right knee pain Left leg pain Cervical cancer screening Hematuria Urge incontinence of urine Memory loss Class 1 obesity without serious comorbidity with body mass index (BMI) of 34.0 to 34.9 in adult Cough Insomnia UTI (urinary tract infection) B12 deficiency Microscopic hematuria Leukopenia Liver cyst Hemorrhoids Diverticulosis Anxiety GERD (gastroesophageal reflux disease) Medicare annual wellness visit, initial Otitis media Urinary tract infection Surgical History History of excision of lesion (12/13/23) H/O section H/O: hysterectomy History of endoscopy History of colonoscopy History of cholecystectomy Family History Mother Lung cancer Father Cancer of esophagus Sister Lupus Other Arthritis Social History Household Members: Family Household Members Other:: grandchildren Housing: House Housing Other:: lives with daughter and 2 grandkids Are you a primary weekend caregiver to a significant other at home: No Do you presently have visiting nurse or other home services: No Alcohol intake: former Patient Tobacco Use Status: Never used Tobacco e-Cigarette/Vaping Use: Never Used Second Hand Smoke Exposure: No service: No Current occupational status: unemployed Cognitive needs: No Hearing needs: No Vision needs: No Questionnaire PHQ-9 Over the last 2 weeks, how often have you been bothered by any of the following problems? 1. Little interest or pleasure in doing things: several days 2. Feeling down, depressed, or hopeless: several days 3. Trouble falling or staying asleep, or sleeping too much: several days 4. Feeling tired or having little energy: several days 5. Poor appetite or overeating: not at all 6. Feeling bad about yourself - or that you are a failure or have let yourself or your family down: not at all 7. Trouble concentrating on things, such as reading the newspaper or watching television: not at all 8. Moving or speaking so slowly that other people could have noticed. Or the opposite - being so fidgety or restless that you have been moving around a lot more than usual: not at all 9. Thoughts that you would be better off or of hurting yourself in some way: not at all Total score: 4 Depression Screening Interpretation: Positive Depression Screening Follow-up: Existing condition, In treatment and Follow-up Visit Requested Depression Screening Done: Yes 24978 - PHQ-9 Billing: Yes Source: Developed by Drs. Erasto Mars, Vandana Cervantes, Henry Powers and colleagues, with an educational chadd from [employer]. Thrive Questionnaire Date Thrive assessed: 06/26/24 I am a: Parent/Caregiver What is your living situation today?: I have a steady place to live Within the past 12 months, did the food you bought not last and you didn't have the money to get more?: Never true Within the past 12 months, did you worry whether your food would run out before you got money to buy more?: Never true Do you have trouble paying for medicines?: No Do you have trouble getting transportation to medical appointments?: No Do you have trouble paying your heating and electricity bill?: No Do you have trouble taking care of your child, family member or friend?: No Do you have trouble with day-to-day activities such as bathing, preparing meals, shopping, managing finances, etc.?: No Are you currently unemployed and looking for a job?: No Are you interested in more education?: No Please select the resources that you would like help with: None Currently or been in a relationship where the following occur: No concerns reported THRIVE Score: 0 AUDIT C Alcohol Use Questionnaire (AUDIT-C) 1. How often do you have a drink containing alcohol?: Never Total Score: 0 Score Reviewed/Action Taken: No TOYA-7 AMB Questionnaire TOYA-7 Date TOYA - 7 assessed: 09/20/23 Feeling nervous, anxious, or on edge: 1 = Several days Not being able to stop or control worryin = Not at all Worrying too much about different things: 1 = Several days Trouble relaxin = Not at all Being so restless that it is hard to sit still: 0 = Not at all Becoming easily annoyed or irritable: 0 = Not at all Feeling afraid as if something awful might happen: 0 = Not at all Total TOYA-7 score (0-4 normal; 5-9 mild; 10-14 moderate; 15-21 severe): 2 Source: Developed by Drs. Erasto Mars, Vandana Cervantes, Henry Powers and colleagues, with an educational chadd from [employer]. TOYA-7 Assessment Billing TOYA-7 Assessment Tool: TOYA-7 Assessment 98541 Review of Systems Const All systems reviewed & are unremarkable except as noted in HPI and below Card Denies chest pain at rest, Denies chest pain with activity, Denies edema, Denies irregular heart rhythm, Denies claudication, Denies dyspnea, Denies dyspnea on exertion, Denies orthopnea, Denies paroxysmal nocturnal dyspnea and Denies slow heart rate Resp Denies cough, Denies dyspnea and Denies dyspnea on exertion GI Denies abdominal pain, Denies change in bowel habits, Denies excessive flatus, Denies nausea and Denies vomiting Neuro Denies behavioral changes and Denies lack of coordination Psych Denies behavioral changes Physical exam (Primary Care) Vital Signs: Last Vital Signs BP 130/82 06/26/24 16:31 BMI result Body Mass Index 36.5 BMI Assessment/Plan discussion: High BMI High, discussed plan: lifestyle, weight reduction, dietary and physical activity Tobacco/Smoking Status: Tobacco use Status Tobacco use date assessed 06/26/24 06/26/24 16:40 Patient Tobacco Use Status Never used Tobacco 06/26/24 16:34 e-Cigarette/Vaping Use Never Used 06/26/24 16:34 PHQ-9: PHQ-9 Score PHQ-9: Total score 4 06/26/24 17:15 Depression Screening Interpretation: Positive Depression Screening Follow-up: Existing condition, In treatment and Follow-up Visit Requested Thrive Assessment: Date of Thrive Assessment Date Thrive assessed 06/26/24 06/26/24 16:42 Currently or been in a relationship where the following occur: No concerns reported Resp Effort & Inspection: normal respiratory effort Auscultation: clear to auscultation bilaterally Cardio Jugular venous distension: no JVD Rate: regular rate Rhythm: regular rhythm Heart sounds: S1 normal heart sound present and S2 normal heart sound present Extrem General: Yes full ROM Coding Level of Care Code Est Pt Level 4 (89469) Complex EM visit Add On G2211 Diagnoses Moderate major depression F32.1 Age-related osteoporosis without current pathological fracture M81.0 Osteoporosis type: age-related Presence of current pathological fracture: without current pathological fracture Chronic constipation K59.09 Psychophysiological insomnia F51.04 Insomnia type: psychophysiologic Additional Codes TOYA-7 Assessment Billing - TOYA-7 Assessment Tool: TOYA-7 Assessment 71630 ([id number]) PHQ-9 - 58709 - PHQ-9 Billing: Yes ([id number]) Time Spent (min) 23 Assessment & Plan Assessment & Plan (1) Moderate major depression: Code(s): F32.1 - Major depressive disorder, single episode, moderate Category: Medical (2) Osteoporosis: Comment: DEXA 09/2023: Left femur neck -0.9, Left femur -0.2, AP spine -3.7 Prolia 04/2024 Code(s): M81.0 - Age-related osteoporosis without current pathological fracture Category: Medical Qualifiers: Osteoporosis type: age-related Presence of current pathological fracture: without current pathological fracture Qualified Code(s): M81.0 - Age- related osteoporosis without current pathological fracture (3) Chronic constipation: Code(s): K59.09 - Other constipation Category: Medical (4) Insomnia: Code(s): G47.00 - Insomnia, unspecified Category: Medical Qualifiers: Insomnia type: psychophysiologic Qualified Code(s): F51.04 - Psychophysiologic insomnia Plan - Review and continue medications for depression and discuss any adjustments if needed with her psychiatrist. - Discuss effectiveness of current sleep medication and consider adjustments with input from her psychiatrist. - No smoking or alcohol use reinforcement as part of healthy lifestyle management. - Encourage continued participation in mental stimulation activities, such as Sudoku, to aid cognitive function. - Follow up with neurology as scheduled for ongoing assessment. - Schedule follow-up bone density testing in line with ongoing osteoporosis management. Patient was informed and verbally consented to the use of an ambient scribe for clinic note documentation during this visit. I discussed with the patient the ongoing management of her insomnia and depression, noting the current medications she is on for these conditions. It was noted that while trazodone and zolpidem are part of her regimen, improvement in sleep is still needed. The plan to review her sleep medications in conjunction with her psychiatrist was debated. We discussed her excellent adherence to a healthy lifestyle, including not smoking or consuming alcohol, and how her supportive family environment plays a positive role in her treatment. I emphasized the importance of her continued engagement in mental exercises to enhance cognitive health. Finally, I addressed the management and monitoring of her osteoporosis with regular bone density testing. Orders: Orders Vitamin D 25-OH Total Today E55.9 - Vitamin D deficiency, unspecified Vitamin B12 and Folate Today E53.8 - Deficiency of other specified B group vitamins Lipid Panel Today E78.5 - Hyperlipidemia, unspecified Comprehensive [place]. Panel Fast Today K21.9 - Gastro-esophageal reflux disease without esophagitis Patient Instructions: - Continue current medications and discuss any changes needed with your psychiatrist. - Maintain your healthy habits by avoiding smoking and alcohol consumption. - Engage regularly in cognitive exercises like Sudoku. - Attend your scheduled neurology appointment. - Make sure to have your bone density checked as scheduled for osteoporosis monitoring. - Contact the office if there are any changes in your condition or if you have questions about your medications.
== END 2024-06-26 17:20 | disposition home or self-care (01) ==
PROVIDERS: PCP Internal Medicine; Visit Provider Internal Medicine
DX: F32.1 Major depressive disorder, single episode, moderate (principal); M81.0 Age-related osteoporosis without current pathological fracture; K59.09 Other constipation; F51.04 Psychophysiologic insomnia

== ENCOUNTER → 2024-06-26 16:24 | Outpatient (BNVA) | payer MEDICARE, SELFPAY | PROVIDERS: PCP Internal Medicine; Visit Provider Internal Medicine | DX: F32.1 Major depressive disorder, single episode, moderate (principal); M81.0 Age-related osteoporosis without current pathological fracture; K59.09 Other constipation; F51.04 Psychophysiologic insomnia | CPT/HCPCS: 96127; 99212 ==

== ENCOUNTER 2024-07-04 10:19 | Outpatient (REF) | payer OTHER, SELFPAY ==
--- NOTE | ~2024-07-04 | CT_ITS ---
CLINICAL HISTORY: R31.29 - Other microscopic hematuria CT abdomen and pelvis with and without contrast Comparison: None Findings: UROLOGICAL FINDINGS: No nephrolithiasis on either side. Mild fullness of the right ureter from ureteropelvic junction to ureterovesicular junction without appreciable stone. No filling defects evident on delayed phase acquisition. May relate to recent stone passage. Subtle lesion at the ureterovesicular junction can not be excluded. No filling defect within the bladder. The opacified left ureter is unremarkable. Indeterminate 11 mm hypodensity midpole left kidney with density measurement greater than that of a simple cyst on postcontrast images and lesion not appreciable on precontrast images. Otherwise intact renal contour bilaterally. NON UROLOGICAL FINDINGS: Multifocal atelectatic lower lung changes. No consolidation or pleural effusion. Normal heart size. No pericardial effusion. Prominent elevation /eventration right hemidiaphragm. Several liver cysts. Slightly nodular liver contour concerning for cirrhosis. Indeterminate 11 x 18 x 18 mm subcapsular hypodensity segment V for which a small hepatocellular lesion should be excluded. Correlative AFP suggested as well as follow-up dedicated liver protocol CT. Lesion in the midpole of the left kidney could be reassessed at follow-up pre and postcontrast MRI. Cholecystectomy. No biliary dilatation. Pancreas, spleen, adrenals intact. No bowel obstruction. Incidental duodenal diverticula. Colonic diverticulosis, extensive distally without objective features of acute diverticulitis. Normal appendix. Prior hysterectomy. Normal caliber aorta. No stenosis or dissection. No high-grade stenosis of the renal arteries, celiac trunk or SMA. Patent RIRI. Patent hepatic veins, IVC and portal vein. No pathologic adenopathy. No acute or aggressive appearing bone lesion. Soft tissues intact. Impression: No stones or hydronephrosis. Nonspecific fullness of the right ureter compared to the left from ureteropelvic junction to ureterovesicular junction. No obstructing lesion or filling defect evident. Urological consultation and retrograde examination suggested. Indeterminate 11 mm hypodensity midpole left kidney. Concerning 18 mm subcapsular hypodensity inferior right hepatic lobe, liver segment V. Follow-up dedicated liver protocol MRI without and with contrast suggested. Left renal lesion can be reassessed at follow-up imaging. This document has been electronically signed by: Mor Bender MD on 07/04/2024 12:16:01
[2024-07-04] MEDS: iohexoL 350 MG/ML 100 ML INFUS..BTL IV (11:32)
[2024-07-05 08:24] LABS: Creatinine POC 0.8 mg/dL (0.5-1.4); GFR POC > 60
== END 2024-07-04 10:20 | disposition home or self-care (01) ==
LOC: HO.CT 10:19
PROVIDERS: PCP Internal Medicine; Visit Provider Nurse Practitioner Family
DX: R31.29 Other microscopic hematuria (principal); R10.9 Unspecified abdominal pain
CPT/HCPCS: 74178; 82565; Q9967

== ENCOUNTER → 2024-07-04 10:23 | Outpatient (BNV) | payer OTHER, SELFPAY | PROVIDERS: PCP Internal Medicine; Visit Provider Radiology Diagnostic Radiology | DX: R31.29 Other microscopic hematuria (principal) | CPT/HCPCS: 74178 ==

== ENCOUNTER 2024-08-03 14:00 | Outpatient (RCR) | payer OTHER, SELFPAY ==
--- NOTE | 2024-07-06 13:50 | MHC.PT.EP ---
[facility] [place] Office [place] Office [place] Office [address] Sharee Amador [address] [phone] F: [phone] F: [phone] F: [phone] F: [phone] Physical Therapy Plan of Care Date of Evaluation: 07/06/24 Date of Surgery: n/a Diagnosis: cervicalgia Assessment: Patient is 69 year old female presenting to PT with complaints of pain in her neck. Pt reports onset of pain began many years ago due to insidious onset. She presents today with impairments in pain, cervical ROM, posture, shoulder ROM, shoulder strength. Pt's current occupation is none, with baseline physical activities including sitting. Pt expresses skilled nursing goal of reducing pain, and is motivated to work towards this in PT. Clinical presentation today is most consistent with signs and sx associated with neck pain and pt will benefit from skilled PT 2 week x 4 weeks to address the following problems and impairments noted upon evaluation: pain, cervical ROM, posture, shoulder ROM, shoulder strength. Her rehab potential is fair due to pt seeming confused at baseline and not demonstrating much motivation to try postural exercises during today's visit. These problems limit the patient with the following functional activities: sitting, ADLs. The prescribed treatment plan of care is medically necessary. Co-morbidities of MS, dementia, fibromyalgia, dementia, osteoporosis were identified and taken into considerations of plan of care. Pt was educated on HEP, role of PT, prognosis, POC. Frequency and Duration: The patient will be seen 2 x week x 4 weeks Short Term Goals: Pt will demonstrate initial compliance with sitting posture in 2 visits. Pt will demonstrate improved posture as evidence by min to no cues during session in 2 weeks. Pt will demonstrate ability to perform cervical ROM in available range with min to no pain in 2 weeks. County Director Welfare Goals: Pt will demonstrate improved NDI score by 10% in 4 weeks for improved functional mobility. Pt will demonstrate ability to sit with less pain in 4 weeks for return to PLOF. Treatment Plan: Modalities to reduce pain, spasms and effusion. Manual therapy to restore motion and function. Therapeutic exercise to improve strength and flexibility. Neuromuscular re-education for posture and balance. Therapeutic activities to return to functional activities of daily living. Electronically signed by: Sussy Alfred, PT, DPT, ATC Please sign and return to therapist. Thank you for your referral.
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
== END 2024-08-03 14:26 | disposition home or self-care (01) ==
LOC: HO.PTCHIC 14:00
PROVIDERS: PCP Internal Medicine; Visit Provider Physician Assistant Medical
DX: M54.2 Cervicalgia (principal)
CPT/HCPCS: 97110; 97162

== ENCOUNTER 2024-08-15 11:28 | Outpatient (AMB) | payer OTHER, SELFPAY ==
--- NOTE | 2024-08-15 11:37 | A.OFFVIS_ITS ---
Vital Signs 08/15/24 11:38 Height 5 ft 3 in Weight 201 lb BMI 35.6 BP 131/68 Blood Pressure Location Lt brachial Position Sitting Pulse 73 Pulse Oximetry (%) 96 Oxygen Delivery Method Room Air Intake Visit Reasons: follow up abd pain Intake Note: Patient follow up for abdominal pain. Patient cc: sensation of chocking at night time on and off when she cough, patient is worry about she is been having a lot of hungry all the time of the date, she is much better with the medication for abdominal pain, bloating and the constipation. Bead Filler Required: No Accompanied by: Family/Other Allergies No Known Allergies Allergy (Verified 12/06/24 11:56) Medication List - Last Reconciled 08/15/24 by Karon Anders MD bupropion HCl XL 150 mg PO Q OTHER DAY 90 days calcium carbonate-vitamin D3 600 mg-62.5 mcg (2,500 unit) 2 caps PO DAILY 90 days celecoxib (Celebrex) 200 mg PO BID 90 days cholecalciferol (vitamin D3) 50 mcg PO DAILY cyanocobalamin (vitamin B-12) (Vitamin B-12) 1,000 mcg PO DAILY denosumab (Prolia) 60 mg subcut [id number] 12 months diclofenac sodium 1% (Arthritis Pain (diclofenac)) 2 grams topical QID escitalopram oxalate (Lexapro) 40 mg PO DAILY estradiol 0.01%(0.1mg/gram) vaginally daily; pea sized amount to urethra 3 times a week 30 days folic acid 1 mg PO DAILY 90 days hydroxyzine HCl 10 mg PO TID lansoprazole 30 mg PO BID 90 days linaclotide (Linzess) 145 mcg PO QAM 90 days mirabegron ER (Myrbetriq) 25 mg PO DAILY pantoprazole 40 mg PO BID 90 days pregabalin (Lyrica) 300 mg (4 x 75 mg) PO QDAY 90 days quetiapine 50 mg PO BEDTIME simethicone (Gas Relief (simethicone)) 125 mg PO BID-QID PRN 30 days trazodone 50 mg PO BEDTIME zolpidem 10 mg PO BEDTIME HPI HPI follow up abd pain: Details: GI CLINIC VISIT FOR THIS 69 YEAR OLD [place]-SPEAKING FEMALE FOR FOLLOW-UP OF GERD, VITAMIN B12 DEF, AND FATTY LIVER. TODAY'S VISIT: Pt is accompanied by her daughter here from [place] who is able to speak some [place] Patient cc: sensation of chocking at night time on and off when she cough, having a lot of hunger all the time of the date, she is much better with the medication for abdominal pain, bloating and the constipation. Medications are helping with gas Intermittent coughing spells at night - denies PND and attributes to a dry throat. Takes [place] Cough drops and cough resolves Feels hungry all the time Takes breakfast - then takes multiple snacks during the day - cereal, fries PAST VISITS: Patient cc: abdominal pain/bloating, acid reflex, constipation on and off, and a lot of abdominal air. Complains of strong acid reflux and was up till 2 am last night Vitamin D and C are causing stomach problems. Strong acid reflux after whatever she eats - strong reflux start 1 hour after dinner. Taking Pantoprazole 40 mg twice a day - for a long time Takes Carafate prn which helps intermittently. Intermittent constipation and has a BM only after she takes medication for constipation. Takes Linzess on alternate days - takes it daily when she has severe constipation. Has a BM 2-3 times a day - constipated most of the time Colonoscopy results reviewed with the patient. Continues to have abdominal pain and acid reflux Has good days and bad days Takes medications to help her sleep and feels better the next day Complains of nausea, vomiting and diarrhea x 6 days [place] better after 4 days and now having recurrent symptoms. Has retching and unable to vomit Eating rice and meat - has postprandial diarrhea Had 15 soft to watery BM yesterday and no BM today Complains of chills, feeling tired and denies fever. One of daughter has similar symptoms Denies recent antibitoics or hx of travel. PAST VISITS: Feeling regular. Has her ups and downs - feels better on some days Some days she feels burning in her stomach. Not following the diet any more. Continues to have constipation. Sometimes no BM in more than 4 days. Symptoms have been worse since she ran out of refills for her GI medications - refills sent for Linzess and pantoprazole I am on a diet Eliminating a lot of foods to see how they work. Did not receive an appt with the [employer] [facility] getting information and she has lost 6 lbs. Taking almond milk Not eating sauces or stews. Abd CT scan results reviewed with the pt. Feeling regular GI symptoms are less frequent. Constipation is under control so far Has a BM daily or after 1-2 days Patient cc: acid reflex, abdominal pain, abdominal bloating on and off, acid reflex with burning sensation, constipation, and some dysphagia with liquid, patient want a referral for [employer]. Sometimes I am fine and sometimes not so good Complains of left sided pain Continues to have left sided and lower abdominal pain including under the ribs - feels inflammation. Pain is not there all the time. Sometimes has pain after she eats something. Constipation comes and goes. having a lot of reflux and burning in the chest. Has a BM every 5 to 6 days - usuallay after several days. Took Linzess once and then stopped - concerned about side effects Has constipation - takes fibre, plums and takes medication prn - constipation is under control. MRI and Lab results were reviewed with the patient. Continues to have abd pain which comes and goes. Has a burning sensation in the abdomen and anus and has hemorrhoids. Intermittent upper abdominal pain and nausea. Pt denies past hx of jaundice or hepatitis Patient denies symptoms of heartburn, dysphagia, vomiting, change in appetite or weight. Complains of chronic constipation and was told she had diverticulosis. Can have a BM daily or after 3-4 days. Patient denies major cardiac or pulmonary problems, loud snoring or sleep apnea Takes medications to help her sleep at night. Denies problems with anesthesia in the past. Denies being on chronic anticoagulation. Patient denies known family history of liver disease, colon polyps or colon cancer. Dad had esophageal cancer (was a smoker). PAST EGD/COLONOSCOPY:?? Had EGD (per pt showed gastritis) and colon (5 polyps we re removed) in [place]? 1.5 yrs ago. Repeat colonoscopy was advised ? in 1 year and pt stated she is overdue. IMAGING STUDIES:? 05/07/[address] SCAN SHOWED: 1.? No acute intra-abdominal process seen. 2.? Diffuse hepatic steatosis with multiple hepatic cysts. 3.? Colonic diverticulosis without diverticulitis. Mild constipation.? 07/25/20 ABD MRI SHOWED: 1. Prior cholecystectomy. No biliary ductal dilatation. 2, Nonenhancing high signal lesion gallbladder fossa 4.3 cm x 4.1 cm likely cyst or non-obstructing biloma with increased signal fromprotein content. No dephasing to suggest old hematoma. 3. Several hepatic cysts, largest 2.6 cm. 4. Small hemorrhagic cyst left kidney 1.2 cm. ENDOSCOPIC STUDIES:? 01/21/2024 COLONOSCOPY SHOWED: One small polyp was removed Random biopsies were obtained from right and left colon to check for microscopic colitis Moderate to severe diverticulosis seen in the entire colon Plan: Repeat Colonoscopy in 5 years if polyps are adenomatous and due to a history of adenomatous colon polyps. 12/2020 EGD AND COLON SHOWED: Endoscopy Findings: ESOPHAGUS: Normal STOMACH: Gastritis DUODENUM: Normal - biopsied to check for celiac sprue Colonoscopy Findings: Three small to medium sized polyps removed Random biopsies obtained from the colon Moderate to severe diverticulosis seen in the entire colon No source found for abdominal pain Plan:? Repeat Colonoscopy interval based on path results - in 3-5 years if polyps are adenomatous and 10 years if polyps are hyperplastic. Above findings were reviewed with the patient and Gastritis, colon polyps and diverticulosis handouts were given in the discharge area ADDENDUM: Pt complained of nausea and some worsening of her chronic abdominal pain. Nausea resolved with Zofran. Abdominal pain improved after pt passed some gas. PAST GI HISTORY BY REVIEW OF MEDICAL RECORDS: 06/2020 patient was seen by Dr. Gomez:This is a 55-year-old female with GERD, fatty liver and liver cyst that has tele health visit by phone for follow-up on recent labs.?She has mild leukopenia that will be repeated. She has hematuria and will be referred to Urology.? Complains of dysuria and urinalysis was order. Ultrasound of the abdomen shows 1 liver cyst and fatty liver.? Previous ultrasounds done in [place] shows 3 liver cysts before.? She is aware I will refer her to Gastroenterology for that matter.? Has diffuse myalgias and would like something like Relafen or tramadol which she has using the past.? Also complains of heartburn and Pepcid is not working for her.? She would like Protonix which she has also used in the patient [facility] Medical History Polyarticular osteoarthritis Monoclonal gammopathy Encounter for monitoring denosumab therapy Back pain Anemia Urinary problem Multiple sclerosis Hematuria Mild recurrent major depression Fibromyalgia Right knee pain Left leg pain Cervical cancer screening Hematuria Urge incontinence of urine Memory loss Class 1 obesity without serious comorbidity with body mass index (BMI) of 34.0 to 34.9 in adult Cough Insomnia UTI (urinary tract infection) B12 deficiency Microscopic hematuria Leukopenia Liver cyst Hemorrhoids Diverticulosis Anxiety GERD (gastroesophageal reflux disease) Medicare annual wellness visit, initial Otitis media Urinary tract infection Surgical History History of excision of lesion (12/13/23) H/O section H/O: hysterectomy History of endoscopy History of colonoscopy History of cholecystectomy Family History Mother Lung cancer Father Cancer of esophagus Sister No problems noted. Other Arthritis Social History Household Members: Family Household Members Other:: grandchildren Housing: House Housing Other:: lives with daughter and 2 grandkids Are you a primary gericare aide to a significant other at home: No Do you presently have visiting nurse or other home services: No Alcohol intake: former Patient Tobacco Use Status: Never used Tobacco e-Cigarette/Vaping Use: Never Used Second Hand Smoke Exposure: No service: No Current occupational status: unemployed Cognitive needs: No Hearing needs: No Vision needs: No Review of Systems Const All systems reviewed & are unremarkable except as noted in HPI and below Physical Exam Vital Signs: Last Vital Signs Pulse 73 08/15/24 11:38 BP 131/68 08/15/24 11:38 Pulse Ox 96 08/15/24 11:38 Oxygen Delivery Method Room Air 08/15/24 11:38 BMI result Body Mass Index 35.6 Const General: healthy appearing and no acute distress Nutritional Appearance: obese Orientation/consciousness: patient oriented x3 Limitations: language barrier HEENT Head: Yes normal to inspection Ears: hearing grossly normal bilaterally Eyes Sclerae: sclerae normal Pupils: Equal, round and reactive pupils present Neck Neck: Yes normal visual inspection Chest Chest palpation & inspection: normal inspection of the chest Resp Effort & Inspection: normal respiratory effort Auscultation: clear to auscultation bilaterally Cardio Palpation: normal PMI Rate: regular rate Rhythm: regular rhythm Heart sounds: S1 normal heart sound present, S2 normal heart sound present and no murmurs GI Palpation (GI): Soft to palpation, nontender and No hepatosplenomegaly present Auscultation: normal bowel sounds Rectal Exam - Female: deferred Skin General skin exam: no rashes or lesions noted Neuro General: patient oriented x3, gait normal and moves all extremities Cranial nerves: Yes Equal, round and reactive pupils present Psych Appearance: grossly normal Mental Status: mental status grossly normal Assessment & Plan Assessment & Plan (1) GERD (gastroesophageal reflux disease): Code(s): K21.9 - Gastro-esophageal reflux disease without esophagitis Category: Medical Qualifiers: Esophagitis presence: esophagitis presence not specified Qualified Code(s): K21.9 - Gastro-esophageal reflux disease without esophagitis (2) NAFL (nonalcoholic fatty liver): Code(s): K76.0 - Fatty (change of) liver, not elsewhere classified Category: Medical (3) History of colon polyps: Comment: 12/2020 Three small to medium sized polyps removed (two were adenomatous on bx) Repeat Colon advised in 3 yrs (due 12/2023) Code(s): Z86.010 - Personal history of colon polyps Category: Medical (4) Chronic constipation: Code(s): K59.09 - Other constipation Category: Medical (5) Chronic LUQ pain: Code(s): R10.12 - Left upper quadrant pain; G89.29 - Other chronic pain Category: Medical (6) Elevated LFTs: Code(s): R79.89 - Other specified abnormal findings of blood chemistry Category: Medical (7) Left upper quadrant abdominal pain: Code(s): R10.12 - Left upper quadrant pain Category: Medical Plan 69 year old [place]atari-speaking female followed in GI for GERD, Vitamin B12 def and fatty liver. LFTs were normal.? Abd US showed? 4.6 x 4 x 3.5 cm central periportal complex cyst or fluid collection. 07/25/20 abd MRI showed several hepatic cysts and a?nonenhancing high signal lesion gallbladder fossa 4.3 cm x 4.1 cm likely cyst or non-obstructing biloma with increased signal from protein content. No dephasing to suggest old hematoma. Pt was seen by General Surgery and advised conservative management. LUQ pain appears to be musculoskeltal - not related to eating or BMs. Pt was advised a trail of topical analgesics. 12/2021 FU abd US showed resolution of periportal complex cyst/fluid collection. Constipation improved with Linzess 145 mcg daily 05/[address] scan was negative except fatty liver, liver cysts and diverticulosis. Mild elevation of ALT likely due to fatty liver.? hepatitis serologies were negative Patient referred to [employer] to help with weight loss of (wt loss goal is 7- 10% of her body weight) and did not get called - I requested office staff to FU Her grand daughter helped her with a diet plan after getting information online. Pt has eliminating a lot of foods to see how they work and has lost 6 lbs. Taking almond milk 04/15/23 Symptoms have been worse since she ran out of refills for her GI medications - refills sent for Linzess and pantoprazole 08/19/23 Complains of nausea, vomiting and diarrhea x 6 days Had 15 soft to watery BM yesterday and no BM today Complains of chills, feeling tired and denies fever. Pt advised to take ondansetron and drink ORS, start taking a BRAT diet and sports beverages today. She was advised to go to the ER if symptoms do not improve with the next 24 hours. 02/03/24 Colonoscopy results reviewed with the patient. Continues to have abdominal pain and acid reflux Has good days and bad days Takes medications to help her sleep and feels better the next day Pt was advised to increase pantoprazole to 40 mg twice daily. 04/27/24 Strong acid reflux after whatever she eats - strong reflux start 1 hour after dinner. Taking Pantoprazole 40 mg twice a day - for a long time Takes Carafate prn which helps intermittently. Intermittent constipation and has a BM only after she takes medication for constipation. Takes Linzess on alternate days - takes it daily when she has severe constipation and advised to take it daily Stop Pantoprazole and take Lansoprazole 30 mg twice a day. 08/15/24 she is much better with the medication for abdominal pain, bloating and the constipation. Medications are helping with gas Intermittent coughing spells at night - denies PND and attributes to a dry throat. Takes [place] Cough drops and cough resolves Feels hungry all the time FU in 4?months - GERD, fatty liver, obesity and constipation Coding Level of Care Code Est Pt Level 4 (50413) Diagnoses Gastroesophageal reflux disease, unspecified whether esophagitis present K21.9 Esophagitis presence: esophagitis presence not specified NAFL (nonalcoholic fatty liver) K76.0 History of colon polyps Z86.010 Chronic constipation K59.09 Chronic LUQ pain R10.12; G89.29 Elevated LFTs R79.89 Left upper quadrant abdominal pain R10.12 Time Spent (min) 19
[2024-08-15 11:38] VITALS: BP 131/68; PULSE 73; O2SAT 96; BMI 35.6
== END 2024-08-15 12:57 | disposition home or self-care (01) ==
PROVIDERS: PCP Internal Medicine; Visit Provider Internal Medicine Gastroenterology
DX: K21.9 Gastro-esophageal reflux disease without esophagitis (principal); K76.0 Fatty (change of) liver, not elsewhere classified; Z86.0100 Personal history of colon polyps, unspecified; K59.09 Other constipation; R10.12 Left upper quadrant pain; G89.29 Other chronic pain; R79.89 Other specified abnormal findings of blood chemistry
CPT/HCPCS: 99499

== ENCOUNTER → 2024-08-15 11:28 | Outpatient (BNVA) | payer OTHER, SELFPAY | PROVIDERS: PCP Internal Medicine; Visit Provider Internal Medicine Gastroenterology ==

== ENCOUNTER 2024-08-31 08:28 | Outpatient (AMB) | payer MEDICARE, SELFPAY ==
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
[2024-08-31 08:32] VITALS: BP 120/60; PULSE 52; O2SAT 98; BMI 36.1
== END 2024-08-31 09:39 | disposition home or self-care (01) ==
LOC: HO.HSMS 08:28
PROVIDERS: PCP Internal Medicine; Visit Provider Nurse Practitioner Family
DX: R41.89 Other symptoms and signs involving cognitive functions and awareness (principal); F41.9 Anxiety disorder, unspecified; F51.04 Psychophysiologic insomnia; Z81.8 Family history of other mental and behavioral disorders
CPT/HCPCS: 99214

== ENCOUNTER → 2024-08-31 08:28 | Outpatient (BNVA) | payer MEDICARE, SELFPAY | PROVIDERS: PCP Internal Medicine; Visit Provider Nurse Practitioner Family | DX: F41.9 Anxiety disorder, unspecified (principal); F51.04 Psychophysiologic insomnia; R41.89 Other symptoms and signs involving cognitive functions and awareness; D64.9 Anemia, unspecified; E53.8 Deficiency of other specified B group vitamins; E55.9 Vitamin D deficiency, unspecified; Z81.8 Family history of other mental and behavioral disorders | CPT/HCPCS: 99212 ==

== ENCOUNTER 2024-09-21 15:54 | Outpatient (AMB) | payer MEDICARE, SELFPAY ==
--- NOTE | 2024-09-21 15:59 | A.OFFVIS_ITS ---
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: No Accompanied by: Daughter Allergies No Known Allergies Allergy (Verified 09/21/24 16:20) Medication List - Last Reconciled 09/21/24 by Rosaura Hunt MD bupropion HCl XL 150 mg PO Q OTHER DAY 90 days calcium carbonate-vitamin D3 600 mg-62.5 mcg (2,500 unit) 2 caps PO DAILY 90 days celecoxib (Celebrex) 200 mg PO BID 90 days cholecalciferol (vitamin D3) 50 mcg PO DAILY cyanocobalamin (vitamin B-12) (Vitamin B-12) 1,000 mcg PO DAILY denosumab (Prolia) 60 mg subcut [id number] 12 months diclofenac sodium 1% (Arthritis Pain (diclofenac)) 2 grams topical QID escitalopram oxalate (Lexapro) 40 mg PO DAILY estradiol 0.01%(0.1mg/gram) vaginally daily; pea sized amount to urethra 3 times a week 30 days folic acid 1 mg PO DAILY 90 days hydroxyzine HCl 10 mg PO TID lansoprazole 30 mg PO BID 90 days linaclotide (Linzess) 145 mcg PO QAM 90 days memantine 7 mg PO DAILY 30 days mirabegron ER (Myrbetriq) 25 mg PO DAILY pantoprazole 40 mg PO BID 90 days pregabalin (Lyrica) 300 mg (4 x 75 mg) PO QDAY 90 days quetiapine 50 mg PO BEDTIME simethicone (Gas Relief (simethicone)) 125 mg PO BID-QID PRN 30 days trazodone 50 mg PO BEDTIME zolpidem 10 mg PO BEDTIME HPI HPI Comments History of Present Illness Details The patient is a 69-year-old female presenting for a Medicare annual wellness exam. During the visit, the patient's health conditions and disease management were reviewed. She has a history of osteoporosis, which was diagnosed via densitometry performed last year. Treatment for osteoporosis includes Prolia injections every six months, with the next dose due in 2025. The patient has not reported any fractures since the diagnosis. The patient also suffers from major depressive disorder, managed with bupropion and escitalopram, with a current PHQ-9 score of 19, indicating moderate to severe depression. She is also on hydroxyzine, which may be contributing to anxiolytic therapy. PPP handed to patient. [place] of care updated. Patient was too sleepy and not able to do mini mental. The patient experiences symptoms of insomnia, despite taking trazodone and zolpidem. Her family reports she does not sleep well, which has persisted without any self-reported suicidal ideation. Additionally, the patient has dementia for which she is administered memantine, but further details of cognitive function were limited during the visit. Fibromyalgia is another chronic condition for which she is prescribed pregabalin (Lyrica). Gastroesophageal reflux disease is treated with lansoprazole and pantoprazole, and the patient follows up regularly with her humid system operator. Hypercalcemia was noted, necessitating hematology-oncology evaluation, and is currently managed by specialists due to elevated proteins. Cancer is prevalent in her family history, with both parents having succumbed to cancer; the father from esophageal cancer and the mother from another unspecified type. - Completed mammography last year with c urrent yearly schedule. - Osteoporosis diagnosed last year; cont inues Prolia injections every six months. - Last colonoscopy was completed in 2023 . - Pneumonia vaccination status is up-to- date. - Sufficient intake of calcium and vitam in D supplements. FORMERLY [facility] Medical History (Updated 09/22/24 @ 15:08 by Rosaura Hunt MD) Polyarticular osteoarthritis Monoclonal gammopathy Encounter for monitoring denosumab therapy Back pain Anemia Urinary problem Multiple sclerosis Hematuria Mild recurrent major depression Fibromyalgia Right knee pain Left leg pain Cervical cancer screening Hematuria Urge incontinence of urine Memory loss Class 1 obesity without serious comorbidity with body mass index (BMI) of 34.0 t o 34.9 in adult Cough Insomnia UTI (urinary tract infection) B12 deficiency Microscopic hematuria Leukopenia Liver cyst Hemorrhoids Diverticulosis Anxiety GERD (gastroesophageal reflux disease) Medicare annual wellness visit, initial Otitis media Urinary tract infection Surgical History History of excision of lesion (12/13/23) H/O section H/O: hysterectomy History of endoscopy History of colonoscopy History of cholecystectomy Family History (Updated 09/21/24 @ 16:27 by Rosaura Hunt MD) Mother Lung cancer Father Cancer of esophagus Sister No problems noted. Other Arthritis Social History Household Members: Family Household Members Other:: grandchildren Housing: House Housing Other:: lives with daughter and 2 grandkids Are you a primary doggy daycare activities director to a significant other at home: No Do you presently have visiting nurse or other home services: No Alcohol intake: former Patient Tobacco Use Status: Never used Tobacco e-Cigarette/Vaping Use: Never Used Second Hand Smoke Exposure: No service: No Current occupational status: unemployed Cognitive needs: No Hearing needs: No Vision needs: No Questionnaire Medicare Wellness Checkup What [age] What gender do you identify with?: female During the past 4 weeks, how much have you been bothered by emotional problems such as feeling anxious, depressed, irritable, sad or downhearted, and blue?: slightly During the past 4 weeks, has your physical & emotional health limited your social activities with family, friends, neighbors, or groups?: extremely During the past 4 weeks, how much bodily pain have you generally had?: severe pain During the past 4 weeks, was someone available to help you if you needed & wanted help?: yes, as much as I wanted Can you get to places out of walking distance without help? (For eg., can you travel alone on buses, taxis or drive your car?): No Can you go shopping for groceries or clothes without someone's help?: No Can you prepare your own meals?: No Can you do your housework without help?: No Because of any health problems, do you need the help of another person with your personal care needs such as eating, bathing, dressing or getting around the house?: Yes Can you handle your own money without help?: No During the past 4 weeks, how would you rate your health in general?: fair During the past 4 weeks how have things been going for you?: good & bad parts about equal Are you having difficulties driving your car?: not applicable, I don't use a car Do you always fasten your seat belt when you are in a car?: yes, usually During past 4 weeks, have you been bothered by the following: never: Sexual problems? and Teeth or denture problems?, sometimes: Falling or dizzy when standing up and Trouble eating well? and often: Problems using the telephone? and Tiredness or fatigue? Have you fallen 2 or more times in the past year?: Yes Are you afraid of falling?: Yes Are you a smoker?: no During the past 4 weeks, how many drinks of wine, beer, or other alcoholic beverages did you have?: no alcohol at all Do you exercise for about 20 minutes 3 or more times a week?: no, I usually do not exercise this much Have you been given information to help with the following?: no: Hazards in your house that might hurt you? and no: Keeping track of your medications? How often do you have trouble taking medicines the way you have been told to take them?: I always take medicine as prescribed How confident are you that you can control & manage most of your health problems?: not very confident What is your race?: or origin or descent Activity of Daily Living Bathing - sponge bath, tub bath or shower: receives help in bathing more than one body part (or not bathed) Dressing - getting clothes from closets & drawers, including inner/outer garments & fasteners.: gets clothes & gets dressed without help, except for help tying shoes Toileting - going to the 'toilet room' for urine/bowel elimination & cleaning self/arranging clothes: goes to toilet room, cleans self, arranges clothes without help Transfer: moves in & out of bed and chair without help (may use support object) Continence: controls urination/bowel movements completely by self Feeding: feeds self without help Total Score: 1 Information obtained from: informant Using telephone: dependent Traveling: dependent Shopping: dependent Preparing meals: dependent Housework: dependent Taking medicine: dependent Managing money: dependent PHQ-9 Over the last 2 weeks, how often have you been bothered by any of the following problems? 1. Little interest or pleasure in doing things: nearly every day 2. Feeling down, depressed, or hopeless: several days 3. Trouble falling or staying asleep, or sleeping too much: nearly every day 4. Feeling tired or having little energy: more than half the days 5. Poor appetite or overeating: nearly every day 6. Feeling bad about yourself - or that you are a failure or have let yourself or your family down: several days 7. Trouble concentrating on things, such as reading the newspaper or watching television: nearly every day 8. Moving or speaking so slowly that other people could have noticed. Or the opposite - being so fidgety or restless that you have been moving around a lot more than usual: nearly every day 9. Thoughts that you would be better off or of hurting yourself in some way: not at all Total score: 19 Depression Screening Interpretation: Positive (no suicidal thoughts) Depression Screening Follow-up: Existing condition, In treatment, Community Mental Health Worker F/U and Follow-up Visit Requested Depression Screening Done: Yes 28290 - PHQ-9 Billing: Yes Source: Developed by Drs. Erasto Mars, Vandana Cervantes, Henry Powers and colleagues, with an educational chadd from [employer]. Fall Risk Assessment Fall Risk Assessment Fall risk assessment: 1 Fall in past year AUDIT C Alcohol Use Questionnaire (AUDIT-C) 1. How often do you have a drink containing alcohol?: Never Total Score: 0 Score Reviewed/Action Taken: No TOYA-7 AMB Questionnaire TOYA-7 Date TOYA - 7 assessed: 09/21/24 Feeling nervous, anxious, or on edge: 2 = More than half the days Not being able to stop or control worryin = Not at all Worrying too much about different things: 0 = Not at all Trouble relaxin = Several days Being so restless that it is hard to sit still: 0 = Not at all Becoming easily annoyed or irritable: 2 = More than half the days Feeling afraid as if something awful might happen: 0 = Not at all Total TOYA-7 score (0-4 normal; 5-9 mild; 10-14 moderate; 15-21 severe): 5 Source: Developed by Drs. Erasto Mars, Vandana Cervantes, Henry Powers and colleagues, with an educational chadd from [employer]. TOYA-7 Assessment Billing TOYA-7 Assessment Tool: TOYA-7 Assessment 40005 Thrive Questionnaire Date Thrive assessed: 06/26/24 Review of Systems Const All systems reviewed & are unremarkable except as noted in HPI and below Card Denies chest pain at rest, Denies chest pain with activity, Denies edema, Denies irregular heart rhythm, Denies claudication, Denies dyspnea, Denies dyspnea on exertion, Denies orthopnea, Denies paroxysmal nocturnal dyspnea and Denies slow heart rate Resp Denies cough, Denies dyspnea and Denies dyspnea on exertion GI Denies abdominal pain, Denies change in bowel habits, Denies excessive flatus, Denies nausea and Denies vomiting Denies urinary incontinence, Denies urinary hesitancy and Denies urinary urgency Musc Denies atrophy, Denies deformity and Denies limited range of motion Skin/Breast Denies bleeding lesions, Denies changing lesions and Denies rash Neuro Reports confusion and Reports memory loss Psych Reports confusion and Reports memory loss Physical Exam Vital Signs: Last Vital Signs BP 130/86 09/21/24 16:00 BMI result Body Mass Index 36.1 Const General: confusion Orientation/consciousness: confusion Resp Effort & Inspection: normal respiratory effort Auscultation: clear to auscultation bilaterally Cardio Jugular venous distension: no JVD Rate: regular rate Rhythm: regular rhythm Heart sounds: S1 normal heart sound present and S2 normal heart sound present Neuro General: gait normal and confusion Romberg Test: Negative Extrem General: Yes full ROM Assessment & Plan Assessment & Plan (1) Encounter for Medicare annual wellness exam: Code(s): Z00.00 - Encounter for general adult medical examination without abnormal findings (2) Severe major depression: Code(s): F32.2 - Major depressive disorder, single episode, severe without psychotic features Plan Management of depression will continue with her current medication while monitoring via future PHQ-9 screenings to assess new or escalating symptoms. The insomnia regimen to be reconsidered with further psychiatric input. Regular follow-up with gastroenterology and hematology/oncology specialists is advised for her GERD and hypercalcemia, respectively. Continuous support from the neurologist regarding dementia is encouraged.: Patient was informed and verbally consented to the use of an ambient scribe for clinic note documentation during this visit. I discussed the chronic condition management plan with the patient, focusing on osteoporosis with the continuation of Prolia and regular follow-ups for her depression and insomnia treatments. The importance of monitoring mental health closely was emphasized, particularly considering the PHQ-9 score. Existing therapies for GERD and hypercalcemia were reviewed, with regular follow-up with appropriate specialists reinforced. It was recommended that her dementia management and cognitive status be periodically reassessed with her neurologist. I also discussed recommendations for wellness maintenance, with her being up-to-date on colonoscopy and pneumococcal vaccination. Orders: Orders Vitamin D 25-OH Total 09/21/24 E55.9 - Vitamin D deficiency, unspecified Lipid Panel 09/21/24 E78.5 - Hyperlipidemia, unspecified Vitamin B12 and Folate 09/21/24 E53.8 - Deficiency of other specified B group vitamins Comprehensive [place]. Panel Fast 09/21/24 F32.A - Depression, unspecified, F41.9 - Anxiety disorder, unspecified Complete Blood Count Auto Diff 09/21/24 D64.9 - Anemia, unspecified IRON PROFILE 09/21/24 D64.9 - Anemia, unspecified Patient Instructions: - Continue current medication regimen including Prolia, escitalopram, and bupropion. - Monitor mood and report any worsening symptoms of depression to healthcare provider. - Maintain regular appointments with specialists for GERD, hypercalcemia, and dementia. - Return for lab work this month for comprehensive health monitoring. - Report any changes in insomnia patterns or sleep quality. - Ensure adequate support with daily living activities as needed. Quality Reporting (2019) Fall Risk Screening ([facility] 139) Fall risk assessment: 1 Fall in past year Depression/Bipolar (159/160/161/177) PHQ-9: Total score: 19 Coding Level of Care Code Medicare Subsequent (G0439) Diagnoses Encounter for Medicare annual wellness exam Z00.00 Severe major depression F32.2 CPT Codes Advance Care Planning - Advance Care Planning discussion: On file, no changes ([id number]) Additional Codes TOYA-7 Assessment Billing - TOYA-7 Assessment Tool: TOYA-7 Assessment 81241 ([id number]) PHQ-9 - 27519 - PHQ-9 Billing: Yes ([id number]) Time Spent (min) 35 Advance Care Planning Advance Care Planning discussion: On file, no changes Date of discussion: 09/22/24 Who was present: patient, daughter and me Forms completed: Health Care Proxy
[2024-09-21 16:00] VITALS: BP 130/86; BMI 36.1
== END 2024-09-21 16:37 | disposition home or self-care (01) ==
LOC: HO.HMCH 15:55
PROVIDERS: PCP Internal Medicine; Visit Provider Internal Medicine
DX: Z00.00 Encounter for general adult medical examination without abnormal findings (principal); F32.2 Major depressive disorder, single episode, severe without psychotic features

== ENCOUNTER → 2024-09-21 15:54 | Outpatient (BNVA) | payer MEDICARE, SELFPAY | PROVIDERS: PCP Internal Medicine; Visit Provider Internal Medicine | DX: Z00.00 Encounter for general adult medical examination without abnormal findings (principal); M79.7 Fibromyalgia; K21.9 Gastro-esophageal reflux disease without esophagitis; E55.9 Vitamin D deficiency, unspecified; E78.5 Hyperlipidemia, unspecified; E53.8 Deficiency of other specified B group vitamins; F32.2 Major depressive disorder, single episode, severe without psychotic features; F41.9 Anxiety disorder, unspecified; D64.9 Anemia, unspecified; Z79.899 Other long term (current) drug therapy | CPT/HCPCS: 96127 ==

== ENCOUNTER 2024-10-24 14:19 | Outpatient (AMB) | payer OTHER, SELFPAY ==
--- NOTE | 2024-10-24 14:28 | MHC.OFFVIS ---
Intake Visit Reasons: Followup/CT(set) Intake Note: Patient is present for follow up/CT Imaging 07/08 Urology Medications: estradiol cream Blood Thinner: none Snuff Container Inspector Required: Yes Snuff Container Inspector Services: Snuff Container Inspector Present Snuff Container Inspector Name: Ismael [email or web address] Accompanied by: Unknown Allergies No Known Allergies Allergy (Verified 10/24/24 20:50) Medication List - Last Reconciled 10/24/24 by YASHIRA GodwinP- bupropion HCl XL 150 mg PO Q OTHER DAY 90 days calcium carbonate-vitamin D3 600 mg-62.5 mcg (2,500 unit) 2 caps PO DAILY 90 days celecoxib (Celebrex) 200 mg PO BID 90 days cholecalciferol (vitamin D3) 50 mcg PO DAILY cyanocobalamin (vitamin B-12) (Vitamin B-12) 1,000 mcg PO DAILY denosumab (Prolia) 60 mg subcut [id number] 12 months diclofenac sodium 1% (Arthritis Pain (diclofenac)) 2 grams topical QID escitalopram oxalate (Lexapro) 40 mg PO DAILY estradiol 0.01%(0.1mg/gram) vaginally daily; pea sized amount to urethra 3 times a week 30 days folic acid 1 mg PO DAILY 90 days hydroxyzine HCl 10 mg PO TID lansoprazole 30 mg PO BID linaclotide (Linzess) 145 mcg PO QAM 90 days memantine 7 mg PO DAILY 30 days mirabegron ER (Myrbetriq) 25 mg PO DAILY pantoprazole 40 mg PO BID 90 days pregabalin (Lyrica) 300 mg (4 x 75 mg) PO QDAY 90 days quetiapine 50 mg PO BEDTIME simethicone (Gas Relief (simethicone)) 125 mg PO BID-QID PRN 30 days tranexamic acid 650 mg PO DAILY 30 days trazodone 50 mg PO BEDTIME zolpidem 10 mg PO BEDTIME HPI Comments Details: Florencia is a plesant 69 year old female patient of Dr. Gomez who is accompanied by her daughter at today's office visit. She has a past medical history of fibromyalgia, urge incontinence of urine, memory loss, overactive bladder, insomnia, urinary tract infections, microscopic hematuria, leukopenia, liver cysts, hemorrhoids, diverticulosis, anxiety, GERD, and obesity. She presents to the office today for follow-up of her lower urinary tract symptoms, recurrent urinary tract infections, flank pain. In discussion with the patient today she reports feeling lower urinary tract symptoms have improved with compliance and Estrace cream. She does continue to report intermittent episodes of dysuria however feels they are more infrequent than previously. She does continue to report intermittent episodes of bilateral flank pain left side greater than right. However, no CVA tenderness noted bilaterally on exam today. Recent CT urogram results were reviewed with the patient and her daughter today. 07/08 no stones or hydronephrosis. Nonspecific fullness in the right ureter compared to the left from ureteropelvic junction to the ureterovesical junction. No obstructing lesion or filling defect is evident. Indeterminate 11 mm hypodensity mid pole of the left kidney. Concerning 18 mm obscured biliary hyperdensity inferior right hepatic lobe of the liver. She reports she follows up with Gastroenterology regarding liver lesion/cyst. Patient had previously trialed Myrbetriq however this has been discontinued as she felt this was causing her incomplete bladder emptying. In office urinalysis results reviewed with the patient today microscopic hematuria noted. Previous urine cytologies: 03/04, 10/04, 05/06, and 03/07 Negative for high grade urothelial carcinoma Previous workup has also included a retroperitoneal ultrasound 12/04 noting right kidney with no calculi, lesions, and or hydronephrosis noted. Left kidney with a small cyst in the midpole otherwise no calculi or hydronephrosis noted. The bladder is well distended with no stones or masses. Bilateral ureteral jets are demonstrated. Prevoid bladder volume is 263 mL. Postvoid bladder volume is 120 mL. In office cystoscopy 06/05 noted no suspicious bladder lesions or growths noted. Bladder appears normal and no inflammation noted. Patient also with a pervious microscopic hematuria workup [place] [address] Cote that was negative. When asked she denies urinary urgency, urinary frequency, nocturia, dysuria, foul smelling urine, fever, and or chills. She otherwise offers no concerns or complaints. [facility] Medical History Polyarticular osteoarthritis Monoclonal gammopathy Encounter for monitoring denosumab therapy Back pain Anemia Urinary problem Multiple sclerosis Hematuria Mild recurrent major depression Fibromyalgia Right knee pain Left leg pain Cervical cancer screening Hematuria Urge incontinence of urine Memory loss Class 1 obesity without serious comorbidity with body mass index (BMI) of 34.0 to 34.9 in adult Cough Insomnia UTI (urinary tract infection) B12 deficiency Microscopic hematuria Leukopenia Liver cyst Hemorrhoids Diverticulosis Anxiety GERD (gastroesophageal reflux disease) Medicare annual wellness visit, initial Otitis media Urinary tract infection Surgical History History of excision of lesion (12/13/23) H/O section H/O: hysterectomy History of endoscopy History of colonoscopy History of cholecystectomy Family History Mother Lung cancer Father Cancer of esophagus Sister No problems noted. Other Arthritis Social History Household Members: Family Household Members Other:: grandchildren Housing: House Housing Other:: lives with daughter and 2 grandkids Are you a primary client care coordinator to a significant other at home: No Do you presently have visiting nurse or other home services: No Alcohol intake: former Patient Tobacco Use Status: Never used Tobacco e-Cigarette/Vaping Use: Never Used Second Hand Smoke Exposure: No service: No Current occupational status: unemployed Cognitive needs: No Hearing needs: No Vision needs: No Review of Systems Const Reports as per HPI Eyes Reports no additional complaints ENT Reports no additional complaints Card Reports as per HPI Resp Reports no additional complaints GI Reports as per HPI Reports as per HPI Musc Reports as per HPI Neuro Reports as per HPI Psych Reports as per HPI Teofilo/Lymph Reports no additional complaints Aller/Immun Reports no additional complaints Physical Exam Const General: cooperative, healthy appearing, comfortable, no acute distress, well developed, alert and awake Nutritional Appearance: overweight Orientation/consciousness: patient oriented x3 Limitations: language barrier HEENT Head: Yes normal to inspection, Yes normocephalic and Yes atraumatic Ears: hearing grossly normal bilaterally Eyes General: appearance normal, both eyes and all related structures Neck Neck: Yes normal visual inspection and Yes trachea midline Chest Chest palpation & inspection: normal inspection of the chest Resp Effort & Inspection: normal respiratory effort and able to speak in complete sentences Cardio Rate: regular rate GI Inspection: Yes normal to inspection General: Yes no CVA tenderness External Female Exam: normal external appearance and normal appearance of the urethra Back/Spine/Pelvis Back: no CVA tenderness Skin General skin exam: no rashes or lesions noted Neuro General: patient oriented x3 Extrem General: Yes normal to inspection Psych Appearance: grossly normal and well kempt Mental Status: mental status grossly normal Speech and movement: Normal speech and movement present and Clear speech present Affect: normal affect Attitude: cooperative Thought process: Normal thought process present Thought content: Normal thought content present Insight: Fair insight present (Psych) Judgement: Fair judgement present (Psych) Results AMB Urinalysis, Automated UA Leukoctes 125 Ara/uL Last Edit by Lo Harmon on 10/24/24 14:50 UA Nitrite Negative Last Edit by Lo Harmon on 10/24/24 14:50 UA Urobilinogen 0.2 mg/dL Last Edit by Lo Harmon on 10/24/24 14:50 UA Protein 0 mg/dL Last Edit by Lo Harmon on 10/24/24 14:50 UA pH 5.5 Last Edit by Lo Harmon on 10/24/24 14:50 UA Blood 80 Deo/uL Last Edit by Lo Harmon on 10/24/24 14:50 UA Specific [place] 1.025 Last Edit by Lo Harmon on 10/24/24 14:50 UA Ketone Negative Last Edit by Lo Harmon on 10/24/24 14:50 UA Bilirubin 0 mg/dL Last Edit by Lo Harmon on 10/24/24 14:50 UA Glucose 0 mg/dL Last Edit by Lo Harmon on 10/24/24 14:50 Results Reviewed Results Reviewed: Laboratory Last Values Urine pH (Auto) 5.5 10/24/24 14:23 Specific [place] (Auto) 1.025 10/24/24 14:23 Urine Protein (Auto) 0 mg/dL 10/24/24 14:23 Glucose (UA)(Auto) 0 mg/dL 10/24/24 14:23 Urine Ketones (Auto) Negative 10/24/24 14:23 Urine Blood (Auto) 80 Deo/uL 10/24/24 14:23 Urine Nitrite (Auto) Negative 10/24/24 14:23 Urine Bilirubin (Auto) 0 mg/dL 10/24/24 14:23 Urine Urobilinogen (Auto) 0.2 mg/dL 10/24/24 14:23 Leukocyte Esterase (Auto) 125 Ara/uL 10/24/24 14:23 Date of Service: 07/04/24 Procedure(s): CT urogram Findings: UROLOGICAL FINDINGS: No nephrolithiasis on either side. Mild fullness of the right ureter from ureteropelvic junction to ureterovesicular junction without appreciable stone. No filling defects evident on delayed phase acquisition. May relate to recent stone passage. Subtle lesion at the ureterovesicular junction can not be excluded. No filling defect within the bladder. The opacified left ureter is unremarkable. Indeterminate 11 mm hypodensity midpole left kidney with density measurement greater than that of a simple cyst on postcontrast images and lesion not appreciable on precontrast images. Otherwise intact renal contour bilaterally. NON UROLOGICAL FINDINGS: Multifocal atelectatic lower lung changes. No consolidation or pleural effusion. Normal heart size. No pericardial effusion. Prominent elevation /eventration right hemidiaphragm. Several liver cysts. Slightly nodular liver contour concerning for cirrhosis. Indeterminate 11 x 18 x 18 mm subcapsular hypodensity segment V for which a small hepatocellular lesion should be excluded. Correlative AFP suggested as well as follow-up dedicated liver protocol CT. Lesion in the midpole of the left kidney could be reassessed at follow-up pre and postcontrast MRI. Cholecystectomy. No biliary dilatation. Pancreas, spleen, adrenals intact. No bowel obstruction. Incidental duodenal diverticula. Colonic diverticulosis, extensive distally without objective features of acute diverticulitis. Normal appendix. Prior hysterectomy. Normal caliber aorta. No stenosis or dissection. No high-grade stenosis of the renal arteries, celiac trunk or SMA. Patent RIIR. Patent hepatic veins, IVC and portal vein. No pathologic adenopathy. No acute or aggressive appearing bone lesion. Soft tissues intact. Impression: No stones or hydronephrosis. Nonspecific fullness of the right ureter compared to the left from ureteropelvic junction to ureterovesicular junction. No obstructing lesion or filling defect evident. Urological consultation and retrograde examination suggested. Indeterminate 11 mm hypodensity midpole left kidney. Concerning 18 mm subcapsular hypodensity inferior right hepatic lobe, liver segment V. Follow-up dedicated liver protocol MRI without and with contrast suggested. Left renal lesion can be reassessed at follow-up imaging. Assessment & Plan Assessment & Plan (1) Flank pain: Code(s): R10.9 - Unspecified abdominal pain Category: Medical (2) Sensation of pressure in bladder area: Code(s): R39.89 - Other symptoms and signs involving the genitourinary system Category: Medical (3) Renal cyst: Code(s): N28.1 - Cyst of kidney, acquired Category: Medical (4) Overactive bladder: Code(s): N32.81 - Overactive bladder Category: Medical (5) Microscopic hematuria: Code(s): R31.29 - Other microscopic hematuria Category: Medical Plan In office urinalysis results reviewed with the patient today; as noted above; will send for urine cytology. We discussed potential causes of microscopic hematuria. Recent CT results were reviewed with the patient and her daughter today; as noted above. We discuss trial of tranexamic acid daily for 1 month for potential loin pain hematuria syndrome; this was reviewed with Dr. Cote. Previous urine cytology results were reviewed with the patient today; as noted above. Continue Estrace cream as discussed and prescribed. We discussed potential near future repeat in office cystoscopy for further assessment evaluation. We discussed potential causes of intermittent episodes of flank pain as well as bladder pressure. Discussed, educated, and stressed the importance of adequate hydration relation to urological health as well as overall health and well-being. Continue to follow-up with Gastroenterology regarding liver findings on recent CT Follow-up in 1 month with [facility]; or sooner with any issues, concerns, and or questions. Orders: Orders AMB Urinalysis Automated Today Z13.9 - Encounter for screening, unspecified Medications: New tranexamic acid 650 mg PO DAILY 30 days 30 tabs 0RF N30.01 - Acute cystitis with hematuria Patient Instructions: The patient had an opportunity to ask questions regarding the treatment plan. All questions were answered. Physical exam, labs, and imaging were discussed and reviewed in detail. As well as risks, benefits, and discussion of treatment choices. No major barriers to understanding were identified. The patient expressed understanding and agreement with the above treatment plan. The patient was made aware they should contact our office by phone for worsening of their current condition, the appearance of new symptoms, or with any questions or concerns. Compliance is encouraged with any medications and follow up testing that is ordered. It is a privilege to be allowed the opportunity to participate in? your urological care.? Again, if you have any questions or concerns If you have any questions or concerns please do not hesitate to contact me. The office is [phone]. This note is constructed using voice recognition software. While every effort has been made to ensure accuracy paralegal assistant errors may have been included. Yours sincerely, JESUS Godwin-ASHLEY Coding Level of Care Code Est Pt Level 4 (05243) Complex EM visit Add On G2211 Diagnoses Flank pain R10.9 Sensation of pressure in bladder area R39.89 Renal cyst N28.1 Overactive bladder N32.81 Microscopic hematuria R31.29
== END 2024-10-24 15:13 | disposition home or self-care (01) ==
LOC: HO.HUSH 14:20
PROVIDERS: PCP Internal Medicine; Visit Provider Nurse Practitioner Family
DX: R10.9 Unspecified abdominal pain (principal); R39.89 Other symptoms and signs involving the genitourinary system; N28.1 Cyst of kidney, acquired; N32.81 Overactive bladder; R31.29 Other microscopic hematuria; Z13.9 Encounter for screening, unspecified
CPT/HCPCS: 99214; G2211

== ENCOUNTER → 2024-10-24 14:19 | Outpatient (BNVA) | payer OTHER, SELFPAY | PROVIDERS: PCP Internal Medicine; Visit Provider Nurse Practitioner Family | DX: R31.29 Other microscopic hematuria (principal); R10.9 Unspecified abdominal pain; R39.89 Other symptoms and signs involving the genitourinary system; N28.1 Cyst of kidney, acquired; N32.81 Overactive bladder | CPT/HCPCS: 81003 ==

== ENCOUNTER 2024-11-10 10:08 | Outpatient (REF) | payer OTHER, SELFPAY ==
[2024-11-10 10:36] LABS: MANUAL DIFF FLAG NO
[2024-11-10 11:19] LABS: Basophils Percent Auto 0.7 % (0-2); Eosinophils Absolute Auto 0.1 X10*3/uL (0.0-0.4); Eosinophils Percent Auto 1.2 % (0-4); Hematocrit 43.1 % (37.0-47.0); Imm Gran Abs Auto 0.01 X10*3/uL (0.00-0.03); Imm Gran Pct Auto 0.2 % (0.0-0.4); Lymphocytes Absolute Auto 1.8 X10*3/uL (1.2-4.9); Lymphocytes Percent Auto 42.6 % (20-40); Mean Corpuscular HGB Conc 32.5 g/dl (31.0-35.0); Mean Corpuscular Hemoglobin 27.6 pg (27.0-33.0); Mean Platelet Volume 9.9 fL (9.4-12.3); Monocytes Absolute Auto 0.3 X10*3/uL (0.1-1.2); Monocytes Percent Auto 6.9 % (2-11); Neutrophils Percent Auto 48.4 % (45-73); Platelet Count 255 X10*3/uL (160-400); Red Blood Count 5.07 X10*6/uL (4.20-5.50); Red Cell Distribution Width 14.6 % (11.0-16.0); White Blood Count 4.2 X10*3/uL (4.8-10.8)
[2024-11-10 12:53] LABS: Alanine Aminotransferase 34 U/L (0-31); Albumin Level 4.2 g/dL (3.5-5.0); Alkaline Phosphatase 53 U/L (39-117); Anion Gap 10 (12-20); Aspartate Amino Transferase 29 U/L (5-31); Bilirubin Total 0.9 mg/dL (0.0-1.0); Blood Urea Nitrogen 14 mg/dL (9-16); Carbon Dioxide 27 mmol/L (22-29); Chloride 108 mmol/L (96-108); Cholesterol 181 mg/dL (<200); Estimated Glomerular Filt Rate > 60; Glucose Fasting 89 mg/dL (60-99); Glucose Random 89 mg/dL (60-115); HDL Cholesterol 45 mg/dL (>40); Iron 138 mcg/dL (30-160); LDL Cholesterol Calculated 115 mg/dL (<100); Percent Iron Saturation 45 % (15-50); Potassium 3.9 mmol/L (3.3-5.1); Sodium 141 mmol/L (135-145); Total Iron Binding Capacity 307 mcg/dL (228-428); Total Protein 7.5 g/dL (6.5-8.0); Triglycerides 108 mg/dL (<150); Unsaturated Iron Binding 169 ug/dL
[2024-11-10 13:00] LABS: Vitamin B12 587 pg/mL (200-900)
[2024-11-14 13:19] LABS: Vitamin D 25-OH, D2 <4 ng/mL; Vitamin D 25-OH, D3 24 ng/mL; Vitamin D 25-OH, D3 26 ng/mL; Vitamin D 25-OH, Total 24 ng/mL (30-100); Vitamin D 25-OH, Total 26 ng/mL (30-100)
[2024-11-15 06:24] LABS: Vitamin B1 8 nmol/L (8-30)
== END 2024-11-10 10:09 | disposition home or self-care (01) ==
LOC: HO.LAB 10:08
PROVIDERS: Nurse Practitioner Family; Absent Provider Student in an Organized Health Care Education/Training Program; PCP Internal Medicine; Visit Provider Internal Medicine
DX: M81.0 Age-related osteoporosis without current pathological fracture (principal); E55.9 Vitamin D deficiency, unspecified; F41.9 Anxiety disorder, unspecified; F32.A Depression, unspecified; R41.89 Other symptoms and signs involving cognitive functions and awareness; R79.89 Other specified abnormal findings of blood chemistry; E53.8 Deficiency of other specified B group vitamins; E78.5 Hyperlipidemia, unspecified; K21.9 Gastro-esophageal reflux disease without esophagitis
CPT/HCPCS: 36415; 80053; 80061; 82306; 82607; 82746; 83540; 84207; 84425; 85025

== ENCOUNTER 2024-11-17 09:07 | Outpatient (AMB) | payer OTHER, SELFPAY ==
[2024-11-17 09:11] VITALS: BP 128/74; PULSE 63; O2SAT 95; BMI 35.8
--- NOTE | 2024-11-17 09:11 | MHC.OFFVIS ---
Vital Signs 11/17/24 09:11 Height 5 ft 3 in Weight 201 lb 15.095 oz BMI 35.8 BP 128/74 Blood Pressure Location Lt brachial Position Sitting Pulse 63 Pulse Source Pulse Oximeter Pulse Oximetry (%) 95 Oxygen Delivery Method Room Air Intake Visit Reasons: prolia injection Intake Note: Patient presents for Prolia injection today. Director Of Global Sales Required: Yes Director Of Global Sales Services: Director Of Global Sales Present Director Of Global Sales Name: Cecelia mendes Information Interpreted: non-clinical only Accompanied by: Daughter Allergies No Known Allergies Allergy (Verified 11/17/24 09:14) Medication List - Last Reconciled 11/17/24 by Sarai Wood MD bupropion HCl XL 150 mg PO Q OTHER DAY 90 days calcium carbonate-vitamin D3 600 mg-62.5 mcg (2,500 unit) 2 caps PO DAILY 90 days celecoxib (Celebrex) 200 mg PO BID 90 days cholecalciferol (vitamin D3) 50 mcg PO DAILY cyanocobalamin (vitamin B-12) (Vitamin B-12) 1,000 mcg PO DAILY denosumab (Prolia) 60 mg subcut [id number] 12 months diclofenac sodium 1% (Arthritis Pain (diclofenac)) 2 grams topical QID escitalopram oxalate (Lexapro) 40 mg PO DAILY estradiol 0.01%(0.1mg/gram) vaginally daily; pea sized amount to urethra 3 times a week 30 days folic acid 1 mg PO DAILY 90 days hydroxyzine HCl 10 mg PO TID lansoprazole 30 mg PO BID linaclotide (Linzess) 145 mcg PO QAM 90 days memantine 7 mg PO DAILY 30 days mirabegron ER (Myrbetriq) 25 mg PO DAILY pantoprazole 40 mg PO BID 90 days pregabalin (Lyrica) 300 mg (4 x 75 mg) PO QDAY 90 days quetiapine 50 mg PO BEDTIME simethicone (Gas Relief (simethicone)) 125 mg PO BID-QID PRN 30 days tranexamic acid 650 mg PO DAILY 30 days trazodone 50 mg PO BEDTIME zolpidem 10 mg PO BEDTIME HPI Comments Details: Patient is a 68-year-old female with osteoarthritis, fibromyalgia who presents for follow up of osteoporosis Interval History: Last seen 05/10/24 with me. At that time she was following up for osteoporosis. She received her 1st dose of Prolia Since then she has been doing well. Tolerated her dose of Prolia Today complaining of left knee pain Celebrex is helpful Rheumatologic History: Polyarticular osteoarthritis and fibromyalgia Diagnosed with osteoporosis 09/2023 specifically involving the spine. Started on denosumab 04/2024 after alendronate was not tolerated. Risk Factor Assessment: Advanced age: 68 yrs Menarche at 15 year, Menopause at 37 years (patient states that she stopped seeing her period at that time, unsure of why. had LIZZETH BSO at 51 for cancer) Family history: Mother and sister has osteoporosis Her sister has a history of hip fracture. Denies smoking, caffeine and alcohol. High-risk medication assessment: No history of prolonged steroid use or excess thyroid hormone use Has fallen but has not had any fractures. Current Rheumatology Medication(s): Diclofenac gel Celebrex 200 mg twice a day Denosumab 60 mg every 6 months Pregabalin 300 mg everyday [facility] Medical History Polyarticular osteoarthritis Monoclonal gammopathy Encounter for monitoring denosumab therapy Back pain Anemia Urinary problem Multiple sclerosis Hematuria Mild recurrent major depression Fibromyalgia Right knee pain Left leg pain Cervical cancer screening Hematuria Urge incontinence of urine Memory loss Class 1 obesity without serious comorbidity with body mass index (BMI) of 34.0 to 34.9 in adult Cough Insomnia UTI (urinary tract infection) B12 deficiency Microscopic hematuria Leukopenia Liver cyst Hemorrhoids Diverticulosis Anxiety GERD (gastroesophageal reflux disease) Medicare annual wellness visit, initial Otitis media Urinary tract infection Surgical History History of excision of lesion (12/13/23) H/O section H/O: hysterectomy History of endoscopy History of colonoscopy History of cholecystectomy Family History Mother Lung cancer Father Cancer of esophagus Sister No problems noted. Other Arthritis Social History Household Members: Family Household Members Other:: grandchildren Housing: House Housing Other:: lives with daughter and 2 grandkids Are you a primary resident care coordinator to a significant other at home: No Do you presently have visiting nurse or other home services: No Alcohol intake: former Patient Tobacco Use Status: Never used Tobacco e-Cigarette/Vaping Use: Never Used Second Hand Smoke Exposure: No service: No Current occupational status: unemployed Cognitive needs: No Hearing needs: No Vision needs: No Review of Systems Const Details: Review of Systems Constitutional: Denies fever, chills, weight loss ENT: Denies vision changes, eye pain or eye redness, dental caries, dry mouth GI: Denies nausea, vomiting, diarrhea, abdominal pain, change in BM Pulm: Denies SOB, FARMRE, hemoptysis, wheezing Cards: Denies chest pain, palpitations Skin: Denies Raynaud's, rash, nail changes, photosensitivity, BREWING TECHNICIAN: Denies headaches, weakness, paresthesias, recurrent falls MSK: as per HPI All other systems reviewed and are unremarkable except noted above Physical Exam Vital Signs: Last Vital Signs Pulse 63 11/17/24 09:11 BP 128/74 11/17/24 09:11 Pulse Ox 95 11/17/24 09:11 Oxygen Delivery Method Room Air 11/17/24 09:11 BMI result Body Mass Index 35.8 Vital signs reviewed Physical Examination CONSTITUITIONAL Patient alert and cooperative. Well appearing and in no apparent painful distress HEENT Conjunctiva and sclera clear. ?No lymphadenopathy. ? CHEST/RESPIRATORY SYSTEM Normal respiratory effort and able to speak in complete sentences. ?Clear to auscultation bilaterally. ?No crackles, rales, rhonchi, wheezes heard. CARDIAC SYSTEM Regular rate and rhythm. ?S1 and S2 heard no murmurs. ?Radial pulses intact bilaterally MSK Hands: ?Able to make a fist. No synovitis noted to the MCPs, PIPs or DIPs. ?No tenderness to palpation of these joints. Herbeden's nodes ? Wrists: ?Full range of motion at the wrists without pain. ?No tenderness to palpation or synovitis noted to the wrists. Elbows: Full range of motion without pain. No tenderness, weakness, swelling, increased warmth or erythema. Shoulders: Full range of active range of motion without pain. No tenderness, weakness, swelling, increased warmth or erythema. Knees: ?Full range of motion. ?Mild TTP and swelling of the left knee. Ankles: Full range of motion. ?No tenderness, swelling, increased warmth or erythema.? Feet: ?Negative squeeze test. ?No tenderness to palpation or swelling of the MTPs. Tender points:?No tenderness to palpation of the bilateral trapezius, supraspinatus, greater trochanters, anterior costochondral junctions, bilateral gluteal areas, bilateral suboccipital muscle insertions SKIN Skin intact without rashes. Office Procedures AMB Joint Injection/Aspiration Joint Injection/Aspiration Details: Procedure was explained to the patient and consent was obtained. ? The area of interest was identified and confirmed with patient. ?This was subsequently cleaned with chlorhexidine x3. ? The area was then anesthetized using ethyl chloride spray. 40 mg Kenalog with 1 cc 1% lidocaine was injected without issue. ?Minimal to no bleeding. ?Patient tolerated procedure. Primary Site: left knee Prep: site was prepped using aseptic technique and ethochloride spray was applied Injected: 40 mg of, Kenalog, with 1 mL of, 1% plain lidocaine and in the joint Approach Used: anterior Procedure: The patient tolerated the procedure well Coding 05312 - Large joint Procedure code (CPT) selection complete Office Meds Prolia 60 mg/mL subcutaneous syringe Performing Provider: Sarai Wood MD Performing Location: [facility] [place] Rheumatology Administered by: Flory Sellers RN on 11/17/24 09:30 Dose Route Admin Location Dispensed Lot Number Expiration Date [facility] [employer] Child[employer] Educ[employer] 60 mg subcut 1 mL [id number] 12/11/25 06028-531-01 [facility] Comments: Florencia Short 55 presents today for Prolia (Denosumab) 60 mg/mL injection for the treatment of osteoporosis. The patient has not had any recent fever or illness. The injection site to be used is without erythema, edema, and is clean, dry and intact. Prolia 60mg/mL [facility] 70862-722-51 Lot # [id number] Expiration 12/11/2025 given in the Left posterior forearm . The patient tolerated the procedure well. We discussed follow-up precautions including but not limited to injection site soreness, redness, itching or swelling. The patient can call the office for consideration of treatment recommendations e.g., medication to reduce pain (e.g., Tylenol) or itching (e.g., Benadryl) if needed. Skin and mucosal symptoms such as generalized hives, itching, or flushing; swelling of lips, face, throat, or eyes. Respiratory symptoms such as nasal congestion, change in voice, sensation of throat closing, stridor, shortness of breath, wheeze, or cough. Gastrointestinal symptoms such as nausea, vomiting, diarrhea, cramping abdominal pain. Cardiovascular symptoms such as collapse, dizziness, tachycardia, hypotension are considered medical emergencies and the patient verbalizes that urgent medical attention (call 911) should be sought. No injection site reactions noted. The patient was discharged from the practice. lidocaine (PF) 10 mg/mL (1 %) injection solution Performing Provider: Sarai Wood MD Performing Location: [facility] [place] Rheumatology Administered by: Sarai Wood MD on 11/17/24 10:58 Dose Route Admin Location Dispensed Lot Number Expiration Date [facility] Early Child[employer] Special Educator 1 mL Infiltration left knee 2 mL [id number] 08/12/26 26712-214-61 [employer] [facility] Synvisc-One 48 mg/6 mL intra-articular syringe Performing Provider: Sarai Wood MD Performing Location: [facility] [place] Rheumatology Documented (not given) by: Sarai Wood MD on 11/17/24 10:58 Reason Not Given: Not Medically Necessary Kenalog 40 mg/mL suspension for injection Performing Provider: Sarai Wood MD Performing Location: [facility] [place] Rheumatology Administered by: Sarai Wood MD on 11/17/24 10:58 Dose Route Admin Location Dispensed Lot Number Expiration Date [facility] Early Child[employer] Special Educator 40 mg intra-articular left knee 1 mL [id number] 09/12/26 2322-5732-11 [facility] Results Reviewed Results Reviewed: Laboratory Tests 11/10/24 10:34 WBC 4.2 L RBC 5.07 Hgb 14.0 Hct 43.1 Plt Count 255 Sodium 141 Potassium 3.9 Chloride 108 Carbon Dioxide 27 BUN 14 Creatinine 0.75 AST 29 ALT 34 H 25-OH Vitamin D Total 31.0 DEXA 09/2023 FINDINGS: LEFT FEMUR, NECK: Current: BMD 0.910 g/cm2, Z-score 0.2, T-score -0.9, normal. Baseline: BMD 0.877 g/cm2. LEFT FEMUR, TOTAL: Current: BMD 0.980 g/cm2, Z-score 0.6, T-score -0.2, normal, 0.0% no change from baseline (<5% change is not significant). Baseline: BMD 0.980 g/cm2. AP SPINE L1-L4: Current: BMD 0.740 g/cm2, Z-score -2.8, T-score -3.7, osteoporosis, 0.3% decrease from baseline (<5% change is not significant). Baseline: BMD 0.742 g/cm2. Assessment & Plan Assessment & Plan (1) Osteoporosis: Comment: DEXA 09/2023: Left femur neck -0.9, Left femur -0.2, AP spine -3.7 Prolia 04/2024 Code(s): M81.0 - Age-related osteoporosis without current pathological fracture Category: Medical Qualifiers: Osteoporosis type: age-related Presence of current pathological fracture: without current pathological fracture Qualified Code(s): M81.0 - Age-related osteoporosis without current pathological fracture Plan: #Osteoporosis Patient is a 69-year-old female here today for follow up of her osteoporosis. Tolerated her last Prolia shot and is scheduled for her 2nd dose today. Falls since the last visit no fractures either. Plan - Prolia 60mg SC every 6 months - Increase Vit D to 5000U daily - RTC 6 months - Labs before visit: CMP, Vit D (2) Polyarticular osteoarthritis: Code(s): M15.9 - Polyosteoarthritis, unspecified Category: Medical Plan: #OA Patient with polyarticular osteoarthritis with improvement on Celebrex. Having left knee pain and swelling today status post steroid injection Plan - S/p steroid injection to left knee - Continue celebrex 200mg PO bid (3) Encounter for monitoring denosumab therapy: Code(s): Z51.81 - Encounter for therapeutic drug level monitoring; Z79.899 - Other terminal supervisor (current) drug therapy Category: Medical Plan: #Long-term use of Denosumab Discussed with patient the risks and benefits of denosumab (Prolia) for the management of their osteoporosis Benefits include improved bone density, decreased fracture risk Risks include rapid bone loss if denosumab stopped, osteonecrosis of the jaw especially in patients with poor oral hygiene/diabetes/use of glucocorticoids/age greater than 65 years, atypical femoral fractures, injection site reactions. Mild increased risk of infections due to RANKL on T helper cells, increased risk of hypocalcemia especially in CKD patients Keep vitamin-D at least 35 ng/mL Advised to delay non emergent dental procedures to toward the end of the 6 month cycle and if they plan to stop denosumab would need to continue antiresorptive to maintain the effects of denosumabe Plan I spent 20 minutes reviewing the record and labs, seeing the patient, discussing the treatment plan and documenting in the medical record ? Orders: Orders Comprehensive Met. Panel 6 Months E55.9 - Vitamin D deficiency, unspecified, M81.0 - Age-related osteoporosis without current pathological fracture Vitamin D 25-OH Total 6 Months E55.9 - Vitamin D deficiency, unspecified, M81.0 - Age-related osteoporosis without current pathological fracture AMB Joint Injection/Aspiration Today M17.12 - Unilateral primary osteoarthritis, left knee AMB Denosumab Injection Practice Supplied Today M81.0 - Age-related osteoporosis without current pathological fracture Medications: New lidocaine (PF) 1 mL Infiltration ONCE 2 mL 0RF M17.12 - Unilateral primary osteoarthritis, left knee Synvisc-One (hylan g-f 20) 48 mg (6 mL) intra-articular ONCE 6 mL 0RF NS M17.12 - Unilateral primary osteoarthritis, left knee Kenalog (triamcinolone acetonide) 40 mg intra-articular ONCE 1 mL 0RF NS M17.12 - Unilateral primary osteoarthritis, left knee Coding Level of Care Code Est Pt Level 3 (55615) Complex EM visit Add On G2211 Diagnoses Age-related osteoporosis without current pathological fracture M81.0 Osteoporosis type: age-related Presence of current pathological fracture: without current pathological fracture Polyarticular osteoarthritis M15.9 Encounter for monitoring denosumab therapy Z51.81; Z79.899 CPT Codes Coding - 55968 Large joint: 79535 - Large joint ([id number])
== END 2024-11-17 09:43 | disposition home or self-care (01) ==
LOC: HO.RHE 09:08
PROVIDERS: PCP Internal Medicine; Visit Provider Student in an Organized Health Care Education/Training Program
DX: M81.0 Age-related osteoporosis without current pathological fracture (principal); M15.9 Polyosteoarthritis, unspecified; Z51.81 Encounter for therapeutic drug level monitoring; Z79.899 Other long term (current) drug therapy; M17.12 Unilateral primary osteoarthritis, left knee
CPT/HCPCS: 20610; 99213

== ENCOUNTER → 2024-11-17 09:07 | Outpatient (BNVA) | payer OTHER, SELFPAY | PROVIDERS: PCP Internal Medicine; Visit Provider Student in an Organized Health Care Education/Training Program | DX: M17.12 Unilateral primary osteoarthritis, left knee (principal); M81.0 Age-related osteoporosis without current pathological fracture; M79.18 Myalgia, other site; Z79.620 Long term (current) use of immunosuppressive biologic; Z51.81 Encounter for therapeutic drug level monitoring | CPT/HCPCS: 20610; 96372; J0897; J3300 ==

== ENCOUNTER 2024-11-24 13:15 | Outpatient (REF) | payer OTHER, SELFPAY | END 2024-11-24 13:16 | disposition home or self-care (01) | LOC: HO.MAMMO 13:15 | PROVIDERS: PCP Internal Medicine; Visit Provider Internal Medicine | DX: Z13.89 Encounter for screening for other disorder (principal) ==

== ENCOUNTER 2024-11-30 09:31 | Outpatient (AMB) | payer OTHER, SELFPAY ==
--- NOTE | 2024-11-30 09:33 | A.OFFVIS_ITS ---
Intake Visit Reasons: Follow up PVR Intake Note: Patient here for follow up on OAB,mocro-heme, flank pain Urology Medications: estradiol cream, merbetriq, tranexamic acid Blood Thinner: none PVR:23 ml's Lumber Tailer Required: Yes Lumber Tailer Services: Lumber Tailer Present Lumber Tailer Name: Liz [phone] Accompanied by: Child Allergies No Known Allergies Allergy (Verified 11/30/24 10:03) Medication List - Last Reconciled 11/30/24 by JESUS Godwin-ASHLEY bupropion HCl XL 150 mg PO Q OTHER DAY 90 days calcium carbonate-vitamin D3 600 mg-62.5 mcg (2,500 unit) 2 caps PO DAILY 90 days celecoxib (Celebrex) 200 mg PO BID 90 days cholecalciferol (vitamin D3) 50 mcg PO DAILY cyanocobalamin (vitamin B-12) (Vitamin B-12) 1,000 mcg PO DAILY denosumab (Prolia) 60 mg subcut [id number] 12 months diclofenac sodium 1% (Arthritis Pain (diclofenac)) 2 grams topical QID escitalopram oxalate (Lexapro) 40 mg PO DAILY estradiol 0.01%(0.1mg/gram) vaginally daily; pea sized amount to urethra 3 times a week 30 days folic acid 1 mg PO DAILY 90 days hydroxyzine HCl 10 mg PO TID lansoprazole 30 mg PO BID linaclotide (Linzess) 145 mcg PO QAM 90 days memantine 7 mg PO DAILY 30 days mirabegron ER (Myrbetriq) 25 mg PO DAILY pantoprazole 40 mg PO BID 90 days pregabalin (Lyrica) 300 mg (4 x 75 mg) PO QDAY 90 days quetiapine 50 mg PO BEDTIME simethicone (Gas Relief (simethicone)) 125 mg PO BID-QID PRN 30 days tranexamic acid 650 mg PO DAILY 30 days trazodone 50 mg PO BEDTIME zolpidem 10 mg PO BEDTIME HPI Comments Details: Florencia is a plesant 69 year old female patient of Dr. oGmez who is accompanied by her daughter at today's office visit. She has a past medical history of fibromyalgia, urge incontinence of urine, memory loss, overactive bladder, insomnia, urinary tract infections, microscopic hematuria, leukopenia, liver cysts, hemorrhoids, diverticulosis, anxiety, GERD, and obesity. She presents to the office today for follow-up of her lower urinary tract symptoms, recurrent urinary tract infections, flank pain. In discussion with the patient today she reports feeling lower urinary tract symptoms have significantly improved since completion of tranexamic acid. She also reports feeling symptoms improved as she has been more compliant with Estrace cream. She currently denies any bothersome urinary issues or concerns. In office urinalysis results reviewed with the patient today. PVR 23 mL. Previous workup has included CT urogram 07/08 no stones or hydronephrosis. Nonspecific fullness in the right ureter compared to the left from ureteropelvic junction to the ureterovesical junction. No obstructing lesion or filling defect is evident. Indeterminate 11 mm hypodensity mid pole of the left kidney. Concerning 18 mm obscured biliary hyperdensity inferior right hepatic lobe of the liver. She reports she follows up with Gastroenterology regarding liver lesion/cyst. Previous urine cytologies: 03/04, 10/04, 05/06, and 03/07 Negative for high grade urothelial carcinoma Previous workup has also included a retroperitoneal ultrasound 12/04 noting right kidney with no calculi, lesions, and or hydronephrosis noted. Left kidney with a small cyst in the midpole otherwise no calculi or hydronephrosis noted. The bladder is well distended with no stones or masses. Bilateral ureteral jets are demonstrated. Prevoid bladder volume is 263 mL. Postvoid bladder volume is 120 mL. In office cystoscopy 06/05 noted no suspicious bladder lesions or growths noted. Bladder appears normal and no inflammation noted. Patient also with a pervious microscopic hematuria workup in [address] Cote that was negative. When asked she denies urinary urgency, urinary frequency, nocturia, dysuria, foul smelling urine, fever, and or chills. She otherwise offers no concerns or complaints. [facility] Medical History Polyarticular osteoarthritis Monoclonal gammopathy Encounter for monitoring denosumab therapy Back pain Anemia Urinary problem Multiple sclerosis Hematuria Mild recurrent major depression Fibromyalgia Right knee pain Left leg pain Cervical cancer screening Hematuria Urge incontinence of urine Memory loss Class 1 obesity without serious comorbidity with body mass index (BMI) of 34.0 to 34.9 in adult Cough Insomnia UTI (urinary tract infection) B12 deficiency Microscopic hematuria Leukopenia Liver cyst Hemorrhoids Diverticulosis Anxiety GERD (gastroesophageal reflux disease) Medicare annual wellness visit, initial Otitis media Urinary tract infection Surgical History History of excision of lesion (12/13/23) H/O section H/O: hysterectomy History of endoscopy History of colonoscopy History of cholecystectomy Family History Mother Lung cancer Father Cancer of esophagus Sister No problems noted. Other Arthritis Social History Household Members: Family Household Members Other:: grandchildren Housing: House Housing Other:: lives with daughter and 2 grandkids Are you a primary healthcare associate to a significant other at home: No Do you presently have visiting nurse or other home services: No Alcohol intake: former Patient Tobacco Use Status: Never used Tobacco e-Cigarette/Vaping Use: Never Used Second Hand Smoke Exposure: No service: No Current occupational status: unemployed Cognitive needs: No Hearing needs: No Vision needs: No Review of Systems Const Reports as per HPI Eyes Reports no additional complaints ENT Reports no additional complaints Card Reports as per HPI Resp Reports no additional complaints GI Reports as per HPI Reports as per HPI Musc Reports as per HPI Neuro Reports as per HPI Psych Reports as per HPI Teofilo/Lymph Reports no additional complaints Aller/Immun Reports no additional complaints Physical Exam Const General: cooperative, healthy appearing, comfortable, no acute distress, well developed, alert and awake Nutritional Appearance: overweight Orientation/consciousness: patient oriented x3 Limitations: language barrier HEENT Head: Yes normal to inspection, Yes normocephalic and Yes atraumatic Ears: hearing grossly normal bilaterally Eyes General: appearance normal, both eyes and all related structures Neck Neck: Yes normal visual inspection and Yes trachea midline Chest Chest palpation & inspection: normal inspection of the chest Resp Effort & Inspection: normal respiratory effort and able to speak in complete sentences Cardio Rate: regular rate GI Inspection: Yes normal to inspection General: Yes no CVA tenderness External Female Exam: normal external appearance and normal appearance of the urethra Back/Spine/Pelvis Back: no CVA tenderness Skin General skin exam: no rashes or lesions noted Neuro General: patient oriented x3 Extrem General: Yes normal to inspection Psych Appearance: grossly normal and well kempt Mental Status: mental status grossly normal Speech and movement: Normal speech and movement present and Clear speech present Affect: normal affect Attitude: cooperative Thought process: Normal thought process present Thought content: Normal thought content present Insight: Fair insight present (Psych) Judgement: Fair judgement present (Psych) Office Procedures Post Void Residual Post Residual Void Post Void Residual (PVR): 23 [id number] Void Residual by ultrasound Results AMB Urinalysis, Automated UA Leukoctes 70 Ara/uL Last Edit by Zulema Momin [place] on 11/30/24 09:58 UA Nitrite Negative Last Edit by Zulema Momin IN on 11/30/24 09:58 UA Urobilinogen 0.2 mg/dL Last Edit by Zulema [place] on 11/30/24 09:58 UA Protein 15 mg/dL Last Edit by Zulema Momin IN on 11/30/24 09:58 UA pH 6.0 Last Edit by Zulema [place] on 11/30/24 09:58 UA Blood 80 Deo/uL Last Edit by Zulema Momin, [place] on 11/30/24 09:58 UA Specific Alkol 1.015 Last Edit by Zulema Momin IN on 11/30/24 09:58 UA Ketone Negative Last Edit by Zulema Momin IN on 11/30/24 09:58 UA Bilirubin 0 mg/dL Last Edit by Zulema Momin IN on 11/30/24 09:58 UA Glucose 0 mg/dL Last Edit by Zulema Momin IN on 11/30/24 09:58 Results Reviewed Results Reviewed: Laboratory Last Values Urine pH (Auto) 6.0 11/30/24 09:56 Specific Alkol (Auto) 1.015 11/30/24 09:56 Urine Protein (Auto) 15 mg/dL 11/30/24 09:56 Glucose (UA)(Auto) 0 mg/dL 11/30/24 09:56 Urine Ketones (Auto) Negative 11/30/24 09:56 Urine Blood (Auto) 80 Deo/uL 11/30/24 09:56 Urine Nitrite (Auto) Negative 11/30/24 09:56 Urine Bilirubin (Auto) 0 mg/dL 11/30/24 09:56 Urine Urobilinogen (Auto) 0.2 mg/dL 11/30/24 09:56 Leukocyte Esterase (Auto) 70 Ara/uL 11/30/24 09:56 Assessment & Plan Assessment & Plan (1) Microscopic hematuria: Code(s): R31.29 - Other microscopic hematuria Category: Medical (2) Urinary urgency: Code(s): R39.15 - Urgency of urination Category: Medical Plan In office urinalysis results with the patient today; as noted above. PVR 23 mL. She currently denies any bothersome urinary issues or concerns. We will continue with surveillance monitoring. Continue Estrace and Myrbetriq as prescribed. We did discussed the importance of adequate hydration relation to lower urinary tract symptoms as well as overall health and well-being. All questions were answered. Will obtain renal ultrasound in 6 months Will obtain BUN and creatinine in 6 months Follow-up in 6 months with imaging and labs to be completed prior; or sooner with any issues, concerns, and or questions. Orders: Orders AMB Urinalysis Automated Today Z13.9 - Encounter for screening, unspecified Blood Urea Nitrogen 6 Months R39.15 - Urgency of urination AMB Post Void Residual by ultrasound Today R35.0 - Frequency of micturition US retroperitoneal comp 6 Months R31.29 - Other microscopic hematuria, R39.15 - Urgency of urination Creatinine 6 Months R39.15 - Urgency of urination Medications: Changed From mirabegron ER (Myrbetriq) 25 mg PO DAILY To mirabegron ER (Myrbetriq) 25 mg PO DAILY 90 tabs 3RF 90 days Refilled estradiol 0.01%(0.1mg/gram) vaginally daily; pea sized amount to urethra 3 times a week 42.5 grams 3RF 30 days Discontinued tranexamic acid Discontinued Reason: Patient Completed Course 650 mg PO DAILY 30 days 30 tabs 0RF N30.01 - Acute cystitis with hematuria Coding Level of Care Code Est Pt Level 3 (71053) Complex EM visit Add On G2211 Diagnoses Microscopic hematuria R31.29 Urinary urgency R39.15 CPT Codes Post Residual Void - PVR CPT Code: [id number] Void Residual by ultrasound ([id number])
== END 2024-11-30 10:20 | disposition home or self-care (01) ==
LOC: HO.HUSH 09:31
PROVIDERS: PCP Internal Medicine; Visit Provider Nurse Practitioner Family
DX: R31.29 Other microscopic hematuria (principal); R39.15 Urgency of urination; Z13.9 Encounter for screening, unspecified
CPT/HCPCS: 99213; G2211

== ENCOUNTER → 2024-11-30 09:31 | Outpatient (BNVA) | payer OTHER, SELFPAY | PROVIDERS: PCP Internal Medicine; Visit Provider Nurse Practitioner Family | DX: F51.04 Psychophysiologic insomnia (principal); R68.89 Other general symptoms and signs; R41.89 Other symptoms and signs involving cognitive functions and awareness; F41.9 Anxiety disorder, unspecified | CPT/HCPCS: 51798; 81003 ==

== ENCOUNTER 2024-11-30 13:04 | Outpatient (AMB) | payer OTHER, SELFPAY ==
[2024-11-30 13:08] VITALS: BP 128/80; PULSE 66; O2SAT 97; BMI 35.6
--- NOTE | 2024-11-30 13:08 | A.OFFVIS_ITS ---
Vital Signs 11/30/24 13:08 Height 5 ft 3 in Weight 201 lb BMI 35.6 BP 128/80 Blood Pressure Location Lt brachial Position Sitting Pulse 66 Pulse Source Pulse Oximeter Pulse Oximetry (%) 97 Oxygen Delivery Method Room Air Intake Visit Reasons: Cognitive decline Follow up Intake Note: Patient presents follow up Cognitive decline. Labs in chart. Patient granddaughter states no changes does repeat a lot and forgets. states she complains about body aches(backpain) Pocket Flap Creasing Machine Operator Required: Yes Pocket Flap Creasing Machine Operator Services: Pocket Flap Creasing Machine Operator Offered & Declined Pocket Flap Creasing Machine Operator Name: granddaughter Information Interpreted: non-clinical & clinical Accompanied by: Grand Child Allergies No Known Allergies Allergy (Verified 11/30/24 13:11) HPI Comments Details: 68-yr-old female presents for f/u visit for memory changes Grand daughter Imelda relays history. PSG 04/2024 AHI was 10, and REM AHI is 38 and oxygen Nadirs to 74% start cpap 5-20cm H20 PRITI Compliance Therapy 08/2024 - 11/2024 Pending Neuropscyhiatry f/u. MMSE today unable d/t language barrier. She has +FH of alzheimers dementia mother. She has fibromyalgia and continues to have back and leg pain. Total use tends to be difficult as she has insomnia and will nap through out the day, takes ambien 10mg and gets sedated will sleep all day and stay awake throughout the night watching tv. Patient education provided today to use mask 2 hours even if she is watching movies at night, so she can become more acclimated to her cpap machine as it is neuro-protective. She is independent with all her ADLs and IADLS, however requires some support. She has a nurse come in once a month for a health check. She has support with bathing, changing her clothes, and feeding herself. Her family monitors her closely. RLS numbness and tingling bilaterally, keeps her up at night and she takes lyrica. 75mg QID. Her diet is okay, denies dysphagia, can chew solids and swallow liquids, no drooling. Voice is soft, she does not engage in conversation. She will nod, does not make eye contact, holds her head down. Memory is poor, continuously repeats questions, gets confused easily, and lost in conversations. Has word finding difficulty, and forgets her daughters and grand-daughter's names. She gets frustrated d/t inability to communicate, has anxiety along with depression. She is on Lexapro 40mg PO. She does word searches sometimes and goes out with the family. Increased memantine from 7.5mg to 14mg MRI Request old MRI? PETscan? and Head CT? [facility] Medical History Polyarticular osteoarthritis Monoclonal gammopathy Encounter for monitoring denosumab therapy Back pain Anemia Urinary problem Multiple sclerosis Hematuria Mild recurrent major depression Fibromyalgia Right knee pain Left leg pain Cervical cancer screening Hematuria Urge incontinence of urine Memory loss Class 1 obesity without serious comorbidity with body mass index (BMI) of 34.0 to 34.9 in adult Cough Insomnia UTI (urinary tract infection) B12 deficiency Microscopic hematuria Leukopenia Liver cyst Hemorrhoids Diverticulosis Anxiety GERD (gastroesophageal reflux disease) Medicare annual wellness visit, initial Otitis media Urinary tract infection Surgical History History of excision of lesion (12/13/23) H/O section H/O: hysterectomy History of endoscopy History of colonoscopy History of cholecystectomy Family History Mother Lung cancer Father Cancer of esophagus Sister No problems noted. Other Arthritis Social History Household Members: Family Household Members Other:: grandchildren Housing: House Housing Other:: lives with daughter and 2 grandkids Are you a primary care technician to a significant other at home: No Do you presently have visiting nurse or other home services: No Alcohol intake: former Patient Tobacco Use Status: Never used Tobacco e-Cigarette/Vaping Use: Never Used Second Hand Smoke Exposure: No service: No Current occupational status: unemployed Cognitive needs: No Hearing needs: No Vision needs: No Physical Exam Vital Signs: Last Vital Signs Pulse 66 11/30/24 13:08 BP 128/80 11/30/24 13:08 Pulse Ox 97 11/30/24 13:08 Oxygen Delivery Method Room Air 11/30/24 13:08 BMI result Body Mass Index 35.6 Const General: cooperative and no acute distress HEENT Face and sinus: Yes face symmetric Eyes Pupils: Equal, round and reactive pupils present Resp Effort & Inspection: normal respiratory effort and able to speak in complete sentences Neuro Other: Sleepy and tired looking, blunted affect, holds her head down, nods, does not speak. Unable to complete MMSE due to patient not responding to questions. Confused. Stands slowly, steady gait with grand-daughter providing contact guard. Cranial nerves: Yes Facial sensation intact/muscles of mastication intact, Yes Equal, round and reactive pupils present, Yes Normal facial strength present, Yes Midline tongue present, Yes Ability to bilaterally rotate head present and Yes Ability to bilaterally elevate shoulders present Cognition (Neuro): abnormal cognition Motor exam (neuro): Abnormal motor strength present and Abnormal muscle tone present Psych Appearance: well kempt Speech and movement: Slowed movement present (Neuro) Affect: Sad affect present and Blunted affect present Attitude: Avoids eye contact (attititude/behavior) Insight: Limited insight present (Psych) Judgement: Limited judgement present (Psych) Results AMB Urinalysis, Automated UA Leukoctes 70 Ara/uL Last Edit by Zulema Momin MA on 11/30/24 09:58 UA Nitrite Negative Last Edit by Zulema Momin MA on 11/30/24 09:58 UA Urobilinogen 0.2 mg/dL Last Edit by Zulema Momin MA on 11/30/24 09:58 UA Protein 15 mg/dL Last Edit by Zulema Momin MA on 11/30/24 09:58 UA pH 6.0 Last Edit by Zulema Momin MA on 11/30/24 09:58 UA Blood 80 Deo/uL Last Edit by Zulema Momin MA on 11/30/24 09:58 UA Specific [place] 1.015 Last Edit by Zulema Momin MA on 11/30/24 09:58 UA Ketone Negative Last Edit by Zulema Momin MA on 11/30/24 09:58 UA Bilirubin 0 mg/dL Last Edit by Zulema Momin MA on 11/30/24 09:58 UA Glucose 0 mg/dL Last Edit by Zulema Momin MA on 11/30/24 09:58 Results Reviewed Results Reviewed: PSG 04/2024 AHI is 10 REM AHI is 34 and Oxygen Nadirs to 74%. MRI ? PET scan ? Assessment & Plan Assessment & Plan (1) Forgetfulness: Code(s): R68.89 - Other general symptoms and signs Category: Medical (2) Cognitive impairment: Code(s): R41.89 - Other symptoms and signs involving cognitive functions and awareness Category: Medical (3) Anxiety: Code(s): F41.9 - Anxiety disorder, unspecified Category: Medical (4) Insomnia: Code(s): G47.00 - Insomnia, unspecified Category: Medical Qualifiers: Insomnia type: psychophysiologic Qualified Code(s): F51.04 - Psychophysiologic insomnia (5) Family history of dementia: Code(s): Z81.8 - Family history of other mental and behavioral disorders Category: Medical Plan PSG + for sleep apnea AHI is 10 REM AHI is 38 and L6Akonsv to 74% will start cpap 5-20cm and f/u for compliance. FDG-PET scan- requested study. Brain MRI w/o, or mishel 2021 at [facility]: mild chronic microangiopathic changes. Labs reviewed with patient today. Continue Memantine ER- if tolerated, increased dose to 14 mg today will titrate up to 28 mg daily. Enggage in social and cognitive acitivity. Increase interactions with family and friends. Continue doing puzzles, word searches, and reading, drinking plenty of water and walking daily for 15-30min as tolerable. Continue Lexapro 40 mg PO daily and psycotherapy weekly. MMSE unable due to confusion and lack of interaction. Neuro pscyhe eval future consideration. Minimizing polypharmacy. Request old MRI? PETscan? and Head CT? f/u on review of above, and in-clinic in 6 months or sooner. Orders: Orders MR head/brain wo/w con Today F41.9 - Anxiety disorder, unspecified, R41.89 - Other symptoms and signs involving cognitive functions and awareness, R68.89 - Other general symptoms and signs Medications: Changed From memantine then stop and increase to 14mg qd 7 mg PO DAILY 30 days 30 ea 1RF R68.89 - Other general symptoms and signs To memantine then stop and increase to 14mg qd 14 mg (2 x 7 mg) PO DAILY 60 ea 1RF alzheimers 30 days MDD 14mg PO R68.89 - Other general symptoms and signs Patient Instructions: Sleep Hygiene provided: set a scheduled bedtime and wake time to help regulate the circadian rhythm and balance the release of pituitary hormones. Sleep in a dark room, temperatures below 68 degrees, and no devices n bed. Limit caffeinated products 6 hours prior to bed, and limit fluids 2-4 hours prior to bed. Gentle night yoga, diffusing essential oils, and playing soft music can be relaxing. Labs reviewed with patient NAFLD and elevated LDL. Coding Level of Care Code Est Pt Level 4 (30621) Complex EM visit Add On G2211 Diagnoses Forgetfulness R68.89 Cognitive impairment R41.89 Anxiety F41.9 Psychophysiological insomnia F51.04 Insomnia type: psychophysiologic Family history of dementia Z81.8 Time Spent (min) 35
== END 2024-11-30 14:04 | disposition home or self-care (01) ==
PROVIDERS: PCP Internal Medicine; Visit Provider Physician Assistant Medical
DX: R68.89 Other general symptoms and signs (principal); R41.89 Other symptoms and signs involving cognitive functions and awareness; F41.9 Anxiety disorder, unspecified; F51.04 Psychophysiologic insomnia; Z81.8 Family history of other mental and behavioral disorders
CPT/HCPCS: 99214; G2211

== ENCOUNTER 2024-12-06 11:48 | Outpatient (AMB) | payer OTHER, SELFPAY ==
--- NOTE | 2024-12-06 09:57 | HO.NEPHOV ---
Vital Signs 12/06/24 11:50 Height 5 ft 3 in Weight 199 lb BMI 35.2 BP 118/70 Blood Pressure Location Rt brachial Position Sitting Pulse 73 Pulse Source Pulse Oximeter Pulse Oximetry (%) 94 Oxygen Delivery Method Room Air Intake Visit Reasons: Renal cyst/ 1 Year FU-LVM Intake Note: Patient here for a follow-up. Electrical Engineering Manager Required: Yes Electrical Engineering Manager Name: Юлия [phone] Accompanied by: Daughter Allergies No Known Allergies Allergy (Verified 12/06/24 11:56) Do you need a note to return to daycare/school/sports/work: No HPI Comments Details: Florencia is here for follow up for chronic hematuria. She had multiple emergency room visits with urinary symptoms and even had undergone imaging studies, urine studies and blood work. She was also given antibiotics. She does not have any abdominal pain, fever, chills, sore throat. There is no family history of any microscopic hematuria, CKD or ESRD. Previous workup has included a retroperitoneal ultrasound was unremarkable except for the left kidney showing a small cyst in the midpole, which remains small at 11mm on urogram June 2024. cytology was negative for high-grade urothelial carcinoma most recently in February 2024. Cystoscopy May 2023 without abnormalities noted. Patient with a previous negative microscopic hematuria workup [place] [address] Cote. She denies urinary symptoms today including nocturia, dysuria, foul smelling urine, flank pain, fever, and or chills. She states she is taking myrbetriq and esterace cream through urology and has been tolerating well, states she feels better. She otherwise offers no concerns or complaints during this office visit. She is accompanied by her daughter. [facility] Medical History Polyarticular osteoarthritis Monoclonal gammopathy Encounter for monitoring denosumab therapy Back pain Anemia Urinary problem Multiple sclerosis Hematuria Mild recurrent major depression Fibromyalgia Right knee pain Left leg pain Cervical cancer screening Hematuria Urge incontinence of urine Memory loss Class 1 obesity without serious comorbidity with body mass index (BMI) of 34.0 to 34.9 in adult Cough Insomnia UTI (urinary tract infection) B12 deficiency Microscopic hematuria Leukopenia Liver cyst Hemorrhoids Diverticulosis Anxiety GERD (gastroesophageal reflux disease) Medicare annual wellness visit, initial Otitis media Urinary tract infection Surgical History History of excision of lesion (12/13/23) H/O section H/O: hysterectomy History of endoscopy History of colonoscopy History of cholecystectomy Family History Mother Lung cancer Father Cancer of esophagus Sister No problems noted. Other Arthritis Social History Household Members: Family Household Members Other:: grandchildren Housing: House Housing Other:: lives with daughter and 2 grandkids Are you a primary children's zoo caretaker to a significant other at home: No Do you presently have visiting nurse or other home services: No Alcohol intake: former Patient Tobacco Use Status: Never used Tobacco e-Cigarette/Vaping Use: Never Used Second Hand Smoke Exposure: No service: No Current occupational status: unemployed Cognitive needs: No Hearing needs: No Vision needs: No Review of Systems Const Reports no additional complaints Card Denies chest pain, Denies leg edema and Denies dyspnea Resp Denies dyspnea GI Denies abdominal pain, Denies diarrhea, Denies nausea and Denies vomiting Denies hematuria, Denies difficulty voiding, Denies nocturia, Denies dysuria, Denies pelvic pain and Denies flank pain Musc Denies back pain and Denies arthralgias Skin/Breast Denies rash Physical Exam Const General: comfortable and no acute distress Resp Effort & Inspection: normal respiratory effort and able to speak in complete sentences Auscultation: clear to auscultation bilaterally Cardio Rate: regular rate Rhythm: regular rhythm Heart sounds: S1 normal heart sound present and S2 normal heart sound present GI Palpation (GI): Soft to palpation and nontender General: Yes no CVA tenderness Back/Spine/Pelvis Back: no CVA tenderness Skin Rashes: no rashes Extrem General: No edema Results Reviewed Nephrology Results: Hgb, (12.0-16.0) 14.0 g/dl 11/10/24 WBC, (4.8-10.8) 4.2 X10*3/uL L 11/10/24 Plt Count, (160-400) 255 X10*3/uL 11/10/24 Sodium, (135-145) 141 mmol/L 11/10/24 Potassium, (3.3-5.1) 3.9 mmol/L 11/10/24 Chloride, (96-108) 108 mmol/L 11/10/24 Carbon Dioxide, (22-29) 27 mmol/L 11/10/24 BUN, (9-16) 14 mg/dL 11/10/24 Creatinine, (0.5-1.4) 0.75 mg/dL 11/10/24 Calcium, (8.4-10.2) 9.0 mg/dL Δ 11/10/24 Renal US 03/28/21 Assessment & Plan Assessment & Plan (1) Renal cyst: Code(s): N28.1 - Cyst of kidney, acquired Category: Medical (2) Hematuria: Code(s): R31.9 - Hematuria, unspecified Category: Medical Qualifiers: Hematuria type: other microscopic Qualified Code(s): R31.29 - Other microscopic hematuria (3) Microscopic hematuria: Code(s): R31.29 - Other microscopic hematuria Category: Medical Plan Florencia has chronic microscopic hematuria with no history of significant proteinuria. Her renal functions remain normal. Blood pressure has been at goal. She had imaging studies which showed a renal cyst, with a follow up US planned in 6 months through urology. She had cystoscopy. She follows up with Urology . She will follow up in 1 year. Labs ordered prior to F/U. I did not make any medication changes today. Orders: Orders UA w Microscopic 1 Year R31.29 - Other microscopic hematuria Basic Metabolic Panel 1 Year R31.29 - Other microscopic hematuria Protein Creatinine Ratio, Ur 1 Year R31.29 - Other microscopic hematuria Coding Level of Care Code Est Pt Level 3 (35018) Diagnoses Renal cyst N28.1 Other microscopic hematuria R31.29 Hematuria type: other microscopic Microscopic hematuria R31.29
[2024-12-06 11:50] VITALS: BP 118/70; PULSE 73; O2SAT 94; BMI 35.2
== END 2024-12-06 12:13 | disposition home or self-care (01) ==
LOC: HO.HKA 11:49
PROVIDERS: PCP Internal Medicine; Visit Provider Internal Medicine Nephrology
DX: N28.1 Cyst of kidney, acquired (principal); R31.29 Other microscopic hematuria
CPT/HCPCS: 99213

== ENCOUNTER 2024-12-14 12:28 | Outpatient (AMB) | payer OTHER, SELFPAY ==
--- NOTE | 2024-12-14 12:33 | MHC.OFFVIS ---
Vital Signs 12/14/24 12:36 Height 5 ft 3 in Weight 198 lb BMI 35.1 BP 125/72 Blood Pressure Location Lt brachial Position Sitting Pulse 59 Pulse Oximetry (%) 96 Oxygen Delivery Method Room Air Intake Visit Reasons: 4 mo f/u Intake Note: Patient follow up for Chronic LUQ pain. Patient cc: Abdominal pain on and off, GERD on and off but better with medication. Patient said the Urology doctor wanted you to see her but patient does not know why ?? the daughter is not with here and she is the one to know everything about it. I check the med rec and she have a Urogram CT 06/2024, and Several liver cysts. Slightly nodular liver contour concerning for cirrhosis. 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: Yes Accompanied by: Family/Other Allergies No Known Allergies Allergy (Verified 07/18/25 13:14) Medication List - Last Reconciled 12/14/24 by Karon Anders MD bupropion HCl XL 150 mg PO Q OTHER DAY 90 days calcium carbonate-vitamin D3 600 mg-62.5 mcg (2,500 unit) 2 caps PO DAILY 90 days celecoxib (Celebrex) 200 mg PO BID 90 days cholecalciferol (vitamin D3) 50 mcg PO DAILY cyanocobalamin (vitamin B-12) (Vitamin B-12) 1,000 mcg PO DAILY denosumab (Prolia) 60 mg subcut [id number] 12 months diclofenac sodium 1% (Arthritis Pain (diclofenac)) 2 grams topical QID escitalopram oxalate (Lexapro) 40 mg PO DAILY estradiol 0.01%(0.1mg/gram) vaginally daily; pea sized amount to urethra 3 times a week 30 days folic acid 1 mg PO DAILY 90 days hydroxyzine HCl 10 mg PO TID lansoprazole 30 mg PO BID linaclotide (Linzess) 145 mcg PO QAM 90 days memantine 14 mg (2 x 7 mg) PO DAILY 30 days MDD 14mg PO mirabegron ER (Myrbetriq) 25 mg PO DAILY 90 days pantoprazole 40 mg PO BID 90 days pregabalin (Lyrica) 300 mg (4 x 75 mg) PO QDAY 90 days quetiapine 50 mg PO BEDTIME simethicone (Gas Relief (simethicone)) 125 mg PO BID-QID PRN 30 days trazodone 50 mg PO BEDTIME zolpidem 10 mg PO BEDTIME HPI HPI 4 mo f/u: Details: GI CLINIC VISIT FOR THIS 69 YEAR OLD THAI-SPEAKING FEMALE FOR FOLLOW-UP OF GERD, VITAMIN B12 DEF, AND FATTY LIVER. TODAY'S VISIT: Patient reports abdominal pain on and off, GERD on and off but better with medication. Patient said the Urology doctor wanted you to see her but patient does not know why ?? the daughter is not with here and she is the one to know everything about it. I check the med rec and she have a Urogram CT 06/2024, and Several liver cysts. Slightly nodular liver contour concerning for cirrhosis. 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 Medications are helping with gas Intermittent coughing spells at night - denies PND and attributes to a dry throat. Takes [facility] [place] Cough drops and cough resolves Feels hungry all the time Takes breakfast - then takes multiple snacks during the day - cereal, fries PAST VISITS: Pt is accompanied by her daughter here from [place] who is able to speak some Irish Patient cc: abdominal pain/bloating, acid reflex, constipation on and off, and a lot of abdominal air. Complains of strong acid reflux and was up till 2 am last night Vitamin D and C are causing stomach problems. Strong acid reflux after whatever she eats - strong reflux start 1 hour after dinner. Taking Pantoprazole 40 mg twice a day - for a long time Takes Carafate prn which helps intermittently. Intermittent constipation and has a BM only after she takes medication for constipation. Takes Linzess on alternate days - takes it daily when she has severe constipation. Has a BM 2-3 times a day - constipated most of the time Colonoscopy results reviewed with the patient. Continues to have abdominal pain and acid reflux Has good days and bad days Takes medications to help her sleep and feels better the next day Complains of nausea, vomiting and diarrhea x 6 days [place] better after 4 days and now having recurrent symptoms. Has retching and unable to vomit Eating rice and meat - has postprandial diarrhea Had 15 soft to watery BM yesterday and no BM today Complains of chills, feeling tired and denies fever. One of daughter has similar symptoms Denies recent antibitoics or hx of travel. PAST VISITS: Feeling regular. Has her ups and downs - feels better on some days Some days she feels burning in her stomach. Not following the diet any more. Continues to have constipation. Sometimes no BM in more than 4 days. Symptoms have been worse since she ran out of refills for her GI medications - refills sent for Linzess and pantoprazole I am on a diet Eliminating a lot of foods to see how they work. Did not receive an appt with the resourcing consultant GD getting information and she has lost 6 lbs. Taking almond milk Not eating sauces or stews. Abd CT scan results reviewed with the pt. Feeling regular GI symptoms are less frequent. Constipation is under control so far Has a BM daily or after 1-2 days Patient cc: acid reflex, abdominal pain, abdominal bloating on and off, acid reflex with burning sensation, constipation, and some dysphagia with liquid, patient want a referral for resourcing consultant. Sometimes I am fine and sometimes not so good Complains of left sided pain Continues to have left sided and lower abdominal pain including under the ribs - feels inflammation. Pain is not there all the time. Sometimes has pain after she eats something. Constipation comes and goes. having a lot of reflux and burning in the chest. Has a BM every 5 to 6 days - usuallay after several days. Took Linzess once and then stopped - concerned about side effects Has constipation - takes fibre, plums and takes medication prn - constipation is under control. MRI and Lab results were reviewed with the patient. Continues to have abd pain which comes and goes. Has a burning sensation in the abdomen and anus and has hemorrhoids. Intermittent upper abdominal pain and nausea. Pt denies past hx of jaundice or hepatitis Patient denies symptoms of heartburn, dysphagia, vomiting, change in appetite or weight. Complains of chronic constipation and was told she had diverticulosis. Can have a BM daily or after 3-4 days. Patient denies major cardiac or pulmonary problems, loud snoring or sleep apnea Takes medications to help her sleep at night. Denies problems with anesthesia in the past. Denies being on chronic anticoagulation. Patient denies known family history of liver disease, colon polyps or colon cancer. Dad had esophageal cancer (was a smoker). PAST EGD/COLONOSCOPY:?? Had EGD (per pt showed gastritis) and colon (5 polyps were removed) in [place]? 1.5 yrs ago. Repeat colonoscopy was advised ? in 1 year and pt stated she is overdue. IMAGING STUDIES:? 05/07/[address] SCAN SHOWED: 1.? No acute intra-abdominal process seen. 2.? Diffuse hepatic steatosis with multiple hepatic cysts. 3.? Colonic diverticulosis without diverticulitis. Mild constipation.? 07/25/20 ABD MRI SHOWED: 1. Prior cholecystectomy. No biliary ductal dilatation. 2, Nonenhancing high signal lesion gallbladder fossa 4.3 cm x 4.1 cm likely cyst or non-obstructing biloma with increased signal fromprotein content. No dephasing to suggest old hematoma. 3. Several hepatic cysts, largest 2.6 cm. 4. Small hemorrhagic cyst left kidney 1.2 cm. ENDOSCOPIC STUDIES:? 01/21/2024 COLONOSCOPY SHOWED: One small polyp was removed Random biopsies were obtained from right and left colon to check for microscopic colitis Moderate to severe diverticulosis seen in the entire colon Plan: Repeat Colonoscopy in 5 years if polyps are adenomatous and due to a history of adenomatous colon polyps. 12/2020 EGD AND COLON SHOWED: Endoscopy Findings: ESOPHAGUS: Normal STOMACH: Gastritis DUODENUM: Normal - biopsied to check for celiac sprue Colonoscopy Findings: Three small to medium sized polyps removed Random biopsies obtained from the colon Moderate to severe diverticulosis seen in the entire colon No source found for abdominal pain Plan:? Repeat Colonoscopy interval based on path results - in 3-5 years if polyps are adenomatous and 10 years if polyps are hyperplastic. Above findings were reviewed with the patient and Gastritis, colon polyps and diverticulosis handouts were given in the discharge area ADDENDUM: Pt complained of nausea and some worsening of her chronic abdominal pain. Nausea resolved with Zofran. Abdominal pain improved after pt passed some gas. PAST GI HISTORY BY REVIEW OF MEDICAL RECORDS: 06/2020 patient was seen by Dr. Gomez:This is a 55-year-old female with GERD, fatty liver and liver cyst that has tele health visit by phone for follow-up on recent labs.?She has mild leukopenia that will be repeated. She has hematuria and will be referred to Urology.? Complains of dysuria and urinalysis was order. Ultrasound of the abdomen shows 1 liver cyst and fatty liver.? Previous ultrasounds done in [place] shows 3 liver cysts before.? She is aware I will refer her to Gastroenterology for that matter.? Has diffuse myalgias and would like something like Relafen or tramadol which she has using the past.? Also complains of heartburn and Pepcid is not working for her.? She would like Protonix which she has also used in the [facility] Medical History Polyarticular osteoarthritis Monoclonal gammopathy Encounter for monitoring denosumab therapy Back pain Anemia Urinary problem Multiple sclerosis Hematuria Mild recurrent major depression Fibromyalgia Right knee pain Left leg pain Cervical cancer screening Hematuria Urge incontinence of urine Memory loss Class 1 obesity without serious comorbidity with body mass index (BMI) of 34.0 to 34.9 in adult Cough Insomnia UTI (urinary tract infection) B12 deficiency Microscopic hematuria Leukopenia Liver cyst Hemorrhoids Diverticulosis Anxiety GERD (gastroesophageal reflux disease) Medicare annual wellness visit, initial Otitis media Urinary tract infection Surgical History History of excision of lesion (12/13/23) H/O section H/O: hysterectomy History of endoscopy History of colonoscopy History of cholecystectomy Family History Mother Lung cancer Father Cancer of esophagus Sister No problems noted. Daughter Heart problem Anxiety Depressed Other Arthritis Social History Household Members: Family and Children Household Members Other:: grandchildren Housing: House Housing Other:: lives with daughter and 2 grandkids Are you a primary child day care center worker to a significant other at home: No Do you presently have visiting nurse or other home services: No Alcohol intake: current Alcohol intake frequency: does not drink Comment: Social Patient Tobacco Use Status: Never used Tobacco e-Cigarette/Vaping Use: Never Used Second Hand Smoke Exposure: No service: No Current occupational status: disabled Sexual orientation: Straight/Heterosexual Gender identity: Female Cognitive needs: No Hearing needs: No Vision needs: No Review of Systems Const All systems reviewed & are unremarkable except as noted in HPI and below Physical Exam Vital Signs: Last Vital Signs Pulse 59 12/14/24 12:36 BP 125/72 12/14/24 12:36 Pulse Ox 96 12/14/24 12:36 Oxygen Delivery Method Room Air 12/14/24 12:36 BMI result Body Mass Index 35.1 Const General: no acute distress Nutritional Appearance: obese Orientation/consciousness: patient oriented x3 Limitations: language barrier HEENT Head: Yes normal to inspection Ears: hearing grossly normal bilaterally Eyes Sclerae: sclerae normal Pupils: Equal, round and reactive pupils present Neck Neck: Yes normal visual inspection Chest Chest palpation & inspection: normal inspection of the chest Resp Effort & Inspection: normal respiratory effort Auscultation: clear to auscultation bilaterally Cardio Palpation: normal PMI Rate: regular rate Rhythm: regular rhythm Heart sounds: S1 normal heart sound present, S2 normal heart sound present and no murmurs GI Palpation (GI): Soft to palpation, nontender and No hepatosplenomegaly present Auscultation: normal bowel sounds Rectal Exam - Female: deferred Skin General skin exam: no rashes or lesions noted Neuro General: patient oriented x3, gait normal and moves all extremities Cranial nerves: Yes Equal, round and reactive pupils present Psych Appearance: grossly normal Mental Status: mental status grossly normal Assessment & Plan Assessment & Plan (1) GERD (gastroesophageal reflux disease): Code(s): K21.9 - Gastro-esophageal reflux disease without esophagitis Category: Medical Qualifiers: Esophagitis presence: esophagitis presence not specified Qualified Code(s): K21.9 - Gastro-esophageal reflux disease without esophagitis (2) NAFL (nonalcoholic fatty liver): Code(s): K76.0 - Fatty (change of) liver, not elsewhere classified Category: Medical (3) History of colon polyps: Comment: 12/2020 Three small to medium sized polyps removed (two were adenomatous on bx) Repeat Colon advised in 3 yrs (due 12/2023) Code(s): Z86.010 - Personal history of colon polyps Category: Medical (4) Chronic constipation: Code(s): K59.09 - Other constipation Category: Medical (5) Elevated LFTs: Code(s): R79.89 - Other specified abnormal findings of blood chemistry Category: Medical (6) Abnormal CT of liver: Code(s): R93.2 - Abnormal findings on diagnostic imaging of liver and biliary tract Category: Medical Plan 69 year old Citizen Of [place]-speaking female followed in GI for GERD, Vitamin B12 def and fatty liver. LFTs were normal.? Abd US showed? 4.6 x 4 x 3.5 cm central periportal complex cyst or fluid collection. 07/25/20 abd MRI showed several hepatic cysts and a?nonenhancing high signal lesion gallbladder fossa 4.3 cm x 4.1 cm likely cyst or non-obstructing biloma with increased signal from protein content. No dephasing to suggest old hematoma. Pt was seen by General Surgery and advised conservative management. LUQ pain appears to be musculoskeltal - not related to eating or BMs. Pt was advised a trail of topical analgesics. 12/2021 FU abd US showed resolution of periportal complex cyst/fluid collection. Constipation improved with Linzess 145 mcg daily 05/[address] scan was negative except fatty liver, liver cysts and diverticulosis. Mild elevation of ALT likely due to fatty liver.? hepatitis serologies were negative Patient referred to resourcing consultant to help with weight loss of (wt loss goal is 7-10% of her body weight) and did not get called - I requested office staff to FU Her grand daughter helped her with a diet plan after getting information online. Pt has eliminating a lot of foods to see how they work and has lost 6 lbs. Taking almond milk 04/15/23 Symptoms have been worse since she ran out of refills for her GI medications - refills sent for Linzess and pantoprazole 08/19/23 Complains of nausea, vomiting and diarrhea x 6 days Had 15 soft to watery BM yesterday and no BM today Complains of chills, feeling tired and denies fever. Pt advised to take ondansetron and drink ORS, start taking a BRAT diet and sports beverages today. She was advised to go to the ER if symptoms do not improve with the next 24 hours. 02/03/24 Colonoscopy results reviewed with the patient. Continues to have abdominal pain and acid reflux Has good days and bad days Takes medications to help her sleep and feels better the next day Pt was advised to increase pantoprazole to 40 mg twice daily. 04/27/24 Strong acid reflux after whatever she eats - strong reflux start 1 hour after dinner. Taking Pantoprazole 40 mg twice a day - for a long time Takes Carafate prn which helps intermittently. Intermittent constipation and has a BM only after she takes medication for constipation. Takes Linzess on alternate days - takes it daily when she has severe constipation and advised to take it daily Stop Pantoprazole and take Lansoprazole 30 mg twice a day. 08/15/24 she is much better with the medication for abdominal pain, bloating and the constipation. Medications are helping with gas Intermittent coughing spells at night - denies PND and attributes to a dry throat. Takes [facility] [place] Cough drops and cough resolves Feels hungry all the time 12/14/24 Feeling better and medications have been helping Pt advised to schedule an Abd MRI (FU of 18 mm subcapsular hypodensity inferior right hepatic lobe seen on Urogram CT) 01/11/25 ABD MRI SHOWED: 1. Hepatic steatosis. 2. Multiple hepatic cysts as described. A 1.4 cm lesion in the inferior aspect of segment V likely represents a mildly complicated cyst and is not significantly changed in appearance since 2020. 3. 1.1 cm hemorrhagic/proteinaceous left renal cyst. FU in 3?months - GERD, fatty liver, obesity and constipation Orders: Orders MR abdomen wo/w con 12/14/24 R93.2 - Abnormal findings on diagnostic imaging of liver and biliary tract Medications: Discontinued pantoprazole Discontinued Reason: Ancillary Entered New Order 40 mg PO BID 90 days 180 tabs 1RF Patient Instructions: I have placed an order for an MRI scan of the liver MRI dept will hesham with an appointment Please have lab tests 1 week before the MRI scan Coding Level of Care Code Est Pt Level 4 (06252) Diagnoses Gastroesophageal reflux disease, unspecified whether esophagitis present K21.9 Esophagitis presence: esophagitis presence not specified NAFL (nonalcoholic fatty liver) K76.0 History of colon polyps Z86.010 Chronic constipation K59.09 Elevated LFTs R79.[address] of liver R93.2 Time Spent (min) 21
[2024-12-14 12:36] VITALS: BP 125/72; PULSE 59; O2SAT 96; BMI 35.1
== END 2024-12-14 13:26 | disposition home or self-care (01) ==
LOC: HO.HGI 12:29
PROVIDERS: PCP Internal Medicine; Visit Provider Internal Medicine Gastroenterology
DX: K21.9 Gastro-esophageal reflux disease without esophagitis (principal); K76.0 Fatty (change of) liver, not elsewhere classified; Z86.0100 Personal history of colon polyps, unspecified; K59.09 Other constipation; R79.89 Other specified abnormal findings of blood chemistry; R93.2 Abnormal findings on diagnostic imaging of liver and biliary tract
CPT/HCPCS: 99499

== ENCOUNTER 2025-01-04 09:50 | Outpatient (REF) | payer OTHER, SELFPAY ==
[2025-01-04 11:08] LABS: Blood Urea Nitrogen 14 mg/dL (9-16); Estimated Glomerular Filt Rate > 60
== END 2025-01-04 09:51 | disposition home or self-care (01) ==
LOC: HO.LAB 09:50
PROVIDERS: PCP Internal Medicine; Visit Provider Internal Medicine Gastroenterology
DX: K21.9 Gastro-esophageal reflux disease without esophagitis (principal); K52.9 Noninfective gastroenteritis and colitis, unspecified; R79.89 Other specified abnormal findings of blood chemistry; R93.2 Abnormal findings on diagnostic imaging of liver and biliary tract
CPT/HCPCS: 36415; 82565; 84520

== ENCOUNTER → 2025-01-11 12:47 | Outpatient (BNV) | payer OTHER, SELFPAY | PROVIDERS: PCP Internal Medicine; Visit Provider Radiology Diagnostic Radiology | DX: R90.82 White matter disease, unspecified (principal); K76.0 Fatty (change of) liver, not elsewhere classified | CPT/HCPCS: 70553; 74183 ==

== ENCOUNTER 2025-01-11 12:55 | Outpatient (REF) | payer OTHER, SELFPAY ==
--- NOTE | ~2025-01-11 | MR_ITS ---
EXAMINATION: MR BRAIN WITHOUT AND WITH CONTRAST CLINICAL INFORMATION: Anxiety disorder. COMPARISON: None available. TECHNIQUE: Multiplanar, multisequence MRI of the brain was obtained before and after the intravenous administration of 10.0 mL gadolinium based (Gadavist) without reported immediate complications. FINDINGS: Bilateral multifocal patchy and punctate deep periventricular and subcortical white matter hyperintense T2 FLAIR signal involving centrum semiovale and packer radiata without restricted diffusion or abnormal enhancement. No restricted diffusion. No abnormal enhancement within the intra-axial or the extra-axial compartment of the cranium. Sellar/suprasellar region demonstrated no signal abnormality or masses. The suprasellar cistern measures 2.8 mm. The prepontine cistern measures 5 mm. There is a 3 mm descensus of the cerebellar tonsils below foramen magnum. Flow-void signal within the main cerebral vessels is normal. Prominence of the extra-axial CSF spaces cerebral sulci. There is a 7 mm round enhancing bone lesion in the diploe of the left frontal bone, nonspecific. MR/MR head/brain wo/w con IMPRESSION: No abnormal enhancement. No acute stroke/ischemia. White matter disease. Posterior small vessel occlusive disease versus demyelinating process. Spontaneous intracranial hypotension cannot be excluded. Nonspecific 7 mm enhancing bone lesion, left frontal.. Electronically signed by: José Miguel Yuan MD 01/11/2025 03:28 PM EDT
--- NOTE | ~2025-01-11 | MR_ITS ---
EXAMINATION: MR ABDOMEN WITHOUT THEN WITH IV CONTRAST HISTORY: R93.2 - Abnormal findings on diagnostic imaging of liver and biliary tract COMPARISON: Comparison is made with the prior examination dated 07/25/2020. Correlation is also made with CT scans of the abdomen dated 07/04/2024 at 05/04/2022. TECHNIQUE: Axial in and out of phase T1-weighted gradient echo, axial diffusion weighted, and axial and coronal HASTE T2 with fat saturation images were obtained through the abdomen. Subsequently, fat suppressed axial and coronal T1-weighted images were obtained after the intravenous administration of 10 mL Gadavist. FINDINGS: Liver: There is moderate diffuse loss of signal intensity in the liver on opposed phase imaging, consistent with steatosis. There is a 2.0 x 1.5 cm cyst in segment IV at the dome. There is a 3.3 x 3.0 cm cyst in segment VIII and a 2.0 cm in segment V. More inferiorly in segment V, there is a 1.3 cm mildly T2 hyperintense lesion which demonstrates a slightly thickened wall and wall enhancement. This is similar in size dating back to 2020 and likely represents a mildly complicated cyst. No definite enhancing mass is identified. Diffusion-weighted images demonstrate additional tiny foci within the liver which likely represent additional cysts. The hepatic and portal veins are patent. There is no intrahepatic biliary dilatation. Gallbladder/biliary tree: The gallbladder is surgically absent. The common bile duct is normal in caliber. No intraluminal filling defects are identified to suggest choledocholithiasis. Spleen: The spleen is unremarkable. Pancreas: The pancreas is unremarkable. There is no enhancing pancreatic mass. The pancreatic duct is normal in caliber. Adrenals: The adrenal glands are unremarkable. Kidneys: The right kidney is unremarkable. There is a 1.1 cm cyst in the interpolar region of the left kidney which demonstrates a fluid/fluid level and slight T1 hyperintensity, consistent with a hemorrhagic or proteinaceous cyst. There is no hydronephrosis. Lymph nodes: There is no retroperitoneal lymphadenopathy in the upper abdomen. Fluid: There is no ascites in the upper abdomen. Visualized bowel: The visualized small and large bowel loops are unremarkable in appearance. Visualized bones: The visualized bones demonstrate normal marrow signal intensity. MR/MR abdomen wo/w con IMPRESSION: 1. Hepatic steatosis. 2. Multiple hepatic cysts as described. A 1.4 cm lesion in the inferior aspect of segment V likely represents a mildly complicated cyst and is not significantly changed in appearance since 2020. 3. 1.1 cm hemorrhagic/proteinaceous left renal cyst. Electronically signed by: Erasto Lr MD 01/11/2025 03:27 PM EDT
== END 2025-01-11 12:56 | disposition home or self-care (01) ==
LOC: HO.MRI 12:55
PROVIDERS: PCP Internal Medicine; Visit Provider Physician Assistant Medical
DX: R93.2 Abnormal findings on diagnostic imaging of liver and biliary tract (principal); F41.9 Anxiety disorder, unspecified; R41.89 Other symptoms and signs involving cognitive functions and awareness; R68.89 Other general symptoms and signs
CPT/HCPCS: 70553; 74183; A9585

== ENCOUNTER 2025-03-05 12:59 | Outpatient (AMB) | payer MEDICARE, SELFPAY ==
--- NOTE | 2025-03-05 13:07 | MHC.OFFVIS ---
Vital Signs 03/05/25 13:08 Height 5 ft 3 in Weight 200 lb BMI 35.4 BP 120/82 Blood Pressure Location Lt brachial Position Sitting Pulse 67 Pulse Source Pulse Oximeter Pulse Oximetry (%) 96 Oxygen Delivery Method Room Air Intake Visit Reasons: 6 mo follow up Intake Note: Patient presents follow up cognitive medication. Discharged from PT 08/03/24. Accompanied by: Daughter Allergies No Known Allergies Allergy (Verified 03/05/25 13:10) Medication List - Last Reconciled 03/05/25 by JESUS Negron alprazolam 0.5 mg PO DAILY 2 days bupropion HCl XL 150 mg PO Q OTHER DAY 90 days calcium carbonate-vitamin D3 600 mg-62.5 mcg (2,500 unit) 2 caps PO DAILY 90 days celecoxib (Celebrex) 200 mg PO BID 90 days cholecalciferol (vitamin D3) 50 mcg PO DAILY cyanocobalamin (vitamin B-12) (Vitamin B-12) 1,000 mcg PO DAILY denosumab (Prolia) 60 mg subcut [id number] 12 months diclofenac sodium 1% (Arthritis Pain (diclofenac)) 2 grams topical QID escitalopram oxalate (Lexapro) 40 mg PO DAILY estradiol 0.01%(0.1mg/gram) vaginally daily; pea sized amount to urethra 3 times a week 30 days folic acid 1 mg PO DAILY 90 days hydroxyzine HCl 10 mg PO TID lansoprazole 30 mg PO BID linaclotide (Linzess) 145 mcg PO QAM 90 days memantine 14 mg PO DAILY 30 days mirabegron ER (Myrbetriq) 25 mg PO DAILY 90 days pregabalin (Lyrica) 300 mg (4 x 75 mg) PO QDAY 90 days quetiapine 50 mg PO BEDTIME simethicone (Gas Relief Extra Strength) 125 mg PO BID PRN 30 days trazodone 50 mg PO BEDTIME zolpidem 10 mg PO BEDTIME HPI Comments Details: 69-yr-old female presents for follow-up of cognitive and sleep difficulties. Patient is accompanied by her daughter who provides history today. Patient was last seen on 11/30/2024 by Mayelin RIVAS. At the last visit, patient was advised to undergo brain MRI with and without contrast, which showed intracranial white matter disease, possible indications of spontaneous intracranial hypotension, and a left frontal 7 mm enhancing bone lesion, which was considered nonspecific. Patient does not speak at all through today's visit. Daughter reports that patient's cognition is worsening. They are concerned, as patient's sister has been diagnosed with Alzheimer's disease, and the sister has had a similar change in behavior and cognition. Patient's daughter notes that patient often complains of left occipital and shoulder upper back discomfort. Patient spends a lot of her day lying down, but daughter can not state if patient is head symptoms are better or worse when lying down or being upright. Daughter also notes that patient has had 4 different therapist in the past year, which she does not think is helpful for the patient. However, patient does have a consistent psychiatrist I reviewed [facility]. 01/11/2025, MR/MR head/brain wo/w con IMPRESSION: No abnormal enhancement. No acute stroke/ischemia. White matter disease. Posterior small vessel occlusive disease versus demyelinating process. Spontaneous intracranial hypotension cannot be excluded. Nonspecific 7 mm enhancing bone lesion, left frontal.. Previous workup: 06/22/2023, HST: No evidence for sleep apnea, AHI 2.2 per hour. O2 samia 81%, with SpO2 under 90% x's 17 minutes of study, and under 80% w/o, time 6 minutes of study. 04/14/2024, in-lab PSG showed AHI 10 per hour, REM AHI 38 per hour, O2 samia 74%, average SpO2 92%, and SpO2 under 88% times 10 minutes.? Periodic limb movement of sleep (PLMS) 47 per hour with PLMS arousal index of 3.6 per hour.? Moderate snoring was noted.? Overall sleep efficiency 83%. Brain MRI w/o, at 2021 at [facility]: mild chronic microangiopathic changes. 08/30/2023, head PET metabolic evaluation: No scintigraphic evidence of neurodegenerative disease 12/06/21, Brain MRI: The right cerebellar tonsil extends approximately 4-5mm below the level of the foramen magnum. The left cerebellar tonsil also extends inferiorly below the level of the foramen magnum. No significant crowding of the cervicomedullary junction. The ventricles are normal in size. No intracranial mass or extra-axial fluid collection. There is no restricted diffusion or abnormal susceptibility artifact. Scattered small T2 bright foci are present within the supratentorial white matter. These are nonspecific, but are compatible with chronic microangiopathic/small vessel ischemic change. The visualized extracranial soft tissues and orbital structures are unremarkable. IMPRESSION: 1. Mild supratentorial white matter signal abnormality compatible with chronic microangiopathic/small vessel ischemic change. 2. Mild cerebellar ectopia. [facility] Medical History Polyarticular osteoarthritis Monoclonal gammopathy Encounter for monitoring denosumab therapy Back pain Anemia Urinary problem Multiple sclerosis Hematuria Mild recurrent major depression Fibromyalgia Right knee pain Left leg pain Cervical cancer screening Hematuria Urge incontinence of urine Memory loss Class 1 obesity without serious comorbidity with body mass index (BMI) of 34.0 to 34.9 in adult Cough Insomnia UTI (urinary tract infection) B12 deficiency Microscopic hematuria Leukopenia Liver cyst Hemorrhoids Diverticulosis Anxiety GERD (gastroesophageal reflux disease) Medicare annual wellness visit, initial Otitis media Urinary tract infection Surgical History History of excision of lesion (12/13/23) H/O section H/O: hysterectomy History of endoscopy History of colonoscopy History of cholecystectomy Family History Mother Lung cancer Father Cancer of esophagus Sister No problems noted. Other Arthritis Social History Household Members: Family Household Members Other:: grandchildren Housing: House Housing Other:: lives with daughter and 2 grandkids Are you a primary health care legal assistant to a significant other at home: No Do you presently have visiting nurse or other home services: No Alcohol intake: former Patient Tobacco Use Status: Never used Tobacco e-Cigarette/Vaping Use: Never Used Second Hand Smoke Exposure: No service: No Current occupational status: unemployed Cognitive needs: No Hearing needs: No Vision needs: No Physical Exam Vital Signs: Last Vital Signs Pulse 67 03/05/25 13:08 BP 120/82 03/05/25 13:08 Pulse Ox 96 03/05/25 13:08 Oxygen Delivery Method Room Air 03/05/25 13:08 BMI result Body Mass Index 35.4 Const General: cooperative and no acute distress HEENT Head: Yes normocephalic Resp Effort & Inspection: normal respiratory effort and able to speak in complete sentences Neuro Other: Alert with blunted affect. Patient does not for really respond today. Unable to complete MMSE due to patient not responding to questions. No palpable scalp tenderness. Stand slowly, steady gait with daughter providing contact guard.. General: CN's II-XI intact bilaterally Motor exam (neuro): 5/5 motor strength present throughout Psych Appearance: grossly normal Speech and movement: Normal speech and movement present Affect: normal affect Attitude: cooperative Assessment & Plan Assessment & Plan (1) Cognitive impairment: Code(s): R41.89 - Other symptoms and signs involving cognitive functions and awareness Category: Medical (2) Anxiety: Code(s): F41.9 - Anxiety disorder, unspecified Category: Medical (3) Insomnia: Code(s): G47.00 - Insomnia, unspecified Category: Medical Qualifiers: Insomnia type: psychophysiologic Qualified Code(s): F51.04 - Psychophysiologic insomnia (4) Family history of dementia: Code(s): Z81.8 - Family history of other mental and behavioral disorders Category: Medical (5) Bone lesion: Comment: MR/MR head/brain wo/w con Nonspecific 7 mm enhancing bone lesion, left frontal.. Code(s): M89.9 - Disorder of bone, unspecified Category: Medical Plan Reviewed interval brain MRI with and without contrast, which shows presence of scattered white matter lesions, possible signs of spontaneous intracranial hypotension, and a left frontal 7 mm bone lesion: We will request Radiology review if any of the white matter lesions show positive central vein sign, and to calculate the [place] score. We will request follow-up head/skull CT with and without contrast to better assess left frontal calvarium lesion. Patient advised to trial taking 2 servings of caffeinated beverages containing up to 225 mg of caffeine each twice a day (with breakfast and lunch)-and to monitor if headache and back pain and fatigue and cognitive symptoms improve. Check labs for common underlying etiologies Will check follow-up labs. Continue memantine ER 14 mg daily x1 more month, and then we will increase to 21 mg daily for 1 month and then increase to final dose of 28 mg daily. Increase cognitive and socially stimulating activities. Increase physical activity. Continue psychotherapy. Patient has not yet had comprehensive neuro-psych eval as ordered, however we have held this order, as is patient unable to participate in MMS evaluation, likely she will not be able to participate in a comprehensive neuropsych evaluation to the extent necessary to allow for a true comprehensive evaluation. Future considerations- Minimizing polypharmacy. ? f/u on review of above, and in-clinic in 6 months or sooner. Orders: Orders Other [place] [facility] [place] R41.89 - Other symptoms and signs involving cognitive functions and awareness, Z82.0 - Family history of epilepsy and other diseases of the nervous system Complete Blood Count Auto Diff 03/05/25 D47.2 - Monoclonal gammopathy, D64.9 - Anemia, unspecified, D70.9 - Neutropenia, unspecified, K76.0 - Fatty (change of) liver, not elsewhere classified, M25.50 - Pain in unspecified joint Comprehensive Gordon. Panel Fast 03/05/25 D47.2 - Monoclonal gammopathy, D64.9 - Anemia, unspecified, D70.9 - Neutropenia, unspecified, K76.0 - Fatty (change of) liver, not elsewhere classified, M25.50 - Pain in unspecified joint Rheumatoid Factor 03/05/25 D47.2 - Monoclonal gammopathy, D64.9 - Anemia, unspecified, D70.9 - Neutropenia, unspecified, K76.0 - Fatty (change of) liver, not elsewhere classified, M25.50 - Pain in unspecified joint Immunoglobulin G Subclasses 03/05/25 D47.2 - Monoclonal gammopathy, D64.9 - Anemia, unspecified, D70.9 - Neutropenia, unspecified, K76.0 - Fatty (change of) liver, not elsewhere classified, M25.50 - Pain in unspecified joint CT head/brain wo/w IV con Today M89.9 - Disorder of bone, unspecified Erythrocyte Sedimentation Rate 03/05/25 D47.2 - Monoclonal gammopathy, D64.9 - Anemia, unspecified, D70.9 - Neutropenia, unspecified, K76.0 - Fatty (change of) liver, not elsewhere classified, M25.50 - Pain in unspecified joint C Reactive Protein 03/05/25 D47.2 - Monoclonal gammopathy, D64.9 - Anemia, unspecified, D70.9 - Neutropenia, unspecified, K76.0 - Fatty (change of) liver, not elsewhere classified, M25.50 - Pain in unspecified joint CHARITO Reflex Titer and Pattern 03/05/25 D47.2 - Monoclonal gammopathy, D64.9 - Anemia, unspecified, D70.9 - Neutropenia, unspecified, K76.0 - Fatty (change of) liver, not elsewhere classified, M25.50 - Pain in unspecified joint Angiotensin Converting Enzyme 03/05/25 D47.2 - Monoclonal gammopathy, D64.9 - Anemia, unspecified, D70.9 - Neutropenia, unspecified, K76.0 - Fatty (change of) liver, not elsewhere classified, M25.50 - Pain in unspecified joint Complement C3 03/05/25 D47.2 - Monoclonal gammopathy, D64.9 - Anemia, unspecified, D70.9 - Neutropenia, unspecified, K76.0 - Fatty (change of) liver, not elsewhere classified, M25.50 - Pain in unspecified joint Complement C4 03/05/25 D47.2 - Monoclonal gammopathy, D64.9 - Anemia, unspecified, D70.9 - Neutropenia, unspecified, K76.0 - Fatty (change of) liver, not elsewhere classified, M25.50 - Pain in unspecified joint Medications: New memantine Then increase to 21 mg 14 mg PO DAILY 30 ea 0RF 30 days Discontinued memantine then stop and increase to 14mg qd Discontinued Reason: Doctor's Order 14 mg (2 x 7 mg) PO DAILY 30 days 60 ea 1RF alzheimers MDD 14mg PO R68.89 - Other general symptoms and signs Coding Level of Care Code Est Pt Level 4 (37535) Diagnoses Cognitive impairment R41.89 Anxiety F41.9 Psychophysiological insomnia F51.04 Insomnia type: psychophysiologic Family history of dementia Z81.8 Bone lesion M89.9
[2025-03-05 13:08] VITALS: BP 120/82; PULSE 67; O2SAT 96; BMI 35.4
== END 2025-03-05 13:57 | disposition home or self-care (01) ==
LOC: HO.HSMS 13:00
PROVIDERS: PCP Internal Medicine; Visit Provider Nurse Practitioner Family
DX: R41.89 Other symptoms and signs involving cognitive functions and awareness (principal); F41.9 Anxiety disorder, unspecified; F51.04 Psychophysiologic insomnia; Z81.8 Family history of other mental and behavioral disorders; M89.9 Disorder of bone, unspecified
CPT/HCPCS: 99214

== ENCOUNTER → 2025-03-05 12:59 | Outpatient (BNVA) | payer MEDICARE, SELFPAY | PROVIDERS: PCP Internal Medicine; Visit Provider Nurse Practitioner Family | DX: D47.2 Monoclonal gammopathy (principal); R41.89 Other symptoms and signs involving cognitive functions and awareness; F41.9 Anxiety disorder, unspecified; F51.04 Psychophysiologic insomnia; Z82.0 Family history of epilepsy and other diseases of the nervous system; M25.50 Pain in unspecified joint | CPT/HCPCS: 99212 ==

== ENCOUNTER 2025-03-26 15:01 | Outpatient (AMB) | payer MEDICARE, SELFPAY ==
--- NOTE | 2025-03-26 15:26 | A.OFFPC_ITS ---
Vital Signs 03/26/25 15:27 Height 5 ft 4 in Weight 200 lb 6 oz BMI 34.4 BP 134/84 Blood Pressure Location Lt brachial Position Sitting Pulse 63 Pulse Source Pulse Oximeter Temp 97.3 F Temp Source Temporal Artery Scan Pulse Oximetry (%) 91 L Oxygen Delivery Method Room Air Intake Visit Reasons: depression Intake Note: Patient is here to follow up on Depression. [employer] Building [employer] Distributor Required: Yes [employer] Building [employer] Distributor Language: Imitation Marble Mechanic Name: Brigette (Daughter) Information Interpreted: non-clinical & clinical Mechanical Tech: Present (daughter and grandson) Accompanied by: Daughter Allergies No Known Allergies Allergy (Verified 03/26/25 15:53) Medication List - Last Reconciled 03/26/25 by Rosaura Hunt MD alprazolam 0.5 mg PO DAILY 2 days bupropion HCl XL 150 mg PO Q OTHER DAY 90 days calcium carbonate-vitamin D3 600 mg-62.5 mcg (2,500 unit) 2 caps PO DAILY 90 days celecoxib (Celebrex) 200 mg PO BID 90 days cholecalciferol (vitamin D3) 50 mcg PO DAILY cyanocobalamin (vitamin B-12) (Vitamin B-12) 1,000 mcg PO DAILY denosumab (Prolia) 60 mg subcut [id number] 12 months diclofenac sodium 1% (Arthritis Pain (diclofenac)) 2 grams topical QID escitalopram oxalate (Lexapro) 40 mg PO DAILY estradiol 0.01%(0.1mg/gram) vaginally daily; pea sized amount to urethra 3 times a week 30 days folic acid 1 mg PO DAILY 90 days hydroxyzine HCl 10 mg PO TID lansoprazole 30 mg PO BID linaclotide (Linzess) 145 mcg PO QAM 90 days memantine mg PO memantine 14 mg PO DAILY 30 days mirabegron ER (Myrbetriq) 25 mg PO DAILY 90 days pregabalin (Lyrica) 300 mg (4 x 75 mg) PO QDAY 90 days quetiapine 50 mg PO BEDTIME simethicone (Gas Relief Extra Strength) 125 mg PO BID PRN 30 days trazodone 50 mg PO BEDTIME zolpidem 10 mg PO BEDTIME Tobacco use date assessed: 03/26/25 Fall risk assessment: No Falls in past year Last assessed Fall Risk: 03/26/25 Dental Screening Dental Screen Date: 06/26/24 HPI HPI Comments History of Present Illness Details The patient is a 69-year-old female presenting with right breast pain and for preventative care screenings. The patient reports experiencing pain in the right breast, which prompted the need for further evaluation. A mammography and ultrasound of the right breast have been recommended to investigate the cause of the pain. Recent laboratory tests indicate a slightly elevated liver enzyme, with the normal being 31 and the patient's level at 34. The renal function and blood sugar levels are reported to be normal. An MRI of the abdomen conducted in December revealed cysts in the liver and left kidney. These findings were part of a routine check-up and are being monitored by the assurance senior manager. She hss severe depression with anxiety follow by psychiatry and counseling. [facility] Medical History (Updated 03/26/25 @ 19:54 by Rosaura Hunt MD) Polyarticular osteoarthritis Monoclonal gammopathy Encounter for monitoring denosumab therapy Back pain Anemia Urinary problem Multiple sclerosis Hematuria Mild recurrent major depression Fibromyalgia Right knee pain Left leg pain Cervical cancer screening Hematuria Urge incontinence of urine Memory loss Class 1 obesity without serious comorbidity with body mass index (BMI) of 34.0 to 34.9 in adult Cough Insomnia UTI (urinary tract infection) B12 deficiency Microscopic hematuria Leukopenia Liver cyst Hemorrhoids Diverticulosis Anxiety GERD (gastroesophageal reflux disease) Medicare annual wellness visit, initial Otitis media Urinary tract infection Surgical History History of excision of lesion (12/13/23) H/O section H/O: hysterectomy History of endoscopy History of colonoscopy History of cholecystectomy Family History Mother Lung cancer Father Cancer of esophagus Sister No problems noted. Other Arthritis Social History Household Members: Family Household Members Other:: grandchildren Housing: House Housing Other:: lives with daughter and 2 grandkids Are you a primary foster care case manager to a significant other at home: No Do you presently have visiting nurse or other home services: No Alcohol intake: former Patient Tobacco Use Status: Never used Tobacco e-Cigarette/Vaping Use: Never Used Second Hand Smoke Exposure: No service: No Current occupational status: unemployed Cognitive needs: No Hearing needs: No Vision needs: No Questionnaire PHQ-9 Over the last 2 weeks, how often have you been bothered by any of the following problems? 1. Little interest or pleasure in doing things: nearly every day 2. Feeling down, depressed, or hopeless: nearly every day 3. Trouble falling or staying asleep, or sleeping too much: nearly every day 4. Feeling tired or having little energy: nearly every day 5. Poor appetite or overeating: nearly every day 6. Feeling bad about yourself - or that you are a failure or have let yourself or your family down: nearly every day 7. Trouble concentrating on things, such as reading the newspaper or watching television: nearly every day 8. Moving or speaking so slowly that other people could have noticed. Or the opposite - being so fidgety or restless that you have been moving around a lot more than usual: nearly every day 9. Thoughts that you would be better off or of hurting yourself in some way: several days Total score: 25 Depression Screening Interpretation: Positive Depression Screening Follow-up: Existing condition, In treatment, Community Mental Health Worker F/U and Follow- up Visit Requested Depression Screening Done: Yes 82288 - PHQ-9 Billing: Yes Source: Developed by Drs. Erasto Mars, Vandana Cervantes, Henry Powers and colleagues, with an educational chadd from [employer]. Thrive Questionnaire Date Thrive assessed: 03/20/25 I am a: Parent/Caregiver What is your living situation today?: I have a steady place to live Within the past 12 months, did the food you bought not last and you didn't have the money to get more?: Never true Within the past 12 months, did you worry whether your food would run out before you got money to buy more?: Often true Do you have trouble paying for medicines?: I choose not to answer this question Do you have trouble getting transportation to medical appointments?: No Do you have trouble paying your heating and electricity bill?: I choose not to answer this question Do you have trouble taking care of your child, family member or friend?: I choose not to answer this question Do you have trouble with day-to-day activities such as bathing, preparing meals, shopping, managing finances, etc.?: Yes Are you currently unemployed and looking for a job?: No Are you interested in more education?: No Please select the resources that you would like help with: None Currently or been in a relationship where the following occur: I choose not to answer THRIVE Score: 1 AUDIT C Alcohol Use Questionnaire (AUDIT-C) 1. How often do you have a drink containing alcohol?: Never Total Score: 0 Score Reviewed/Action Taken: No TOYA-7 AMB Questionnaire TOYA-7 Date TOYA - 7 assessed: 09/21/24 Feeling nervous, anxious, or on edge: 3 = Nearly every day Not being able to stop or control worryin = Nearly every day Worrying too much about different things: 3 = Nearly every day Trouble relaxin = Nearly every day Being so restless that it is hard to sit still: 3 = Nearly every day Becoming easily annoyed or irritable: 1 = Several days Feeling afraid as if something awful might happen: 3 = Nearly every day Total TOYA-7 score (0-4 normal; 5-9 mild; 10-14 moderate; 15-21 severe): 19 Source: Developed by Drs. Erasto Mars, Vandana Cervantes, Henry Powers and colleagues, with an educational chadd from [employer]. TOYA-7 Assessment Billing TOYA-7 Assessment Tool: TOYA-7 Assessment 63114 Review of Systems Const All systems reviewed & are unremarkable except as noted in HPI and below Card Denies chest pain at rest, Denies chest pain with activity, Denies edema, Denies irregular heart rhythm, Denies claudication, Denies dyspnea, Denies dyspnea on exertion, Denies orthopnea, Denies paroxysmal nocturnal dyspnea and Denies slow heart rate Resp Denies cough, Denies dyspnea and Denies dyspnea on exertion GI Denies abdominal pain, Denies change in bowel habits, Denies excessive flatus, D enies nausea and Denies vomiting Neuro Denies lack of coordination Physical exam (Primary Care) Vital Signs: Last Vital Signs Temp 97.3 F 03/26/25 15:27 Pulse 63 03/26/25 15:27 BP 134/84 03/26/25 15:27 Pulse Ox 91 L 03/26/25 15:27 Oxygen Delivery Method Room Air 03/26/25 15:27 BMI result Body Mass Index 34.4 BMI Assessment/Plan discussion: High BMI High, discussed plan: lifestyle, weight reduction, dietary and physical activity Tobacco/Smoking Status: Tobacco use Status Tobacco use date assessed 03/26/25 03/26/25 15:33 Patient Tobacco Use Status Never used Tobacco 03/26/25 15:33 e-Cigarette/Vaping Use Never Used 03/26/25 15:33 PHQ-9: PHQ-9 Score PHQ-9: Total score 03/26/25 16:20 Depression Screening Interpretation: Positive Depression Screening Follow-up: Existing condition, In treatment, Community Mental Health Worker F/U and Follow- up Visit Requested Thrive Assessment: Date of Thrive Assessment Date Thrive assessed 03/20/25 03/26/25 15:33 Currently or been in a relationship where the following occur: I choose not to answer Resp Effort & Inspection: normal respiratory effort Auscultation: clear to auscultation bilaterally Cardio Jugular venous distension: no JVD Rate: regular rate Rhythm: regular rhythm Heart sounds: S1 normal heart sound present and S2 normal heart sound present Extrem General: Yes full ROM Office Procedures Flu Questionnaire Does the patient have a severe egg allergy?: No Does the patient have severe life threatening allergies?: No Does the patient have a fever or illness today?: No Has the patient ever had Guillain-[place] Syndrome?: No Has the patient ever had any past reaction to a flu shot?: No Immunizations Fluarix [id number] (PF) 45 mcg (15 mcg x 3)/0.5 mL IM syringe Performing Provider: Rosaura Hunt MD [facility] Administered by: Arianne Bloom LPN on 03/26/25 16:18 Dose Route Admin Location Dispensed Lot Number Expiration Date [facility] Claims Configuration Analyst 0.5 mL IM Left Deltoid 0.5 mL [id number] 12/11/26 14644-930-98 [employer] VIS Given Date VIS Provided VIS Publication Date 03/26/25 Single Vaccine 24 Eligibility Eligibility Date Funding Source Not [facility] Eligible 03/26/25 Private Coding Level of Care Code Est Pt Level 3 (76046) Complex EM visit Add On G2211 Diagnoses Severe major depression F32.2 Breast pain, right N64.4 Anxiety F41.9 Additional Codes TOYA-7 Assessment Billing - TOYA-7 Assessment Tool: TOYA-7 Assessment 35553 ([id number]) PHQ-9 - 60423 - PHQ-9 Billing: Yes ([id number]) Time Spent (min) 19 Assessment & Plan Assessment & Plan (1) Severe major depression: Code(s): F32.2 - Major depressive disorder, single episode, severe without psychotic features Category: Medical (2) Breast pain, right: Code(s): N64.4 - Mastodynia Category: Medical (3) Anxiety: Code(s): F41.9 - Anxiety disorder, unspecified Category: Medical Plan Plan Patient was informed and verbally consented to the use of an ambient scribe for clinic note documentation during this visit. 1. Right Breast Pain A mammography and ultrasound of the right breast have been recommended to investigate the cause of the pain. 2. Depression with anxiety Continue psych meds. Orders: Orders MM diagnostic mammo BI Today N64.4 - Mastodynia US breast RT limited Today N64.4 - Mastodynia Influenza [id number] Immunization Today Z23 - Encounter for immunization
[2025-03-26 15:27] VITALS: BP 134/84; PULSE 63; TEMP 36.3; O2SAT 91; BMI 34.4
== END 2025-03-26 16:20 | disposition home or self-care (01) ==
LOC: HO.HMCH 15:02
PROVIDERS: PCP Internal Medicine; Visit Provider Internal Medicine
DX: F32.2 Major depressive disorder, single episode, severe without psychotic features (principal); N64.4 Mastodynia; F41.9 Anxiety disorder, unspecified; Z23 Encounter for immunization

== ENCOUNTER → 2025-03-26 15:01 | Outpatient (BNVA) | payer MEDICARE, SELFPAY | PROVIDERS: PCP Internal Medicine; Visit Provider Internal Medicine | DX: F32.2 Major depressive disorder, single episode, severe without psychotic features (principal); Z23 Encounter for immunization; N64.4 Mastodynia; F41.9 Anxiety disorder, unspecified; Z13.31 Encounter for screening for depression | CPT/HCPCS: 90471; 90656; 96127; 99212 ==

== ENCOUNTER 2025-03-28 14:06 | Outpatient (AMB) | payer OTHER, SELFPAY ==
--- NOTE | 2025-03-28 14:10 | MHC.OFFVIS ---
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 starkey/palpitations Linux System Admin Required: Yes Linux System Admin Language: Optometric Technician Name: [email or web address] Accompanied by: Daughter Allergies No Known Allergies Allergy (Verified 03/26/25 15:53) Medication List - Last Reconciled 03/28/25 by Zhao Major MD alprazolam 0.5 mg PO DAILY 2 days bupropion HCl XL 150 mg PO Q OTHER DAY 90 days calcium carbonate-vitamin D3 600 mg-62.5 mcg (2,500 unit) 2 caps PO DAILY 90 days celecoxib (Celebrex) 200 mg PO BID 90 days cholecalciferol (vitamin D3) 50 mcg PO DAILY cyanocobalamin (vitamin B-12) (Vitamin B-12) 1,000 mcg PO DAILY denosumab (Prolia) 60 mg subcut [id number] 12 months diclofenac sodium 1% (Arthritis Pain (diclofenac)) 2 grams topical QID escitalopram oxalate (Lexapro) 40 mg PO DAILY estradiol 0.01%(0.1mg/gram) vaginally daily; pea sized amount to urethra 3 times a week 30 days folic acid 1 mg PO DAILY 90 days hydroxyzine HCl 10 mg PO TID lansoprazole 30 mg PO BID linaclotide (Linzess) 145 mcg PO QAM 90 days memantine 14 mg PO DAILY 30 days mirabegron ER (Myrbetriq) 25 mg PO DAILY 90 days pregabalin (Lyrica) 300 mg (4 x 75 mg) PO QDAY 90 days quetiapine 50 mg PO BEDTIME simethicone (Gas Relief Extra Strength) 125 mg PO BID PRN 30 days trazodone 50 mg PO BEDTIME zolpidem 10 mg PO BEDTIME HPI Comments Details: Patient is here for evaluation of palpitations. Discussed with patient as well as daughter using brake coupler dinkey. Most of the information is actually from at daughter than the patient herself. It seems that she has been noticing sensations of heart fluttering at different times. Can happen somewhat randomly. Sometimes associated with emotional situations. During those occasions, daughter states that blood pressure does go up quite high although she is on listed to have any high blood pressure and also not on any blood pressure medication. Today's blood pressure is also normal. She has been referred here for further evaluation. It seems she might be having some random chest pains but difficult to ascertain clearly. History somewhat difficult as the patient's daughter is rather giving all the information then the patient herself. [facility] Medical History Polyarticular osteoarthritis Monoclonal gammopathy Encounter for monitoring denosumab therapy Back pain Anemia Urinary problem Multiple sclerosis Hematuria Mild recurrent major depression Fibromyalgia Right knee pain Left leg pain Cervical cancer screening Hematuria Urge incontinence of urine Memory loss Class 1 obesity without serious comorbidity with body mass index (BMI) of 34.0 to 34.9 in adult Cough Insomnia UTI (urinary tract infection) B12 deficiency Microscopic hematuria Leukopenia Liver cyst Hemorrhoids Diverticulosis Anxiety GERD (gastroesophageal reflux disease) Medicare annual wellness visit, initial Otitis media Urinary tract infection Surgical History History of excision of lesion (12/13/23) H/O section H/O: hysterectomy History of endoscopy History of colonoscopy History of cholecystectomy Family History Mother Lung cancer Father Cancer of esophagus Sister No problems noted. Other Arthritis Social History Household Members: Family Household Members Other:: grandchildren Housing: House Housing Other:: lives with daughter and 2 grandkids Are you a primary hospice care consultant to a significant other at home: No Do you presently have visiting nurse or other home services: No Alcohol intake: former Patient Tobacco Use Status: Never used Tobacco e-Cigarette/Vaping Use: Never Used Second Hand Smoke Exposure: No service: No Current occupational status: unemployed Cognitive needs: No Hearing needs: No Vision needs: No Review of Systems Const Denies chills, Denies fatigue, Denies fever(s), Denies frequent falls, Denies weakness, Denies weight gain and Denies weight loss ENT Denies dizziness Card Denies chest pain, Denies leg edema, Denies lightheadedness, Reports palpitations, Reports dyspnea, Reports dyspnea on exertion and Reports orthopnea Resp Denies cough, Reports dyspnea and Reports dyspnea on exertion GI Denies bloating and Denies change in bowel habits Musc Denies muscle weakness, Denies numbness and Denies tingling Neuro Denies dizziness, Denies frequent falls, Denies numbness, Denies tingling and Denies weakness Endo Denies fatigue and Reports palpitations Physical Exam Vital Signs: Last Vital Signs Pulse 68 03/28/25 14:12 BP 120/80 03/28/25 14:12 BMI result Body Mass Index 33.8 Const General: comfortable and no acute distress Orientation/consciousness: patient oriented x3 HEENT Other: Unremarkable Head: Yes normal to inspection Neck Neck: Yes normal visual inspection Chest Chest palpation & inspection: normal inspection of the chest Resp Auscultation: clear to auscultation bilaterally Cardio Palpation: normal PMI Heart sounds: S1 normal heart sound present, S2 normal heart sound present, no gallops, no murmurs and no rubs GI Palpation (GI): Soft to palpation Back/Spine/Pelvis Other: unremarkable Skin General skin exam: no rashes or lesions noted Neuro General: patient oriented x3 Extrem General: Yes normal to inspection Psych Mental Status: mental status grossly normal Office Procedures EKG Details: EKG with underlying sinus rhythm at 68/Min; nonspecific ST-T changes; [place] [id number], Complete Assessment & Plan Assessment & Plan (1) Palpitations: Code(s): R00.2 - Palpitations Category: Medical Plan Baseline EKG with nonspecific changes. No overt findings on clinical exam. We will evaluate for common arrhythmias including supraventricular/ventricular ectopy, atrial fibrillation among others. We will start with an echocardiogram and 1 week Holter monitor. Based on the findings, we can plan further care. Discussed with patient as well as daughter using brake coupler dinkey and they understand and agree with plan. Discussion Notes I discussed with the patient the plan to conduct a heart ultrasound and provide a heart monitor to evaluate her palpitations. We will follow up on the results and adjust the management plan accordingly. Patient was informed and verbally consented to the use of an ambient scribe for clinic note documentation during this visit. Orders: Orders CA echo transthoracic complete Today R00.2 - Palpitations ECG 7 day holter monitor Today R00.2 - Palpitations Patient Instructions: - Undergo a heart ultrasound as scheduled. - Wear the heart monitor for the prescribed duration. - Follow up with the clinic after the tests are completed. Coding Level of Care Code New Pt Level 4 (22040) Diagnoses Palpitations R00.2 CPT Codes EKG - CPT: 39673-Pununbayxihiaghlv, Complete ([id number])
[2025-03-28 14:12] VITALS: BP 120/80; PULSE 68; BMI 33.8
== END 2025-03-28 14:40 | disposition home or self-care (01) ==
PROVIDERS: PCP Internal Medicine; Visit Provider Internal Medicine
DX: R00.2 Palpitations (principal)
CPT/HCPCS: 93010; 99204

== ENCOUNTER → 2025-03-28 14:06 | Outpatient (BNVA) | payer OTHER, SELFPAY | PROVIDERS: PCP Internal Medicine; Visit Provider Internal Medicine | DX: R00.2 Palpitations (principal); R94.31 Abnormal electrocardiogram [ECG] [EKG] | CPT/HCPCS: 93005 ==

== ENCOUNTER 2025-04-24 13:45 | Outpatient (REF) | payer OTHER, SELFPAY ==
--- NOTE | ~2025-04-24 | MM_ITS ---
EXAMINATION(S): 1. MM DIAGNOSTIC DIGITAL BREAST TOMOSYNTHESIS, BILATERAL 2. TARGETED ULTRASOUND OF THE RIGHT BREAST CLINICAL INFORMATION: Right breast pain at 9 o'clock position. Patient also describes right breast palpable lump. History of bilateral reduction mammoplasty. COMPARISON: Comparison made to multiple prior, most recent October 04, 2023, and most remote September 23, 2021. TECHNIQUE: Digital breast tomosynthesis is performed in both the mediolateral oblique and craniocaudal views along with computer-aided detection (CAD). Synthesized 2D images are generated from the tomosynthesis. Skin BB marker is placed at the location of the palpable concern in the right breast as indicated by the patient. Triangular skin marker is placed at the location of the focal pain in the right breast as indicated by the patient. FINDINGS: BREAST COMPOSITION: There are scattered areas of fibroglandular density. RIGHT BREAST: Prior reduction mammoplasty. No significant masses, suspicious calcifications or other abnormalities are seen. In particular, no suspicious mammographic findings adjacent to the skin BB marker in the lower outer quadrant or triangular skin marker at about 9 o'clock position. Targeted ultrasound of the right breast was performed at the following locations: -Palpable concern along the 7:00 axis: No suspicious findings seen during the survey. -Focal pain along the 8:00 axis: No suspicious findings seen during the survey. LEFT BREAST: Prior reduction mammoplasty. No significant masses, suspicious calcifications or other abnormalities are seen. MM/MM tomosynthesis diagnostic BI IMPRESSION: RIGHT BREAST: Benign, no evidence of malignancy. In particular, no suspicious findings to accounts for patient's concern of palpable lump or focal pain. Clinical follow-up is recommended. Otherwise, normal interval follow-up mammogram is recommended in 12 months. LEFT BREAST: Benign, no mammographic evidence of malignancy. Normal interval follow-up is recommended in 12 months. ASSESSMENT: BI-RADS: Category 2: Benign RECOMMENDATION: 1. Patient should be managed based on the clinical impression. 2. Otherwise, routine annual screening mammography. Results were provided to the patient at time of visit by the technologist. Electronically signed by: Wayne Hoang MD 04/24/2025 03:56 PM [facility]
== END 2025-04-24 13:46 | disposition home or self-care (01) ==
LOC: HO.MAMMO 13:45
PROVIDERS: PCP Internal Medicine; Visit Provider Internal Medicine
DX: N64.4 Mastodynia (principal)
CPT/HCPCS: 76642; 77062; 77066

== ENCOUNTER → 2025-04-24 14:00 | Outpatient (BNV) | payer OTHER, SELFPAY | PROVIDERS: PCP Internal Medicine; Visit Provider Radiology Body Imaging | DX: N64.4 Mastodynia (principal) | CPT/HCPCS: 76642; 77066; G0279 ==

== ENCOUNTER 2025-05-21 13:23 | Outpatient (REF) | payer OTHER, SELFPAY ==
[2025-05-21 18:50] LABS: Blood Urea Nitrogen 20 mg/dL (9-16)
[2025-05-21 19:02] LABS: Alanine Aminotransferase 39 U/L (0-31); Albumin Level 4.2 g/dL (3.5-5.0); Alkaline Phosphatase 55 U/L (39-117); Anion Gap 11 (12-20); Aspartate Amino Transferase 29 U/L (5-31); Blood Urea Nitrogen 19 mg/dL (9-16); Calcium 9.6 mg/dL (8.4-10.2); Carbon Dioxide 28 mmol/L (22-29); Chloride 103 mmol/L (96-108); Estimated Glomerular Filt Rate > 60; Potassium 3.8 mmol/L (3.3-5.1); Sodium 138 mmol/L (135-145); Total Protein 7.2 g/dL (6.5-8.0)
== END 2025-05-21 13:24 | disposition home or self-care (01) ==
LOC: HO.HKASLDS 13:23
PROVIDERS: Nurse Practitioner Family; PCP Internal Medicine; Visit Provider Student in an Organized Health Care Education/Training Program
DX: M81.0 Age-related osteoporosis without current pathological fracture (principal); E55.9 Vitamin D deficiency, unspecified; R39.15 Urgency of urination
CPT/HCPCS: 36415; 80053; 82306; 84520

== ENCOUNTER 2025-05-22 12:49 | Outpatient (REF) | payer OTHER, SELFPAY ==
--- NOTE | ~2025-05-22 | US_ITS ---
CLINICAL HISTORY: R31.29 - Other microscopic hematuria US Renal Comparison: CT/SR - CT UROGRAM - 07/04/24 10:28 EST Findings: Right kidney normal size and echotexture, 11.3 cm length. Left kidney normal size and echotexture, 10.9 cm length. Small hypodense lesion left upper pole measuring up to 1 cm. This lesion appears to small to completely characterize but is similar in appearance to the prior CT in June. No hydronephrosis of either kidney. Normal color Doppler. Urinary bladder is unremarkable. Prevoid volume 427.3 mL. Postvoid volume 65.6 mL. Bilateral ureteral jets are visualized. IMPRESSION: 1. Likely small cyst in the left mid kidney though small size limits evaluation. This is unchanged compared with june. 2. Otherwise unremarkable appearance of the kidneys. 3. Postvoid residual of 66 mL. This document has been electronically signed by: Nargis Dumont MD on 05/23/2025 09:11:52
== END 2025-05-22 12:50 | disposition home or self-care (01) ==
LOC: HO.US 12:49
PROVIDERS: PCP Internal Medicine; Visit Provider Nurse Practitioner Family
DX: R39.15 Urgency of urination (principal); R31.29 Other microscopic hematuria
CPT/HCPCS: 76770

== ENCOUNTER → 2025-05-22 12:51 | Outpatient (BNV) | payer OTHER, SELFPAY | PROVIDERS: PCP Internal Medicine; Visit Provider Radiology Diagnostic Radiology | DX: R31.29 Other microscopic hematuria (principal) | CPT/HCPCS: 76770 ==

== ENCOUNTER 2025-05-23 14:08 | Outpatient (AMB) | payer OTHER, SELFPAY ==
--- NOTE | 2025-05-23 14:16 | A.OFFVIS_ITS ---
Vital Signs 05/23/25 14:25 Height 5 ft 4 in Weight 197 lb 8.547 oz BMI 33.9 BP 132/80 Blood Pressure Location Lt brachial Position Sitting Pulse 65 Pulse Source Pulse Oximeter Pulse Oximetry (%) 98 Oxygen Delivery Method Room Air Intake Visit Reasons: f/u osteoporosis Intake Note: Patient presents today for Osteoporosis follow up and test results. Mass Spectrometry Specialist Required: Yes Mass Spectrometry Specialist Language: Director Labor Standards Services: Mass Spectrometry Specialist Present Mass Spectrometry Specialist Name: Mikael [id number] Information Interpreted: non-clinical & clinical Bus Driver: Bus Driver Present (Fátima Dusty) Accompanied by: Daughter Allergies No Known Allergies Allergy (Verified 05/23/25 14:24) Medication List - Last Reconciled 05/23/25 by Sarai Wood MD alprazolam 0.5 mg PO DAILY 2 days bupropion HCl XL 150 mg PO Q OTHER DAY 90 days calcium carbonate-vitamin D3 600 mg-62.5 mcg (2,500 unit) 2 caps PO DAILY 90 days celecoxib (Celebrex) 200 mg PO BID 90 days cholecalciferol (vitamin D3) 50 mcg PO DAILY cyanocobalamin (vitamin B-12) (Vitamin B-12) 1,000 mcg PO DAILY denosumab (Prolia) 60 mg subcut [id number] 12 months diclofenac sodium 1% (Arthritis Pain (diclofenac)) 2 grams topical QID escitalopram oxalate (Lexapro) 40 mg PO DAILY estradiol 0.01%(0.1mg/gram) vaginally daily; pea sized amount to urethra 3 times a week 30 days folic acid 1 mg PO DAILY 90 days hydroxyzine HCl 10 mg PO TID lansoprazole 30 mg PO BID linaclotide (Linzess) 145 mcg PO QAM 90 days memantine 21 mg PO DAILY 30 days mirabegron ER (Myrbetriq) 25 mg PO DAILY 90 days quetiapine 50 mg PO BEDTIME simethicone (Gas Relief Extra Strength) 125 mg PO BID PRN 30 days trazodone 50 mg PO BEDTIME zolpidem 10 mg PO BEDTIME HPI Comments Details: Patient is a 70 -year-old female with osteoarthritis, fibromyalgia who presents for follow up of osteoporosis Interval History: Last seen 11/17/24 with me. - On Prolia 60mg SC every 6 month - Since then she has been doing well. Tolerated her dose of Prolia - Today complaining of left knee pain - Celebrex is helpful - Received steroid injection to the left knee Today - On prolia 60mg SC every 6 months - Asked patient if the knee injection was helpful but it was not clear - Complaining of neck pain, back pain, and right arm pain - Stopped lyrica due to issues with dementia, when she takes it she gets worse - Celebrex is not helpful Rheumatologic History: Polyarticular osteoarthritis and fibromyalgia Diagnosed with osteoporosis 09/2023 specifically involving the spine. Started on denosumab 04/2024 after alendronate was not tolerated. Risk Factor Assessment: Advanced age: 68 yrs Menarche at 15 year, Menopause at 37 years (patient states that she stopped seeing her period at that time, unsure of why. had LIZZETH BSO at 51 for cancer) Family history: Mother and sister has osteoporosis Her sister has a history of hip fracture. Denies smoking, caffeine and alcohol. High-risk medication assessment: No history of prolonged steroid use or excess thyroid hormone use Has fallen but has not had any fractures. Current Rheumatology Medication(s): Diclofenac gel Celebrex 200 mg twice a day Denosumab 60 mg every 6 months Pregabalin 300 mg everyday (stopped taking) [facility] Medical History (Reviewed 03/28/25 @ 14:16 by Valeria Harmon, [facility]) Polyarticular osteoarthritis Monoclonal gammopathy Encounter for monitoring denosumab therapy Back pain Anemia Urinary problem Multiple sclerosis Hematuria Mild recurrent major depression Fibromyalgia Right knee pain Left leg pain Cervical cancer screening Hematuria Urge incontinence of urine Memory loss Class 1 obesity without serious comorbidity with body mass index (BMI) of 34.0 to 34.9 in adult Cough Insomnia UTI (urinary tract infection) B12 deficiency Microscopic hematuria Leukopenia Liver cyst Hemorrhoids Diverticulosis Anxiety GERD (gastroesophageal reflux disease) Medicare annual wellness visit, initial Otitis media Urinary tract infection Surgical History History of excision of lesion (12/13/23) H/O section H/O: hysterectomy History of endoscopy History of colonoscopy History of cholecystectomy Family History Mother Lung cancer Father Cancer of esophagus Sister No problems noted. Other Arthritis Social History Household Members: Family Household Members Other:: grandchildren Housing: House Housing Other:: lives with daughter and 2 grandkids Are you a primary care specialist to a significant other at home: No Do you presently have visiting nurse or other home services: No Alcohol intake: former Patient Tobacco Use Status: Never used Tobacco e-Cigarette/Vaping Use: Never Used Second Hand Smoke Exposure: No service: No Current occupational status: unemployed Cognitive needs: No Hearing needs: No Vision needs: No Review of Systems Narrative Review of Systems Constitutional: Denies fever, chills, weight loss ENT: Denies vision changes, eye pain or eye redness, dental caries, dry mouth GI: Denies nausea, vomiting, diarrhea, abdominal pain, change in BM Pulm: Denies SOB, FARMER, hemoptysis, wheezing Cards: Denies chest pain, palpitations Skin: Denies Raynaud's, rash, nail changes, photosensitivity, CR[employer]ISE STAFF MEMBER: Denies headaches, weakness, paresthesias, recurrent falls MSK: as per HPI All other systems reviewed and are unremarkable except noted above Physical Exam Exam Exam: Vital signs reviewed Physical Examination CONSTITUITIONAL Patient alert and cooperative. Well appearing and in no apparent painful distress MSK Hands * Right Hand: Able to make a fist. No swelling or tenderness to palpation of the MCPs, PIPs or DIPs. * Left Hand: Able to make a fist. No swelling or tenderness to palpation of the MCPs, PIPs or DIPs. * Herbedens nodes noted bilaterally Wrists * Right Wrist: Full ROM to flexion and extension. No swelling or TTP * Left Wrist: Full ROM to flexion and extension. No swelling or TTP Elbows * Right Elbow: Full ROM. No swelling or TTP. TTP of the medial epicondyle. No TTP of the lateral epicondyle * Left Elbow: Full ROM. No swelling or TTP. No TTP of the medial epicondyle. No TTP of the lateral epicondyle Shoulders * Right shoulder: No swelling noted. TTP of the AC joint. TTP of the subacromial bursa. No TTP of the posterior shoulder * Left shoulder: No swelling noted. TTP of the AC joint. TTP of the subacromial bursa. No TTP of the posterior shoulder * Decreased ROM Hip bursa: Tenderness to palpation bilaterally Knees * Right knee: Good ROM. No swelling noted. No TTP of the knee joint line. No TTP of pes anserine bursa * Left knee: Good ROM. No swelling noted. No TTP of the knee joint line. No TTP of pes anserine bursa. Ankles * Right ankle: Good ankle dorsiflexion and plantar flexion. No swelling. No TTP of the ankle joint * Left ankle: Good ankle dorsiflexion and plantar flexion. No swelling. No TTP of the ankle joint Feet * Right foot: Negative squeeze test * Left foot: Negative squeeze test Tender points? * Tenderness to palpation of the bilateral trapezius, supraspinatus, anterior costochondral junctions, bilateral suboccipital muscle insertions SKIN No rashes Vital Signs: Last Vital Signs Pulse 65 05/23/25 14:25 BP 132/80 05/23/25 14: Pulse Ox 98 05/23/25 14:25 Oxygen Delivery Method Room Air 05/23/25 14:25 BMI result Body Mass Index 33.9 Office Meds Prolia 60 mg/mL subcutaneous syringe Performing Provider: Sarai Wood MD [place] [facility] [place] [facility] Administered by: Simin Schilling RN on 05/23/25 15:15 Dose Route Admin Location Dispensed Lot Number Expiration Date [facility] Supervisor Co[employer] 60 mg subcut left upper arm 1 mL [id number] 09/12/27 73852-578-58 [employer] EN Total Dispensed Waste 1 mL 0 % Results Reviewed Results Reviewed: Laboratory Tests 05/21/25 13:38 Sodium 138 Potassium 3.8 Chloride 103 Carbon Dioxide 28 BUN 20 H Creatinine 0.80 AST 29 ALT 39 H 25-OH Vitamin D Total 24.7 L DEXA 09/2023 FINDINGS: LEFT FEMUR, NECK: Current: BMD 0.910 g/cm2, Z-score 0.2, T-score -0.9, normal. Baseline: BMD 0.877 g/cm2. LEFT FEMUR, TOTAL: Current: BMD 0.980 g/cm2, Z-score 0.6, T-score -0.2, normal, 0.0% no change from baseline (<5% change is not significant). Baseline: BMD 0.980 g/cm2. AP SPINE L1-L4: Current: BMD 0.740 g/cm2, Z-score -2.8, T-score -3.7, osteoporosis, 0.3% decrease from baseline (<5% change is not significant). Baseline: BMD 0.742 g/cm2. Assessment & Plan Assessment & Plan (1) Osteoporosis: Comment: DEXA 09/2023: Left femur neck -0.9, Left femur -0.2, AP spine -3.7 Prolia 04/2024 Code(s): M81.0 - Age-related osteoporosis without current pathological fracture Category: Medical Qualifiers: Osteoporosis type: age-related Presence of current pathological fracture: without current pathological fracture Qualified Code(s): M81.0 - Age- related osteoporosis without current pathological fracture Plan: #Osteoporosis Patient is a 70-year-old female here today for follow up of her osteoporosis. Falls since the last visit no fractures either. Plan - Prolia 60mg SC every 6 months - Increase Vit D to 5000U daily - RTC 6 months - Labs before visit: CMP, Vit D (2) Polyarticular osteoarthritis: Comment: left knee steroid injection 11/17/24 - ?efficacious Code(s): M15.9 - Polyosteoarthritis, unspecified Category: Medical Plan: #OA Patient with polyarticular osteoarthritis Symptoms confounded by her fibromyalgia Does not feel that thecelebrex is helping a lot right now Had a steroid injection to her left knee that i believe helped but overall she does not think it helped which is likely being confounded again by her fi bromyalgia Plan - Continue celebrex 200mg PO bid (3) Fibromyalgia: Code(s): M79.7 - Fibromyalgia Category: Medical Plan: #Fibromyalgia Fibromyalgia complicating her underlying osteoarthritis Unable to continue with Lyrica due to psychiatric complications We will add methocarbamol as a muscle relaxers Plan - Stop Lyrica - Start methocarbamol 500mg to 1000mg nightly (4) Encounter for monitoring denosumab therapy: Code(s): Z51.81 - Encounter for therapeutic drug level monitoring; Z79.899 - Other bed bug exterminator (current) drug therapy Category: Medical Plan: #Long-term use of Denosumab Discussed with patient the risks and benefits of denosumab (Prolia) for the management of their osteoporosis Benefits include improved bone density, decreased fracture risk Risks include rapid bone loss if denosumab stopped, osteonecrosis of the jaw especially in patients with poor oral hygiene/diabetes/use of glucocorticoids/age greater than 65 years, atypical femoral fractures, injection site reactions. Mild increased risk of infections due to RANKL on T helper cells, increased risk of hypocalcemia especially in CKD patients Keep vitamin-D at least 35 ng/mL Advised to delay non emergent dental procedures to toward the end of the 6 month cycle and if they plan to stop denosumab would need to continue antiresorptive to maintain the effects of denosumabe Plan I spent 30 minutes reviewing the record and labs, seeing the patient, discussing the treatment plan, answering questions and documenting in the medical record ? Orders: Orders AMB Denosumab Injection Practice Supplied Today M81.0 - Age-related osteoporosis without current pathological fracture Referrals Pain Management Referral M54.50 - Low back pain, unspecified, M54.6 - Pain in thoracic spine Medications: New cholecalciferol (vitamin D3) 125 mcg PO DAILY 90 caps 1RF E55.9 - Vitamin D deficiency, unspecified methocarbamol Start with one tablet at night and if tolerated increase to 2 tablets at night 1,000 mg (2 x 500 mg) PO BEDTIME 180 tabs 1RF M79.7 - Fibromyalgia Discontinued pregabalin (Lyrica) Discontinued Reason: Doctor's Order 300 mg (4 x 75 mg) PO QDAY 90 days 360 caps 2RF M79.7 - Fibromyalgia Coding Level of Care Code Est Pt Level 4 (67774) Add On Problem Visit Only Diagnoses Age-related osteoporosis without current pathological fracture M81.0 Osteoporosis type: age-related Presence of current pathological fracture: without current pathological fracture Polyarticular osteoarthritis M15.9 Fibromyalgia M79.7 Encounter for monitoring denosumab therapy Z51.81; Z79.893
[2025-05-23 14:25] VITALS: BP 132/80; PULSE 65; O2SAT 98; BMI 33.9
== END 2025-05-23 15:14 | disposition home or self-care (01) ==
LOC: HO.RHES 14:09
PROVIDERS: PCP Internal Medicine; Visit Provider Student in an Organized Health Care Education/Training Program
DX: M81.0 Age-related osteoporosis without current pathological fracture (principal); M15.9 Polyosteoarthritis, unspecified; M79.7 Fibromyalgia; Z51.81 Encounter for therapeutic drug level monitoring; Z79.899 Other long term (current) drug therapy
CPT/HCPCS: 99214; G2211

== ENCOUNTER → 2025-05-23 14:08 | Outpatient (BNVA) | payer OTHER, SELFPAY | PROVIDERS: PCP Internal Medicine; Visit Provider Student in an Organized Health Care Education/Training Program | DX: M81.0 Age-related osteoporosis without current pathological fracture (principal); M51.9 Unspecified thoracic, thoracolumbar and lumbosacral intervertebral disc disorder; M79.7 Fibromyalgia; Z51.81 Encounter for therapeutic drug level monitoring; M54.50 Low back pain, unspecified; Z79.899 Other long term (current) drug therapy | CPT/HCPCS: 96372; 99212; J0897 ==

== ENCOUNTER 2025-05-25 14:49 | Outpatient (REF) | payer OTHER, SELFPAY ==
--- NOTE | ~2025-05-25 | CT_ITS ---
EXAMINATION: CT HEAD WITHOUT THEN WITH IV CONTRAST HISTORY: M89.9 - Disorder of bone, unspecified. TECHNIQUE: Helical CT of the head was performed before and after the administration of intravenous contrast per standard departmental protocol. Coronal and sagittal reformats of the head were also evaluated. One or more of the following techniques was used for dose reduction: Automated exposure control, adjustment of the mA and/or kV according to patient size, use of iterative reconstruction technique. DLP: 1567 mGy-cm COMPARISON: Correlation is made with an MRI of the brain without contrast dated 01/11/2025. FINDINGS: BRAIN: The brain parenchyma is unremarkable. There is normal dewitt/white differentiation. The ventricular system is normal in size and configuration. There is no mass effect or midline shift. No intra- or extra-axial fluid collections are identified. There is no abnormal contrast enhancement. SINUSES: The visualized paranasal sinuses are clear. The mastoid air cells and middle ear cavities are well pneumatized. ORBITS: The visualized orbits are unremarkable. BONES/SOFT TISSUES: The extracranial soft tissues are unremarkable. There is an ill-defined 7 mm lucency in the left frontal bone corresponding to the abnormality seen on MRI. An additional smaller lucency is seen in the following along the midline. There may be additional small ill-defined lucencies within the skull. The appearance is nonspecific. CT/CT head/brain wo/w IV con IMPRESSION: Nonspecific lucencies in the calvarium. Clinical correlation is recommended to exclude metastatic disease or myeloma. Electronically signed by: Erasto Lr MD 05/25/2025 03:36 PM [facility] [place]
[2025-05-25] MEDS: iohexoL 350 MG/ML 100 ML INFUS..BTL IV (15:13)
== END 2025-05-25 14:50 | disposition home or self-care (01) ==
LOC: HO.CT 14:49
PROVIDERS: PCP Internal Medicine; Visit Provider Nurse Practitioner Family
DX: M89.9 Disorder of bone, unspecified (principal)
CPT/HCPCS: 70470; Q9967

== ENCOUNTER → 2025-05-25 14:53 | Outpatient (BNV) | payer OTHER, SELFPAY | PROVIDERS: PCP Internal Medicine; Visit Provider Radiology Diagnostic Radiology | DX: M89.9 Disorder of bone, unspecified (principal) | CPT/HCPCS: 70470 ==

== ENCOUNTER → 2025-05-28 11:03 | Outpatient (REF) | payer OTHER, SELFPAY ==
--- NOTE | 2025-05-28 11:07 | CA_ITS ---
Transthoracic Echocardiogram Patient (Last, First, Middle): Florencia Short, Gender: F Date of : 1955 Age: 70 Procedure Date: 05/28/2025 Procedure Type: Transthoracic Echocardiogram Location: OP Height: 162.56 cm Weight: 89.36 kg BSA: 1.94 m2 Heart Rate: bpm BP: 132 / 80 mmHg Wrecker Driver: NATIVIDAD Referring MD: Zhao Major MD Donkey Engine Firer/Fireman: Tino Martinez MD Symptoms: R00.2 - Palpitations Study Quality: Fair but adequate ECG Rhythm: Sinus Conclusions: - 1. Normal LV ejection fraction of 60 65% with Mild asymmetric septal hypertrophy with grade 1 diastolic dysfunction 2. Normal cardiac valvular Dopplers 3. Normal RV systolic pressure 4. No gross pericardial effusion Findings Left Ventricle Normal left ventricular size, thickness, and systolic function. The visually estimated ejection fraction is between 60-65%. Regional wall motion abnormalities can not be excluded due to suboptimal endocardial definition. Spectral Doppler is indicative of an impaired relaxation filling pattern. E/E prime ratio is <8, consistent with normal filling pressures. Evidence suggests grade I (mild) diastolic dysfunction. There is mild septal asymmetric hypertrophy. Right Ventricle Normal right ventricular cavity size. Atria The left atrium is normal in size. Interatrial shunt cannot be excluded. The right atrium was not well visualized. Aortic Valve The aortic valve was not well visualized. There is no aortic valve stenosis. There is no aortic valve regurgitation. Mitral Valve Likely normal mitral valve structure and function. There is trace mitral valve regurgitation. There is no mitral valve stenosis. Pulmonic Valve The pulmonic valve was not well visualized. Tricuspid Valve Likely normal tricuspid valve structure and function. There is trace tricuspid valve regurgitation. The right ventricular systolic pressure is normal. The right ventricular systolic pressure is 33 mmHg. Normal right atrial pressure. There is no evidence of pulmonary hypertension. Great Vessels All visible segments of the aorta are normal in size. The pulmonary artery was not well visualized. There is no dilatation of the ascending aorta measuring 3.20 cm. Venous The inferior vena cava is normal in size and collapses greater than 50% with inspiration. Pericardium/Pleural There is no evidence of pericardial effusion. Prior Study Comparison No prior study available for comparison. Measurements 2D Linear Measurements IVSd: 1.12 0.6-0.9/0.6-1.0 cm LVIDd: 4.08 3.9-5.3/4.2-5.9 cm LVIDd Index: 2.10 2.4-3.2/2.2-3.1 cm/m2 LVIDs: 2.76 2.0-3.6 cm LVPWd: 0.99 0.7-1.1 cm LA Diam: 4.30 2.7-3.8/3.0-4.0 cm LAIDs Index: 2.22 1.5-2.3 cm/m2 LV Mass: 176.27 67-162/88-224 g LV Mass Index: 90.86 43-95/49-115 g/m2 LVOT Diam: 2.20 3.0+(-)1.3 cm 2D Systolic Function EF 4C: 54.30 >55% EF 2C: 73.20 >55% EF BiP: 65.30 >55% Mitral Valve MV Pk E: 0.63 MV PK A: 0.74 MV Decel Time: 266.00 E/A: 0.80 E'Lateral: 11.30 E'Medial: 5.98 E/E' Med: 10.50 E/E' Lat: 5.50 PHT: 78.00 MVA PHT: 2.82 Decel [place]: 2.35 Aortic Valve AoV Pk Inocente: 1.28 AoV Mn Inocente: 0.85 AoV VTI: 0.30 AoV Pk Grad: 7.00 Aov Mn Grad: 3.00 MARIE Cont.VTI: 3.03 LVOT LVOT Pk Inocente: 0.97 LVOT Mn Inocente: 0.61 LVOT VTI: 0.24 LVOT Pk Grad: 4.00 LVOT Mn Grad: 2.00 LVOT Diam: 2.20 LVOT Area: 3.80 Diastolic Function MV Pk E: 0.63 MV Pk A: 0.74 E/A: 0.80 E'Medial: 5.98 E/E' Med: 10.50 E' Laterial: 11.30 E/E' Lat: 5.50 Right Ventricle TAPSE (mm): 20.00 TVS' Inocente: 8.59 Tricuspid Valve TR Pk Inocente: 2.48 TR Pk Grad: 25.00 RA Press: 8.00 RVSP: 33.00 Great Vessels Aorta Sinus of Valsalva: 3.67 2.0-3.[address] [place]: 2.33 1.7-3.4 cm Ao Asc: 3.20 2.1-3.4 cm Updated in Other Vendor System with Status of Final Tino Martinez MD electronically signed on 05/28/2025 2:11:50 PM with status of Final
== END ==
LOC: HO.CARD 11:03
PROVIDERS: PCP Internal Medicine; Visit Provider Internal Medicine
DX: R00.2 Palpitations (principal)
CPT/HCPCS: 93242; 93306

== ENCOUNTER → 2025-05-28 11:07 | Outpatient (BNV) | payer OTHER, SELFPAY | PROVIDERS: PCP Internal Medicine; Visit Provider Internal Medicine Cardiovascular Disease | DX: I42.2 Other hypertrophic cardiomyopathy (principal) | CPT/HCPCS: 93306 ==